=== PATIENT | male | born 1950 | race American Indian/Alaskan Native ===

== ENCOUNTER 2018-12-18 12:00 | Inpatient (IN) | payer BC, MEDICARE ==
--- NOTE | 2018-12-18 12:15 | C.PDOC ---
History Of Present Illness 68 y/o male with a PMHx of peripheral vascular disease, COPD, DVTs, s/p IVC filter, presents to the ED complaining of abdominal pain for 2 days. He also reports his toes are numb and painful. Patient was [place] [facility] [place] ago for a n eye infection, but did not start the medication. He also reports was told he has a broken IVC filter, and that if he ever has abdominal pain to come to the hospital. Time Seen by Provider: 12/18/18 12:12 Chief Complaint (Nursing): Lower Extremity Problem/Injury History Per: Patient History/Exam Limitations: no limitations Onset/Duration Of Symptoms: Hrs Current Symptoms Are (Timing): Still Present Past Medical History Reviewed: Historical Data, Nursing Documentation, Vital Signs - Medical History PMH: Deep Vein Thrombosis, HTN Other Surgeries: Right IVC filter Family History: States: Unknown Family Hx - Social History Hx Tobacco Use: Yes Hx Alcohol Use: No Hx Substance Use: No Review Of Systems Constitutional: Negative for: Fever, Chills Eyes: Positive for: Other (Eye discharge) Cardiovascular: Negative for: Chest Pain Respiratory: Negative for: Shortness of Breath Gastrointestinal: Positive for: Abdominal Pain. Negative for: Nausea, Vomiting Musculoskeletal: Positive for: Other (Dysfunctional IVC filter) Skin: Negative for: Rash, Lesions Neurological: Negative for: Headache, Dizziness Physical Exam - Physical Exam Appears: Non-toxic, No Acute Distress, Other (Thin male) Skin: Warm, No Rash Head: Atraumatic, Normacephalic Eye(s): bilateral: PERRL, EOMI, right: Other (Pus draining from right eye) Oral Mucosa: Moist Neck: Normal ROM, Supple Cardiovascular: Rhythm Regular, No Murmur Respiratory: Decreased Breath Sounds (bilaterally), No Accessory Muscle Use Gastrointestinal/Abdominal: Bowel Sounds (normoactive), Soft, Tenderness (minimal non-focal tenderness), No Guarding Extremity: Normal ROM, No Calf Tenderness, Other (Chronic skin changes and darkened skin bilaterally, with 3 x 1 cm shallow laceration to the left lateral lower leg; Bilateral toes are cool to touch, + palpable left TP pulse and weak right DP pulse) Pulses: Left Dorsalis Pedis: Normal, Right Dorsalis Pedis: Normal Neurological/Psych: Oriented x3, Normal Speech, Normal Cognition ED Course And Treatment - Laboratory Results Result Diagrams: 12/18/18 13:23 12/18/18 13:23 O2 Sat by Pulse Oximetry: 97 (RA) Pulse Ox Interpretation: Normal - CT Scan/US CT Abdomen/Pelvis Other Rad Studies (CT/US): Read By Radiologist, Radiology Report Reviewed CT/US Interpretation: IMPRESSION: 1. No acute abdominal or pelvic abnormality. 2. An infrarenal IVC filter remains in place. The metallic struts are outside the confines of the IVC and 1 left lateral appears to breech the right lateral wall of the aorta. Vascular surgery consultation is recommended. IVC filter should not be removed without a vascular surgery consultation. 3. Fusiform supra and infrarenal abdominal aortic aneurysm measuring 4.4 cm in maximum diameter. 4. 3 mm nonobstructing stone in the upper pole of the right kidney and 5 mm nonobstructing stone in the lower pole of the left kidney. No hydronep hrosis. 5. Mild circumferential mural thickening of the urinary bladder wall which may represent cystitis in the appropriate clinical setting. Clinical follow-up is advised. 6. Moderate enlargement of the prostate gland. Please correlate with PSA levels. Medical Decision Making Medical Decision Making: Plan: Blood work and urine sent to the lab along with wound culture. Ordered vascular study of the bilateral lower extremities. Spoke with radiology, recommends noncontrast CT Abdomen/Pelvis to assess for ? broken IVC 1450 CT scan results reviewed. surgical forceps fabricator notified for consult. [address] Brambila and surgical forceps fabricator; want abdominal ileofemoral run off. ct results pending. pt to be admitted to medicine with surg f/u/ pt agrees to admission. [address] Chadwick (hospitalist service covering Dr Bradford's patient's); will admit to overnight hospitalist. Disposition Doctor Will See Patient In The: Hospital - Disposition Disposition: HOSPITALIZED Disposition Time: 18:51 Condition: FAIR Forms: [employer] (Gibraltarian) - Clinical Impression Clinical Impression: Abdominal pain, Peripheral vascular disease - PA / [employer] / Resident Statement MD/DO has reviewed & agrees with the documentation as recorded. - Scribe Statement The provider has reviewed the documentation as recorded by the Draganibтатьяна Alfonso All medical record entries made by the Scribe were at my direction and personally dictated by me. I have reviewed the chart and agree that the record accurately reflects my personal performance of the history, physical exam, medical decision making, and the department course for this patient. I have also personally directed, reviewed, and agree with the discharge instructions and disposition.
[2018-12-18] MEDS ORDERED: Iohexol 240 (50 ml) PO STA (13:04)
[2018-12-18 13:30] LABS: BASO # 0.1 K/uL (0.0-0.2); EOS # 0.1 K/uL (0.0-0.7); EOS % 0.9 % (0.0-4.0); LYMPH # 1.7 K/uL (1.0-4.3); LYMPH % 23.6 % (20.0-40.0); MEAN CELL VOLUME 87.6 fL (80.0-94.0); MEAN CORPUSCULAR HEMOGLOBIN 27.7 pg (27.0-31.0); MEAN CORPUSCULAR HGB CONC 31.7 g/dL (33.0-37.0); MEAN PLATELET VOLUME 8.4 fL (7.2-11.7); MONO # 0.9 K/uL (0.0-0.8); MONO % 12.3 % (0.0-10.0); NEUT # 4.5 K/uL (1.8-7.0); NEUT % 62.2 % (50.0-75.0); NRBC % 0.2 % (0.0-2.0); RBC 5.77 Mil/uL (4.40-5.90); RED CELL DISTRIBUTION WIDTH 15.3 % (11.5-14.5); WHITE BLOOD COUNT 7.2 K/uL (4.8-10.8)
[2018-12-18 13:41] LABS: INR 1.2; PROTHROMBIN TIME 13.6 SECONDS (9.7-12.2)
[2018-12-18 13:44] LABS: ALB/GLOB RATIO 1.1 (1.0-2.1); ALBUMIN 4.6 g/dL (3.5-5.0); ALT/SGPT 7 U/L (21-72); AST/SGOT 27 U/L (17-59); BLOOD UREA NITROGEN 14 mg/dL (9-20); CALCIUM 9.9 mg/dl (8.6-10.4); GFR NON-AFRICAN AMERICAN > 60; LIPASE 74 U/L (23-300)
[2018-12-18] MEDS ORDERED: Potassium Chloride 20 mEq ER Tab PO STA (13:45)
[2018-12-18] MEDS ORDERED: Potassium Chloride 20 mEq ER Tab PO ONE (14:00)
--- NOTE | 2018-12-18 14:17 | CT ---
Date of service: 12/18/2018 PROCEDURE: CT Abdomen and Pelvis without intravenous contrast HISTORY: Diffuse abdominal pain, hx ?broken ivc filter COMPARISON: None. TECHNIQUE: CT scan of the abdomen and pelvis was performed without administration of intravenous contrast. Oral contrast was not administered. Coronal and sagittal reformatted images were obtained. Radiation dose: Total exam DLP = 343.02 mGy-cm. This CT exam was performed using one or more of the following dose reduction techniques: Automated exposure control, adjustment of the mA and/or kV according to patient size, and/or use of iterative reconstruction technique. FINDINGS: LOWER THORAX: The visualized lungs are clear. LIVER: Normal in size. No gross lesion or ductal dilatation. GALLBLADDER AND BILE DUCTS: Well distended. No calcified gallstones. No common bile duct dilatation. PANCREAS: Normal in size. No gross lesion or ductal dilatation. SPLEEN: Normal in size. ADRENALS: Normal in size. No discrete nodule KIDNEYS AND URETERS: Both kidneys are normal in size. There is a 3 mm nonobstructing stone in the upper pole of the right kidney. There is a 5 mm nonobstructing stone in the lower pole of the left kidney. VASCULATURE: There is a fusiform supra and infrarenal aortic aneurysm measuring is 4.4 cm in transverse diameter. There are aortic atherosclerotic calcifications present. An infrarenal IVC filter remains in place. The metallic struts are outside the confines of the IVC and one left lateral appears to breech the right lateral wall of the aorta. BOWEL: Evaluation of the bowel is limited in the absence of oral contrast. The small bowel loops are normal in caliber. The colon is normal in size. No bowel dilatation or wall thickening. No bowel obstruction. APPENDIX: Normal appendix. PERITONEUM: No free fluid. No free air. LYMPH NODES: No enlarged lymph nodes. BLADDER: There is mild circumferential mural thickening of the urinary bladder wall. The urinary bladder is well distended. REPRODUCTIVE: There is moderate enlargement of the prostate gland. BONES: No acute fracture. Within normal limits for the patient's age. Status post left hip arthroplasty. OTHER FINDINGS: None. IMPRESSION: 1. No acute abdominal or pelvic abnormality. 2. An infrarenal IVC filter remains in place. The metallic struts are outside the confines of the IVC and 1 left lateral appears to breech the right lateral wall of the aorta. Vascular surgery consultation is recommended. IVC filter should not be removed without a vascular surgery consultation. 3. Fusiform supra and infrarenal abdominal aortic aneurysm measuring 4.4 cm in maximum diameter. 4. 3 mm nonobstructing stone in the upper pole of the right kidney and 5 mm nonobstructing stone in the lower pole of the left kidney. No hydronephrosis. 5. Mild circumferential mural thickening of the urinary bladder wall which may represent cystitis in the appropriate clinical setting. Clinical follow-up is advised. 6. Moderate enlargement of the prostate gland. Please correlate with PSA levels.
--- NOTE | 2018-12-18 15:34 | CP.PCM.CON ---
History of Present Illness - History of Present Illness History of Present Illness: Vascular Surgery Dr. Brambila 68 y/o M w/ PMHx HTN, PVD, COPD, DVT s/p IVC filter (2003 @[facility]) presents to the ED c/o abd pain and LE pain L>R. Abd pain started 2days [employer]. Pt was recently seen and discharged form [facility] for right eye infection and was informed at that time of his broken IVC filter. Upon discharge pt was instructed to go to the ED if abd pain developed, thus prompting pt's visit today. Pt also admits to concurrent, chronic B/L LE pain and numbness w/ LLE worse than RLE. Pt denies F/C, CP, SOB, N/V, D/C, dysuria, decreased LE ROM. PMHx: see above Meds: reviewed in chart Allergies: heparin - rash PSHx: L THR, IVC Filter SHx: (+)tobacco, marijuana; denies EtOH use FHx: noncontributory Review of Systems - Review of Systems All systems: reviewed and no additional remarkable complaints except (see HPI) Past Patient History - Past Social History Smoking Status: Light Smoker < 10 Cigarettes Daily - CARDIAC Hx Hypertension: Yes - PSYCHIATRIC Hx Substance Use: No - SURGICAL HISTORY Hx Orthopedic Surgery: Yes (hip) Other/Comment: right IVC filter - ANESTHESIA Hx Anesthesia: Yes Meds Allergies/Adverse Reactions: Allergies Allergy/AdvReac Type Severity Reaction Status Date / Time heparin Allergy Verified 12/18/18 12:18 Physical Exam - Constitutional Appears: Non-toxic, No Acute Distress - Head Exam Head Exam: NORMAL INSPECTION - Eye Exam Eye Exam: Conjunctival injection (R eye; purulent drainage) - ENT Exam ENT Exam: Mucous Membranes Moist - Respiratory Exam Respiratory Exam: NORMAL BREATHING PATTERN. absent: Accessory Muscle Use, Respiratory Distress - Cardiovascular Exam Cardiovascular Exam: REGULAR RHYTHM. absent: Bradycardia, Tachycardia - GI/Abdominal Exam GI & Abdominal Exam: Soft, Tenderness (mild TTP néstor-umbilical). absent: Di stended, Firm, Guarding, Hernia, Rebound, Rigid - Extremities Exam Additional comments: faintly palpable R femoral artery bounding L femoral artery no palpable popliteal, DP/PT B/L. B/L LE w/ venous stasis skin changes. - Neurological Exam Neurological exam: Alert, Oriented x3 - Psychiatric Exam Psychiatric exam: Normal Affect, Normal Mood - Skin Skin Exam: Dry, Intact, Normal Color, Warm Results - Vital Signs Recent Vital Signs: Last Vital Signs Temp 97.6 F 12/18/18 12:09 Pulse 81 12/18/18 12:09 Resp 20 12/18/18 12:09 BP 146/89 12/18/18 12:09 Pulse Ox 97 12/18/18 15:00 - Labs Result Diagrams: 12/18/18 13:23 12/18/18 13:23 Labs: Laboratory Results - last 24 hr 12/18/18 12/18/18 12/18/18 13:23 13:23 13:23 WBC 7.2 RBC 5.77 Hgb 16.0 Hct 50.5 MCV 87.6 MCH 27.7 MCHC 31.7 L RDW 15.3 H Plt Count 245 MPV 8.4 Neut % (Auto) 62.2 Lymph % (Auto) 23.6 Barber % (Auto) 12.3 H Eos % (Auto) 0.9 Baso % (Auto) 1.0 Neut # (Auto) 4.5 Lymph # (Auto) 1.7 Barber # (Auto) 0.9 H Eos # (Auto) 0.1 Baso # (Auto) 0.1 PT 13.6 H INR 1.2 APTT 30 Sodium 132 Potassium 3.2 L Chloride 97 L Carbon Dioxide 23 Anion Gap 16 BUN 14 Creatinine 0.7 L Est GFR ( Amer) > 60 Est GFR (Non-Af Amer) > 60 Random Glucose 90 Calcium 9.9 Total Bilirubin 1.0 AST 27 ALT 7 L Alkaline Phosphatase 138 H Total Protein 8.9 H Albumin 4.6 Globulin 4.3 H Albumin/Globulin Ratio 1.1 Lipase 74 - Imaging and Cardiology CT scan - abdomen Status: Image reviewed by me, Report reviewed by me CTA Abd ileofem Status: Pending LUCIO/PVR Status: Image reviewed by me Assessment & Plan - Assessment and Plan (Free Text) Assessment: 68 y/o M w/ PVD, juxtarenal AAA, and displaced IVC Filter; also noted to have purulent conjunctivitis Plan: - f/u CTA iliofemoral run-off for better look at IVC filter and AAA - pain management - serial abd exams - monitor vitals - eye drops as prescribed by [facility] - possible angio pending CTA results Pt seen and discussed w/ Dr. Kosta Gerard DO PGY3
[2018-12-18 15:53] LABS: SQUAMOUS EPITHIAL < 1 /hpf (0-5); URINE BILIRUBIN NEGATIVE (NEGATIVE); URINE BLOOD NEGATIVE (NEGATIVE); URINE CLARITY Hazy (Clear); URINE COLOR Amber (YELLOW); URINE GLUCOSE (UA) NORMAL (Normal); URINE HYALINE CAST 0-2 /lpf (0-2); URINE LEUKOCYTE ESTERASE NEG Leu/uL (Negative); URINE PROTEIN 2+ mg/dL (NEGATIVE)
[2018-12-18 16:08] LABS: BARBITURATES, UR NEGATIVE (NEGATIVE); BENZODIAZEPINES, UR NEGATIVE (NEGATIVE); OPIATES, UR NEGATIVE (NEGATIVE); PHENCYCLIDINE, UR NEGATIVE (NEGATIVE)
[2018-12-18] MEDS ORDERED: Iodixanol 320 mg/ml 150 ml Bottle IV ONE (16:11)
--- NOTE | 2018-12-18 19:48 | CP.PCM.HP ---
<Dom Covarrubias - Last Filed: 12/19/18 00:03> History of Present Illness - History of Present Illness History of Present Illness: cc: my leg hurts my tummy hurts my ivc filter hurts help me 68M PMHx of COPD, HTN, Hypercoag, presents with a 3 day history of worsening posterior calf numbness and pain localized to the right side. Pt reports the r leg felt paralyzed on weds and the pain is worse when dorsiflexing the foot. Pt also reports throbbing worsening abdominal pain that started at the same time. He also has eye discharge for 3 days, he got cipro drops from [facility] [place] but never laureen led it. Pt complains of chronic SOB for 1 month or so on and off for the past few years, attiributes it to his COPD. Pt denies fevers chills, chest pain PMHx: see above Meds: reviewed in chart Allergies: heparin - rash PSHx: L THR, IVC Filter SHx: (+)tobacco, marijuana; denies EtOH use FHx: Mom and Dad [place], sister [place] Present on Admission - Present on Admission Any Indicators Present on Admission: No Past Patient History - Past Social History Smoking Status: Light Smoker < 10 Cigarettes Daily - CARDIAC Hx Hypertension: Yes - PSYCHIATRIC Hx Substance Use: No - SURGICAL HISTORY Hx Orthopedic Surgery: Yes (hip) Other/Comment: right IVC filter - ANESTHESIA Hx Anesthesia: Yes Meds Allergies/Adverse Reactions: Allergies Allergy/AdvReac Type Severity Reaction Status Date / Time heparin Allergy Verified 12/18/18 12:18 Physical Exam - Additional Findings Additional findings: - Constitutional Appears: Non-toxic, No Acute Distress - Head Exam Head Exam: NORMAL INSPECTION - Eye Exam Eye Exam: Conjunctival injection (R eye; purulent drainage) - ENT Exam ENT Exam: Mucous Membranes Moist - Respiratory Exam Respiratory Exam: NORMAL BREATHING PATTERN. absent: Accessory Muscle Use, Respiratory Distress - Cardiovascular Exam Cardiovascular Exam: REGULAR RHYTHM. absent: Bradycardia, Tachycardia - GI/Abdominal Exam GI & Abdominal Exam: Soft, Tenderness (mild TTP néstor-umbilical). absent: Di stended, Firm, Guarding, Hernia, Rebound, Rigid - Extremities Exam Additional comments: faintly palpable R femoral artery bounding L femoral artery no palpable popliteal, DP/PT B/L. B/L LE w/ venous stasis skin changes. - Neurological Exam Neurological exam: Alert, Oriented x3 - Psychiatric Exam Psychiatric exam: Normal Affect, Normal Mood - Skin Skin Exam: Dry, Intact, Normal Color, Warm Results - Vital Signs Recent Vital Signs: Last Vital Signs Temp 98.1 F 12/18/18 18:47 Pulse 68 12/18/18 18:47 Resp 18 12/18/18 18:47 BP 122/81 12/18/18 18:47 Pulse Ox 97 12/18/18 18:51 - Labs Result Diagrams: 12/18/18 13:23 12/18/18 13:23 Labs: Laboratory Results - last 24 hr 12/18/18 12/18/18 12/18/18 13:23 13:23 13:23 WBC 7.2 RBC 5.77 Hgb 16.0 Hct 50.5 MCV 87.6 MCH 27.7 MCHC 31.7 L RDW 15.3 H Plt Count 245 MPV 8.4 Neut % (Auto) 62.2 Lymph % (Auto) 23.6 Archer % (Auto) 12.3 H Eos % (Auto) 0.9 Baso % (Auto) 1.0 Neut # (Auto) 4.5 Lymph # (Auto) 1.7 Archer # (Auto) 0.9 H Eos # (Auto) 0.1 Baso # (Auto) 0.1 PT 13.6 H INR 1.2 APTT 30 Sodium 132 Potassium 3.2 L Chloride 97 L Carbon Dioxide 23 Anion Gap 16 BUN 14 Creatinine 0.7 L Est GFR ( Amer) > 60 Est GFR (Non-Af Amer) > 60 Random Glucose 90 Calcium 9.9 Total Bilirubin 1.0 AST 27 ALT 7 L Alkaline Phosphatase 138 H Total Protein 8.9 H Albumin 4.6 Globulin 4.3 H Albumin/Globulin Ratio 1.1 Lipase 74 Urine Color Urine Clarity Urine pH Ur Specific [place] Urine Protein Urine Glucose (UA) Urine Ketones Urine Blood Urine Nitrate Urine Bilirubin Urine Urobilinogen Ur Leukocyte Esterase Urine WBC (Auto) Urine RBC (Auto) Ur Squamous Epith Cells Hyaline Casts Urine Opiates Screen Urine Methadone Screen Ur Barbiturates Screen Ur Phencyclidine Scrn Ur Amphetamines Screen U Benzodiazepines Scrn U Oth Cocaine Metabols U Cannabinoids Screen 12/18/18 12/18/18 15:37 15:37 WBC RBC Hgb Hct MCV MCH MCHC RDW Plt Count MPV Neut % (Auto) Lymph % (Auto) Archer % (Auto) Eos % (Auto) Baso % (Auto) Neut # (Auto) Lymph # (Auto) Archer # (Auto) Eos # (Auto) Baso # (Auto) PT INR APTT Sodium Potassium Chloride Carbon Dioxide Anion Gap BUN Creatinine Est GFR ( Amer) Est GFR (Non-Af Amer) Random Glucose Calcium Total Bilirubin AST ALT Alkaline Phosphatase Total Protein Albumin Globulin Albumin/Globulin Ratio Lipase Urine Color Svetlana Urine Clarity Hazy Urine pH 6.0 Ur Specific [place] 1.021 Urine Protein 2+ H Urine Glucose (UA) Normal Urine Ketones Negative Urine Blood Negative Urine Nitrate Negative Urine Bilirubin Negative Urine Urobilinogen 4.0 Ur Leukocyte Esterase Neg Urine WBC (Auto) 1 Urine RBC (Auto) 3 Ur Squamous Epith Cells < 1 Hyaline Casts 0-2 Urine Opiates Screen Negative Urine Methadone Screen Negative Ur Barbiturates Screen Negative Ur Phencyclidine Scrn Negative Ur Amphetamines Screen Negative U Benzodiazepines Scrn Negative U Oth Cocaine Metabols Negative U Cannabinoids Screen Positive H Assessment & Plan - Assessment and Plan (Free Text) Assessment: 68M admitted for possible IVC dislocation Plan: IVC Dysfuction Kosta VascS consulted: f/u recs Eliquis 5mg daily ASA 81 Conjunctivitis Cipro OU drops HTN maintain MAP 65 PPx: HHD ASA 81 Eliquis 5mg qd <Devon Roque - Last Filed: 12/19/18 06:34> Results - Vital Signs Recent Vital Signs: Last Vital Signs Temp 97.1 F L 12/19/18 00:00 Pulse 70 12/19/18 00:00 Resp 20 12/19/18 00:00 BP 138/85 12/19/18 00:00 Pulse Ox 97 12/19/18 00:00 - Labs Result Diagrams: 12/18/18 13:23 12/18/18 13:23 Labs: Laboratory Results - last 24 hr 12/18/18 12/18/18 12/18/18 13:23 13:23 13:23 WBC 7.2 RBC 5.77 Hgb 16.0 Hct 50.5 MCV 87.6 MCH 27.7 MCHC 31.7 L RDW 15.3 H Plt Count 245 MPV 8.4 Neut % (Auto) 62.2 Lymph % (Auto) 23.6 Archer % (Auto) 12.3 H Eos % (Auto) 0.9 Baso % (Auto) 1.0 Neut # (Auto) 4.5 Lymph # (Auto) 1.7 Archer # (Auto) 0.9 H Eos # (Auto) 0.1 Baso # (Auto) 0.1 PT 13.6 H INR 1.2 APTT 30 Sodium 132 Potassium 3.2 L Chloride 97 L Carbon Dioxide 23 Anion Gap 16 BUN 14 Creatinine 0.7 L Est GFR ( Amer) > 60 Est GFR (Non-Af Amer) > 60 Random Glucose 90 Calcium 9.9 Total Bilirubin 1.0 AST 27 ALT 7 L Alkaline Phosphatase 138 H Total Protein 8.9 H Albumin 4.6 Globulin 4.3 H Albumin/Globulin Ratio 1.1 Lipase 74 Urine Color Urine Clarity Urine pH Ur Specific [place] Urine Protein Urine Glucose (UA) Urine Ketones Urine Blood Urine Nitrate Urine Bilirubin Urine Urobilinogen Ur Leukocyte Esterase Urine WBC (Auto) Urine RBC (Auto) Ur Squamous Epith Cells Hyaline Casts Urine Opiates Screen Urine Methadone Screen Ur Barbiturates Screen Ur Phencyclidine Scrn Ur Amphetamines Screen U Benzodiazepines Scrn U Oth Cocaine Metabols U Cannabinoids Screen 12/18/18 12/18/18 15:37 15:37 WBC RBC Hgb Hct MCV MCH MCHC RDW Plt Count MPV Neut % (Auto) Lymph % (Auto) Archer % (Auto) Eos % (Auto) Baso % (Auto) Neut # (Auto) Lymph # (Auto) Archer # (Auto) Eos # (Auto) Baso # (Auto) PT INR APTT Sodium Potassium Chloride Carbon Dioxide Anion Gap BUN Creatinine Est GFR ( Amer) Est GFR (Non-Af Amer) Random Glucose Calcium Total Bilirubin AST ALT Alkaline Phosphatase Total Protein Albumin Globulin Albumin/Globulin Ratio Lipase Urine Color Svetlana Urine Clarity Hazy Urine pH 6.0 Ur Specific [place] 1.021 Urine Protein 2+ H Urine Glucose (UA) Normal Urine Ketones Negative Urine Blood Negative Urine Nitrate Negative Urine Bilirubin Negative Urine Urobilinogen 4.0 Ur Leukocyte Esterase Neg Urine WBC (Auto) 1 Urine RBC (Auto) 3 Ur Squamous Epith Cells < 1 Hyaline Casts 0-2 Urine Opiates Screen Negative Urine Methadone Screen Negative Ur Barbiturates Screen Negative Ur Phencyclidine Scrn Negative Ur Amphetamines Screen Negative U Benzodiazepines Scrn Negative U Oth Cocaine Metabols Negative U Cannabinoids Screen Positive H Assessment & Plan - Date & Time Date: 12/19/18 (I have seen and examined the patient. I agree with the findings and plan of care as documented by Dr. Covarrubias. Patient with History of IVC filter placement. Now with filter dysfunction. Consult to vascular surgery. Continue Elliquis. Also with bilateral conjunctivitis. Cipro eye drops. Monitor for acute changes.) Time: 06:33 Attending/Attestation - Attestation I have personally seen and examined this patient.: Yes I have fully participated in the care of the patient.: Yes I have reviewed all pertinent clinical information: Yes
[2018-12-18] MEDS: Ciprofloxacin 0.3% OPTH SOLN OU SCH (22:05)
[2018-12-18] MEDS: Sodium Chloride 0.9% 1,000 ML IV SCH (22:07)
[2018-12-19 06:31] LABS: BASO # 0.1 K/uL (0.0-0.2); BASO % 1.2 % (0.0-2.0); EOS # 0.2 K/uL (0.0-0.7); EOS % 3.5 % (0.0-4.0); HEMOGLOBIN 15.1 g/dL (12.0-18.0); LYMPH # 1.5 K/uL (1.0-4.3); MEAN CELL VOLUME 87.5 fL (80.0-94.0); MEAN CORPUSCULAR HEMOGLOBIN 28.5 pg (27.0-31.0); MEAN CORPUSCULAR HGB CONC 32.6 g/dL (33.0-37.0); MEAN PLATELET VOLUME 8.3 fL (7.2-11.7); MONO # 0.7 K/uL (0.0-0.8); MONO % 14.5 % (0.0-10.0); NEUT # 2.4 K/uL (1.8-7.0); NEUT % 49.8 % (50.0-75.0); NRBC % 0.1 % (0.0-2.0); RBC 5.29 Mil/uL (4.40-5.90); RED CELL DISTRIBUTION WIDTH 15.3 % (11.5-14.5); WHITE BLOOD COUNT 4.7 K/uL (4.8-10.8)
[2018-12-19 06:46] LABS: ALB/GLOB RATIO 1.1 (1.0-2.1); ALBUMIN 3.9 g/dL (3.5-5.0); ALT/SGPT 15 U/L (21-72); AST/SGOT 21 U/L (17-59); BLOOD UREA NITROGEN 14 mg/dL (9-20); CALCIUM 9.2 mg/dl (8.6-10.4); GFR NON-AFRICAN AMERICAN > 60
[2018-12-19] MEDS: Sodium Chloride 0.9% 1,000 ML IV SCH ×2 (06:48→17:54)
[2018-12-19 07:09] LABS: INR 1.2; PROTHROMBIN TIME 13.6 SECONDS (9.7-12.2)
--- NOTE | 2018-12-19 07:27 | CP.PCM.PN ---
Subjective - Date & Time of Evaluation Date of Evaluation: 12/19/18 Time of Evaluation: 07:25 - Subjective Subjective: Vascular Surgery Dr. Brambila Pt S&E @bedside. no acute events overnight. pt sleeping comfortably on rounds. pt has no complaints this AM. tolerating diet. Objective - Vital Signs/Intake and Output Vital Signs (last 24 hours): Temp Pulse Resp BP Pulse Ox 97.1 F L 70 20 138/85 97 12/19/18 00:00 12/19/18 00:00 12/19/18 00:00 12/19/18 00:00 12/19/18 00:00 - Medications Medications: Current Medications Albuterol/Ipratropium (Duoneb 3 Mg/0.5 Mg (3 Ml) Ud) 3 ml INH RQ6 BRIANNA Apixaban (Eliquis) 5 mg PO DAILY BRIANNA Ciprofloxacin (Ciloxan 0.3% Ophth Soln) 1 drop OU BID [facility] Last Admin: 12/18/18 22:05 Dose: 1 drop Sodium Chloride (Sodium Chloride 0.9%) 1,000 mls @ 100 mls/hr IV .Q10H [facility] Last Admin: 12/19/18 06:48 Dose: 100 mls/hr Pneumococcal Polyvalent Vaccine (Pneumovax 23 Vaccine) 0.5 ml IM .ONCE ONE Stop: 12/21/18 10:01 Tramadol HCl (Ultram) 50 mg PO ONCE PRN PRN Reason: Pain, moderate (4-7) - Labs Labs: 12/19/18 06:20 12/19/18 06:20 PT 13.6 SECONDS (9.7-12.2) H 12/19/18 06:20 INR 1.2 12/19/18 06:20 APTT 29 SECONDS (21-34) 12/19/18 06:20 - Constitutional Appears: Non-toxic, No Acute Distress - Head Exam Head Exam: NORMAL INSPECTION - Eye Exam Eye Exam: Normal appearance - ENT Exam ENT Exam: Mucous Membranes Moist - Respiratory Exam Respiratory Exam: NORMAL BREATHING PATTERN. absent: Accessory Muscle Use, Respiratory Distress - Cardiovascular Exam Cardiovascular Exam: REGULAR RHYTHM. absent: Bradycardia, Tachycardia - GI/Abdominal Exam GI & Abdominal Exam: Soft. absent: Distended - Extremities Exam Additional comments: venous stasis ulcer w/ surrounding skin changes non-palpable DP/PT, Popliteal B/L bounding L femoral pulse weak R femoral pulse - Psychiatric Exam Psychiatric exam: Normal Affect, Normal Mood - Skin Skin Exam: Dry, Intact, Warm Assessment and Plan - Assessment and Plan (Free Text) Assessment: 68 y/o M w/ PVD, juxtarenal AAA, and displaced IVC Filter Plan: - f/u CTA iliofemoral run-off - cont pain management - monitor vitals - pulse checks Qshift - possible angio pending CTA results Will discuss w/ Dr. Kosta Gerard DO PGY3
[2018-12-19] MEDS: Ciprofloxacin 0.3% OPTH SOLN OU SCH ×2 (09:03→17:56)
--- NOTE | 2018-12-19 10:45 | CP.PCM.PN ---
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 all can be treated with aortic stent graft and left to right fem fem bypass would need cardiac evaluation prior to any intervention dw patient Objective - Vital Signs/Intake and Output Vital Signs (last 24 hours): Temp Pulse Resp BP Pulse Ox 97.7 F 61 20 147/85 96 12/19/18 07:37 12/19/18 07:37 12/19/18 07:37 12/19/18 07:37 12/19/18 07:37 - Medications Medications: Current Medications Albuterol/Ipratropium (Duoneb 3 Mg/0.5 Mg (3 Ml) Ud) 3 ml INH RQ6 BRIANNA Apixaban (Eliquis) 5 mg PO DAILY [facility] Ciprofloxacin (Ciloxan 0.3% Oph Soln) 1 drop OU BID [facility] Last Admin: 12/19/18 09:03 Dose: 1 drop Sodium Chloride (Sodium Chloride 0.9%) 1,000 mls @ 100 mls/hr IV .Q10H [facility] Last Admin: 12/19/18 06:48 Dose: 100 mls/hr Pneumococcal Polyvalent Vaccine (Pneumovax 23 Vaccine) 0.5 ml IM .ONCE ONE Stop: 12/21/18 10:01 Tramadol HCl (Ultram) 50 mg PO ONCE PRN PRN Reason: Pain, moderate (4-7) - Labs Labs: 12/19/18 06:20 12/19/18 06:20 PT 13.6 SECONDS (9.7-12.2) H 12/19/18 06:20 INR 1.2 12/19/18 06:20 APTT 29 SECONDS (21-34) 12/19/18 06:20
--- NOTE | 2018-12-19 17:16 | CP.PCM.PN ---
<Bandar Claros - Last Filed: 12/19/18 17:17> Subjective - Date & Time of Evaluation Date of Evaluation: 12/19/18 Time of Evaluation: 17:15 - Subjective Subjective: Progress note. Attending: Dr. Odom Pt seen and examined at bedside. NO acute distress. No fevers, chills, vomiting, diarrhea. No complaints at this time, but does want his eye drops. Objective - Vital Signs/Intake and Output Vital Signs (last 24 hours): Temp Pulse Resp BP Pulse Ox 98.1 F 68 20 155/83 H 100 12/19/18 16:00 12/19/18 16:00 12/19/18 16:00 12/19/18 16:00 12/19/18 16:00 Intake and Output: 12/19/18 12/19/18 06:59 18:59 Intake Total 1100 Balance 1100 - Medications Medications: Current Medications Albuterol/Ipratropium (Duoneb 3 Mg/0.5 Mg (3 Ml) Ud) 3 ml INH RQ6 [facility] Apixaban (Eliquis) 5 mg PO DAILY [facility] Ciprofloxacin (Ciloxan 0.3% Oph Soln) 1 drop OU BID [facility] Last Admin: 12/19/18 09:03 Dose: 1 drop Sodium Chloride (Sodium Chloride 0.9%) 1,000 mls @ 100 mls/hr IV .Q10H [facility] Last Admin: 12/19/18 06:48 Dose: 100 mls/hr Influenza Virus Vaccine (Flucelvax Quad 1647-4755 Syr) 60 mcg IM .ONCE ONE Stop: 12/20/18 10:01 Pneumococcal Polyvalent Vaccine (Pneumovax 23 Vaccine) 0.5 ml IM .ONCE ONE Stop: 12/20/18 10:01 Tramadol HCl (Ultram) 50 mg PO ONCE PRN PRN Reason: Pain, moderate (4-7) - Labs Labs: 12/19/18 06:20 12/19/18 06:20 PT 13.6 SECONDS (9.7-12.2) H 12/19/18 06:20 INR 1.2 12/19/18 06:20 APTT 29 SECONDS (21-34) 12/19/18 06:20 - Constitutional Appears: Non-toxic, No Acute Distress - Head Exam Head Exam: ATRAUMATIC, NORMAL INSPECTION, NORMOCEPHALIC - Eye Exam Eye Exam: Conjunctival injection. absent: Normal appearance - ENT Exam ENT Exam: Mucous Membranes Moist - Neck Exam Neck Exam: Full ROM, Normal Inspection - Respiratory Exam Respiratory Exam: NORMAL BREATHING PATTERN. absent: Respiratory Distress - Cardiovascular Exam Cardiovascular Exam: +S1, +S2 - GI/Abdominal Exam GI & Abdominal Exam: Soft, Normal Bowel Sounds. absent: Tenderness - Extremities Exam Extremities Exam: Full ROM, Normal Inspection - Back Exam Back Exam: NORMAL INSPECTION - Neurological Exam Neurological Exam: Alert, Awake, Oriented x3 - Psychiatric Exam Psychiatric exam: Flat Affect - Skin Skin Exam: Dry, Intact, Normal Color, Warm Assessment and Plan - Assessment and Plan (Free Text) Assessment: This is a 68 yo male with past medical hx of DVT, HTN, PVD, conjunctivitis presenting with 1. IVC Dysfuction -vascular sx consult. Dr. Brambila. recs appreciated. -Eliquis 5mg daily -ASA 81 2. Conjunctivitis -Cipro OU drops BID -continue to monitor 3. HTN -continue to monitor 4. GI/DVT PPx: -HHD -ASA 81 -Eliquis 5 mg daily discussed with Dr. Odom <Rico Odom - Last Filed: 12/20/18 07:13> Objective - Vital Signs/Intake and Output Vital Signs (last 24 hours): Temp Pulse Resp BP Pulse Ox 97.8 F 64 20 151/90 H 100 12/20/18 00:00 12/20/18 00:00 12/20/18 00:00 12/20/18 00:00 12/20/18 00:30 Intake and Output: 12/20/18 12/20/18 06:59 18:59 Intake Total 1100 Output Total 750 Balance 350 - Medications Medications: Current Medications Albuterol/Ipratropium (Duoneb 3 Mg/0.5 Mg (3 Ml) Ud) 3 ml INH RQ6 [facility] Last Admin: 12/19/18 19:39 Dose: 3 ml Apixaban (Eliquis) 5 mg PO DAILY [facility] Last Admin: 12/19/18 21:48 Dose: 5 mg Artificial Tears (Artificial Tears) 0 ml OU Q3 [facility] Ciprofloxacin (Ciloxan 0.3% Ophth Soln) 1 drop OU BID [facility] Last Admin: 12/19/18 17:56 Dose: 1 drop Sodium Chloride (Sodium Chloride 0.9%) 1,000 mls @ 100 mls/hr IV .Q10H [facility] Last Admin: 12/19/18 17:54 Dose: 100 mls/hr Influenza Virus Vaccine (Flucelvax Quad 2506-3485 Syr) 60 mcg IM .ONCE ONE Stop: 12/20/18 10:01 Pneumococcal Polyvalent Vaccine (Pneumovax 23 Vaccine) 0.5 ml IM .ONCE ONE Stop: 12/20/18 10:01 Tramadol HCl (Ultram) 50 mg PO ONCE PRN PRN Reason: Pain, moderate (4-7) Last Admin: 12/20/18 02:17 Dose: 50 mg - Labs Labs: 12/19/18 06:20 12/19/18 06:20 PT 13.6 SECONDS (9.7-12.2) H 12/19/18 06:20 INR 1.2 12/19/18 06:20 APTT 29 SECONDS (21-34) 12/19/18 06:20 Attending/Attestation - Attestation I have personally seen and examined this patient.: Yes I have fully participated in the care of the patient.: Yes I have reviewed all pertinent clinical information, including history, physical exam and plan: Yes Notes (Text): 12/20/18 07:11 Medical attending: Patient was seen and examined by me. Agree with the above note by the resident, we saw the patient together He is currently not having any abdominal pain However he still reports the parathesia in the lower extremities. He has undergone a CTA for more information about the old IVC filter that he has. Continue with the cipro eye drops at this time Rico Odom
[2018-12-19] MEDS: Albuterol-Ipratrop 3 mg / 0.5 (3 ml) UD INH SCH (19:39)
[2018-12-20] MEDS: Sodium Chloride 0.9% 1,000 ML IV SCH ×3 (03:30→23:30)
--- NOTE | 2018-12-20 06:59 | CP.PCM.PN ---
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 w/ persistent discharge. Pt denies cp sob fc nv, understands current status and agrees with plan. Objective - Vital Signs/Intake and Output Vital Signs (last 24 hours): Temp Pulse Resp BP Pulse Ox 97.8 F 64 20 151/90 H 100 12/20/18 00:00 12/20/18 00:00 12/20/18 00:00 12/20/18 00:00 12/20/18 00:30 Intake and Output: 12/19/18 12/20/18 18:59 06:59 Intake Total 1100 1100 Output Total 750 Balance 1100 350 - Medications Medications: Current Medications Albuterol/Ipratropium (Duoneb 3 Mg/0.5 Mg (3 Ml) Ud) 3 ml INH RQ6 [facility] Last Admin: 12/19/18 19:39 Dose: 3 ml Apixaban (Eliquis) 5 mg PO DAILY [facility] Last Admin: 12/19/18 21:48 Dose: 5 mg Artificial Tears (Artificial Tears) 0 ml OU Q3 [facility] Ciprofloxacin (Ciloxan 0.3% [facility]) 1 drop OU BID [facility] Last Admin: 12/19/18 17:56 Dose: 1 drop Sodium Chloride (Sodium Chloride 0.9%) 1,000 mls @ 100 mls/hr IV .Q10H [facility] Last Admin: 12/19/18 17:54 Dose: 100 mls/hr Influenza Virus Vaccine (Flucelvax Quad 8466-5026 Syr) 60 mcg IM .ONCE ONE Stop: 12/20/18 10:01 Pneumococcal Polyvalent Vaccine (Pneumovax 23 Vaccine) 0.5 ml IM .ONCE ONE Stop: 12/20/18 10:01 Tramadol HCl (Ultram) 50 mg PO ONCE PRN PRN Reason: Pain, moderate (4-7) Last Admin: 12/20/18 02:17 Dose: 50 mg - Labs Labs: 12/19/18 06:20 12/19/18 06:20 PT 13.6 SECONDS (9.7-12.2) H 12/19/18 06:20 INR 1.2 12/19/18 06:20 APTT 29 SECONDS (21-34) 12/19/18 06:20 - Additional Findings Additional findings: - Additional Findings Additional findings: - Constitutional Appears: Non-toxic, No Acute Distress - Head Exam Head Exam: NORMAL INSPECTION - Eye Exam Eye Exam: Conjunctival injection (R eye; purulent drainage) - ENT Exam ENT Exam: Mucous Membranes Moist - Respiratory Exam Respiratory Exam: NORMAL BREATHING PATTERN. absent: Accessory Muscle Use, Respiratory Distress - Cardiovascular Exam Cardiovascular Exam: REGULAR RHYTHM. absent: Bradycardia, Tachycardia - GI/Abdominal Exam GI & Abdominal Exam: Soft, Tenderness (mild TTP néstor-umbilical). absent: Distended, Firm, Guarding, Hernia, Rebound, Rigid - Extremities Exam Additional comments: faintly palpable R femoral artery bounding L femoral artery no palpable popliteal, DP/PT B/L. B/L LE w/ venous stasis skin changes. 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 all can be treated with aortic stent graft and left to right fem fem bypass Eliquis 5mg daily ASA 81 consider Cardio consult for clearance Conjunctivitis Cipro OU drops Artificial Tears 6x a day Cold compress HTN monitor PPx: HHD ASA 81 Eliquis 5mg qd <OdomPeter H - Last Filed: 12/20/18 10:39> Objective - Vital Signs/Intake and Output Vital Signs (last 24 hours): Temp Pulse Resp BP Pulse Ox 98.0 F 67 20 180/94 H 96 12/20/18 07:44 12/20/18 07:44 12/20/18 07:44 12/20/18 07:44 12/20/18 07:44 Intake and Output: 12/20/18 12/20/18 06:59 18:59 Intake Total 1100 880 Output Total 750 Balance 350 880 - Medications Medications: Current Medications Albuterol/Ipratropium (Duoneb 3 Mg/0.5 Mg (3 Ml) Ud) 3 ml INH RQ6 [facility] Last Admin: 12/20/18 09:42 Dose: 3 ml Amlodipine Besylate (Norvasc) 5 mg PO DAILY [facility] Last Admin: 12/20/18 10:05 Dose: 5 mg Apixaban (Eliquis) 5 mg PO BID [facility] Last Admin: 12/20/18 09:22 Dose: 5 mg Artificial Tears (Artificial Tears) 0 ml OU Q3 [facility] Last Admin: 12/20/18 09:22 Dose: 1 drop Ciprofloxacin (Ciloxan 0.3% Oph Soln) 1 drop OU BID [facility] Last Admin: 12/20/18 09:22 Dose: 1 drop Sodium Chloride (Sodium Chloride 0.9%) 1,000 mls @ 100 mls/hr IV .Q10H [facility] Last Admin: 12/20/18 03:30 Dose: Not Given Tramadol HCl (Ultram) 50 mg PO ONCE PRN PRN Reason: Pain, moderate (4-7) Last Admin: 12/20/18 02:17 Dose: 50 mg - Labs Labs: 12/20/18 08:05 12/20/18 08:05 PT 13.6 SECONDS (9.7-12.2) H 12/19/18 06:20 INR 1.2 12/19/18 06:20 APTT 29 SECONDS (21-34) 12/19/18 06:20 Attending/Attestation - Attestation I have personally seen and examined this patient.: Yes I have fully participated in the care of the patient.: Yes I have reviewed all pertinent clinical information, including history, physical exam and plan: Yes Notes (Text): 12/20/18 10:34 Medical attending: Patient was seen and examined by me. Agree with the above note by the resident We need to get ophthomology evaluation, per discussion with the patient he thinks he may have had some sort of trauma to the eye secondary to contact lens. On exam he is having difficulty with vision and he has pain opening eyelid. The sclera is red. For the time being he is on cipro eye drops as well as warm compresses Also per vascular surgery will need to have cardiology evaluation. Per review of CT vascular surgery has noted there is a 4.4 anueresym, occulsive disease in the lower extremity, and also the IVC filter could be affecting the aorta as well. Rico Odom
[2018-12-20] MEDS: Aritificial Tears (15ml) OU SCH ×6 (07:59→21:39)
[2018-12-20 08:24] LABS: BASO % 1.1 % (0.0-2.0); EOS # 0.1 K/uL (0.0-0.7); HEMOGLOBIN 14.4 g/dL (12.0-18.0); LYMPH # 1.5 K/uL (1.0-4.3); LYMPH % 34.1 % (20.0-40.0); MEAN CELL VOLUME 88.4 fL (80.0-94.0); MEAN CORPUSCULAR HEMOGLOBIN 28.2 pg (27.0-31.0); MEAN CORPUSCULAR HGB CONC 31.9 g/dL (33.0-37.0); MEAN PLATELET VOLUME 8.4 fL (7.2-11.7); MONO # 0.6 K/uL (0.0-0.8); NEUT # 2.1 K/uL (1.8-7.0); NEUT % 48.8 % (50.0-75.0); NRBC % 0.1 % (0.0-2.0); RBC 5.1 Mil/uL (4.40-5.90); RED CELL DISTRIBUTION WIDTH 15.3 % (11.5-14.5); WHITE BLOOD COUNT 4.3 K/uL (4.8-10.8)
[2018-12-20 08:52] LABS: ALB/GLOB RATIO 1.1 (1.0-2.1); ALBUMIN 3.8 g/dL (3.5-5.0); ALT/SGPT 18 U/L (21-72); AST/SGOT 27 U/L (17-59); BLOOD UREA NITROGEN 10 mg/dL (9-20); CALCIUM 8.9 mg/dl (8.6-10.4); GFR NON-AFRICAN AMERICAN > 60
[2018-12-20] MEDS: Ciprofloxacin 0.3% OPTH SOLN OU SCH ×2 (09:22→17:51)
[2018-12-20] MEDS: Albuterol-Ipratrop 3 mg / 0.5 (3 ml) UD INH SCH ×3 (09:42→21:51)
[2018-12-20] MEDS ORDERED: Influenza Vaccine 60 mcg/0.5 mL SYR (4YR UP) IM ONE (10:00)
[2018-12-20] MEDS ORDERED: Pneumococcal 23-Valent Vaccine IM ONE (10:00)
--- NOTE | 2018-12-20 10:47 | CP.PCM.CON ---
History of Present Illness - History of Present Illness History of Present Illness: Consultation for evaluation of preop cardiac risk stratification prior to AAA stenting HPI: Review of Systems - Review of Systems Systems not reviewed;Unavailable: Acuity of Condition - Constitutional Constitutional: As Per HPI - EENT Eyes: As Per HPI Ears: As Per HPI Nose/Mouth/Throat: As Per HPI - Cardiovascular Cardiovascular: As Per HPI - Respiratory Respiratory: As Per HPI - Gastrointestinal Gastrointestinal: As Per HPI - Genitourinary Genitourinary: As Per HPI - Reproductive: Male Reproductive:Male: As Per HPI - Musculoskeletal Musculoskeletal: As Per HPI - Psychiatric Psychiatric: As Per HPI - Endocrine Endocrine: As Per HPI - Hematologic/Lymphatic Hematologic: As Per HPI Past Patient History - Past Medical History & Family History Past Medical History?: Yes - Past Social History Smoking Status: Light Smoker < 10 Cigarettes Daily - CARDIAC Hx Hypertension: Yes - MUSCULOSKELETAL/RHEUMATOLOGICAL Hx Falls: No - PSYCHIATRIC Hx Substance Use: Yes (marijuana) - SURGICAL HISTORY Hx Orthopedic Surgery: Yes (hip) Other/Comment: right IVC filter - ANESTHESIA Hx Anesthesia: Yes Meds Allergies/Adverse Reactions: Allergies Allergy/AdvReac Type Severity Reaction Status Date / Time heparin Allergy Verified 12/18/18 12:18 - Medications Medications: Current Medications Albuterol/Ipratropium (Duoneb 3 Mg/0.5 Mg (3 Ml) Ud) 3 ml INH RQ6 [facility] Last Admin: 12/20/18 09:42 Dose: 3 ml Amlodipine Besylate (Norvasc) 5 mg PO DAILY [facility] Last Admin: 12/20/18 10:05 Dose: 5 mg Apixaban (Eliquis) 5 mg PO BID [facility] Last Admin: 12/20/18 09:22 Dose: 5 mg Artificial Tears (Artificial Tears) 0 ml OU Q3 [facility] Last Admin: 12/20/18 09:22 Dose: 1 drop Ciprofloxacin (Ciloxan 0.3% Ophth Soln) 1 drop OU BID [facility] Last Admin: 12/20/18 09:22 Dose: 1 drop Sodium Chloride (Sodium Chloride 0.9%) 1,000 mls @ 100 mls/hr IV .Q10H [facility] Last Admin: 12/20/18 03:30 Dose: Not Given Tramadol HCl (Ultram) 50 mg PO ONCE PRN PRN Reason: Pain, moderate (4-7) Last Admin: 12/20/18 02:17 Dose: 50 mg Physical Exam - Constitutional Appears: Well - Head Exam Head Exam: ATRAUMATIC, NORMAL INSPECTION, NORMOCEPHALIC - Eye Exam Eye Exam: EOMI, Normal appearance, PERRL Pupil Exam: NORMAL ACCOMODATION, PERRL - ENT Exam ENT Exam: Mucous Membranes Moist, Normal Exam - Neck Exam Neck exam: Positive for: Normal Inspection - Respiratory Exam Respiratory Exam: Clear to Auscultation Bilateral, NORMAL BREATHING PATTERN - Cardiovascular Exam Cardiovascular Exam: REGULAR RHYTHM - GI/Abdominal Exam GI & Abdominal Exam: Normal Bowel Sounds, Soft. absent: Tenderness - Extremities Exam Extremities exam: Positive for: normal inspection - Back Exam Back exam: NORMAL INSPECTION - Neurological Exam Neurological exam: Alert, CN II-XII Intact, Normal Gait, Oriented x3, Reflexes Normal - Psychiatric Exam Psychiatric exam: Normal Affect, Normal Mood - Skin Skin Exam: Dry, Intact, Normal Color, Warm Results - Vital Signs Recent Vital Signs: Last Vital Signs Temp 98.0 F 12/20/18 07:44 Pulse 67 12/20/18 07:44 Resp 20 12/20/18 07:44 BP 180/94 H 12/20/18 07:44 Pulse Ox 96 12/20/18 07:44 - Labs Result Diagrams: 12/20/18 08:05 12/20/18 08:05 Labs: Laboratory Results - last 24 hr 12/20/18 12/20/18 08:05 08:05 WBC 4.3 L RBC 5.10 Hgb 14.4 Hct 45.0 MCV 88.4 MCH 28.2 MCHC 31.9 L RDW 15.3 H Plt Count 252 MPV 8.4 Neut % (Auto) 48.8 L Lymph % (Auto) 34.1 [place] % (Auto) 13.0 H Eos % (Auto) 3.0 Baso % (Auto) 1.1 Neut # (Auto) 2.1 Lymph # (Auto) 1.5 [place] # (Auto) 0.6 Eos # (Auto) 0.1 Baso # (Auto) 0.0 Sodium 134 Potassium 3.7 Chloride 102 Carbon Dioxide 26 Anion Gap 9 L BUN 10 Creatinine 0.7 L Est GFR ( Amer) > 60 Est GFR (Non-Af Amer) > 60 Random Glucose 92 Calcium 8.9 Phosphorus 3.0 Magnesium 1.7 Total Bilirubin 1.1 AST 27 ALT 18 L Alkaline Phosphatase 103 Total Protein 7.1 Albumin 3.8 Globulin 3.4 Albumin/Globulin Ratio 1.1 Assessment & Plan (1) Preop cardiovascular exam Assessment and Plan: echo stress test on friday npo p mn Status: Acute (2) AAA (abdominal aortic aneurysm) Status: Acute (3) HTN (hypertension) Status: Acute (4) Peripheral vascular disease Status: Acute
[2018-12-21] MEDS: Aritificial Tears (15ml) OU SCH ×8 (01:00→21:41)
[2018-12-21] MEDS: Albuterol-Ipratrop 3 mg / 0.5 (3 ml) UD INH SCH ×3 (01:57→20:46)
[2018-12-21 07:00] LABS: BASO % 1.1 % (0.0-2.0); EOS # 0.1 K/uL (0.0-0.7); EOS % 2.9 % (0.0-4.0); HEMOGLOBIN 15.3 g/dL (12.0-18.0); LYMPH # 1.5 K/uL (1.0-4.3); LYMPH % 34.1 % (20.0-40.0); MEAN CELL VOLUME 87.9 fL (80.0-94.0); MEAN CORPUSCULAR HEMOGLOBIN 28.8 pg (27.0-31.0); MEAN CORPUSCULAR HGB CONC 32.7 g/dL (33.0-37.0); MONO # 0.6 K/uL (0.0-0.8); MONO % 12.7 % (0.0-10.0); NEUT # 2.2 K/uL (1.8-7.0); NEUT % 49.2 % (50.0-75.0); RBC 5.31 Mil/uL (4.40-5.90); RED CELL DISTRIBUTION WIDTH 14.8 % (11.5-14.5); WHITE BLOOD COUNT 4.4 K/uL (4.8-10.8)
[2018-12-21 07:19] LABS: ALB/GLOB RATIO 1.1 (1.0-2.1); ALT/SGPT 16 U/L (21-72); AST/SGOT 35 U/L (17-59); BLOOD UREA NITROGEN 8 mg/dL (9-20); CALCIUM 9.1 mg/dl (8.6-10.4); GFR NON-AFRICAN AMERICAN > 60
[2018-12-21] MEDS ORDERED: Caffeine Citrated **INJ** 20 MG/ML IV ONE (08:09)
--- NOTE | 2018-12-21 08:10 | CP.PCM.PN ---
<Esthela Sigala - Last Filed: 12/21/18 11:32> Subjective - Date & Time of Evaluation Date of Evaluation: 12/21/18 Time of Evaluation: 08:00 - Subjective Subjective: Progress note for Dr. Odom (covering for Dr. Bradford) Patient was seen and examined at bedside. Patient states he continues to have pain to his right eye. He states he previously had a contact lost in his eye for multiple days and the lens came out on its own but he believes he still has another lens in his eye. Patient states he also continues to have pain to his lower extremities. Objective - Vital Signs/Intake and Output Vital Signs (last 24 hours): Temp Pulse Resp BP Pulse Ox 97.8 F 67 20 163/93 H 96 12/21/18 07:37 12/21/18 07:37 12/21/18 07:37 12/21/18 07:37 12/21/18 07:37 Intake and Output: 12/21/18 12/21/18 06:59 18:59 Intake Total 450 Balance 450 - Medications Medications: Current Medications Albuterol/Ipratropium (Duoneb 3 Mg/0.5 Mg (3 Ml) Ud) 3 ml INH RQ6 [facility] Last Admin: 12/21/18 01:57 Dose: Not Given Amlodipine Besylate (Norvasc) 5 mg PO DAILY [facility] Last Admin: 12/20/18 10:05 Dose: 5 mg Apixaban (Eliquis) 5 mg PO BID [facility] Last Admin: 12/20/18 17:51 Dose: 5 mg Artificial Tears (Artificial Tears) 0 ml OU Q3 [facility] Last Admin: 12/21/18 04:00 Dose: Not Given Ciprofloxacin (Ciloxan 0.3% Oph Soln) 1 drop OU BID [facility] Last Admin: 12/20/18 17:51 Dose: 1 drop Sodium Chloride (Sodium Chloride 0.9%) 1,000 mls @ 100 mls/hr IV .Q10H [facility] Last Admin: 12/20/18 23:30 Dose: Not Given Tramadol HCl (Ultram) 50 mg PO ONCE PRN PRN Reason: Pain, moderate (4-7) Last Admin: 12/20/18 02:17 Dose: 50 mg - Labs Labs: 12/21/18 06:56 02/18/19 06:56 PT 13.6 SECONDS (9.7-12.2) H 12/19/18 06:20 INR 1.2 12/19/18 06:20 APTT 29 SECONDS (21-34) 12/19/18 06:20 - Constitutional Appears: In Acute Distress - Head Exam Head Exam: ATRAUMATIC, NORMAL INSPECTION - Eye Exam Additional comments: Pain with right eye movement. Patient is not able to open eye completely. - ENT Exam ENT Exam: Mucous Membranes Moist - Respiratory Exam Respiratory Exam: Clear to Ausculation Bilateral, NORMAL BREATHING PATTERN - Cardiovascular Exam Cardiovascular Exam: REGULAR RHYTHM, +S1, +S2 - GI/Abdominal Exam GI & Abdominal Exam: Soft, Normal Bowel Sounds. absent: Tenderness - Extremities Exam Additional comments: B/L LE w/ venous stasis skin changes. - Neurological Exam Neurological Exam: Alert, Awake, Oriented x3 - Psychiatric Exam Psychiatric exam: Normal Affect - Skin Skin Exam: Normal Color Assessment and Plan - Assessment and Plan (Free Text) Assessment: IVC Dysfuction - Vascular Consult: Kosta Ness--> help appreciated * Plan per surgery --> Aortic stent graft and left to right fem fem bypass * Cardiac Consult: Dr. Castillo --> help appreciated * Pending cardiac optimization * f/u stress test 1. 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 Cummings --> help appreciated - Medications: * Cipro OU drops * Artificial Tears 6x a day * Vanco * Cefepime * Tylenol for pain - Cold compress HTN - Continue Norvasc 5mg po daily PPx: - ASA 81 - Eliquis 5mg qd Case discussed with Dr. Ilene Sigala PGY-2 <Rico Odom - Last Filed: 12/21/18 14:18> Objective - Vital Signs/Intake and Output Vital Signs (last 24 hours): Temp Pulse Resp BP Pulse Ox 97.8 F 60 20 163/93 H 96 12/21/18 07:37 12/21/18 13:15 12/21/18 07:37 12/21/18 07:37 12/21/18 07:37 Intake and Output: 12/21/18 12/21/18 06:59 18:59 Intake Total 450 50 Balance 450 50 - Medications Medications: Current Medications Acetaminophen (Tylenol 325mg Tab) 650 mg PO Q6 PRN PRN Reason: Pain, moderate (4-7) Albuterol/Ipratropium (Duoneb 3 Mg/0.5 Mg (3 Ml) Ud) 3 ml INH RQ6 [facility] Last Admin: 12/21/18 01:57 Dose: Not Given Amlodipine Besylate (Norvasc) 5 mg PO DAILY [facility] Last Admin: 12/21/18 10:55 Dose: 5 mg Apixaban (Eliquis) 5 mg PO BID [facility] Last Admin: 12/21/18 10:55 Dose: 5 mg Artificial Tears (Artificial Tears) 0 ml OU Q3 [facility] Last Admin: 12/21/18 13:11 Dose: 1 drop Ciprofloxacin (Ciloxan 0.3% Ophth Soln) 1 drop OU BID [facility] Last Admin: 12/21/18 10:57 Dose: 1 drop Cefepime HCl (Maxipime Iv 1 Gm Premix) 1 gm in 50 mls @ 100 mls/hr IVPB Q8H [facility]; Protocol Last Admin: 12/21/18 12:55 Dose: 100 mls/hr Vancomycin HCl 1 gm/ Sodium (Chloride) 250 mls @ 166.7 mls/hr IVPB Q24H [facility]; Protocol Last Admin: 12/21/18 14:02 Dose: 166.7 mls/hr Influenza Virus Vaccine (Flucelvax Quad 9511-9563 Syr) 60 mcg IM .ONCE ONE Stop: 12/23/18 10:01 Pneumococcal Polyvalent Vaccine (Pneumovax 23 Vaccine) 0.5 ml IM .ONCE ONE Stop: 12/23/18 10:01 Tramadol HCl (Ultram) 50 mg PO ONCE PRN PRN Reason: Pain, moderate (4-7) Last Admin: 12/20/18 02:17 Dose: 50 mg - Labs Labs: 12/21/18 06:56 12/21/18 06:56 PT 13.6 SECONDS (9.7-12.2) H 12/19/18 06:20 INR 1.2 12/19/18 06:20 APTT 29 SECONDS (21-34) 12/19/18 06:20 Attending/Attestation - Attestation I have personally seen and examined this patient.: Yes I have fully participated in the care of the patient.: Yes I have reviewed all pertinent clinical information, including history, physical exam and plan: Yes Notes (Text): 12/21/18 14:13 Medical attending: Patient was seen and examined by me. Agree with the above note by the resident The pattient just returned from the stress test this morning by cardiology for evaluation for potential clearance for the placement of the stent for the ansuresym as well as as potiental fem-fem lower extrmity bypass. He reports still having some parathesia in the lower extremity With reguards to the R eye, ordering a CT scan of the facial bones. Also he remains on eye drops as well as IV abx The ophthomologist we intially consulted I was told was not able to come in due to illness. We are trying to consult another ophthomologist As mentioned before our concern is some sort of severe trauma to the eye from contact lens debris when the patient tried to remove this Rico Odom
--- NOTE | 2018-12-21 08:10 | CP.PCM.PN ---
Subjective - Date & Time of Evaluation Date of Evaluation: 12/21/18 Time of Evaluation: 06:20 - Subjective Subjective: Pt seen and examined this morning at bedside. Pt denies chest pain. Reports SOB, able to speak in full sentences. Objective - Vital Signs/Intake and Output Vital Signs (last 24 hours): Temp Pulse Resp BP Pulse Ox 97.8 F 67 20 163/93 H 96 12/21/18 07:37 12/21/18 07:37 12/21/18 07:37 12/21/18 07:37 12/21/18 07:37 Intake and Output: 12/21/18 12/21/18 06:59 18:59 Intake Total 450 Balance 450 - Medications Medications: Current Medications Albuterol/Ipratropium (Duoneb 3 Mg/0.5 Mg (3 Ml) Ud) 3 ml INH RQ6 [facility] Last Admin: 12/21/18 01:57 Dose: Not Given Amlodipine Besylate (Norvasc) 5 mg PO DAILY [facility] Last Admin: 12/20/18 10:05 Dose: 5 mg Apixaban (Eliquis) 5 mg PO BID [facility] Last Admin: 12/20/18 17:51 Dose: 5 mg Artificial Tears (Artificial Tears) 0 ml OU Q3 [facility] Last Admin: 12/21/18 04:00 Dose: Not Given Ciprofloxacin (Ciloxan 0.3% Oph Soln) 1 drop OU BID [facility] Last Admin: 12/20/18 17:51 Dose: 1 drop Sodium Chloride (Sodium Chloride 0.9%) 1,000 mls @ 100 mls/hr IV .Q10H [facility] Last Admin: 12/20/18 23:30 Dose: Not Given Tramadol HCl (Ultram) 50 mg PO ONCE PRN PRN Reason: Pain, moderate (4-7) Last Admin: 12/20/18 02:17 Dose: 50 mg - Labs Labs: 12/21/18 06:56 12/21/18 06:56 PT 13.6 SECONDS (9.7-12.2) H 12/19/18 06:20 INR 1.2 12/19/18 06:20 APTT 29 SECONDS (21-34) 12/19/18 06:20 - Constitutional Appears: No Acute Distress - Head Exam Head Exam: ATRAUMATIC, NORMOCEPHALIC - Eye Exam Eye Exam: EOMI - ENT Exam ENT Exam: Mucous Membranes Moist - Neck Exam Neck Exam: Full ROM - Respiratory Exam Respiratory Exam: Clear to Ausculation Bilateral, NORMAL BREATHING PATTERN. absent: Accessory Muscle Use - Cardiovascular Exam Cardiovascular Exam: RRR, +S1, +S2. absent: Diastolic murmur - GI/Abdominal Exam GI & Abdominal Exam: Soft, Normal Bowel Sounds. absent: Tenderness - Extremities Exam Extremities Exam: Full ROM. absent: Calf Tenderness, Pedal Edema - Neurological Exam Neurological Exam: Alert, Awake, Oriented x3 - Psychiatric Exam Psychiatric exam: Normal Affect, Normal Mood Assessment and Plan - Assessment and Plan (Free Text) Assessment: (1) Preop cardiovascular exam Assessment and Plan: Status: Acute (2) AAA (abdominal aortic aneurysm) Status: Acute (3) HTN (hypertension) Status: Acute (4) Peripheral vascular disease Status: Acute Plan: Preop cardiovascular for AAA stent HA1C 5.4 ECHO completed, follow up official read Stress test today Medications amlodipine Eliquis Pt seen, examined, assessment and plan discussed with Dr Jonathan Rodriguez PGY1
[2018-12-21] MEDS ORDERED: Pneumococcal 23-Valent Vaccine IM ONE (10:00)
--- NOTE | 2018-12-21 10:24 | VASCLAB ---
Date of service: 12/18/2018 STUDY DESCRIPTION: Lower Extremity Arterial Exam (PVR). HISTORY: bilateral toe pain. hx pvd, dec pulses PRIORS: None. TECHNIQUE: Pulse volume recording waveforms and segmental pressures of bilateral lower extremities at multiple levels were obtained. Ankle Brachial Indices (ABIs) were calculated. Report prepared by NICO Diallo, RVT RIGHT LOWER EXTREMITY: * Brachial artery: Pressure - 127 mmHg. * High thigh: Pressure - mmHg: Ratio - : PVR waveform - Reduced * Low thigh: Pressure - mmHg: Ratio - PVR waveform: Reduced * Calf: Pressure - 76 mmHg: Ratio - 0.53 PVR waveform: Reduced * Posterior tibial Artery: Pressure - 80 mmHg: Ratio - 0.56 PVR waveform: Reduced * Dorsalis pedis Artery: Pressure - 75 mmHg: Ratio - 0.52 PVR waveform: Reduced * Great toe: Pressure - mmHg: Ratio - PVR waveform: Ankle brachial index (LUCIO): 0.56 LEFT LOWER EXTREMITY: * Brachial artery: Pressure - 143 mmHg. * High thigh: Pressure - mmHg: Ratio - : PVR waveform - Pulsatile * Low thigh: Pressure - mmHg: Ratio - PVR waveform: Pulsatile * Calf: Pressure - 146 mmHg: Ratio - 1.02 PVR waveform: Pulsatile * Posterior tibial Artery: Pressure - 134 mmHg: Ratio - 0.94 PVR waveform: Pulsatile * Dorsalis pedis Artery: Pressure - 123 mmHg: Ratio - 0.86 PVR waveform: Pulsatile * Great toe: Pressure - mmHg: Ratio - PVR waveform: Ankle brachial index (LUCIO): 0.94 OTHER FINDINGS: Right: Left: IMPRESSION: Right: This exam reveals moderately decreased perfusion of the right lower extremity, noted from iliac to distal small artery levels. Left: This exam reveals mildly decreased perfusion of the left lower extremity, noted at the iliac artery level.
[2018-12-21] MEDS: Ciprofloxacin 0.3% OPTH SOLN OU SCH ×2 (10:57→17:30)
--- NOTE | 2018-12-21 12:40 | CT ---
Date of service: 12/18/2018 PROCEDURE: CT Angiography Abdomen, Pelvis and Lower Extremity with Contrast HISTORY: leg pain COMPARISON: None available. TECHNIQUE: Technique: CT angiography of the abdomen, pelvis and bilateral lower extremities performed in the arterial phase of enhancement. Coronal and sagittal reformats, and well as rotating MIP images of the vessels generated at the workstation. Intravenous contrast dose: 150 MILLILITERS VISIPAQUE 320 Radiation dose: Total exam DLP = 1431.81 mGy-cm. This CT exam was performed using one or more of the following dose reduction techniques: Automated exposure control, adjustment of the mA and/or kV according to patient size, and/or use of iterative reconstruction technique. 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 The aneurysm is 66 percent thrombosed. The aneurysm begins approximately 0.5 centimeters below the renal artery and continues to the bifurcation. The aneurysm is bilobed. Thrombosed segment of the abdominal aorta extends into the right common iliac artery which is occluded. MAJOR AORTIC BRANCHES: Celiac Thornton: Unremarkable. Superior mesenteric artery: Unremarkable. Inferior mesenteric artery: Unremarkable. Renal arteries: Unremarkable. PELVIC ARTERIES: Right Common Iliac: Occluded. Right External Iliac: Occluded. Right Internal Iliac: Flow noted via collaterals. Left Common Iliac: Moderate calcific plaque and mild stenosis of the or origin. Left External Iliac: Unremarkable. Left Internal Iliac: Severe calcific plaque and mild stenosis. RIGHT LOWER EXTREMITY ARTERIES: Right Common Femoral: Mild calcific plaque in the significant stenosis. Fills via the right inferior epigastric artery. Right Superficial Femoral: Unremarkable. Right Profunda Femoris: Unremarkable. Right Popliteal:Unremarkable. Right Anterior Tibial: Unremarkable. Right Tibioperoneal Trunk: Unremarkable. Right Posterior Tibial: Unremarkable. Right Peroneal: Unremarkable. Right dorsalis pedis : Unremarkable. LEFT LOWER EXTREMITY ARTERIES: Left Common Femoral: Calcific and mild stenosis. Left Superficial Femoral: Plaque with no significant stenosis. Left Profunda Femoris: Unremarkable. Left Popliteal: Unremarkable. Left Anterior Tibial: Severe calcific plaque which limits evaluation. Moderate to severe short segment stenosis in the proximal anterior tibial artery. Left Tibioperoneal Trunk: Unremarkable. Left Posterior Tibial: Unremarkable. Left Peroneal: Unremarkable. Left Dorsalis pedis: Unremarkable. NON-ANGIOGRAPHIC ASPECT OF THE EXAM: LOWER THORAX: Unremarkable. LIVER: Unremarkable. No gross lesion or ductal dilatation. GALLBLADDER AND BILE DUCTS: Unremarkable. PANCREAS: Unremarkable. No gross lesion or ductal dilatation. SPLEEN: Unremarkable. ADRENALS: Unremarkable. No mass. KIDNEYS AND URETERS: Unremarkable. No hydronephrosis. No solid mass. STOMACH AND BOWEL: Limited evaluation without PO contrast. No obstruction. No gross mural thickening. APPENDIX: PERITONEUM: Unremarkable. No free fluid. No free air. LYMPH NODES: Unremarkable. No enlarged lymph nodes. BLADDER: Unremarkable. REPRODUCTIVE: Unremarkable. BONES: No acute fracture. OTHER FINDINGS: None. IMPRESSION: CT ANGIOGRAM ABDOMEN/PELVIS: 1. There is a infrarenal abdominal aorta beginning 0.5 centimeters from the left renal artery and continue to the aortic bifurcation. The aneurysm is partially thrombosed. Thrombosed segment of the aneurysm extends into the left common iliac artery. 2. The right common iliac artery is occluded. Right external iliac artery is occluded. Right internal iliac artery has some collaterals. 3. Left common iliac artery has moderate calcific plaque at the origin mild stenosis. Left external artery is unremarkable. RIGHT LOWER EXTREMITY CT ANGIOGRAM: 1. The common femoral artery fills via the inferior epigastric artery. There is mild calcific plaque of the common femoral artery. The common femoral artery, profunda femoral artery superficial femoral artery and popliteal artery are unremarkable. 2. Patent 3 vessel runoff. LEFT LOWER EXTREMITY CT ANGIOGRAM: 1. Moderate calcific plaque of the common femoral artery with mild stenosis. 2. The profunda femoral artery is unremarkable. 3. The superficial femoral is unremarkable. The popliteal artery is unremarkable. 4. Runoff shows patent peroneal artery and posterior tibial artery. There is moderate calcific plaque of the anterior tibial artery with the which limits evaluation. Possible short segment moderate to severe stenosis of the proximal anterior tibial artery.
[2018-12-21] MEDS: Cefepime IV 1 gm in Dextrose 1 GM/50 ML BAG IVPB SCH ×2 (12:55→20:17)
[2018-12-21] MEDS ORDERED: Oxycodone/Acetaminophen 5/325 mg Tab PO ONE (14:01)
--- NOTE | 2018-12-21 14:51 | CT ---
Date of service:12/21/2018 CT maxillofacial bones without IV contrast Indication: right facial pain and right eye pain. Comparison: None available Technique: Axial computed tomography images were obtained of the maxillofacial bones without the use of intravenous contrast. Coronal and sagittal reformatted images were generated and reviewed. This CT exam was performed using 1 or more of the following dose reduction techniques: Automated exposure control, adjustment of the MAA and/or kV according to patient size, and/or use of iterative reconstruction technique. Radiation dose: Total exam DLP = 903.1 mGy-cm. Findings: Mild right exophthalmos. Right preseptal swelling. Small hypodensity (series 3, image 104) uncertain etiology possibly bubble of air however displaced lens not excluded. The orbits appear otherwise unremarkable. Remote bilateral nasal bone fracture deformities. The facial bones appear otherwise unremarkable without acute displaced fracture. The temporomandibular joints appear located. The mastoid air cells appear clear. The paranasal sinuses appear clear. The visualized brain appears unremarkable. The soft tissues appear unremarkable. Carotid artery calcifications. Limited visualization of the cervical spine demonstrates multilevel degenerative changes and intervertebral disc space narrowing. Impression: Mild right exophthalmos. Right preseptal swelling. Small hypodensity uncertain etiology possibly bubble of air however displaced lens not excluded. Recommend ophthalmological consultation.
--- NOTE | 2018-12-21 18:29 | CARD ---
APPROVED REPORT Date of service: 12/21/2018 Protocol: LEXISCAN Test Type: LEXISCAN STRESS Test Indications: LEG PAIN ABDOMNAL Medications: LIST Medical History: CP Target HR: 151 bpm Resting ECG: NSR Resting Heart Rate: 61 bpm Resting Blood Pressure: 124/80mmHg submaximum (85%): 128 bpm TEST SUMMARY PREINFSNHYPERV.12:[id number]/80.0. INFUSIONDOSE 100:300.00.01.058/.0. [id number]/80.0. PROCEDURE Pharmacologic stress testing was performed using 0.4mg per 5ml of regadenoson given intravenously over 7-10 seconds. POST EXERCISE Reason for Termination: Protocol Completed Target HR: No Max HR: 58 bpm 49% of Maximum Predicted HR: 151 bpm Exercise duration: 00:30 min:sec, 0 Stage Exercise capacity: 1.0METs Max Blood Pressure: 126/80mmHg Blood Pressure response to exercise: normal resting BP - appropriate response Heart Rate response to exercise: appropriate Chest Pain: No, none Angina index: 0 Arrhythmia: No, none ST Change: No, none Deviation: 0 mm INTERPRETATION Stress EKG Conclusion: NEGATIVE LEXISCAN STRESS TEST NORMAL BP RESPONSE TO LEXISCAN NUCLEAR STUDIES TO BE READ SEPARATELY EXAM: Myocardial Perfusion REST/STRESS Imaging Protocol The imaging protocol used to acquire images was Rest Tc-99m/stress Tc-99m 1 day Rest Spect myocardial perfusion imaging was performed in supine position 45 minutes following the injection of 13.2 mCi of Tc-99 Myoview. Gated Stress Spect was performed 4545 minutes after intravenous 32.5 mCi Tc-99 Myoview injection. The images were gated to evaluate regional wall motion and calculate ventricular ejection fraction.Images were reconstructed using backfilter projection method in short horizontal and verticle long axis. Spect slices were generated. RESTING DATA CKE419.82uxVW6.40L/min ESV54.00mlMyocardial Nltr108.00g Av. Heart Rate72.00bpm EF53.00% STRESS DATA CED970.52daWK5.50L/min ESV51.00mlMyocardial Wyqv088.00g EF52.00% Regional WT score at stress:3.00 Regional WM score at stress:1.00 Summed WT score at stress:29.00 Av. Heart Rate63.00bpmSummed WM score at stress:14.00 LV Perf. Quant 17 Seg. SSS6.00 17 Seg. SRS6.00 17 Seg. SDS1.00 Stress Defect Extent (% LAD)6.30Rest Defect Extent (% LAD)0.00Rev. Defect Extent (% LAD)0.00 Stress Defect Extent (% LCX)15.00Rest Defect Extent (% LCX)7.50Rev. Defect Extent (% LCX)0.00 Stress Defect Extent (% RCA)0.00Rest Defect Extent (% RCA)4.40Rev. Defect Extent (% RCA)0.00 Stress Defect Extent (% ENRIQUE)9.30Rest Defect Extent (% ENRIQUE)2.80Rev. Defect Extent (% ENRIQUE)0.00 IMPRESSION Normal Myocardial Perfusion exercise stress study Left Ventricle LV Function:Left ventricle systolic function is normal. The Ejection Fraction is 50-55%. Metabolism/Perfusion Defects: There is no stress-induced ischemia noted. There are no perfusion/metabolism defects. Conclusion 1. There is no stress-induced ischemia noted. 2. Left ventricle systolic function is normal. 3. The Ejection Fraction is 50-55%.
--- NOTE | 2018-12-21 18:39 | CARD ---
APPROVED REPORT Date of service: 12/21/2018 EXAM: Two-dimensional and M-mode echocardiogram with Doppler and color Doppler. INDICATION Pre-Op RISK FACTORS Hypertension Smoking 2D DIMENSIONS IVSd1.5 (0.7-1.1cm)LVDd4.3 (3.9-5.9cm) PWd1.2 (0.7-1.1cm)LA Xdvyuq61 (18-58mL) LVDs2.5 (2.5-4.0cm)FS (%) 41.5 % LVEF (%)72.7 (>50%)LVEF (Flor's)63 % IVC0.00 cm M-Mode DIMENSIONS RVDd2.39 (2.1-3.2cm)Left Atrium (MM)3.48 (2.5-4.0cm) IVSd1.46 (0.7-1.1cm)Aortic Root2.79 (2.2-3.7cm) LVDd4.69 (4.0-5.6cm)Aortic Cusp Exc.1.89 (1.5-2.0cm) PWd0.90 (0.7-1.1cm)FS (%) 34 % LVDs3.09 (2.0-3.8cm)LVEF (%)63 (>50%) Mitral Valve MV E Ygyfpfae15.6cm/sMV A Twyqqrou72.6cm/sE/A ratio1.0 TDI Lateral E' Peak V9.00cm/sMedial E' Peak V5.77cm/sE/Lateral E'5.3 E/Medial E'8.2 Tricuspid Valve TR Peak Siglkvvd938im/sTR Peak Gr.06fhCrNDUQ54oqGt LEFT VENTRICLE The left ventricle is normal size. There is normal left ventricular wall thickness. Left ventricle systolic function is normal. The Ejection Fraction is 60-65%. There is normal LV segmental wall motion. The left ventricular diastolic function is normal. RIGHT VENTRICLE The right ventricle is normal size. There is normal right ventricular wall thickness. The right ventricular systolic function is normal. ATRIA The left atrium size is normal. The right atrium size is normal. The interatrial septum is intact with no evidence for an atrial septal defect. AORTIC VALVE The aortic valve is normal in structure. There is mild to moderate aortic regurgitation. There is no aortic valvular stenosis. MITRAL VALVE The mitral valve is normal in structure. There is no evidence of mitral valve prolapse. There is no mitral valve stenosis. Mitral regurgitation is mild. TRICUSPID VALVE The tricuspid valve is normal in structure. There is mild tricuspid regurgitation. Right ventricular systolic pressure is estimated at 30-40 mmHg. There is mild pulmonary hypertension. PULMONIC VALVE The pulmonic valve is not well visualized. There is no pulmonic valvular regurgitation. GREAT VESSELS The aortic root is normal in size. PERICARDIAL EFFUSION There is no pericardial effusion. <Conclusion> Left ventricle systolic function is normal. The Ejection Fraction is 60-65%. There is mild to moderate aortic regurgitation. Mitral regurgitation is mild. There is mild tricuspid regurgitation. There is mild pulmonary hypertension. There is no pulmonic valvular regurgitation.
[2018-12-21] MEDS: Ciprofloxacin 0.3% OPTH SOLN OD SCH ×2 (20:15→21:39)
[2018-12-21] MEDS ORDERED: Ciprofloxacin 0.3% OPTH SOLN OD SCH (20:15)
[2018-12-21] MEDS: Oxycodone/Acetaminophen 5/325 mg Tab PO PRN (21:43)
[2018-12-22] MEDS: Ciprofloxacin 0.3% OPTH SOLN OD SCH ×11 (00:01→22:00)
--- NOTE | 2018-12-22 01:36 | CON ---
DATE: 12/21/2018 HISTORY OF PRESENT ILLNESS: The patient is a 68-year-old male with past medical history significant for PVD, COPD, DVT, and hypertension. He was admitted for abdominal pain and peripheral vascular disease. The patient reports a history of being diagnosed with a corneal infection, maybe about a week ago. He reports that he is a contact lens wearer. His past ocular history is as above. ALLERGIES: HE REPORTS ALLERGY TO HEPARIN. PHYSICAL EXAMINATION: EYES: He has light perception vision in the right eye. He has a large full corneal ulcer, measuring the entire cornea on the right eye. There was no real clear view of the anterior chamber over the lens. His conjunctivae is injected in the right eye. His left eye has a contact lens placed on it. His cornea and anterior chambers clear. He appears to have cataract. ASSESSMENT: Severe large corneal ulcer, right eye. RECOMMENDATIONS: Start Suboxone eyedrops every two hours for the right eye. Once the patient is discharged, he needs to make appointment to be seen in the office for further care. If any questions, please call [phone]. Josue Howell MD
[2018-12-22] MEDS: Albuterol-Ipratrop 3 mg / 0.5 (3 ml) UD INH SCH ×4 (02:00→19:31)
[2018-12-22] MEDS: Aritificial Tears (15ml) OU SCH ×7 (04:12→22:00)
[2018-12-22] MEDS: Cefepime IV 1 gm in Dextrose 1 GM/50 ML BAG IVPB SCH ×3 (04:12→21:09)
--- NOTE | 2018-12-22 07:19 | CP.PCM.PN ---
Subjective - Date & Time of Evaluation Date of Evaluation: 12/22/18 Time of Evaluation: 08:00 - Subjective Subjective: Medicine Progress note for Dr. Bradford Patient was seen and examined at bedside. Patient states he continues to have pain to his right eye. Patient states he also continues to have pain to his lower extremities. Patient denies chest pain, shortness of breath, palpitations, nausea, vomiting, diarrhea or constipation. Objective - Vital Signs/Intake and Output Vital Signs (last 24 hours): Temp Pulse Resp BP Pulse Ox 97.9 F 62 20 168/84 H 98 12/22/18 00:00 12/22/18 00:00 12/22/18 00:00 12/22/18 00:00 12/22/18 00:00 Intake and Output: 12/22/18 12/22/18 06:59 18:59 Intake Total 700 Output Total 600 Balance 100 - Medications Medications: Current Medications Acetaminophen (Tylenol 325mg Tab) 650 mg PO Q6 PRN PRN Reason: Pain, moderate (4-7) Albuterol/Ipratropium (Duoneb 3 Mg/0.5 Mg (3 Ml) Ud) 3 ml INH RQ6 [facility] Last Admin: 12/22/18 02:00 Dose: Not Given Amlodipine Besylate (Norvasc) 5 mg PO DAILY [facility] Last Admin: 12/21/18 10:55 Dose: 5 mg Apixaban (Eliquis) 5 mg PO BID [facility] Last Admin: 12/21/18 17:31 Dose: 5 mg Artificial Tears (Artificial Tears) 0 ml OU Q3 [facility] Last Admin: 12/22/18 04:12 Dose: 2 drop Ciprofloxacin (Ciloxan 0.3% [facility]) 1 drop OD Q2 [facility] Last Admin: 12/22/18 06:28 Dose: 1 drop Cefepime HCl (Maxipime Iv 1 Gm Premix) 1 gm in 50 mls @ 100 mls/hr IVPB Q8H [facility]; Protocol Last Admin: 12/22/18 04:12 Dose: 100 mls/hr Vancomycin HCl 1 gm/ Sodium (Chloride) 250 mls @ 166.7 mls/hr IVPB Q24H [facility]; Protocol Last Admin: 12/21/18 14:02 Dose: 166.7 mls/hr Influenza Virus Vaccine (Flucelvax Quad [id number] Syr) 60 mcg IM .ONCE ONE Stop: 12/23/18 10:01 Oxycodone/Acetaminophen (Percocet 5/325 Mg Tab) 1 tab PO Q6H PRN PRN Reason: Pain, severe (8-10) Stop: 12/24/18 15:42 Last Admin: 12/21/18 21:43 Dose: 1 tab Pneumococcal Polyvalent Vaccine (Pneumovax 23 Vaccine) 0.5 ml IM .ONCE ONE Stop: 12/23/18 10:01 Tramadol HCl (Ultram) 50 mg PO ONCE PRN PRN Reason: Pain, moderate (4-7) Last Admin: 12/20/18 02:17 Dose: 50 mg - Labs Labs: 12/21/18 06:56 12/21/18 06:56 PT 13.6 SECONDS (9.7-12.2) H 12/19/18 06:20 INR 1.2 12/19/18 06:20 APTT 29 SECONDS (21-34) 12/19/18 06:20 - Constitutional Appears: In Acute Distress - Head Exam Head Exam: ATRAUMATIC, NORMAL INSPECTION - Eye Exam Additional comments: Pain with right eye movement. Patient is not able to open eye completely. - ENT Exam ENT Exam: Mucous Membranes Moist - Respiratory Exam Respiratory Exam: Clear to Ausculation Bilateral, NORMAL BREATHING PATTERN - Cardiovascular Exam Cardiovascular Exam: REGULAR RHYTHM, +S1, +S2 - GI/Abdominal Exam GI & Abdominal Exam: Soft, Normal Bowel Sounds. absent: Tenderness - Extremities Exam Additional comments: B/L LE w/ venous stasis skin changes. - Neurological Exam Neurological Exam: Alert, Awake, Oriented x3 - Psychiatric Exam Psychiatric exam: Normal Affect - Skin Skin Exam: Normal Color Assessment and Plan - Assessment and Plan (Free Text) Assessment: IVC Dysfuction - Vascular Consult: Kosta Ness--> help appreciated * Plan per surgery --> Aortic stent graft and left to right fem fem bypass * Cardiac Consult: Dr. Castillo --> help appreciated * Pending cardiac optimization * Stress Test: Negative 1. 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 small 4.1 cm AAA 3. 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 Kwok --> help appreciated - Patient states when he was given heparin he broke out in hives on his body. - f/u heparin AB and serotonin release assay - Medications: * Eliquis 5mg daily * ASA 81 Right Corneal Ulcer - Ophthalmology Consult: Dr. Cummings/ Dr. Howell --> help appreciated - Orbit CT: Mild right exophthalmos. Right preseptal swelling. Small hypodensity uncertain etiology possibly bubble of air however displaced lens not excluded. Recommend ophthalmological consultation. - Medications: * Ciprofloxacin 0.3% OU drops * Cefepime * Percocet for pain - Cold compress HTN - Increased Norvasc 10mg po daily PPx: - ASA 81 - Eliquis 5mg qd Disposition: Business Sales Consultant has seen patient and recommended Cipro eye drops and for patient to follow up when discharged. Will follow up with surgery if fem fem bypass and aortic stent will be completed as an outpatient. Case discussed with Dr. Suzette Sigala PGY-2
[2018-12-22 07:20] LABS: BASO % 1.2 % (0.0-2.0); EOS # 0.1 K/uL (0.0-0.7); EOS % 3.5 % (0.0-4.0); HEMOGLOBIN 15.6 g/dL (12.0-18.0); LYMPH % 26.8 % (20.0-40.0); MEAN CELL VOLUME 88.3 fL (80.0-94.0); MEAN CORPUSCULAR HEMOGLOBIN 28.6 pg (27.0-31.0); MEAN CORPUSCULAR HGB CONC 32.4 g/dL (33.0-37.0); MEAN PLATELET VOLUME 8.2 fL (7.2-11.7); MONO # 0.4 K/uL (0.0-0.8); MONO % 10.2 % (0.0-10.0); NEUT # 2.2 K/uL (1.8-7.0); NEUT % 58.3 % (50.0-75.0); NRBC % 0.3 % (0.0-2.0); RBC 5.45 Mil/uL (4.40-5.90); RED CELL DISTRIBUTION WIDTH 15.7 % (11.5-14.5); WHITE BLOOD COUNT 3.8 K/uL (4.8-10.8)
[2018-12-22 07:45] LABS: ALB/GLOB RATIO 1.1 (1.0-2.1); ALBUMIN 3.9 g/dL (3.5-5.0); ALT/SGPT 10 U/L (21-72); AST/SGOT 20 U/L (17-59); BLOOD UREA NITROGEN 10 mg/dL (9-20); CALCIUM 9.4 mg/dl (8.6-10.4); GFR NON-AFRICAN AMERICAN > 60
[2018-12-22] MEDS: Oxycodone/Acetaminophen 5/325 mg Tab PO PRN ×2 (07:51→19:11)
--- NOTE | 2018-12-22 08:38 | CP.PCM.PN ---
Subjective - Date & Time of Evaluation Date of Evaluation: 12/22/18 Time of Evaluation: 08:36 - Subjective Subjective: stress test negative will plan stent of aorta as opd we need to clarify what the Heparin allergy is prior to any intervention Objective - Vital Signs/Intake and Output Vital Signs (last 24 hours): Temp Pulse Resp BP Pulse Ox 97.6 F 60 20 166/93 H 98 12/22/18 08:28 12/22/18 08:28 12/22/18 08:28 12/22/18 08:28 12/22/18 08:28 Intake and Output: 12/22/18 12/22/18 06:59 18:59 Intake Total 700 Output Total 600 Balance 100 - Medications Medications: Current Medications Acetaminophen (Tylenol 325mg Tab) 650 mg PO Q6 PRN PRN Reason: Pain, moderate (4-7) Albuterol/Ipratropium (Duoneb 3 Mg/0.5 Mg (3 Ml) Ud) 3 ml INH RQ6 [facility] Last Admin: 12/22/18 02:00 Dose: Not Given Amlodipine Besylate (Norvasc) 10 mg PO DAILY [facility] Last Admin: 12/22/18 07:59 Dose: 10 mg Apixaban (Eliquis) 5 mg PO BID [facility] Last Admin: 12/21/18 17:31 Dose: 5 mg Artificial Tears (Artificial Tears) 0 ml OU Q3 [facility] Last Admin: 12/22/18 07:54 Dose: 1 drop Ciprofloxacin (Ciloxan 0.3% Ophth Soln) 1 drop OD Q2 [facility] Last Admin: 12/22/18 07:55 Dose: 1 drop Cefepime HCl (Maxipime Iv 1 Gm Premix) 1 gm in 50 mls @ 100 mls/hr IVPB Q8H [facility]; Protocol Last Admin: 12/22/18 04:12 Dose: 100 mls/hr Vancomycin HCl 1 gm/ Sodium (Chloride) 250 mls @ 166.7 mls/hr IVPB Q24H [facility]; Protocol Last Admin: 12/21/18 14:02 Dose: 166.7 mls/hr Influenza Virus Vaccine (Flucelvax Quad [id number] Syr) 60 mcg IM .ONCE ONE Stop: 12/23/18 10:01 Losartan Potassium (Cozaar) 25 mg PO DAILY [facility] Oxycodone/Acetaminophen (Percocet 5/325 Mg Tab) 1 tab PO Q6H PRN PRN Reason: Pain, severe (8-10) Stop: 12/24/18 15:42 Last Admin: 12/22/18 07:51 Dose: 1 tab Pneumococcal Polyvalent Vaccine (Pneumovax 23 Vaccine) 0.5 ml IM .ONCE ONE Stop: 12/23/18 10:01 Tramadol HCl (Ultram) 50 mg PO ONCE PRN PRN Reason: Pain, moderate (4-7) Last Admin: 12/20/18 02:17 Dose: 50 mg - Labs Labs: 12/22/18 07:05 12/22/18 07:05 PT 13.6 SECONDS (9.7-12.2) H 12/19/18 06:20 INR 1.2 12/19/18 06:20 APTT 29 SECONDS (21-34) 12/19/18 06:20
--- NOTE | 2018-12-22 12:05 | CP.PCM.PN ---
Subjective - Date & Time of Evaluation Date of Evaluation: 12/22/18 Time of Evaluation: 08:00 - Subjective Subjective: Pt seen and examined this morning at bedside. No new complaints at this time. Objective - Vital Signs/Intake and Output Vital Signs (last 24 hours): Temp Pulse Resp BP Pulse Ox 97.6 F 60 20 166/93 H 98 12/22/18 08:28 12/22/18 08:28 12/22/18 08:28 12/22/18 08:28 12/22/18 08:28 Intake and Output: 12/22/18 12/22/18 06:59 18:59 Intake Total 700 Output Total 600 Balance 100 - Medications Medications: Current Medications Acetaminophen (Tylenol 325mg Tab) 650 mg PO Q6 PRN PRN Reason: Pain, moderate (4-7) Albuterol/Ipratropium (Duoneb 3 Mg/0.5 Mg (3 Ml) Ud) 3 ml INH RQ6 [facility] Last Admin: 12/22/18 07:45 Dose: Not Given Amlodipine Besylate (Norvasc) 10 mg PO DAILY [facility] Last Admin: 12/22/18 09:52 Dose: Not Given Apixaban (Eliquis) 5 mg PO BID [facility] Last Admin: 12/22/18 09:50 Dose: 5 mg Artificial Tears (Artificial Tears) 0 ml OU Q3 [facility] Last Admin: 12/22/18 07:54 Dose: 1 drop Ciprofloxacin (Ciloxan 0.3% Ophth Soln) 1 drop OD Q2 [facility] Last Admin: 12/22/18 07:55 Dose: 1 drop Cefepime HCl (Maxipime Iv 1 Gm Premix) 1 gm in 50 mls @ 100 mls/hr IVPB Q8H [facility]; Protocol Last Admin: 12/22/18 04:12 Dose: 100 mls/hr Vancomycin HCl 1 gm/ Sodium (Chloride) 250 mls @ 166.7 mls/hr IVPB Q24H [facility]; Protocol Last Admin: 12/21/18 14:02 Dose: 166.7 mls/hr Influenza Virus Vaccine (Flucelvax Quad 6548-3971 Syr) 60 mcg IM .ONCE ONE Stop: 12/23/18 10:01 Losartan Potassium (Cozaar) 25 mg PO DAILY [facility] Last Admin: 12/22/18 09:50 Dose: 25 mg Oxycodone/Acetaminophen (Percocet 5/325 Mg Tab) 1 tab PO Q6H PRN PRN Reason: Pain, severe (8-10) Stop: 12/24/18 15:42 Last Admin: 12/22/18 07:51 Dose: 1 tab Pneumococcal Polyvalent Vaccine (Pneumovax 23 Vaccine) 0.5 ml IM .ONCE ONE Stop: 12/23/18 10:01 Tramadol HCl (Ultram) 50 mg PO ONCE PRN PRN Reason: Pain, moderate (4-7) Last Admin: 12/20/18 02:17 Dose: 50 mg - Labs Labs: 12/22/18 07:05 12/22/18 07:05 PT 13.6 SECONDS (9.7-12.2) H 12/19/18 06:20 INR 1.2 12/19/18 06:20 APTT 29 SECONDS (21-34) 12/19/18 06:20 - Constitutional Appears: No Acute Distress - Head Exam Head Exam: ATRAUMATIC, NORMOCEPHALIC - Eye Exam Eye Exam: EOMI - ENT Exam ENT Exam: Mucous Membranes Moist - Neck Exam Neck Exam: Full ROM - Respiratory Exam Respiratory Exam: Clear to Ausculation Bilateral, NORMAL BREATHING PATTERN. absent: Accessory Muscle Use - Cardiovascular Exam Cardiovascular Exam: RRR, +S1, +S2. absent: Diastolic murmur - GI/Abdominal Exam GI & Abdominal Exam: Soft, Normal Bowel Sounds. absent: Tenderness - Extremities Exam Extremities Exam: Full ROM. absent: Calf Tenderness, Pedal Edema - Neurological Exam Neurological Exam: Alert, Awake, Oriented x3 - Psychiatric Exam Psychiatric exam: Normal Affect, Normal Mood - Skin Skin Exam: Dry, Normal Color, Warm Assessment and Plan - Assessment and Plan (Free Text) Assessment: (1) Preop cardiovascular exam Assessment and Plan: Status: Acute (2) AAA (abdominal aortic aneurysm) Status: Acute (3) HTN (hypertension) Status: Acute (4) Peripheral vascular disease Status: Acute Plan: Preop cardiovascular for AAA stent HA1C 5.4 ECHO 12/19/18 LV normal function, EF 60-65%, mild/mod AR, mild pulm HTN Stress test 12/21/18 shows no abnormalities Pt may proceed with surgery with a low risk from a cardiac standpoint Medications amlodipine Eric raroyo Pt seen, examined, assessment and plan discussed with Dr Jonathan Rodriguez PGY1
--- NOTE | 2018-12-22 21:44 | CP.PCM.CON ---
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 The patient reports to sd ves with prior heparin/enoxaparin. He denies respiratory or anaphylactoid reactions with prior heparin/enoxaparin exposure. He denies clotting or abnormal bleeding with heparin/enoxaparin exposure. Past medical history: PVD, recurrent venous clotting, AAA Past surgical history: IVC filter, hip replacement Family history: Denies hematologic and oncologic problems Social history: 12ppd, denies tobacco and illicit drug use. Allergies: Heparin - hives Review of systems: All remaining review of systems including HEENT, cardiovascular, respiratory, gastrointestinal, genitourinary, musculoskeletal, dermatologic, neurologic, and psychiatric are negative unless mentioned in the HPI. Past Patient History - Past Medical History & Family History Past Medical History?: Yes - Past Social History Smoking Status: Light Smoker < 10 Cigarettes Daily - CARDIAC Hx Hypertension: Yes - MUSCULOSKELETAL/RHEUMATOLOGICAL Hx Falls: No - PSYCHIATRIC Hx Substance Use: Yes (marijuana) - SURGICAL HISTORY Hx Orthopedic Surgery: Yes (hip) Other/Comment: right IVC filter - ANESTHESIA Hx Anesthesia: Yes Meds Allergies/Adverse Reactions: Allergies Allergy/AdvReac Type Severity Reaction Status Date / Time heparin Allergy Verified 12/18/18 12:18 - Medications Medications: Current Medications Albuterol/Ipratropium (Duoneb 3 Mg/0.5 Mg (3 Ml) Ud) 3 ml INH RQ6 [facility] Last Admin: 12/22/18 19:31 Dose: Not Given Amlodipine Besylate (Norvasc) 10 mg PO DAILY [facility] Last Admin: 12/22/18 09:52 Dose: Not Given Apixaban (Eliquis) 5 mg PO BID [facility] Last Admin: 12/22/18 17:58 Dose: 5 mg Artificial Tears (Artificial Tears) 0 ml OU Q3 [facility] Last Admin: 12/22/18 18:50 Dose: 1 drop Ciprofloxacin (Ciloxan 0.3% Ophth Soln) 1 drop OD Q2 [facility] Last Admin: 12/22/18 19:58 Dose: 1 drop Cefepime HCl (Maxipime Iv 1 Gm Premix) 1 gm in 50 mls @ 100 mls/hr IVPB Q8H [facility]; Protocol Last Admin: 12/22/18 21:09 Dose: 100 mls/hr Influenza Virus Vaccine (Flucelvax Quad 1166-8405 Syr) 60 mcg IM .ONCE ONE Stop: 12/23/18 10:01 Losartan Potassium (Cozaar) 25 mg PO DAILY [facility] Last Admin: 12/22/18 09:50 Dose: 25 mg Oxycodone/Acetaminophen (Percocet 5/325 Mg Tab) 1 tab PO Q6H PRN PRN Reason: Pain, severe (8-10) Stop: 12/24/18 15:42 Last Admin: 12/22/18 19:11 Dose: 1 tab Pneumococcal Polyvalent Vaccine (Pneumovax 23 Vaccine) 0.5 ml IM .ONCE ONE Stop: 12/23/18 10:01 Tramadol HCl (Ultram) 50 mg PO ONCE PRN PRN Reason: Pain, moderate (4-7) Last Admin: 12/20/18 02:17 Dose: 50 mg Physical Exam - Head Exam Head Exam: ATRAUMATIC - Eye Exam Eye Exam: Normal appearance - ENT Exam ENT Exam: Mucous Membranes Dry - Respiratory Exam Respiratory Exam: NORMAL BREATHING PATTERN - Cardiovascular Exam Cardiovascular Exam: +S1, +S2 - GI/Abdominal Exam GI & Abdominal Exam: Normal Bowel Sounds - Neurological Exam Neurological exam: Oriented x3 - Psychiatric Exam Psychiatric exam: Normal Affect, Normal Mood - Skin Skin Exam: Warm Results - Vital Signs Recent Vital Signs: Last Vital Signs Temp 98 F 12/22/18 16:00 Pulse 70 12/22/18 16:00 Resp 20 12/22/18 16:00 BP 126/81 12/22/18 16:00 Pulse Ox 98 12/22/18 16:00 - Labs Result Diagrams: 12/22/18 07:05 12/22/18 07:05 Labs: Laboratory Results - last 24 hr 12/22/18 12/22/18 12/22/18 07:05 07:05 17:18 WBC 3.8 L RBC 5.45 Hgb 15.6 Hct 48.1 MCV 88.3 MCH 28.6 MCHC 32.4 L RDW 15.7 H Plt Count 259 MPV 8.2 Neut % (Auto) 58.3 Lymph % (Auto) 26.8 [place] % (Auto) 10.2 H Eos % (Auto) 3.5 Baso % (Auto) 1.2 Neut # (Auto) 2.2 Lymph # (Auto) 1.0 [place] # (Auto) 0.4 Eos # (Auto) 0.1 Baso # (Auto) 0.0 Sodium 131 L Potassium 3.9 Chloride 99 Carbon Dioxide 27 Anion Gap 8 L BUN 10 Creatinine 0.6 L Est GFR ( Amer) > 60 Est GFR (Non-Af Amer) > 60 Random Glucose 119 H D Calcium 9.4 Phosphorus 3.2 Magnesium 1.9 Total Bilirubin 0.7 AST 20 ALT 10 L D Alkaline Phosphatase 104 Total Protein 7.4 Albumin 3.9 Globulin 3.5 Albumin/Globulin Ratio 1.1 Free T4 TSH 3rd Generation 1.84 12/22/18 17:18 WBC RBC Hgb Hct MCV MCH MCHC RDW Plt Count MPV Neut % (Auto) Lymph % (Auto) [place] % (Auto) Eos % (Auto) Baso % (Auto) Neut # (Auto) Lymph # (Auto) [place] # (Auto) Eos # (Auto) Baso # (Auto) Sodium Potassium Chloride Carbon Dioxide Anion Gap BUN Creatinine Est GFR ( Amer) Est GFR (Non-Af Amer) Random Glucose Calcium Phosphorus Magnesium Total Bilirubin AST ALT Alkaline Phosphatase Total Protein Albumin Globulin Albumin/Globulin Ratio Free T4 1.03 TSH 3rd Generation Assessment & Plan (1) Heparin allergy Assessment and Plan: reports to hives will check heparin antibody but denies blood clots/bleeding/thrombocytopenia with prior exposure would recommend pepcid 20mg IV, benadryl 50mg IV, and hydrocortisone 50mg IV prior to heparin exposure to minimize hives Status: Acute (2) Leukopenia Assessment and Plan: likely benign Thank you for this interesting consult. Status: Acute
[2018-12-23] MEDS: Aritificial Tears (15ml) OU SCH ×5 (00:25→13:40)
[2018-12-23] MEDS: Ciprofloxacin 0.3% OPTH SOLN OD SCH ×8 (00:26→13:40)
[2018-12-23] MEDS: Albuterol-Ipratrop 3 mg / 0.5 (3 ml) UD INH SCH ×3 (01:30→13:10)
[2018-12-23] MEDS: Oxycodone/Acetaminophen 5/325 mg Tab PO PRN (02:48)
[2018-12-23] MEDS: Cefepime IV 1 gm in Dextrose 1 GM/50 ML BAG IVPB SCH ×2 (04:23→12:22)
[2018-12-23 07:17] LABS: EOS # 0.1 K/uL (0.0-0.7); HEMOGLOBIN 15.6 g/dL (12.0-18.0); LYMPH # 1.1 K/uL (1.0-4.3); LYMPH % 30.2 % (20.0-40.0); MEAN CELL VOLUME 88.6 fL (80.0-94.0); MEAN CORPUSCULAR HEMOGLOBIN 28.5 pg (27.0-31.0); MEAN CORPUSCULAR HGB CONC 32.2 g/dL (33.0-37.0); MONO # 0.4 K/uL (0.0-0.8); MONO % 11.8 % (0.0-10.0); NRBC % 0.3 % (0.0-2.0); RBC 5.48 Mil/uL (4.40-5.90); RED CELL DISTRIBUTION WIDTH 15.1 % (11.5-14.5); WHITE BLOOD COUNT 3.7 K/uL (4.8-10.8)
--- NOTE | 2018-12-23 07:23 | CP.PCM.PN ---
Subjective - Date & Time of Evaluation Date of Evaluation: 12/23/18 Time of Evaluation: 07:08 - Subjective Subjective: Progress note for Dr. Bradford Patient was seen and examined at bedside in no acute distress. Patient reports still having eye and leg pain, but it has improved since admission. He currently denies chest pain, palpitations, nausea, vomiting, fevers, abdominal pain, dysuria, constipation, diarrhea. Objective - Vital Signs/Intake and Output Vital Signs (last 24 hours): Temp Pulse Resp BP Pulse Ox 96.9 F L 69 18 151/87 H 98 12/23/18 00:00 12/23/18 00:00 12/23/18 00:00 12/23/18 00:00 12/23/18 00:00 Intake and Output: 12/23/18 12/23/18 06:59 18:59 Intake Total 1300 Output Total 500 Balance 800 - Medications Medications: Current Medications Albuterol/Ipratropium (Duoneb 3 Mg/0.5 Mg (3 Ml) Ud) 3 ml INH RQ6 [facility] Last Admin: 12/23/18 01:30 Dose: Not Given Amlodipine Besylate (Norvasc) 10 mg PO DAILY [facility] Last Admin: 12/22/18 09:52 Dose: Not Given Apixaban (Eliquis) 5 mg PO BID [facility] Last Admin: 12/22/18 17:58 Dose: 5 mg Artificial Tears (Artificial Tears) 0 ml OU Q3 [facility] Last Admin: 12/23/18 04:25 Dose: 1 drop Ciprofloxacin (Ciloxan 0.3% Ophth Soln) 1 drop OD Q2 [facility] Last Admin: 12/23/18 05:04 Dose: 1 drop Cefepime HCl (Maxipime Iv 1 Gm Premix) 1 gm in 50 mls @ 100 mls/hr IVPB Q8H [facility]; Protocol Last Admin: 12/23/18 04:23 Dose: 100 mls/hr Influenza Virus Vaccine (Flucelvax Quad [id number] Syr) 60 mcg IM .ONCE ONE Stop: 12/23/18 10:01 Losartan Potassium (Cozaar) 25 mg PO DAILY [facility] Last Admin: 12/22/18 09:50 Dose: 25 mg Oxycodone/Acetaminophen (Percocet 5/325 Mg Tab) 1 tab PO Q6H PRN PRN Reason: Pain, severe (8-10) Stop: 12/24/18 15:42 Last Admin: 12/23/18 02:48 Dose: 1 tab Pneumococcal Polyvalent Vaccine (Pneumovax 23 Vaccine) 0.5 ml IM .ONCE ONE Stop: 12/23/18 10:01 Tramadol HCl (Ultram) 50 mg PO ONCE PRN PRN Reason: Pain, moderate (4-7) Last Admin: 12/20/18 02:17 Dose: 50 mg - Labs Labs: 12/22/18 07:05 12/22/18 07:05 PT 13.6 SECONDS (9.7-12.2) H 12/19/18 06:20 INR 1.2 12/19/18 06:20 APTT 29 SECONDS (21-34) 12/19/18 06:20 - Constitutional Appears: No Acute Distress - Head Exam Head Exam: ATRAUMATIC, NORMOCEPHALIC - Eye Exam Eye Exam: absent: Normal appearance (Patient is not able to open eye completely. ) - ENT Exam ENT Exam: Mucous Membranes Moist - Respiratory Exam Respiratory Exam: Clear to Ausculation Bilateral, NORMAL BREATHING PATTERN. absent: Rhonchi, Wheezes, Respiratory Distress - Cardiovascular Exam Cardiovascular Exam: REGULAR RHYTHM, +S1, +S2 - GI/Abdominal Exam GI & Abdominal Exam: Soft, Normal Bowel Sounds. absent: Distended, Firm, Tenderness - Extremities Exam Extremities Exam: absent: Normal Inspection (B/L LE w/ venous stasis skin changes.), Pedal Edema - Neurological Exam Neurological Exam: Alert, Awake, Oriented x3 - Psychiatric Exam Psychiatric exam: Normal Affect, Normal Mood - Skin Skin Exam: Dry, Warm Assessment and Plan - Assessment and Plan (Free Text) Plan: IVC Dysfuction - Vascular Consult: connie Brambila appreciated * Plan per surgery --> Aortic stent graft and left to right fem-fem bypass * Cardiac Consult for preop: Dr. Castillo,help appreciated * Stress Test: Negative - Hem/Onc Consult: Dr. Kwok --> help appreciated * Patient states when he was given heparin he broke out in hives on his body. * Per Dr. Kwok: would recommend pepcid 20mg IV, benadryl 50mg IV, and hydrocortisone 50mg IV prior to heparin exposure to minimize hives * f/u heparin AB and serotonin release assay - Medications: * Eliquis 5mg daily * ASA 81 Imaging: * Abd/Pelv CT: An infrarenal IVC filter remains in place. The metallic struts are outside the confines of the IVC and 1 left lateral appears to breech the right lateral wall of the aorta. Fusiform supra and infrarenal abdominal aortic aneurysm measuring 4.4 cm in maximum diameter. * LE Doppler: Right- moderately decreased perfusion of RLE, noted from iliac to distal small artery levels; Left- mildly decreased perfusion of LLE, noted at the iliac artery level. Right Corneal Ulcer - Ophthalmology Consult: Dr. Cummings/ Dr. Howell --> help appreciated * Per Dr. Howell, start Cipro OD drops Q2hr and patient must followup after discharge - Orbit CT: Mild right exophthalmos. Right preseptal swelling. Small hypodensity uncertain etiology possibly bubble of air however displaced lens not excluded. - Medications: * Ciprofloxacin 0.3% OD drops * Cefepime * Percocet for pain - Cold compress HTN - Increased Norvasc 10mg po daily - Losartan 25mg PO daily PPx: - ASA 81 - Eliquis 5mg qd Case discussed with Dr. Suzette Pettit PGY-2 Patient is stable for discharge to home per Dr. Bradford, Dr. Brambila. Patient must follow up with [facility] this week. Please call to make an appointment with retail zone specialist, Dr. Josue Howell #[phone]. Patient must follow up with surgeon, Dr. Brambila, within one week of discharge. Patient must also follow up with PMD, Dr. Bradford, within one week of discharge. Please continue the following medications: - Amlodipine 10mg PO daily - take 1 tablet every day - Losartan 25mg PO daily - take 1 tablet every day - Eliquis 5mg PO daily - take 1 tablet every day - Cipro 0.3% ophth solution - per Dr. Howell, apply 1 drop into the right eye every 2 hours. - Percocet 1 tab every 6 hours as needed for pain. IF symptoms worsen or reoccur, patient should return to the nearest ED.
[2018-12-23 07:40] VITALS: BP 157/90; PULSE 71; RESP 20; TEMP 98.2; O2SAT 96
[2018-12-23 07:42] LABS: ALB/GLOB RATIO 1.2 (1.0-2.1); ALBUMIN 4.1 g/dL (3.5-5.0); ALT/SGPT 10 U/L (21-72); AST/SGOT 31 U/L (17-59); BLOOD UREA NITROGEN 13 mg/dL (9-20); CALCIUM 9.6 mg/dl (8.6-10.4); GFR NON-AFRICAN AMERICAN > 60
[2018-12-23] MEDS ORDERED: Pneumococcal 23-Valent Vaccine IM ONE (10:00)
[2018-12-23] MEDS ORDERED: Influenza Vaccine 60 mcg/0.5 mL SYR (4YR UP) IM ONE (10:00)
--- NOTE | 2018-12-23 13:14 | CP.PCM.PN ---
Subjective - Date & Time of Evaluation Date of Evaluation: 12/23/18 Time of Evaluation: 06:25 - Subjective Subjective: Pt seen and examined this morning at bedside. Pt has no new complaints at this time. Objective - Vital Signs/Intake and Output Vital Signs (last 24 hours): Temp Pulse Resp BP Pulse Ox 98.2 F 71 20 157/90 H 96 12/23/18 07:35 12/23/18 07:35 12/23/18 07:35 12/23/18 07:35 12/23/18 07:35 Intake and Output: 12/23/18 12/23/18 06:59 18:59 Intake Total 1300 Output Total 500 Balance 800 - Medications Medications: Current Medications Albuterol/Ipratropium (Duoneb 3 Mg/0.5 Mg (3 Ml) Ud) 3 ml INH RQ6 [facility] Last Admin: 12/23/18 07:40 Dose: Not Given Amlodipine Besylate (Norvasc) 10 mg PO DAILY [facility] Last Admin: 12/23/18 09:58 Dose: 10 mg Apixaban (Eliquis) 5 mg PO BID [facility] Last Admin: 12/23/18 09:58 Dose: 5 mg Artificial Tears (Artificial Tears) 0 ml OU Q3 [facility] Last Admin: 12/23/18 09:58 Dose: 1 drop Aspirin (Aspirin Chewable) 81 mg PO DAILY [facility] Last Admin: 12/23/18 12:41 Dose: 81 mg Ciprofloxacin (Ciloxan 0.3% Ophth Soln) 1 drop OD Q2 [facility] Last Admin: 12/23/18 12:22 Dose: 1 drop Cefepime HCl (Maxipime Iv 1 Gm Premix) 1 gm in 50 mls @ 100 mls/hr IVPB Q8H [facility]; Protocol Last Admin: 12/23/18 12:22 Dose: 100 mls/hr Losartan Potassium (Cozaar) 100 mg PO DAILY [facility] Oxycodone/Acetaminophen (Percocet 5/325 Mg Tab) 1 tab PO Q6H PRN PRN Reason: Pain, severe (8-10) Stop: 12/24/18 15:42 Last Admin: 12/23/18 02:48 Dose: 1 tab Tramadol HCl (Ultram) 50 mg PO ONCE PRN PRN Reason: Pain, moderate (4-7) Last Admin: 12/20/18 02:17 Dose: 50 mg - Labs Labs: 12/23/18 06:58 12/23/18 06:58 PT 13.6 SECONDS (9.7-12.2) H 12/19/18 06:20 INR 1.2 12/19/18 06:20 APTT 29 SECONDS (21-34) 12/19/18 06:20 - Constitutional Appears: No Acute Distress - Head Exam Head Exam: ATRAUMATIC, NORMOCEPHALIC - Eye Exam Eye Exam: EOMI - ENT Exam ENT Exam: Mucous Membranes Moist - Neck Exam Neck Exam: Full ROM - Respiratory Exam Respiratory Exam: Clear to Ausculation Bilateral, NORMAL BREATHING PATTERN. absent: Accessory Muscle Use - Cardiovascular Exam Cardiovascular Exam: RRR, +S1, +S2. absent: Diastolic murmur, Murmur - GI/Abdominal Exam GI & Abdominal Exam: Soft, Normal Bowel Sounds. absent: Tenderness - Extremities Exam Extremities Exam: Full ROM. absent: Tenderness - Neurological Exam Neurological Exam: Alert, Oriented x3 - Psychiatric Exam Psychiatric exam: Normal Affect, Normal Mood - Skin Skin Exam: Dry, Intact, Normal Color Assessment and Plan - Assessment and Plan (Free Text) Assessment: (1) Preop cardiovascular exam Assessment and Plan: Status: Acute (2) AAA (abdominal aortic aneurysm) Status: Acute (3) HTN (hypertension) Status: Acute (4) Peripheral vascular disease Status: Acute Plan: Preop cardiovascular for AAA stent HA1C 5.4 ECHO 12/19/18 LV normal function, EF 60-65%, mild/mod AR, mild pulm HTN Stress test 12/21/18 shows no abnormalities pt is a low risk for surgery from a cardiac standpoint add ASA increase dose of cozaar 100, for better BP control Medications amlodipine ASA Eliquis cozaar Pt seen, examined, assessment and plan discussed with Dr Jonathan Rodriguez PGY1, Internal Medicine Resident
--- NOTE | 2018-12-24 02:03 | CON ---
DATE: 12/23/2018 HISTORY OF PRESENT ILLNESS: The patient is being followed up for severe corneal ulcer, right eye. The patient reports that it feels about the same. He reports that the vision is about the same. PHYSICAL EXAMINATION: On exam, the patient is noted to have a perforated corneal ulcer on the right eye that measures approximately 2 to 3 mm. There is no anterior chamber. The eye is not soft. There is no view at this point of the lens or the back of the eye. The eye is very injected. The left eye was noted to be stable. Cornea was clear. He does have a cataract. Posterior exam was within normal limits. ASSESSMENT: Perforated corneal ulcer, right eye. RECOMMENDATIONS: I spoke with resident at [facility]. The patient will be seen at [facility] today for a possible corneal gluing or possible tap and inject for his infection. Continue antibiotics until the patient is seen at [facility]. Again, if there are any questions, he can always contact me at [phone]. Josue Howell MD
--- NOTE | 2018-12-28 07:43 | DS ---
Mr. Gallardo was admitted to the hospital with chief complaint of leg pain. The patient is treated for cellulitis. The patient is found to have IVC filter, , slight anemia . The patient's blood test was eventually done. The patient was discharged. Follow up with Dr. Brambila as outpatient. . Abrahan Bradford MD
== END 2018-12-23 15:04 | disposition home or self-care (01) | DRG 603 ==
LOC: C.ER 12:00 → C.3T 18:47 → OBSVTOIN 12-20 07:47
PROVIDERS: ADMIT Hospitalist; ATTEND Internal Medicine Pulmonary Disease
DX: L03.115 Cellulitis of right lower limb (principal); T82.515A Breakdown (mechanical) of umbrella device, initial encounter; I74.5 Embolism and thrombosis of iliac artery; I71.4 Abdominal aortic aneurysm, without rupture; I87.8 Other specified disorders of veins; H16.001 Unspecified corneal ulcer, right eye; I10 Essential (primary) hypertension; J44.9 Chronic obstructive pulmonary disease, unspecified; Z86.718 Personal history of other venous thrombosis and embolism; I73.9 Peripheral vascular disease, unspecified; Z96.649 Presence of unspecified artificial hip joint; H10.89 Other conjunctivitis; F17.210 Nicotine dependence, cigarettes, uncomplicated; F12.90 Cannabis use, unspecified, uncomplicated; D72.819 Decreased white blood cell count, unspecified; Z88.8 Allergy status to other drugs, medicaments and biological substances; I27.20 Pulmonary hypertension, unspecified

== ENCOUNTER 2019-02-10 08:43 | Outpatient (CLI) | payer MEDICARE | END 2019-02-10 08:44 | disposition home or self-care (01) | LOC: C.PAT 08:43 | DX: I71.4 Abdominal aortic aneurysm, without rupture (principal) ==

== ENCOUNTER 2019-02-22 06:47 | Inpatient (IN) | payer MEDICARE ==
[2019-02-10 09:04] VITALS: BMI 19.9
[2019-02-22] MEDS ORDERED: ceFAZolin 1 gm in NS 0 GM/0 ML BAG IVPB ONE (07:11)
[2019-02-22] MEDS ORDERED: Iodixanol 320 MG/ML 200 ML BOTTLE IV ONE (07:12)
[2019-02-22] MEDS ORDERED: niCARdipine IV 25 MG in Sodium Chloride 0.9% 240 ML IV SCH (07:45)
[2019-02-22] MEDS ORDERED: ceFAZolin 1 gm in NS 2 GM/200 ML BAG IVPB ONE (08:09)
[2019-02-22] MEDS ORDERED: Midazolam 2 MG/2 ML VIAL ONE (08:10)
[2019-02-22] MEDS ORDERED: Propofol 10 mg/ml Inj (20 ML) ONE ×2 (08:10→09:05)
[2019-02-22] MEDS ORDERED: Rocuronium 10 mg/ml (10 ml) ONE (08:11)
[2019-02-22] MEDS ORDERED: ARGATROBAN IV ONE (09:00)
[2019-02-22] MEDS ORDERED: SODIUM CHLORIDE 0.9% IV PRN (09:00)
[2019-02-22] MEDS ORDERED: SODIUM CHLORIDE 0.9% IV ONE (09:00)
[2019-02-22] MEDS ORDERED: ARGATROBAN IV PRN (09:00)
[2019-02-22] MEDS ORDERED: Dextrose 50% SYRINGE Inj (50 ml) ONE (10:05)
[2019-02-22 10:30] LABS: ABG ALLEN TEST POS; ARTERIAL BLOOD GAS HCO3 20.5 mmol/L (21-28); ARTERIAL BLOOD GAS O2 SAT 100.5 % (95-98); ARTERIAL BLOOD GAS PCO2 40 mm/Hg (35-45); ARTERIAL BLOOD GAS PH 7.31 (7.35-7.45); ARTERIAL BLOOD GAS PO2 508 mm/Hg (80-100); ARTERIAL BLOOD GAS TCO2 21.3 mmol/L (22-28)
[2019-02-22] MEDS ORDERED: SODIUM CHLORIDE 0.9% IV SCH ×2 (10:30→10:45)
[2019-02-22] MEDS ORDERED: ARGATROBAN IV SCH ×2 (10:30→10:45)
[2019-02-22 11:05] LABS: MEAN CELL VOLUME 85.5 fL (80.0-94.0); MEAN CORPUSCULAR HEMOGLOBIN 28.2 pg (27.0-31.0); MEAN CORPUSCULAR HGB CONC 32.9 g/dL (33.0-37.0); RBC 4.11 Mil/uL (4.40-5.90); RED CELL DISTRIBUTION WIDTH 17.7 % (11.5-14.5); WHITE BLOOD COUNT 4.2 K/uL (4.8-10.8)
[2019-02-22 11:08] LABS: HEMOGLOBIN 11.6 g/dL (12.0-18.0)
[2019-02-22 11:23] LABS: ALBUMIN 2.4 g/dL (3.5-5.0); ALT/SGPT 18 U/L (21-72); AST/SGOT 15 U/L (17-59); BLOOD UREA NITROGEN 7 mg/dL (9-20); CALCIUM 7.9 mg/dl (8.6-10.4); GFR NON-AFRICAN AMERICAN > 60
[2019-02-22] MEDS ORDERED: ePHEDrine 50 mg/ml Inj ONE ×2 (12:01→12:06)
[2019-02-22] MEDS ORDERED: Bacitracin Ointment 30 GM TUBE ONE (12:54)
[2019-02-22] MEDS ORDERED: Albuterol 0.083% Inhal Sol (2.5 mg/3 mL) UD IH PRN (13:37)
[2019-02-22] MEDS ORDERED: Labetalol 5mg/ml (4ml) IVP PRN (13:42)
[2019-02-22] MEDS ORDERED: HYDROmorphone 0.5 mg/0.5 ml ISec IVP PRN (13:42)
--- NOTE | 2019-02-22 13:46 | PCM.SURG1 ---
Surgeon's Initial Post Op Note - Surgeon's Notes Surgeon: Dr. Brambila Wall Steamer: Yoselyn PGY2 Type of Anesthesia: General Endo Anesthesia Administered By: Dr. Del Castillo Pre-Operative Diagnosis: AAA, right iliac occlusion Operative Findings: AAA, right iliac occlusion Post-Operative Diagnosis: AAA, right iliac occlusion Operation Performed: EVAR with fem-fem bypass, balloon angioplasty of Left common iliac artery Specimen/Specimens Removed: N/A Estimated Blood Loss: EBL {In ML}: 850 Blood Products Given: N/A Drains Used: No Drains Post-Op Condition: Fair Date of Surgery/Procedure: 02/22/19 Time of Surgery/Procedure: 13:46
[2019-02-22 14:43] LABS: BASO % 0.4 % (0.0-2.0); EOS % 0.3 % (0.0-4.0); HEMOGLOBIN 12.4 g/dL (12.0-18.0); LYMPH # 0.6 K/uL (1.0-4.3); LYMPH % 7.1 % (20.0-40.0); MEAN CELL VOLUME 85.6 fL (80.0-94.0); MEAN CORPUSCULAR HGB CONC 32.7 g/dL (33.0-37.0); MEAN PLATELET VOLUME 7.6 fL (7.2-11.7); MONO # 0.2 K/uL (0.0-0.8); MONO % 2.3 % (0.0-10.0); NEUT # 7.7 K/uL (1.8-7.0); NEUT % 89.9 % (50.0-75.0)
[2019-02-22 14:47] LABS: ALB/GLOB RATIO 1.2 (1.0-2.1); ALT/SGPT 18 U/L (21-72); AST/SGOT 19 U/L (17-59); BLOOD UREA NITROGEN 8 mg/dL (9-20); CALCIUM 7.8 mg/dl (8.6-10.4); GFR NON-AFRICAN AMERICAN > 60
[2019-02-22 14:49] LABS: PLATELET COUNT 122 K/uL (130-400); WHITE BLOOD COUNT 8.6 K/uL (4.8-10.8)
[2019-02-22] MEDS ORDERED: ceFAZolin IV 1 gm in Dextrose 1 GM/50 ML BAG IVPB SCH (15:00)
[2019-02-22 15:02] LABS: BASOPHIL 1 % (0-2); LYMPHOCYTE 9 % (20-40); MONOCYTE 1 % (0-10); NEUTROPHIL 89 % (50-75); TOTAL CELLS COUNTED 100
[2019-02-22 15:03] LABS: PLATELET ESTIMATE SLIGHTLY DECREASED (NORMAL)
--- NOTE | 2019-02-22 15:10 | RAD ---
Date of service: 02/22/2019 PROCEDURE: Intraoperative Fluoroscopy. HISTORY: AAA AND RT. ILIAC OCCLUSION FINDINGS: Fluoroscopic assistance was provided for intraoperative interventional procedure. Please refer to the operative report from [facility]. Total fluoroscopic time (continuous mode) utilized during the procedure 651.8 seconds. Total exam DLP: 93.89 (mGy).
[2019-02-22 15:22] LABS: INR 1.7; PROTHROMBIN TIME 18.5 SECONDS (9.7-12.2)
[2019-02-22] MEDS: Lactated Ringer's 1,000 ML IV SCH ×3 (16:23→23:40)
[2019-02-22] MEDS: ceFAZolin IV 1 gm in Dextrose 1 GM/50 ML BAG IVPB SCH ×2 (16:30→23:30)
--- NOTE | 2019-02-22 17:03 | CP.CCUPN ---
CCU Subjective - Physician Review Subjective (Free Text): 02/22/19 17:32 PGY-1 Critical Care Consult Note for Dr. Mina Patient is a 68 year old male with hx HTN, AAA, possible adverse reaction to heparin, who presents for ICU post-op monitoring. Patient is status-post endovascular AAA repair, fem-fem bypass, L common illiac artery balloon angioplasty with Dr. Brambila this afternoon 02/22. 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 Patient tolerated surgery well with minimal blood loss and stable post-op. Patient endorses abdominal pain at surgical site, denies nausea, vomiting, headache, chest pain, dizziness, shortness of breath. PMHx: HTN, AAA, possible adverse reaction to heparin Meds: reviewed as per MARY Allergies: heparin - rash PSHx: L THR, IVC Filter SHx: (+)tobacco, marijuana; denies EtOH use FHx: Mom and Dad [place], sister PR CCU Objective - Vital Signs / Intake & Output Intake and Output (Last 8hrs): Intake & Output 02/22/19 02/22/19 02/22/19 06:59 14:59 22:59 Intake Total 7025.25 Output Total 850 Balance 6175.25 Intake: IV 7025.25 Output: Urine 850 - Physical Exam Head: Positive for: Atraumatic, Normocephalic Pupils: Positive for: PERRL Extroacular Muscles: Positive for: EOMI Mouth: Positive for: Moist Mucous Membranes Respiratory/Chest: Positive for: Clear to Auscultation, Accessory Muscle Use Cardiovascular: Positive for: Regular Rate and Rhythm Abdomen: Positive for: Other (lower abdominal surgical incisions with dressings c/d/i) Neurological: Positive for: GCS=15, CN II-XII Intact Skin: Positive for: Warm, Dry, Normal Color Psychiatric: Positive for: Alert, Oriented x 3 - Medications Active Medications: Active Medications Generic Name Dose Route Start Last Admin Trade Name Freq PRN Reason Stop Dose Admin Albuterol Sulfate 2.5 mg 02/22/19 13:37 Albuterol 0.083% Inhal [place] (2.5 Mg/3 Ml) Ud IH RQ2 PRN Shortness of Breath Amlodipine Besylate 10 mg 02/23/19 10:00 Norvasc PO DAILY BRIANNA Docusate Sodium 100 mg 02/22/19 13:37 Colace PO BID PRN Constipation Hydromorphone HCl 0.5 mg 02/22/19 13:37 Dilaudid IVP Q3H PRN Pain, severe (8-10) Argatroban 250 mg/ Sodium 252.5 mls @ 8.52 mls/hr 02/22/19 09:00 Chloride IV .Q24H BRIANNA Protocol 2 MCG/KG/MIN Argatroban 20 mg/ Sodium 1,000.2 mls @ 0 mls/hr 02/22/19 09:00 02/22/19 10:00 Chloride IV 0 mls .Q0M PRN Administration IRRIGATION UD Lactated Ringer's 1,000 mls @ 125 mls/hr 02/22/19 13:45 02/22/19 16:23 Lactated Ringer's IV 125 mls/hr .Q8H BRIANNA Administration Acetaminophen 100 mls @ 100 mls/hr 02/22/19 15:30 02/22/19 16:24 Ofirmev IV 02/23/19 15:31 100 mls/hr Q6H BRIANNA Administration Cefazolin Sodium/Dextrose 1 gm in 50 mls @ 100 mls/hr 02/22/19 16:20 02/22/19 16:30 Ancef Iv 1 Gm Duplex IVPB 02/23/19 08:49 100 mls/hr Q8H BRIANNA Administration Protocol Losartan Potassium 25 mg 02/23/19 10:00 Cozaar PO DAILY [facility] Ondansetron HCl 4 mg 02/22/19 13:37 Zofran Inj IVP Q6H PRN Nausea/Vomiting Oxycodone HCl 5 mg 02/22/19 15:18 Oxycodone Immediate Release Tab PO Q6 PRN Pain, moderate (4-7) Pantoprazole Sodium 40 mg 02/23/19 10:00 Protonix Inj IVP DAILY [facility] Sennosides 8.6 mg 02/23/19 10:00 Senokot Tab PO DAILY BRIANNA - Patient Studies Lab Studies: Lab Studies 02/22/19 02/22/19 02/22/19 Range/Units 14:27 14:27 14:27 WBC 8.6 D (4.8-10.8) K/uL RBC 4.40 (4.40-5.90) Mil/uL Hgb 12.4 (12.0-18.0) g/dL Hct 37.7 (35.0-51.0) % MCV 85.6 (80.0-94.0) fL MCH 28.0 (27.0-31.0) pg MCHC 32.7 L (33.0-37.0) g/dL RDW 18.0 H (11.5-14.5) % Plt Count 122 L (130-400) K/uL MPV 7.6 (7.2-11.7) fL Neut % (Auto) 89.9 H (50.0-75.0) % Lymph % (Auto) 7.1 L (20.0-40.0) % [place] % (Auto) 2.3 (0.0-10.0) % Eos % (Auto) 0.3 (0.0-4.0) % Baso % (Auto) 0.4 (0.0-2.0) % Neut # (Auto) 7.7 H (1.8-7.0) K/uL Lymph # (Auto) 0.6 L (1.0-4.3) K/uL [place] # (Auto) 0.2 (0.0-0.8) K/uL Eos # (Auto) 0.0 (0.0-0.7) K/uL Baso # (Auto) 0.0 (0.0-0.2) K/uL Neutrophils % (Manual) 89 H (50-75) % Lymphocytes % (Manual) 9 L (20-40) % Monocytes % (Manual) 1 (0-10) % Basophils % (Manual) 1 (0-2) % Platelet Estimate Slightly decreased L (NORMAL) PT 18.5 H (9.7-12.2) SECONDS INR 1.7 APTT 73.0 H (21-34) SECONDS Puncture Site pCO2 (35-45) mm/Hg pO2 (80-100) mm/Hg HCO3 (21-28) mmol/L ABG pH (7.35-7.45) ABG Total CO2 (22-28) mmol/L ABG O2 Saturation (95-98) % ABG Base Excess (-2.0-3.0) mmol/L Kennedy Test ABG Potassium (3.6-5.2) mmol/L A-a O2 Difference mm/Hg Respiratory Index Sodium 129 L (132-148) mmol/l Chloride 99 (98-107) mmol/L Glucose (75-110) mg/dl Lactate (0.7-2.1) mmol/L FiO2 % Blood Gas Comments Crit Value Called To Crit Value Called By Crit Value Read Back Blood Gas Notified Time Potassium 3.8 (3.6-5.2) mmol/L Carbon Dioxide 26 (22-30) mmol/L Anion Gap 8 L (10-20) BUN 8 L (9-20) mg/dL Creatinine 1.0 (0.8-1.5) mg/dL Est GFR ( Amer) > 60 Est GFR (Non-Af Amer) > 60 POC Glucose (mg/dL) (65-110) mg/dL Random Glucose 190 H D (75-110) mg/dL Calcium 7.8 L (8.6-10.4) mg/dl Phosphorus 3.4 (2.5-4.5) mg/dL Magnesium 1.2 L (1.6-2.3) mg/dL Total Bilirubin 1.5 H (0.2-1.3) mg/dL AST 19 (17-59) U/L ALT 18 L (21-72) U/L Alkaline Phosphatase 98 (38-126) U/L Total Protein 5.5 L (6.3-8.3) g/dL Albumin 3.0 L D (3.5-5.0) g/dL Globulin 2.6 (2.2-3.9) gm/dL Albumin/Globulin Ratio 1.2 (1.0-2.1) Arterial Blood Potassium (3.6-5.2) mmol/L Blood Type Antibody Screen 02/22/19 02/22/19 02/22/19 Range/Units 11:00 11:00 10:24 WBC 4.2 L (4.8-10.8) K/uL RBC 4.11 L (4.40-5.90) Mil/uL Hgb 11.6 L D (12.0-18.0) g/dL Hct 35.1 (35.0-51.0) % MCV 85.5 (80.0-94.0) fL MCH 28.2 (27.0-31.0) pg MCHC 32.9 L (33.0-37.0) g/dL RDW 17.7 H (11.5-14.5) % Plt Count 133 (130-400) K/uL MPV 8.0 (7.2-11.7) fL Neut % (Auto) (50.0-75.0) % Lymph % (Auto) (20.0-40.0) % [place] % (Auto) (0.0-10.0) % Eos % (Auto) (0.0-4.0) % Baso % (Auto) (0.0-2.0) % Neut # (Auto) (1.8-7.0) K/uL Lymph # (Auto) (1.0-4.3) K/uL [place] # (Auto) (0.0-0.8) K/uL Eos # (Auto) (0.0-0.7) K/uL Baso # (Auto) (0.0-0.2) K/uL Neutrophils % (Manual) (50-75) % Lymphocytes % (Manual) (20-40) % Monocytes % (Manual) (0-10) % Basophils % (Manual) (0-2) % Platelet Estimate (NORMAL) PT (9.7-12.2) SECONDS INR APTT (21-34) SECONDS Puncture Site L rad pCO2 40 (35-45) mm/Hg pO2 508 H (80-100) mm/Hg HCO3 20.5 L (21-28) mmol/L ABG pH 7.31 L (7.35-7.45) ABG Total CO2 21.3 L (22-28) mmol/L ABG O2 Saturation 100.5 H (95-98) % ABG Base Excess -5.8 L (-2.0-3.0) mmol/L Kennedy Test Pos ABG Potassium 2.5 L* (3.6-5.2) mmol/L A-a O2 Difference 155.0 mm/Hg Respiratory Index 0.3 Sodium 133 140.0 (132-148) mmol/l Chloride 103 113.0 H (98-107) mmol/L Glucose 89 (75-110) mg/dl Lactate 1.0 (0.7-2.1) mmol/L FiO2 100.0 % Blood Gas Comments Drawn in or by dr Waldron Value Called To Dr mckay Crit Value Called By Larry bhatia heat treat furnace operator Crit Value Read Back Y Blood Gas Notified Time 1030 Potassium 3.4 L (3.6-5.2) mmol/L Carbon Dioxide 25 (22-30) mmol/L Anion Gap 8 L (10-20) BUN 7 L (9-20) mg/dL Creatinine 0.8 (0.8-1.5) mg/dL Est GFR ( Amer) > 60 Est GFR (Non-Af Amer) > 60 POC Glucose (mg/dL) (65-110) mg/dL Random Glucose 158 H D (75-110) mg/dL Calcium 7.9 L (8.6-10.4) mg/dl Phosphorus (2.5-4.5) mg/dL Magnesium (1.6-2.3) mg/dL Total Bilirubin 1.1 (0.2-1.3) mg/dL AST 15 L D (17-59) U/L ALT 18 L D (21-72) U/L Alkaline Phosphatase 76 (38-126) U/L Total Protein 4.7 L (6.3-8.3) g/dL Albumin 2.4 L D (3.5-5.0) g/dL Globulin 2.3 (2.2-3.9) gm/dL Albumin/Globulin Ratio 1.0 (1.0-2.1) Arterial Blood Potassium 2.5 L* (3.6-5.2) mmol/L Blood Type Antibody Screen 02/22/19 02/22/19 Range/Units 09:58 09:00 WBC (4.8-10.8) K/uL RBC (4.40-5.90) Mil/uL Hgb (12.0-18.0) g/dL Hct (35.0-51.0) % MCV (80.0-94.0) fL MCH (27.0-31.0) pg MCHC (33.0-37.0) g/dL RDW (11.5-14.5) % Plt Count (130-400) K/uL MPV (7.2-11.7) fL Neut % (Auto) (50.0-75.0) % Lymph % (Auto) (20.0-40.0) % [place] % (Auto) (0.0-10.0) % Eos % (Auto) (0.0-4.0) % Baso % (Auto) (0.0-2.0) % Neut # (Auto) (1.8-7.0) K/uL Lymph # (Auto) (1.0-4.3) K/uL [place] # (Auto) (0.0-0.8) K/uL Eos # (Auto) (0.0-0.7) K/uL Baso # (Auto) (0.0-0.2) K/uL Neutrophils % (Manual) (50-75) % Lymphocytes % (Manual) (20-40) % Monocytes % (Manual) (0-10) % Basophils % (Manual) (0-2) % Platelet Estimate (NORMAL) PT (9.7-12.2) SECONDS INR APTT (21-34) SECONDS Puncture Site pCO2 (35-45) mm/Hg pO2 (80-100) mm/Hg HCO3 (21-28) mmol/L ABG pH (7.35-7.45) ABG Total CO2 (22-28) mmol/L ABG O2 Saturation (95-98) % ABG Base Excess (-2.0-3.0) mmol/L Kennedy Test ABG Potassium (3.6-5.2) mmol/L A-a O2 Difference mm/Hg Respiratory Index Sodium (132-148) mmol/l Chloride (98-107) mmol/L Glucose (75-110) mg/dl Lactate (0.7-2.1) mmol/L FiO2 % Blood Gas Comments Crit Value Called To Crit Value Called By Crit Value Read Back Blood Gas Notified Time Potassium (3.6-5.2) mmol/L Carbon Dioxide (22-30) mmol/L Anion Gap (10-20) BUN (9-20) mg/dL Creatinine (0.8-1.5) mg/dL Est GFR ( Amer) Est GFR (Non-Af Amer) POC Glucose (mg/dL) 93 (65-110) mg/dL Random Glucose (75-110) mg/dL Calcium (8.6-10.4) mg/dl Phosphorus (2.5-4.5) mg/dL Magnesium (1.6-2.3) mg/dL Total Bilirubin (0.2-1.3) mg/dL AST (17-59) U/L ALT (21-72) U/L Alkaline Phosphatase (38-126) U/L Total Protein (6.3-8.3) g/dL Albumin (3.5-5.0) g/dL Globulin (2.2-3.9) gm/dL Albumin/Globulin Ratio (1.0-2.1) Arterial Blood Potassium (3.6-5.2) mmol/L Blood Type B POSITIVE Antibody Screen Negative Laboratory Results - last 24 hr 02/22/19 02/22/19 02/22/19 09:00 09:58 10:24 WBC RBC Hgb Hct MCV MCH MCHC RDW Plt Count MPV Neut % (Auto) Lymph % (Auto) [place] % (Auto) Eos % (Auto) Baso % (Auto) Neut # (Auto) Lymph # (Auto) [place] # (Auto) Eos # (Auto) Baso # (Auto) Neutrophils % (Manual) Lymphocytes % (Manual) Monocytes % (Manual) Basophils % (Manual) Platelet Estimate PT INR APTT Puncture Site L rad pCO2 40 pO2 508 H HCO3 20.5 L ABG pH 7.31 L ABG Total CO2 21.3 L ABG O2 Saturation 100.5 H ABG Base Excess -5.8 L Kennedy Test Pos ABG Potassium 2.5 L* A-a O2 Difference 155.0 Respiratory Index 0.3 Sodium 140.0 Chloride 113.0 H Glucose 89 Lactate 1.0 FiO2 100.0 Blood Gas Comments Drawn in or by dr Waldron Value Called To Dr mckay Crit Value Called By Larry bhatia heat treat furnace operator Crit Value Read Back Y Blood Gas Notified Time 1030 Potassium Carbon Dioxide Anion Gap BUN Creatinine Est GFR ( Amer) Est GFR (Non-Af Amer) POC Glucose (mg/dL) 93 Random Glucose Calcium Phosphorus Magnesium Total Bilirubin AST ALT Alkaline Phosphatase Total Protein Albumin Globulin Albumin/Globulin Ratio Arterial Blood Potassium 2.5 L* Blood Type B POSITIVE Antibody Screen Negative 02/22/19 02/22/19 02/22/19 11:00 11:00 14:27 WBC 4.2 L 8.6 D RBC 4.11 L 4.40 Hgb 11.6 L D 12.4 Hct 35.1 37.7 MCV 85.5 85.6 MCH 28.2 28.0 MCHC 32.9 L 32.7 L RDW 17.7 H 18.0 H Plt Count 133 122 L MPV 8.0 7.6 Neut % (Auto) 89.9 H Lymph % (Auto) 7.1 L [place] % (Auto) 2.3 Eos % (Auto) 0.3 Baso % (Auto) 0.4 Neut # (Auto) 7.7 H Lymph # (Auto) 0.6 L [place] # (Auto) 0.2 Eos # (Auto) 0.0 Baso # (Auto) 0.0 Neutrophils % (Manual) 89 H Lymphocytes % (Manual) 9 L Monocytes % (Manual) 1 Basophils % (Manual) 1 Platelet Estimate Slightly decreased L PT INR APTT Puncture Site pCO2 pO2 HCO3 ABG pH ABG Total CO2 ABG O2 Saturation ABG Base Excess Kennedy Test ABG Potassium A-a O2 Difference Respiratory Index Sodium 133 Chloride 103 Glucose Lactate FiO2 Blood Gas Comments Crit Value Called To Crit Value Called By Crit Value Read Back Blood Gas Notified Time Potassium 3.4 L Carbon Dioxide 25 Anion Gap 8 L BUN 7 L Creatinine 0.8 Est GFR ( Amer) > 60 Est GFR (Non-Af Amer) > 60 POC Glucose (mg/dL) Random Glucose 158 H D Calcium 7.9 L Phosphorus Magnesium Total Bilirubin 1.1 AST 15 L D ALT 18 L D Alkaline Phosphatase 76 Total Protein 4.7 L Albumin 2.4 L D Globulin 2.3 Albumin/Globulin Ratio 1.0 Arterial Blood Potassium Blood Type Antibody Screen 02/22/19 02/22/19 14:27 14:27 WBC RBC Hgb Hct MCV MCH MCHC RDW Plt Count MPV Neut % (Auto) Lymph % (Auto) [place] % (Auto) Eos % (Auto) Baso % (Auto) Neut # (Auto) Lymph # (Auto) [place] # (Auto) Eos # (Auto) Baso # (Auto) Neutrophils % (Manual) Lymphocytes % (Manual) Monocytes % (Manual) Basophils % (Manual) Platelet Estimate PT 18.5 H INR 1.7 APTT 73.0 H Puncture Site pCO2 pO2 HCO3 ABG pH ABG Total CO2 ABG O2 Saturation ABG Base Excess Kennedy Test ABG Potassium A-a O2 Difference Respiratory Index Sodium 129 L Chloride 99 Glucose Lactate FiO2 Blood Gas Comments Crit Value Called To Crit Value Called By Crit Value Read Back Blood Gas Notified Time Potassium 3.8 Carbon Dioxide 26 Anion Gap 8 L BUN 8 L Creatinine 1.0 Est GFR ( Amer) > 60 Est GFR (Non-Af Amer) > 60 POC Glucose (mg/dL) Random Glucose 190 H D Calcium 7.8 L Phosphorus 3.4 Magnesium 1.2 L Total Bilirubin 1.5 H AST 19 ALT 18 L Alkaline Phosphatase 98 Total Protein 5.5 L Albumin 3.0 L D Globulin 2.6 Albumin/Globulin Ratio 1.2 Arterial Blood Potassium Blood Type Antibody Screen Review of Systems - Constitutional Constitutional: absent: Fever, Chills - EENT Eyes: UNREMARKABLE. absent: Blurred Vision, Photophobia Nose/Mouth/Throat: UNREMARKABLE. absent: Nasal Congestion, Nasal Discharge - Cardiovascular Cardiovascular: absent: Chest Pain, Dyspnea - Respiratory Respiratory: absent: Cough, Dyspnea - Gastrointestinal Gastrointestinal: Abdominal Pain (pain at surgical site). absent: Diarrhea, Nausea - Musculoskeletal Musculoskeletal: absent: Back Pain, Neck Pain - Neurological Neurological: absent: Dizziness, Numbness - Psychiatric Psychiatric: absent: Anxiety, Depression Critical Care Progress Note - Nutrition Nutrition: Nutrition Category Date Time Status Regular Diet [DIET] Diets 02/22/19 Dinner Active Assessment/Plan - Assessment and Plan (Free Text) Assessment: 68 year old male with hx HTN, AAA, possible adverse reaction to heparin, pre sents for ICU post-op monitoring s/p endovascular AAA repair, fem-fem bypass, L common illiac artery balloon angioplasty with Dr. Brambila Pulcaden -Maintain spO2 >92% Cardio -S/p endovascular AAA repair and L common illiac angioplast/fem-fem bypass -Clinically stable following procedure -ICU monitoring Nephro -Na 129, monitor electrolytes -Fluid management per vascular surgery ID/Heme Right Corneal Ulcer Meds -Ciprofloxacin 0.3% OD drops -Cefepime -Percocet for pain Heparin Allergy -Heme/onc on consult, Dr. Kwok -Seratonin Release Assay negative for MANJIT -Avoid use of heparin/lovenox GI -S/p endovascular procedure -Monitor BMs -Pain and bowel regimens per surgical team PPx -ASA 81 -Eliquis 5mg qd Assessment and plan d/w Dr. Keeley Carballo, PGY-1
--- NOTE | 2019-02-22 18:11 | CP.PCM.CON ---
<Maurice Saldana - Last Filed: 02/22/19 21:51> History of Present Illness - History of Present Illness History of Present Illness: Medicine Consult Note 68 year old male with past medical history of AAA, PVD, recurrent venous clotting, hypertension, and COPD. Patient is s/p EVAR with fem- fem bypass, balloon angioplasty of Left common iliac artery with surgery team earlier today. Medicine team was consulted for medical management. Patient currently complains of abdominal pain at the surgical site. Otherwise patient is lethargic from anesthesia. Patient's and daughter at bedside to provide history. Patient has not been compliant with his COPD medications and still smok es a half pack of cigarettes daily. Patient also complaints of worsening eye sight which started about 3 months ago. Patient was initially evaluated by an card boxer during his last hospitalization and was referred to follow up at [facility]. Patient was non-compliant with his appointments and only went there once. Patient was recommended to have an eye surgery. Patient denies fever, chills, headache, shortness of breath, chest pain, nausea, vomiting, or urinary symptoms. Carmen: [phone] Daughter Yvrose: [phone] PMD: Dr. Bradford PMHx: AAA, PVD, recurrent venous clotting, hypertension, and COPD PSHx: left THR, IVC filter Allergy: Heparin (hives) Family Hx: daughter with recent PE, denies history of cancer Social Hx: 1/2 pack cigarettes for 30 years, drinks at least a shot of hard liquor daily, denies other drug use Home meds: Eliquis 5mg po BID, Amlodipine 10mg Review of Systems - Constitutional Constitutional: As Per HPI, Fatigue. absent: Chills, Fever, Headache, Increased Appetite, Night Sweats - EENT Eyes: As Per HPI, Change in Vision (decreased on left eye), Loss of Vision (right eye) Ears: As Per HPI. absent: Ear Discharge, Disequilibrium, Dizziness Nose/Mouth/Throat: As Per HPI. absent: Epistaxis, Nasal Congestion, Nasal Trauma, Dry Mouth - Cardiovascular Cardiovascular: As Per HPI. absent: Chest Pain, Edema, Irregular Heart Rhythm, Leg Edema, Syncope - Respiratory Respiratory: As Per HPI. absent: Cough, Dyspnea on Exertion, Wheezing - Gastrointestinal Gastrointestinal: As Per HPI, Abdominal Pain (surgical site). absent: Bloating, Constipation, Nausea, Vomiting - Genitourinary Genitourinary: As Per HPI. absent: Dysuria, Urinary Incontinence, Urinary Frequency - Musculoskeletal Musculoskeletal: As Per HPI. absent: Abnormal Gait, Arthralgias, Back Pain, Loss of Height, Myalgias - Integumentary Integumentary: As Per HPI. absent: Acne, Bleeding Lesions Additional comments: lipoma in the back - Neurological Neurological: As Per HPI. absent: Headaches, Sensory Deficit, Syncope, Tremor - Psychiatric Psychiatric: As Per HPI. absent: Anxiety, Confusion, Depression - Endocrine Endocrine: As Per HPI. absent: Change in Body Appearance, Deepening of Voice, Excessive Sweating, Palpitations Past Patient History - Past Medical History & Family History Past Medical History?: Yes - Past Social History Smoking Status: Light Smoker < 10 Cigarettes Daily - CARDIAC Hx Cardiac Disorders: Yes Hx Hypertension: Yes Other/Comment: HX DVT 2YEARS AGO RIGHT LEG - PULMONARY Hx Respiratory Disorders: Yes Hx Chronic Obstructive Pulmonary Disease (COPD): Yes (Not on any meds) - NEUROLOGICAL Hx Neurological Disorder: No - HEENT Hx HEENT Problems: Yes (right eye with patch, gave very limited hx.) - RENAL Hx Chronic Kidney Disease: No - ENDOCRINE/METABOLIC Hx Endocrine Disorders: No - HEMATOLOGICAL/ONCOLOGICAL Hx Blood Disorders: No - INTEGUMENTARY Hx Dermatological Problems: No - MUSCULOSKELETAL/RHEUMATOLOGICAL Hx Musculoskeletal Disorders: Yes Hx Falls: No Hx Osteoarthritis: Yes - GASTROINTESTINAL Hx Gastrointestinal Disorders: No - GENITOURINARY/GYNECOLOGICAL Hx Genitourinary Disorders: No - PSYCHIATRIC Hx Psychophysiologic Disorder: No Hx Substance Use: Yes (marijuana) - SURGICAL HISTORY Hx Surgeries: Yes Hx Arthroscopy: Yes (RIGHT KNEE) Hx Joint Replacement: Yes (LEFT HIP) Hx Orthopedic Surgery: Yes (hip) Other/Comment: right IVC filter - ANESTHESIA Hx Anesthesia: Yes Hx Anesthesia Reactions: No Hx Malignant Hyperthermia: No Has any member of the family had a problem w/ anesthesia?: No Meds Allergies/Adverse Reactions: Allergies Allergy/AdvReac Type Severity Reaction Status Date / Time heparin Allergy Intermediate URTICARIA Verified 02/10/19 09:04 - Medications Medications: Current Medications Albuterol Sulfate (Albuterol 0.083% Inhal Tianna (2.5 Mg/3 Ml) Ud) 2.5 mg IH RQ2 PRN PRN Reason: Shortness of Breath Amlodipine Besylate (Norvasc) 10 mg PO DAILY REPLACED BY [facility] Docusate Sodium (Colace) 100 mg PO BID PRN PRN Reason: Constipation Hydromorphone HCl (Dilaudid) 0.5 mg IVP Q3H PRN PRN Reason: Pain, severe (8-10) Argatroban 250 mg/ Sodium (Chloride) 252.5 mls @ 8.52 mls/hr IV .Q24H REPLACED BY [facility]; Protocol Argatroban 20 mg/ Sodium (Chloride) 1,000.2 mls @ 0 mls/hr IV .Q0M PRN PRN Reason: IRRIGATION Last Admin: 02/22/19 10:00 Dose: 0 mls Lactated Ringer's (Lactated Ringer's) 1,000 mls @ 125 mls/hr IV .Q8H REPLACED BY [facility] Last Admin: 02/22/19 16:23 Dose: 125 mls/hr Acetaminophen (Ofirmev) 100 mls @ 100 mls/hr IV Q6H REPLACED BY [facility] Stop: 02/23/19 15:31 Last Admin: 02/22/19 16:24 Dose: 100 mls/hr Cefazolin Sodium/Dextrose (Ancef Iv 1 Gm Duplex) 1 gm in 50 mls @ 100 mls/hr IVPB Q8H REPLACED BY [facility]; Protocol Stop: 02/23/19 08:49 Last Admin: 02/22/19 16:30 Dose: 100 mls/hr Losartan Potassium (Cozaar) 25 mg PO DAILY REPLACED BY [facility] Ondansetron HCl (Zofran Inj) 4 mg IVP Q6H PRN PRN Reason: Nausea/Vomiting Oxycodone HCl (Oxycodone Immediate Release Tab) 5 mg PO Q6 PRN PRN Reason: Pain, moderate (4-7) Pantoprazole Sodium (Protonix Inj) 40 mg IVP DAILY REPLACED BY [facility] Sennosides (Senokot Tab) 8.6 mg PO DAILY REPLACED BY [facility] Physical Exam - Constitutional Appears: Well, No Acute Distress - Head Exam Head Exam: ATRAUMATIC, NORMOCEPHALIC - Eye Exam Eye Exam: absent: Normal appearance (Right eye patch in place due to corneal ulcer, Left eye with cataracts appreciated) Pupil Exam: NORMAL ACCOMODATION, PERRL - ENT Exam ENT Exam: Mucous Membranes Moist, Normal Exam - Neck Exam Neck exam: Positive for: Normal Inspection - Respiratory Exam Respiratory Exam: Clear to Auscultation Bilateral, NORMAL BREATHING PATTERN. absent: Wheezes, Respiratory Distress - Cardiovascular Exam Cardiovascular Exam: REGULAR RHYTHM, RRR, +S1, +S2 - GI/Abdominal Exam GI & Abdominal Exam: Normal Bowel Sounds, Soft. absent: Tenderness Additional comments: lower abdominal surgical dressing dry, clean, and intact - Extremities Exam Extremities exam: Positive for: normal capillary refill, pedal pulses present (palpable popliteal, PT, and DP pulses) - Neurological Exam Neurological exam: Alert, CN II-XII Intact, Oriented x3 - Psychiatric Exam Psychiatric exam: Normal Affect, Normal Mood - Skin Skin Exam: Dry, Warm Additional comments: large lipoma located at right upper back, multiple smaller nevi with irregular borders in the chest region Results - Vital Signs Recent Vital Signs: Last Vital Signs Temp 98 F 02/22/19 14:45 Pulse 60 02/22/19 14:45 Resp 14 02/22/19 14:45 BP 165/82 H 02/22/19 14:45 Pulse Ox 100 02/22/19 14:45 - Labs Result Diagrams: 02/22/19 14:27 02/22/19 14:27 Labs: Laboratory Results - last 24 hr 02/22/19 02/22/19 02/22/19 09:00 09:58 10:24 WBC RBC Hgb Hct MCV MCH MCHC RDW Plt Count MPV Neut % (Auto) Lymph % (Auto) Stoddard % (Auto) Eos % (Auto) Baso % (Auto) Neut # (Auto) Lymph # (Auto) Stoddard # (Auto) Eos # (Auto) Baso # (Auto) Neutrophils % (Manual) Lymphocytes % (Manual) Monocytes % (Manual) Basophils % (Manual) Platelet Estimate PT INR APTT Puncture Site L rad pCO2 40 pO2 508 H HCO3 20.5 L ABG pH 7.31 L ABG Total CO2 21.3 L ABG O2 Saturation 100.5 H ABG Base Excess -5.8 L Kennedy Test Pos ABG Potassium 2.5 L* A-a O2 Difference 155.0 Respiratory Index 0.3 Sodium 140.0 Chloride 113.0 H Glucose 89 Lactate 1.0 FiO2 100.0 Blood Gas Comments Drawn in or by dr Waldron Value Called To Dr mckay Crit Value Called By Larry bhatia plant etiologist Crit Value Read Back Y Blood Gas Notified Time 1030 Potassium Carbon Dioxide Anion Gap BUN Creatinine Est GFR ( Amer) Est GFR (Non-Af Amer) POC Glucose (mg/dL) 93 Random Glucose Calcium Phosphorus Magnesium Total Bilirubin AST ALT Alkaline Phosphatase Total Protein Albumin Globulin Albumin/Globulin Ratio Arterial Blood Potassium 2.5 L* Blood Type B POSITIVE Antibody Screen Negative 02/22/19 02/22/19 02/22/19 11:00 11:00 14:27 WBC 4.2 L 8.6 D RBC 4.11 L 4.40 Hgb 11.6 L D 12.4 Hct 35.1 37.7 MCV 85.5 85.6 MCH 28.2 28.0 MCHC 32.9 L 32.7 L RDW 17.7 H 18.0 H Plt Count 133 122 L MPV 8.0 7.6 Neut % (Auto) 89.9 H Lymph % (Auto) 7.1 L Stoddard % (Auto) 2.3 Eos % (Auto) 0.3 Baso % (Auto) 0.4 Neut # (Auto) 7.7 H Lymph # (Auto) 0.6 L Stoddard # (Auto) 0.2 Eos # (Auto) 0.0 Baso # (Auto) 0.0 Neutrophils % (Manual) 89 H Lymphocytes % (Manual) 9 L Monocytes % (Manual) 1 Basophils % (Manual) 1 Platelet Estimate Slightly decreased L PT INR APTT Puncture Site pCO2 pO2 HCO3 ABG pH ABG Total CO2 ABG O2 Saturation ABG Base Excess Kennedy Test ABG Potassium A-a O2 Difference Respiratory Index Sodium 133 Chloride 103 Glucose Lactate FiO2 Blood Gas Comments Crit Value Called To Crit Value Called By Crit Value Read Back Blood Gas Notified Time Potassium 3.4 L Carbon Dioxide 25 Anion Gap 8 L BUN 7 L Creatinine 0.8 Est GFR ( Amer) > 60 Est GFR (Non-Af Amer) > 60 POC Glucose (mg/dL) Random Glucose 158 H D Calcium 7.9 L Phosphorus Magnesium Total Bilirubin 1.1 AST 15 L D ALT 18 L D Alkaline Phosphatase 76 Total Protein 4.7 L Albumin 2.4 L D Globulin 2.3 Albumin/Globulin Ratio 1.0 Arterial Blood Potassium Blood Type Antibody Screen 02/22/19 02/22/19 14:27 14:27 WBC RBC Hgb Hct MCV MCH MCHC RDW Plt Count MPV Neut % (Auto) Lymph % (Auto) Stoddard % (Auto) Eos % (Auto) Baso % (Auto) Neut # (Auto) Lymph # (Auto) Stoddard # (Auto) Eos # (Auto) Baso # (Auto) Neutrophils % (Manual) Lymphocytes % (Manual) Monocytes % (Manual) Basophils % (Manual) Platelet Estimate PT 18.5 H INR 1.7 APTT 73.0 H Puncture Site pCO2 pO2 HCO3 ABG pH ABG Total CO2 ABG O2 Saturation ABG Base Excess Kennedy Test ABG Potassium A-a O2 Difference Respiratory Index Sodium 129 L Chloride 99 Glucose Lactate FiO2 Blood Gas Comments Crit Value Called To Crit Value Called By Crit Value Read Back Blood Gas Notified Time Potassium 3.8 Carbon Dioxide 26 Anion Gap 8 L BUN 8 L Creatinine 1.0 Est GFR ( Amer) > 60 Est GFR (Non-Af Amer) > 60 POC Glucose (mg/dL) Random Glucose 190 H D Calcium 7.8 L Phosphorus 3.4 Magnesium 1.2 L Total Bilirubin 1.5 H AST 19 ALT 18 L Alkaline Phosphatase 98 Total Protein 5.5 L Albumin 3.0 L D Globulin 2.6 Albumin/Globulin Ratio 1.2 Arterial Blood Potassium Blood Type Antibody Screen Assessment & Plan - Assessment and Plan (Free Text) Assessment: AAA and right iliac occlusion -S/P EVAR with fem-fem bypass, balloon angioplasty of Left common iliac artery POD #0 -Post op management per surgery team HTN -Amlodipine 10mg daily -Losartan 25mg daily COPD -Duoneb 3ml Q6hr -Brovana 12mcg Q12hr Hyponatremia -Euvolemic hyponatremia -Na 129 -Follow up Urine osmo, serum osm, urine Na Alcohol abuse -No signs of tremors appreciated -Multivitamin po -Follow up folate, B12 -Cessation strongly advised Tobacco abuse -Nicotine patch -Cessation strongly advised Corneal ulcer -Follow up with [facility] as outpatient Atypical moles -Given patient's extensive tobacco use history patient has an increased risk of malignancy -Recommended outpatient follow up Prophylactic measures -Argatroben -Protonix <Ami Howard V - Last Filed: 02/23/19 09:48> Meds - Medications Medications: Current Medications Albuterol Sulfate (Albuterol 0.083% Inhal Tianna (2.5 Mg/3 Ml) Ud) 2.5 mg IH RQ2 PRN PRN Reason: Shortness of Breath Albuterol/Ipratropium (Duoneb 3 Mg/0.5 Mg (3 Ml) Ud) 3 ml INH RQ6 REPLACED BY [facility] Last Admin: 02/23/19 02:23 Dose: Not Given Amlodipine Besylate (Norvasc) 10 mg PO DAILY REPLACED BY [facility] Arformoterol Tartrate (Brovana) 15 mcg INH RQ12 REPLACED BY [facility] Last Admin: 02/22/19 21:50 Dose: Not Given Docusate Sodium (Colace) 100 mg PO BID PRN PRN Reason: Constipation Hydromorphone HCl (Dilaudid) 0.5 mg IVP Q3H PRN PRN Reason: Pain, severe (8-10) Argatroban 250 mg/ Sodium (Chloride) 252.5 mls @ 8.52 mls/hr IV .Q24H REPLACED BY [facility]; Protocol Argatroban 20 mg/ Sodium (Chloride) 1,000.2 mls @ 0 mls/hr IV .Q0M PRN PRN Reason: IRRIGATION Last Admin: 02/22/19 10:00 Dose: 0 mls Lactated Ringer's (Lactated Ringer's) 1,000 mls @ 125 mls/hr IV .Q8H REPLACED BY [facility] Last Admin: 02/23/19 06:49 Dose: Not Given Acetaminophen (Ofirmev) 100 mls @ 100 mls/hr IV Q6H REPLACED BY [facility] Stop: 02/23/19 15:31 Last Admin: 02/23/19 03:30 Dose: 100 mls/hr Cefazolin Sodium/Dextrose (Ancef Iv 1 Gm Duplex) 1 gm in 50 mls @ 100 mls/hr IVPB Q8H REPLACED BY [facility]; Protocol Stop: 02/23/19 08:49 Last Admin: 02/22/19 23:30 Dose: 100 mls/hr Losartan Potassium (Cozaar) 25 mg PO DAILY REPLACED BY [facility] Multivitamins/Minerals (Therapeutic-M Tab) 1 tab PO 0800 REPLACED BY [facility] Nicotine (Nicoderm Cq) 1 patch TD DAILY REPLACED BY [facility] Ondansetron HCl (Zofran Inj) 4 mg IVP Q6H PRN PRN Reason: Nausea/Vomiting Last Admin: 02/22/19 19:37 Dose: 4 mg Oxycodone HCl (Oxycodone Immediate Release Tab) 5 mg PO Q6 PRN PRN Reason: Pain, moderate (4-7) Pantoprazole Sodium (Protonix Inj) 40 mg IVP DAILY B[facility]ANNA Sennosides (Senokot Tab) 8.6 mg PO DAILY BRIANNA Results - Vital Signs Recent Vital Signs: Last Vital Signs Temp 97.8 F 02/23/19 04:00 Pulse 64 02/23/19 06:07 Resp 15 02/23/19 06:07 BP 159/79 H 02/23/19 06:07 Pulse Ox 98 02/23/19 06:07 - Labs Result Diagrams: 02/23/19 05:23 02/23/19 05:23 Labs: Laboratory Results - last 24 hr 02/22/19 02/22/19 02/22/19 09:00 09:58 10:24 WBC RBC Hgb Hct MCV MCH MCHC RDW Plt Count MPV Neut % (Auto) Lymph % (Auto) Stoddard % (Auto) Eos % (Auto) Baso % (Auto) Neut # (Auto) Lymph # (Auto) Stoddard # (Auto) Eos # (Auto) Baso # (Auto) Neutrophils % (Manual) Lymphocytes % (Manual) Monocytes % (Manual) Basophils % (Manual) Platelet Estimate PT INR APTT Puncture Site L rad pCO2 40 pO2 508 H HCO3 20.5 L ABG pH 7.31 L ABG Total CO2 21.3 L ABG O2 Saturation 100.5 H ABG Base Excess -5.8 L Kennedy Test Pos ABG Potassium 2.5 L* A-a O2 Difference 155.0 Respiratory Index 0.3 Sodium 140.0 Chloride 113.0 H Glucose 89 Lactate 1.0 FiO2 100.0 Blood Gas Comments Drawn in or by dr Waldron Value Called To Dr mckay Crit Value Called By Larry bhatia plant etiologist Crit Value Read Back Y Blood Gas Notified Time 1030 Potassium Carbon Dioxide Anion Gap BUN Creatinine Est GFR ( Amer) Est GFR (Non-Af Amer) POC Glucose (mg/dL) 93 Random Glucose Calcium Phosphorus Magnesium Total Bilirubin AST ALT Alkaline Phosphatase Total Protein Albumin Globulin Albumin/Globulin Ratio Vitamin B12 Folate Arterial Blood Potassium 2.5 L* Urine Osmolality Ur Random Sodium Blood Type B POSITIVE Antibody Screen Negative 02/22/19 02/22/19 02/22/19 11:00 11:00 14:27 WBC 4.2 L 8.6 D RBC 4.11 L 4.40 Hgb 11.6 L D 12.4 Hct 35.1 37.7 MCV 85.5 85.6 MCH 28.2 28.0 MCHC 32.9 L 32.7 L RDW 17.7 H 18.0 H Plt Count 133 122 L MPV 8.0 7.6 Neut % (Auto) 89.9 H Lymph % (Auto) 7.1 L Stoddard % (Auto) 2.3 Eos % (Auto) 0.3 Baso % (Auto) 0.4 Neut # (Auto) 7.7 H Lymph # (Auto) 0.6 L Stoddard # (Auto) 0.2 Eos # (Auto) 0.0 Baso # (Auto) 0.0 Neutrophils % (Manual) 89 H Lymphocytes % (Manual) 9 L Monocytes % (Manual) 1 Basophils % (Manual) 1 Platelet Estimate Slightly decreased L PT INR APTT Puncture Site pCO2 pO2 HCO3 ABG pH ABG Total CO2 ABG O2 Saturation ABG Base Excess Kennedy Test ABG Potassium A-a O2 Difference Respiratory Index Sodium 133 Chloride 103 Glucose Lactate FiO2 Blood Gas Comments Crit Value Called To Crit Value Called By Crit Value Read Back Blood Gas Notified Time Potassium 3.4 L Carbon Dioxide 25 Anion Gap 8 L BUN 7 L Creatinine 0.8 Est GFR ( Amer) > 60 Est GFR (Non-Af Amer) > 60 POC Glucose (mg/dL) Random Glucose 158 H D Calcium 7.9 L Phosphorus Magnesium Total Bilirubin 1.1 AST 15 L D ALT 18 L D Alkaline Phosphatase 76 Total Protein 4.7 L Albumin 2.4 L D Globulin 2.3 Albumin/Globulin Ratio 1.0 Vitamin B12 Folate Arterial Blood Potassium Urine Osmolality Ur Random Sodium Blood Type Antibody Screen 02/22/19 02/22/19 02/22/19 14:27 14:27 21:28 WBC RBC Hgb Hct MCV MCH MCHC RDW Plt Count MPV Neut % (Auto) Lymph % (Auto) Stoddard % (Auto) Eos % (Auto) Baso % (Auto) Neut # (Auto) Lymph # (Auto) Stoddard # (Auto) Eos # (Auto) Baso # (Auto) Neutrophils % (Manual) Lymphocytes % (Manual) Monocytes % (Manual) Basophils % (Manual) Platelet Estimate PT 18.5 H INR 1.7 APTT 73.0 H Puncture Site pCO2 pO2 HCO3 ABG pH ABG Total CO2 ABG O2 Saturation ABG Base Excess Kennedy Test ABG Potassium A-a O2 Difference Respiratory Index Sodium 129 L Chloride 99 Glucose Lactate FiO2 Blood Gas Comments Crit Value Called To Crit Value Called By Crit Value Read Back Blood Gas Notified Time Potassium 3.8 Carbon Dioxide 26 Anion Gap 8 L BUN 8 L Creatinine 1.0 Est GFR ( Amer) > 60 Est GFR (Non-Af Amer) > 60 POC Glucose (mg/dL) Random Glucose 190 H D Calcium 7.8 L Phosphorus 3.4 Magnesium 1.2 L Total Bilirubin 1.5 H AST 19 ALT 18 L Alkaline Phosphatase 98 Total Protein 5.5 L Albumin 3.0 L D Globulin 2.6 Albumin/Globulin Ratio 1.2 Vitamin B12 Folate Arterial Blood Potassium Urine Osmolality 396 Ur Random Sodium 117 Blood Type Antibody Screen 02/23/19 02/23/19 02/23/19 05:23 05:23 05:23 WBC 7.9 RBC 4.01 L Hgb 11.3 L Hct 34.7 L MCV 86.5 MCH 28.2 MCHC 32.6 L RDW 18.2 H Plt Count 100 L D MPV 7.5 Neut % (Auto) 83.0 H Lymph % (Auto) 10.1 L Stoddard % (Auto) 6.6 Eos % (Auto) 0.2 Baso % (Auto) 0.1 Neut # (Auto) 6.5 Lymph # (Auto) 0.8 L Stoddard # (Auto) 0.5 Eos # (Auto) 0.0 Baso # (Auto) 0.0 Neutrophils % (Manual) Lymphocytes % (Manual) Monocytes % (Manual) Basophils % (Manual) Platelet Estimate PT INR APTT Puncture Site pCO2 pO2 HCO3 ABG pH ABG Total CO2 ABG O2 Saturation ABG Base Excess Kennedy Test ABG Potassium A-a O2 Difference Respiratory Index Sodium 132 Chloride 100 Glucose Lactate FiO2 Blood Gas Comments Crit Value Called To Crit Value Called By Crit Value Read Back Blood Gas Notified Time Potassium 4.1 Carbon Dioxide 27 Anion Gap 10 BUN 11 Creatinine 1.6 H Est GFR ( Amer) 52 Est GFR (Non-Af Amer) 43 POC Glucose (mg/dL) Random Glucose 108 D Calcium 8.2 L Phosphorus 4.0 Magnesium 1.1 L Total Bilirubin 1.3 AST 60 H D ALT 22 Alkaline Phosphatase 85 Total Protein 5.5 L Albumin 3.4 L Globulin 2.1 L Albumin/Globulin Ratio 1.6 Vitamin B12 291 Folate 3.8 Arterial Blood Potassium Urine Osmolality Ur Random Sodium Blood Type Antibody Screen Attending/Attestation - Attestation I have personally seen and examined this patient.: Yes I have fully participated in the care of the patient.: Yes I have reviewed all pertinent clinical information: Yes Notes (Text): This is late computer entry for 02/22/19. Hospitalist Service Covering Dr. Bradford thru 02/27. Patient is postoperative day zero for postoperative repair of AAA with vascular surgery team. patient seen in the ICU postoperative surgery accompanied by both his daughter and at bedside. patient has history of COPD (noncompliant on medications, active smoker of 50 plus years), alcohol use (daily), right corneal ulcer (which was evaluated in recommended to go to [facility], patient went to [facility] however failed to follow up 3 days after because "he did not feel like going") history of recurrent clotting in spite of Xarelto/Coumadin, and IVC filter with clot), and hypertension (takes only norvasc no cozaar). Patient seen at bedside. patient denies acute complaints. Admits he is active smoker and drinker; patient is aware these risks alone will delay wound healing given his current surgery if does not stop these. Patient is on Agrobactran. Noted HIT/KRISTIAN were negative when ordered by heme oncology in [facility]. Per daughter, she also is on blood thinner for PE and unclear if there is genetic predisposition or not in due to clotting. Assessment/Plan 1. AAA and right iliac occlusion Assessment/Plan Vascular surgery on consult preop/intraop/postoperative per vascular surgery pain management per surgery patient observed in ICU post surgery Agrobactran started vascular surgery heme-onc consult obtained as well 2. History of HTN Assessment/Plan start Amlodipine 10mg daily patient was added Cozaar by cardiology team in December 3. History of COPD Assessment/Plan Duoneb 3ml Q6hr PRn shortness of breathe Brovana 12mcg Q12hr Note on hospital formulary we do not carry Breo Patient noted noncompliance with inhalers at home Patient is not on home oxygen Patient is an active smoker advised to stop smoking 4. 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 Alcohol abuse No signs of tremors appreciated Multivitamin 1 tab PO daily Folic acid 1 mg PO daily Thiamine 100mg PO daily Follow up folate, B12 levels Cessation strongly advised 6. Tobacco abuse Nicotine patch daily while remains in hospital Cessation strongly advised patient is smoker about 50 years He is aware of the risk of smoking including poor wound healing, aging, worsening of lung disease, and increase cancer risk 7. Right Corneal ulcer Initially evaluated by opthamology in Dec 2018, [facility] evaluation at [place]. 8. Atypical moles Given patient's extensive tobacco use history patient has an increased risk of malignancy Recommended outpatient follow up 9.Prophylactic measures Argatroben per surgery (clotting history while on Xarelto/Coumadin) Protonix for GI PPX
[2019-02-22] MEDS ORDERED: Arformoterol 15 mcg/2 ml Inh Sol INH SCH ×2 (20:00→20:45)
[2019-02-22] MEDS: Albuterol-Ipratrop 3 mg / 0.5 (3 ml) UD INH SCH (20:35)
[2019-02-22] MEDS: Arformoterol 15 mcg/2 ml Inh Sol INH SCH (21:50)
[2019-02-22 22:28] LABS: OSMOLALITY,URINE 396 mosm/kg (300-1000)
[2019-02-23] MEDS ORDERED: Nitroglycerin 2% Ointment Foilpak UD TOP ONE (00:45)
[2019-02-23] MEDS: Albuterol-Ipratrop 3 mg / 0.5 (3 ml) UD INH SCH ×4 (02:23→19:21)
[2019-02-23 05:33] LABS: BASO % 0.1 % (0.0-2.0); EOS % 0.2 % (0.0-4.0); HEMOGLOBIN 11.3 g/dL (12.0-18.0); LYMPH # 0.8 K/uL (1.0-4.3); LYMPH % 10.1 % (20.0-40.0); MEAN CELL VOLUME 86.5 fL (80.0-94.0); MEAN CORPUSCULAR HEMOGLOBIN 28.2 pg (27.0-31.0); MEAN CORPUSCULAR HGB CONC 32.6 g/dL (33.0-37.0); MEAN PLATELET VOLUME 7.5 fL (7.2-11.7); MONO # 0.5 K/uL (0.0-0.8); MONO % 6.6 % (0.0-10.0); NEUT # 6.5 K/uL (1.8-7.0); RBC 4.01 Mil/uL (4.40-5.90); RED CELL DISTRIBUTION WIDTH 18.2 % (11.5-14.5); WHITE BLOOD COUNT 7.9 K/uL (4.8-10.8)
[2019-02-23] MEDS: Lactated Ringer's 1,000 ML IV SCH ×5 (06:49→22:14)
[2019-02-23 06:56] LABS: FOLATE 3.8 ng/mL
[2019-02-23 07:00] LABS: ALB/GLOB RATIO 1.6 (1.0-2.1); ALBUMIN 3.4 g/dL (3.5-5.0); CALCIUM 8.2 mg/dl (8.6-10.4)
[2019-02-23] MEDS: ceFAZolin IV 1 gm in Dextrose 1 GM/50 ML BAG IVPB SCH (07:27)
[2019-02-23] MEDS: Multivitamin With Minerals Tab PO SCH (07:40)
[2019-02-23] MEDS: Arformoterol 15 mcg/2 ml Inh Sol INH SCH ×2 (07:43→19:21)
[2019-02-23] MEDS ORDERED: Lactated Ringer's 1,000 ML IV ONE (08:02)
--- NOTE | 2019-02-23 08:11 | CP.PCM.PN ---
Subjective - Date & Time of Evaluation Date of Evaluation: 02/23/19 Time of Evaluation: 08:09 - Subjective Subjective: cr 1.6 Hct 34 BP and urine output adequate 75 cc last hour will dc herrera and a line OOB to floor legs with dopplers no complaints pulse in fem fem Objective - Vital Signs/Intake and Output Vital Signs (last 24 hours): Temp Pulse Resp BP Pulse Ox 97.8 F 67 16 185/76 H 98 02/23/19 04:00 02/23/19 07:07 02/23/19 07:07 02/23/19 07:43 02/23/19 07:07 Intake and Output: 02/23/19 02/23/19 06:59 18:59 Intake Total 1550 125 Output Total 690 75 Balance 860 50 - Medications Medications: Current Medications Albuterol Sulfate (Albuterol 0.083% Inhal [place] (2.5 Mg/3 Ml) Ud) 2.5 mg IH RQ2 PRN PRN Reason: Shortness of Breath Albuterol/Ipratropium (Duoneb 3 Mg/0.5 Mg (3 Ml) Ud) 3 ml INH RQ6 [facility] Last Admin: 02/23/19 07:42 Dose: 3 ml Amlodipine Besylate (Norvasc) 10 mg PO DAILY [facility] Arformoterol Tartrate (Brovana) 15 mcg INH RQ12 [facility] Last Admin: 02/23/19 07:43 Dose: 15 mcg Docusate Sodium (Colace) 100 mg PO BID PRN PRN Reason: Constipation Hydromorphone HCl (Dilaudid) 0.5 mg IVP Q3H PRN PRN Reason: Pain, severe (8-10) Argatroban 250 mg/ Sodium (Chloride) 252.5 mls @ 8.52 mls/hr IV .Q24H [facility]; Protocol Argatroban 20 mg/ Sodium (Chloride) 1,000.2 mls @ 0 mls/hr IV .Q0M PRN PRN Reason: IRRIGATION Last Admin: 02/22/19 10:00 Dose: 0 mls Lactated Ringer's (Lactated Ringer's) 1,000 mls @ 125 mls/hr IV .Q8H [facility] Last Admin: 02/23/19 07:28 Dose: 125 mls/hr Acetaminophen (Ofirmev) 100 mls @ 100 mls/hr IV Q6H [facility] Stop: 02/23/19 15:31 Last Admin: 02/23/19 03:30 Dose: 100 mls/hr Cefazolin Sodium/Dextrose (Ancef Iv 1 Gm Duplex) 1 gm in 50 mls @ 100 mls/hr IVPB Q8H [facility]; Protocol Stop: 02/23/19 08:49 Last Admin: 02/23/19 07:27 Dose: 100 mls/hr Lactated Ringer's (Lactated Ringer's) 1,000 mls @ 1,000 mls/hr IV .Q1H [facility] Stop: 02/23/19 09:01 Losartan Potassium (Cozaar) 25 mg PO DAILY [facility] Multivitamins/Minerals (Therapeutic-M Tab) 1 tab PO 0800 [facility] Last Admin: 02/23/19 07:40 Dose: 1 tab Nicotine (Nicoderm Cq) 1 patch TD DAILY [facility] Ondansetron HCl (Zofran Inj) 4 mg IVP Q6H PRN PRN Reason: Nausea/Vomiting Last Admin: 02/22/19 19:37 Dose: 4 mg Oxycodone HCl (Oxycodone Immediate Release Tab) 5 mg PO Q6 PRN PRN Reason: Pain, moderate (4-7) Pantoprazole Sodium (Protonix Inj) 40 mg IVP DAILY [facility] Sennosides (Senokot Tab) 8.6 mg PO DAILY [facility] - Labs Labs: 02/23/19 05:23 02/23/19 05:23 PT 18.5 SECONDS (9.7-12.2) H 02/22/19 14:27 INR 1.7 02/22/19 14:27 APTT 73.0 SECONDS (21-34) H 02/22/19 14:27
--- NOTE | 2019-02-23 09:43 | CP.PCM.PN ---
<LesMaurice - Last Filed: 02/23/19 10:37> Subjective - Date & Time of Evaluation Date of Evaluation: 02/23/19 Time of Evaluation: 09:10 - Subjective Subjective: Medicine Progress Note Patient seen examined at bedside. Patient complains of poor quality of sleep overnight due to noises and staff checking up on him, but overall he feels a little more energetic than yesterday. He still reports to have pain at the surgical site. He has not pass flatus yet. Patient denies fever, chills, headache, shortness of breath, chest pain, nausea, vomiting, or urinary complaints. Objective - Vital Signs/Intake and Output Vital Signs (last 24 hours): Temp Pulse Resp BP Pulse Ox 98.3 F 84 17 184/91 H 100 02/23/19 08:00 02/23/19 09:07 02/23/19 09:07 02/23/19 09:07 02/23/19 09:07 Intake and Output: 02/23/19 02/23/19 06:59 18:59 Intake Total 1550 250 Output Total 690 125 Balance 860 125 - Medications Medications: Current Medications Albuterol Sulfate (Albuterol 0.083% Inhal [place] (2.5 Mg/3 Ml) Ud) 2.5 mg IH RQ2 PRN PRN Reason: Shortness of Breath Albuterol/Ipratropium (Duoneb 3 Mg/0.5 Mg (3 Ml) Ud) 3 ml INH RQ6 [facility] Last Admin: 02/23/19 07:42 Dose: 3 ml Amlodipine Besylate (Norvasc) 10 mg PO DAILY [facility] Last Admin: 02/23/19 09:04 Dose: 10 mg Arformoterol Tartrate (Brovana) 15 mcg INH RQ12 [facility] Last Admin: 02/23/19 07:43 Dose: 15 mcg Docusate Sodium (Colace) 100 mg PO BID PRN PRN Reason: Constipation Hydromorphone HCl (Dilaudid) 0.5 mg IVP Q3H PRN PRN Reason: Pain, severe (8-10) Argatroban 250 mg/ Sodium (Chloride) 252.5 mls @ 8.52 mls/hr IV .Q24H [facility]; Protocol Argatroban 20 mg/ Sodium (Chloride) 1,000.2 mls @ 0 mls/hr IV .Q0M PRN PRN Reason: IRRIGATION Last Admin: 02/22/19 10:00 Dose: 0 mls Lactated Ringer's (Lactated Ringer's) 1,000 mls @ 125 mls/hr IV .Q8H [facility] Last Admin: 02/23/19 07:28 Dose: 125 mls/hr Acetaminophen (Ofirmev) 100 mls @ 100 mls/hr IV Q6H [facility] Stop: 02/23/19 15:31 Last Admin: 02/23/19 09:04 Dose: 100 mls/hr Magnesium Sulfate/Dextrose (Magnesium Sulfate 1 Gm/100 Ml D5w) 1 gm in 100 mls @ 200 mls/hr IVPB ONCE ONE Stop: 02/23/19 10:29 Losartan Potassium (Cozaar) 25 mg PO DAILY [facility] Last Admin: 02/23/19 09:04 Dose: 25 mg Multivitamins/Minerals (Therapeutic-M Tab) 1 tab PO 0800 [facility] Last Admin: 02/23/19 07:40 Dose: 1 tab Nicotine (Nicoderm Cq) 1 patch TD DAILY [facility] Ondansetron HCl (Zofran Inj) 4 mg IVP Q6H PRN PRN Reason: Nausea/Vomiting Last Admin: 02/22/19 19:37 Dose: 4 mg Oxycodone HCl (Oxycodone Immediate Release Tab) 5 mg PO Q6 PRN PRN Reason: Pain, moderate (4-7) Pantoprazole Sodium (Protonix Inj) 40 mg IVP DAILY [facility] Last Admin: 02/23/19 09:05 Dose: 40 mg Sennosides (Senokot Tab) 8.6 mg PO DAILY [facility] - Labs Labs: 02/23/19 05:23 02/23/19 05:23 PT 18.5 SECONDS (9.7-12.2) H 02/22/19 14:27 INR 1.7 02/22/19 14:27 APTT 73.0 SECONDS (21-34) H 02/22/19 14:27 - Additional Findings Additional findings: - Constitutional Appears: Well, No Acute Distress - Head Exam Head Exam: ATRAUMATIC, NORMOCEPHALIC - Eye Exam Eye Exam: absent: Normal appearance (Right eye patch in place due to corneal ulcer, Left eye with cataracts appreciated) Pupil Exam: NORMAL ACCOMODATION, PERRL - ENT Exam ENT Exam: Mucous Membranes Moist, Normal Exam - Neck Exam Neck exam: Positive for: Normal Inspection - Respiratory Exam Respiratory Exam: Clear to Auscultation Bilateral, NORMAL BREATHING PATTERN. absent: Wheezes, Respiratory Distress - Cardiovascular Exam Cardiovascular Exam: REGULAR RHYTHM, RRR, +S1, +S2 - GI/Abdominal Exam GI & Abdominal Exam: Normal Bowel Sounds, Soft. absent: Tenderness Additional comments: lower abdominal surgical dressing dry, clean, and intact - Extremities Exam Extremities exam: Positive for: normal capillary refill, pedal pulses present (palpable popliteal, PT, and DP pulses) - Neurological Exam Neurological exam: Alert, CN II-XII Intact, Oriented x3 - Psychiatric Exam Psychiatric exam: Normal Affect, Normal Mood - Skin Skin Exam: Dry, Warm Additional comments: large lipoma located at right upper back, multiple smaller nevi with irregular borders in the chest region Assessment and Plan - Assessment and Plan (Free Text) Assessment: 1 AAA and right iliac occlusion S/P EVAR with fem-fem bypass, balloon angioplasty of Left common iliac artery POD #1 Post op management per surgery team Vascular surgery on consult, Dr. Brambila patient observed in ICU post surgery Agrobactran started by vascular surgery Heme-onc on consult, Dr. 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 Improving, Na 132 today Urine osmo 396, serum osm 117 5 Alcohol abuse No signs of tremors appreciated Multivitamin, Thiamine, folic acid po Folate, B12 within normal range Cessation strongly advised 6 Tobacco abuse Nicotine patch daily during hospitalization Cessation strongly advised patient is smoker about 50 years He is aware of the risk of smoking including poor wound healing, aging, worsening of lung disease, and increase cancer risk 7 Right corneal ulcer Initially evaluated by opthamology in Dec 2018, patient did not followup with [facility] after his initial evaluation there Recommended outpatient follow up 8 Atypical moles Given patient's extensive tobacco use history patient has an increased risk of malignancy Recommended outpatient follow up 9 Prophylactic measures Argatroben per surgery (clotting history while on Xarelto/Coumadin) Protonix for GI PPX <Ami Howard V - Last Filed: 02/23/19 23:02> Objective - Vital Signs/Intake and Output Vital Signs (last 24 hours): Temp Pulse Resp BP Pulse Ox 98.5 F 113 H 23 171/152 H 97 02/23/19 20:00 02/23/19 22:08 02/23/19 22:08 02/23/19 22:08 02/23/19 22:08 Intake and Output: 02/23/19 02/24/19 18:59 06:59 Intake Total 2700 500 Output Total 1565 0 Balance 1135 500 - Medications Medications: Current Medications Albuterol Sulfate (Albuterol 0.083% Inhal [place]na (2.5 Mg/3 Ml) Ud) 2.5 mg IH RQ2 PRN PRN Reason: Shortness of Breath Albuterol/Ipratropium (Duoneb 3 Mg/0.5 Mg (3 Ml) Ud) 3 ml INH RQ6 [facility] Last Admin: 02/23/19 19:21 Dose: Not Given Amlodipine Besylate (Norvasc) 10 mg PO DAILY [facility] Last Admin: 02/23/19 09:04 Dose: 10 mg Arformoterol Tartrate (Brovana) 15 mcg INH RQ12 [facility] Last Admin: 02/23/19 19:21 Dose: Not Given Docusate Sodium (Colace) 100 mg PO BID PRN PRN Reason: Constipation Folic Acid (Folic Acid) 1 mg PO DAILY [facility] Last Admin: 02/23/19 11:03 Dose: 1 mg Hydralazine HCl (Apresoline) 25 mg PO Q8H [facility] Last Admin: 02/23/19 16:34 Dose: 25 mg Hydromorphone HCl (Dilaudid) 0.5 mg IVP Q3H PRN PRN Reason: Pain, severe (8-10) Last Admin: 02/23/19 20:05 Dose: 0.5 mg Lactated Ringer's (Lactated Ringer's) 1,000 mls @ 125 mls/hr IV .Q8H [facility] Last Admin: 02/23/19 22:14 Dose: Not Given Losartan Potassium (Cozaar) 25 mg PO DAILY [facility] Last Admin: 02/23/19 09:04 Dose: 25 mg Multivitamins/Minerals (Therapeutic-M Tab) 1 tab PO 0800 [facility] Last Admin: 02/23/19 07:40 Dose: 1 tab Nicotine (Nicoderm Cq) 1 patch TD DAILY [facility] Last Admin: 02/23/19 09:51 Dose: 1 patch Ondansetron HCl (Zofran Inj) 4 mg IVP Q6H PRN PRN Reason: Nausea/Vomiting Last Admin: 02/23/19 14:57 Dose: 4 mg Oxycodone HCl (Oxycodone Immediate Release Tab) 5 mg PO Q6 PRN PRN Reason: Pain, moderate (4-7) Pantoprazole Sodium (Protonix Inj) 40 mg IVP DAILY [facility] Last Admin: 02/23/19 09:05 Dose: 40 mg Sennosides (Senokot Tab) 8.6 mg PO DAILY [facility] Last Admin: 02/23/19 11:00 Dose: Not Given Thiamine HCl (Vitamin B1 Tab) 100 mg PO DAILY [facility] Last Admin: 02/23/19 11:03 Dose: 100 mg - Labs Labs: 02/23/19 05:23 02/23/19 05:23 PT 18.5 SECONDS (9.7-12.2) H 02/22/19 14:27 INR 1.7 02/22/19 14:27 APTT 73.0 SECONDS (21-34) H 02/22/19 14:27 Attending/Attestation - Attestation I have personally seen and examined this patient.: Yes I have fully participated in the care of the patient.: Yes I have reviewed all pertinent clinical information, including history, physical exam and plan: Yes Notes (Text): Medicine is on consult Patient seen with resident on morning rounds. Patient reports he did not sleep well because everyone is checking up on him. He is aware he is at the hospital and in light of big surgery he requires in the intensive care unit. Blood pressure uncontrolled also influenced by his postoperative pain in the belly. He reports this morning no flatus no bowel movement we have advised him not to strain. Will continue to monitor patient. ICU has add hydralazine 25mg PO q8H to blood pressure management Heme oncology recommending for eliquis when cleared by surgery Sodium has normalized Electrolytes repleted. Assessment/Plan 1. AAA and right iliac occlusion Assessment/Plan Vascular surgery on consult preop/intraop/postoperative per vascular surgery pain management per surgery patient observed in ICU post surgery Agrobactran started vascular surgery heme-onc consult obtained as well 2. History of HTN Assessment/Plan start Amlodipine 10mg daily patient was added Cozaar by cardiology team in December Cozaar 25mg PO daily Add Hydralazine 25mg POq8H 3. History of COPD Assessment/Plan Duoneb 3ml Q6hr PRn shortness of breathe Brovana 12mcg Q12hr Note on hospital formulary we do not carry Breo Patient noted noncompliance with inhalers at home Patient is not on home oxygen Patient is an active smoker advised to stop smoking 4. 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 Alcohol abuse No signs of tremors appreciated Multivitamin 1 tab PO daily Folic acid 1 mg PO daily Thiamine 100mg PO daily Follow up folate, B12 levels Cessation strongly advised 6. Tobacco abuse Nicotine patch daily while remains in hospital Cessation strongly advised patient is smoker about 50 years He is aware of the risk of smoking including poor wound healing, aging, wors ening of lung disease, and increase cancer risk 7. Right Corneal ulcer Initially evaluated by opthamology in Dec 2018, [facility] his initial evaluation at [place]. 8. Atypical moles Given patient's extensive tobacco use history patient has an increased risk of malignancy Recommended outpatient follow up 9.Prophylactic measures Argatroben per surgery (clotting history while on Xarelto/Coumadin) Protonix for GI PPX
[2019-02-23] MEDS: HYDROmorphone 0.5 mg/0.5 ml ISec IVP PRN ×3 (09:54→20:05)
[2019-02-23] MEDS ORDERED: Magnesium Sulfate 1 gm in D5W 1 GM/100 ML BAG IVPB ONE (10:00)
--- NOTE | 2019-02-23 22:47 | CP.PCM.CON ---
History of Present Illness - History of Present Illness History of Present Illness: 68 year old male with a history of recurrent venous clotting s/p IVC filter (placed in 2003), coumadin and Xarelto failure (clotted through both), currently on Eliquis, s/p s/p EVAR with fem-fem bypass, balloon angioplasty of left common iliac artery. The patient was evaluated by myself for a heparin allergy. HIT work up was negative. The patient reports to hives with prior heparin/enoxaparin. He denies respiratory or anaphylactoid reactions with prior heparin/enoxaparin exposure. He denies clotting or abnormal bleeding with heparin/enoxaparin exposure. Past medical history: PVD, recurrent venous clotting, AAA Past surgical history: IVC filter, hip replacement, s/p EVAR with fem-fem bypass, balloon angioplasty of left common iliac artery Family history: Denies hematologic and oncologic problems Social history: 1/2ppd, denies tobacco and illicit drug use. Allergies: Heparin - hives Review of systems: All remaining review of systems including HEENT, cardiovascular, respiratory, gastrointestinal, genitourinary, musculoskeletal, dermatologic, neurologic, and psychiatric are negative unless mentioned in the HPI. Past Patient History - Past Medical History & Family History Past Medical History?: Yes - Past Social History Smoking Status: Light Smoker < 10 Cigarettes Daily - CARDIAC Hx Cardiac Disorders: Yes Hx Hypertension: Yes Other/Comment: HX DVT 2YEARS AGO RIGHT LEG - PULMONARY Hx Respiratory Disorders: Yes Hx Chronic Obstructive Pulmonary Disease (COPD): Yes (Not on any meds) - NEUROLOGICAL Hx Neurological Disorder: No - HEENT Hx HEENT Problems: Yes (right eye with patch, gave very limited hx.) - RENAL Hx Chronic Kidney Disease: No - ENDOCRINE/METABOLIC Hx Endocrine Disorders: No - HEMATOLOGICAL/ONCOLOGICAL Hx Blood Disorders: No - INTEGUMENTARY Hx Dermatological Problems: No - MUSCULOSKELETAL/RHEUMATOLOGICAL Hx Musculoskeletal Disorders: Yes Hx Falls: No Hx Osteoarthritis: Yes - GASTROINTESTINAL Hx Gastrointestinal Disorders: No - GENITOURINARY/GYNECOLOGICAL Hx Genitourinary Disorders: No - PSYCHIATRIC Hx Psychophysiologic Disorder: No Hx Substance Use: Yes (marijuana) - SURGICAL HISTORY Hx Surgeries: Yes Hx Arthroscopy: Yes (RIGHT KNEE) Hx Joint Replacement: Yes (LEFT HIP) Hx Orthopedic Surgery: Yes (hip) Other/Comment: right IVC filter - ANESTHESIA Hx Anesthesia: Yes Hx Anesthesia Reactions: No Hx Malignant Hyperthermia: No Has any member of the family had a problem w/ anesthesia?: No Meds Allergies/Adverse Reactions: Allergies Allergy/AdvReac Type Severity Reaction Status Date / Time heparin Allergy Intermediate URTICARIA Verified 02/10/19 09:04 - Medications Medications: Current Medications Albuterol Sulfate (Albuterol 0.083% Inhal Tianna (2.5 Mg/3 Ml) Ud) 2.5 mg IH RQ2 PRN PRN Reason: Shortness of Breath Albuterol/Ipratropium (Duoneb 3 Mg/0.5 Mg (3 Ml) Ud) 3 ml INH RQ6 [facility] Last Admin: 02/23/19 19:21 Dose: Not Given Amlodipine Besylate (Norvasc) 10 mg PO DAILY [facility] Last Admin: 02/23/19 09:04 Dose: 10 mg Arformoterol Tartrate (Brovana) 15 mcg INH RQ12 [facility] Last Admin: 02/23/19 19:21 Dose: Not Given Docusate Sodium (Colace) 100 mg PO BID PRN PRN Reason: Constipation Folic Acid (Folic Acid) 1 mg PO DAILY [facility] Last Admin: 02/23/19 11:03 Dose: 1 mg Hydralazine HCl (Apresoline) 25 mg PO Q8H [facility] Last Admin: 02/23/19 16:34 Dose: 25 mg Hydromorphone HCl (Dilaudid) 0.5 mg IVP Q3H PRN PRN Reason: Pain, severe (8-10) Last Admin: 02/23/19 20:05 Dose: 0.5 mg Lactated Ringer's (Lactated Ringer's) 1,000 mls @ 125 mls/hr IV .Q8H [facility] Last Admin: 02/23/19 22:14 Dose: Not Given Losartan Potassium (Cozaar) 25 mg PO DAILY [facility] Last Admin: 02/23/19 09:04 Dose: 25 mg Multivitamins/Minerals (Therapeutic-M Tab) 1 tab PO 0800 [facility] Last Admin: 02/23/19 07:40 Dose: 1 tab Nicotine (Nicoderm Cq) 1 patch TD DAILY [facility] Last Admin: 02/23/19 09:51 Dose: 1 patch Ondansetron HCl (Zofran Inj) 4 mg IVP Q6H PRN PRN Reason: Nausea/Vomiting Last Admin: 02/23/19 14:57 Dose: 4 mg Oxycodone HCl (Oxycodone Immediate Release Tab) 5 mg PO Q6 PRN PRN Reason: Pain, moderate (4-7) Pantoprazole Sodium (Protonix Inj) 40 mg IVP DAILY [facility] Last Admin: 02/23/19 09:05 Dose: 40 mg Sennosides (Senokot Tab) 8.6 mg PO DAILY [facility] Last Admin: 02/23/19 11:00 Dose: Not Given Thiamine HCl (Vitamin B1 Tab) 100 mg PO DAILY [facility] Last Admin: 02/23/19 11:03 Dose: 100 mg Physical Exam - Head Exam Head Exam: ATRAUMATIC - Eye Exam Eye Exam: Normal appearance - ENT Exam ENT Exam: Mucous Membranes Dry - Respiratory Exam Respiratory Exam: NORMAL BREATHING PATTERN - Cardiovascular Exam Cardiovascular Exam: +S1, +S2 - GI/Abdominal Exam GI & Abdominal Exam: Normal Bowel Sounds - Extremities Exam Extremities exam: Positive for: pedal edema - Neurological Exam Neurological exam: Oriented x3 - Psychiatric Exam Psychiatric exam: Normal Affect, Normal Mood - Skin Skin Exam: Warm Results - Vital Signs Recent Vital Signs: Last Vital Signs Temp 98.5 F 02/23/19 20:00 Pulse 113 H 02/23/19 22:08 Resp 23 02/23/19 22:08 BP 171/152 H 02/23/19 22:08 Pulse Ox 97 02/23/19 22:08 - Labs Result Diagrams: 02/23/19 05:23 02/23/19 05:23 Labs: Laboratory Results - last 24 hr 02/23/19 02/23/19 02/23/19 05:23 05:23 05:23 WBC 7.9 RBC 4.01 L Hgb 11.3 L Hct 34.7 L MCV 86.5 MCH 28.2 MCHC 32.6 L RDW 18.2 H Plt Count 100 L D MPV 7.5 Neut % (Auto) 83.0 H Lymph % (Auto) 10.1 L [place] % (Auto) 6.6 Eos % (Auto) 0.2 Baso % (Auto) 0.1 Neut # (Auto) 6.5 Lymph # (Auto) 0.8 L [place] # (Auto) 0.5 Eos # (Auto) 0.0 Baso # (Auto) 0.0 Sodium 132 Potassium 4.1 Chloride 100 Carbon Dioxide 27 Anion Gap 10 BUN 11 Creatinine 1.6 H Est GFR ( Amer) 52 Est GFR (Non-Af Amer) 43 Random Glucose 108 D Serum Osmolality 281 Calcium 8.2 L Phosphorus Magnesium 1.1 L Total Bilirubin 1.3 AST 60 H D ALT 22 Alkaline Phosphatase 85 Total Protein 5.5 L Albumin 3.4 L Globulin 2.1 L Albumin/Globulin Ratio 1.6 Vitamin B12 291 Folate 3.8 02/23/19 05:23 WBC RBC Hgb Hct MCV MCH MCHC RDW Plt Count MPV Neut % (Auto) Lymph % (Auto) [place] % (Auto) Eos % (Auto) Baso % (Auto) Neut # (Auto) Lymph # (Auto) [place] # (Auto) Eos # (Auto) Baso # (Auto) Sodium Potassium Chloride Carbon Dioxide Anion Gap BUN Creatinine Est GFR ( Amer) Est GFR (Non-Af Amer) Random Glucose Serum Osmolality Calcium Phosphorus 4.0 Magnesium Total Bilirubin AST ALT Alkaline Phosphatase Total Protein Albumin Globulin Albumin/Globulin Ratio Vitamin B12 Folate Assessment & Plan (1) Thrombocytopenia Assessment and Plan: may be consumptive from surgery continue to monitor Status: Acute (2) Anemia Assessment and Plan: mild surgical blood loss Status: Acute (3) Coagulopathy Assessment and Plan: secondary to recent argatroban Status: Acute (4) Heparin allergy Assessment and Plan: recurrent venous clotting, requires lifelong anticoagulation HIT w/u negative in the past gets hives with heparin s/p argatroban recommend restarting Eliquis once cleared by surgery Thank you for this interesting consult. Status: Acute
--- NOTE | 2019-02-23 23:55 | OP ---
PROCEDURE DATE: 02/22/2019 PREOPERATIVE DIAGNOSES: 1. Abdominal aortic aneurysm. 2. Right iliac occlusion. 3. 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 PROCEDURE CARRIED OUT: 1. Endovascular repair of abdominal aortic aneurysm using Zenith Cook uni limb device. 2. Left iliac extension and balloon angioplasty of both iliac extension on the left common and external iliac arteries. 3. Left to right femoral-femoral bypass using 8-mm Dacron graft. SURGEON: Haroldo Brambila Jr., MD AERODYNAMICIST: Gabriel Topete DO ANESTHESIOLOGIST: Kevin Del Castillo MD INDICATIONS: The patient is a 68-year-old man with a history of previous deep vein thrombosis along the right leg, placed in a filter. Recent imaging has revealed that the strut of the filter is into the vena cava. Second issue is a small abdominal aortic aneurysm which is approximately 4.5 cm, and third issue is the occlusion of the right iliac artery. OPERATIVE FINDINGS: 1. The Zenith Cook device was deployed successfully at the level of the renal arteries without any evidence of an endoleak. The completion films flow down the left common and external iliac artery to the groin. Below this, we constructed the left to right fem-fem bypass graft using 8-mm Dacron graft. As a completion of the procedure, there was a diminished flow in the left iliac artery anddiminished pulse through the graft even though there is flow. We then took down the previously placed graft on the left limb with the donor limb. We then placed a 7-Lao sheath here and a retrograde angiogram which showed that there was continuous flow channel down here, and then we placed a catheter up at the level of the renal arteries and showed that there was continued flow for the above. Nonetheless, it look like perhaps the connections of the grafts may have been unexpanded, and we then placed a 10-mm balloon to expand the graft completely. This resulted in marked improvement of pulse and marked brisk flow in the right. We completed the anastomosis on the left side and terminated the procedure. The procedure itself began with bilateral femoral cut downs, exposed with common profunda and superficial femoral arteries. We had some troublesome bleeding from a posterior branch on the patient's left side which adequately to the operative time as it took a while to control this. Also with substantial portion of blood loss for the procedure. After this had been done, we then placed a 5-Lao sheath here, placed the catheters up, took an angiogram showing location of renal arteries. Then deployed the Zenith Cook stent at the appropriate location. This deployed very well. We then put it in the extension down to the distal portion of the common iliac with good overlap. Based on discussion with representatives, we did not proceed with coda ballooning at this point and then we constructed the fem-fem graft to the artery dissected at 4-inch. This went uneventfully. At this point, I was not satisfied with the flow into left groin, and dissected out this again and performed angiography with the above mentioned findings and treatment. In addition during the procedure, THE PATIENT HAS HISTORY OF HEPARIN ALLERGY, and we used Argotroban. This was administered by bolus dose by cautious on the field and also by Argotroban drip during the procedure. There was no clot formation or other untold bleeding during this portion of the procedure. After completion of the anastomosis, the wounds were closed in the groin. The procedure was terminated. Blood loss for the entire procedure was approximately 750 to 800 mL, majority of which was with the exploration of left groin and with the bleeding that we had initially behind the left groin. OPERATION: 1. Endovascular repair of abdominal aortic aneurysm. 2. Extension limb to the external and common iliac arteries on the left side. 3. Left to right fem-fem bypass. 4. Balloon angioplasty using 10-mm balloon of both the grafts and then beyond this in the external iliac arteries. Haroldo Brambila Jr., MD cc: Dr. Bradford. MTDD
[2019-02-24] MEDS: HYDROmorphone 0.5 mg/0.5 ml ISec IVP PRN ×3 (02:16→08:14)
[2019-02-24] MEDS: Albuterol-Ipratrop 3 mg / 0.5 (3 ml) UD INH SCH ×4 (02:41→19:15)
[2019-02-24] MEDS: Lactated Ringer's 1,000 ML IV SCH ×5 (03:00→23:44)
[2019-02-24 06:03] LABS: BASO % 0.3 % (0.0-2.0); EOS % 0.1 % (0.0-4.0); HEMOGLOBIN 10.5 g/dL (12.0-18.0); LYMPH # 0.6 K/uL (1.0-4.3); MEAN CELL VOLUME 84.5 fL (80.0-94.0); MEAN CORPUSCULAR HEMOGLOBIN 27.6 pg (27.0-31.0); MEAN CORPUSCULAR HGB CONC 32.7 g/dL (33.0-37.0); MEAN PLATELET VOLUME 8.2 fL (7.2-11.7); MONO # 0.9 K/uL (0.0-0.8); MONO % 5.4 % (0.0-10.0); NEUT # 14.6 K/uL (1.8-7.0); NEUT % 90.2 % (50.0-75.0); PLATELET COUNT 71 K/uL (130-400); RED CELL DISTRIBUTION WIDTH 17.9 % (11.5-14.5); WHITE BLOOD COUNT 16.2 K/uL (4.8-10.8)
[2019-02-24 06:06] LABS: URINE BILIRUBIN NEGATIVE (NEGATIVE); URINE BLOOD 2+ (NEGATIVE); URINE CLARITY Clear (Clear); URINE COLOR Yellow (YELLOW); URINE GLUCOSE (UA) NORMAL (Normal); URINE LEUKOCYTE ESTERASE NEG Leu/uL (Negative); URINE PROTEIN NEGATIVE (NEGATIVE); URINE UROBILINOGEN NORMAL mg/dL (0.2-1.0)
[2019-02-24 06:23] LABS: ALB/GLOB RATIO 1.1 (1.0-2.1); ALBUMIN 3.2 g/dL (3.5-5.0); CALCIUM 8.4 mg/dl (8.6-10.4)
[2019-02-24] MEDS: Arformoterol 15 mcg/2 ml Inh Sol INH SCH ×2 (07:29→19:15)
[2019-02-24] MEDS: Multivitamin With Minerals Tab PO SCH (07:34)
--- NOTE | 2019-02-24 08:22 | CP.PCM.PN ---
Subjective - Date & Time of Evaluation Date of Evaluation: 02/24/19 Time of Evaluation: 08:18 - Subjective Subjective: Medicine consult note: Patient seen and examined this morning. Discussed with RnAlice, patient overnight required Herrera since patient had not urinated, 1 Liter after herrera placement. Patient reports abdominal pain over the belly, 08/12. Patient has not had flatus and nor passed stool. Patient hasnt eaten much yesterday when discussed with the nurse. Patient denies headache, denies chest pain, denies shortness of breathe, reports abdominal pain, denies nausea, has not bad bowel nor flatus. urinary retention after herrera removed. White count jumped to 16, H/H downtrending, Creatinine worsening. platelets downtrending. Ordered for blood cultures, procalcitonin, lactic. Urine culture collected already. Will discuss with ICU regard CT of the belly. Objective - Vital Signs/Intake and Output Vital Signs (last 24 hours): Temp Pulse Resp BP Pulse Ox 98.3 F 90 16 198/102 H 99 02/24/19 08:00 02/24/19 08:01 02/24/19 08:01 02/24/19 08:01 02/24/19 08:01 Intake and Output: 02/24/19 02/24/19 06:59 18:59 Intake Total 1805 125 Output Total 2910 350 Balance -1105 -225 - Medications Medications: Current Medications Albuterol Sulfate (Albuterol 0.083% Inhal Tianna (2.5 Mg/3 Ml) Ud) 2.5 mg IH RQ2 PRN PRN Reason: Shortness of Breath Albuterol/Ipratropium (Duoneb 3 Mg/0.5 Mg (3 Ml) Ud) 3 ml INH RQ6 [facility] Last Admin: 02/24/19 07:28 Dose: 3 ml Amlodipine Besylate (Norvasc) 10 mg PO DAILY [facility] Last Admin: 02/23/19 09:04 Dose: 10 mg Arformoterol Tartrate (Brovana) 15 mcg INH RQ12 [facility] Last Admin: 02/24/19 07:29 Dose: 15 mcg Docusate Sodium (Colace) 100 mg PO BID PRN PRN Reason: Constipation Folic Acid (Folic Acid) 1 mg PO DAILY [facility] Last Admin: 02/23/19 11:03 Dose: 1 mg Hydralazine HCl (Apresoline) 25 mg PO Q8H [facility] Last Admin: 02/24/19 07:34 Dose: 25 mg Hydromorphone HCl (Dilaudid) 0.5 mg IVP Q3H PRN PRN Reason: Pain, severe (8-10) Last Admin: 02/24/19 08:14 Dose: 0.5 mg Lactated Ringer's (Lactated Ringer's) 1,000 mls @ 125 mls/hr IV .Q8H [facility] Last Admin: 02/24/19 03:00 Dose: 125 mls/hr Losartan Potassium (Cozaar) 25 mg PO DAILY [facility] Last Admin: 02/23/19 09:04 Dose: 25 mg Multivitamins/Minerals (Therapeutic-M Tab) 1 tab PO 0800 [facility] Last Admin: 02/24/19 07:34 Dose: 1 tab Nicotine (Nicoderm Cq) 1 patch TD DAILY [facility] Last Admin: 02/23/19 09:51 Dose: 1 patch Ondansetron HCl (Zofran Inj) 4 mg IVP Q6H PRN PRN Reason: Nausea/Vomiting Last Admin: 02/23/19 14:57 Dose: 4 mg Oxycodone HCl (Oxycodone Immediate Release Tab) 5 mg PO Q6 PRN PRN Reason: Pain, moderate (4-7) Pantoprazole Sodium (Protonix Inj) 40 mg IVP DAILY [facility] Last Admin: 02/23/19 09:05 Dose: 40 mg Sennosides (Senokot Tab) 8.6 mg PO DAILY [facility] Last Admin: 02/23/19 11:00 Dose: Not Given Tamsulosin HCl (Flomax) 0.4 mg PO DAILY [facility] Thiamine HCl (Vitamin B1 Tab) 100 mg PO DAILY [facility] Last Admin: 02/23/19 11:03 Dose: 100 mg - Labs Labs: 02/24/19 05:56 02/24/19 05:56 PT 18.5 SECONDS (9.7-12.2) H 02/22/19 14:27 INR 1.7 02/22/19 14:27 APTT 73.0 SECONDS (21-34) H 02/22/19 14:27 - Constitutional Appears: In Acute Distress, Agitated - Head Exam Additional comments: wears right eye patch - Eye Exam Eye Exam: EOMI - ENT Exam ENT Exam: Mucous Membranes Moist - Respiratory Exam Respiratory Exam: NORMAL BREATHING PATTERN. absent: Rales, Rhonchi - Cardiovascular Exam Cardiovascular Exam: REGULAR RHYTHM, +S1, +S2 - GI/Abdominal Exam GI & Abdominal Exam: Guarding, Soft, Tenderness (diffuse over the belly, guarding, two dressing over inguinal area), Normal Bowel Sounds, Rebound. absent: Distended, Rigid - Extremities Exam Extremities Exam: Pedal Edema. absent: Tenderness - Neurological Exam Neurological Exam: Alert, Awake, Oriented x3 - Skin Skin Exam: Dry, Normal Color, Warm Assessment and Plan - Assessment and Plan (Free Text) Assessment: White count uptrend; H/H down trending; creatinine downtrending Abdominal pain worsening; ordered for Dilaudid 1mg IV X1, Blood pressure uncontrolled secondary to abdominal pain Patient require herrera over night due to urinary retention. Will discussed with ICU regarding a CT of the Abdomen. Assessment/Plan 1. AAA and right iliac occlusion Assessment/Plan Vascular surgery on consult preop/intraop/postoperative per vascular surgery pain management per surgery patient observed in ICU post surgery Agrobactran started vascular surgery heme-onc consult obtained as well 2. History of HTN Assessment/Plan start Amlodipine 10mg daily patient was added Cozaar by cardiology team in December Cozaar 25mg PO daily Add Hydralazine 25mg POq8H by ICU 3. History of COPD Assessment/Plan Duoneb 3ml Q6hr PRn shortness of breathe Brovana 12mcg Q12hr Note on hospital formulary we do not carry Breo Patient noted noncompliance with inhalers at home Patient is not on home oxygen Patient is an active smoker advised to stop smoking 4. 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 Alcohol abuse No signs of tremors appreciated Multivitamin 1 tab PO daily Folic acid 1 mg PO daily Thiamine 100mg PO daily Follow up folate, B12 levels Cessation strongly advised 6. Tobacco abuse Nicotine patch daily while remains in hospital Cessation strongly advised patient is smoker about 50 years He is aware of the risk of smoking including poor wound healing, aging, worsening of lung disease, and increase cancer risk 7. Right Corneal ulcer Initially evaluated by opthamology in Dec 2018, Patient [facility] not [facility] with [facility] after his initial evaluation at [place]. 8. Atypical moles Given patient's extensive tobacco use history patient has an increased risk of malignancy Recommended outpatient follow up 9.Prophylactic measures Argatroben per surgery (clotting history while on Xarelto/Coumadin) Protonix for GI PPX
--- NOTE | 2019-02-24 08:59 | RAD ---
Date of service: 02/24/2019 HISTORY: abdominal pain, recent surgery COMPARISON: None available. TECHNIQUE: 1 view obtained. FINDINGS: BOWEL: No definite obstructive bowel gas pattern appreciated. No gross free intra peritoneal gas collection identified. Prior inferior vena cava filter identified in situ at right parasagittal abdomen as well as aortoiliac stent graft. Majority of pelvis not included in this exam. BONES: Normal. OTHER FINDINGS: None. IMPRESSION: Nonobstructive bowel gas pattern appreciated. No gross free intra peritoneal gas collection. Prior IVC filter in situ as well as abdominal aortoiliac stent graft. Majority of pelvis not included in this exam.
[2019-02-24] MEDS: Iohexol 240 (50 ml) PO ONE ×2 (09:03→09:16)
[2019-02-24 09:27] LABS: ANISOCYTOSIS SLIGHT; BANDS 7 % (0-2); HYPOCHROMIC SLIGHT; LYMPHOCYTE 3 % (20-40); MONOCYTE 5 % (0-10); NEUTROPHIL 85 % (50-75); PLATELET ESTIMATE DECREASED (NORMAL); TOTAL CELLS COUNTED 100
--- NOTE | 2019-02-24 09:43 | CP.PCM.PN ---
Subjective - Date & Time of Evaluation Date of Evaluation: 02/24/19 Time of Evaluation: 09:00 - Subjective Subjective: Medicine Service Progress Note for Dr. Anita Urrutia DO, PGY-3 Patient seen and examined at bedside in ICU. Just returned from Abd/Pelvis CT. Overnight, patient had repeated difficulties urinating, and was unable to tolerate multiple straight cath attempts, so a herrera was re-inserted, and immediately put out ~1L (as per nursing); another 900cc output this AM as per nursing. Patient continues to experience significant abdominal pain, but denies chest pain, shortness of breath, emesis. Still has not passes flatus or had a BM. Reports some mild abdominal pain improvement with placement of herrera overnight. Clear yellow urine observed in herrera bag this AM. Objective - Vital Signs/Intake and Output Vital Signs (last 24 hours): Temp Pulse Resp BP Pulse Ox 98.3 F 81 17 184/91 H 96 02/24/19 08:00 02/24/19 09:07 02/24/19 09:07 02/24/19 09:07 02/24/19 09:07 Intake and Output: 02/24/19 02/24/19 06:59 18:59 Intake Total 1805 125 Output Total 2910 350 Balance -1105 -225 - Medications Medications: Current Medications Albuterol Sulfate (Albuterol 0.083% Inhal Tianna (2.5 Mg/3 Ml) Ud) 2.5 mg IH RQ2 PRN PRN Reason: Shortness of Breath Albuterol/Ipratropium (Duoneb 3 Mg/0.5 Mg (3 Ml) Ud) 3 ml INH RQ6 [facility] Last Admin: 02/24/19 07:28 Dose: 3 ml Amlodipine Besylate (Norvasc) 10 mg PO DAILY [facility] Last Admin: 02/24/19 09:07 Dose: 10 mg Arformoterol Tartrate (Brovana) 15 mcg INH RQ12 [facility] Last Admin: 02/24/19 07:29 Dose: 15 mcg Docusate Sodium (Colace) 100 mg PO BID PRN PRN Reason: Constipation Folic Acid (Folic Acid) 1 mg PO DAILY [facility] Last Admin: 02/24/19 09:03 Dose: 1 mg Hydralazine HCl (Apresoline) 50 mg PO Q8H [facility] Hydromorphone HCl (Dilaudid) 1 mg IVP Q3H PRN PRN Reason: Pain, severe (8-10) Lactated Ringer's (Lactated Ringer's) 1,000 mls @ 125 mls/hr IV .Q8H [facility] Last Admin: 02/24/19 03:00 Dose: 125 mls/hr Losartan Potassium (Cozaar) 25 mg PO DAILY [facility] Last Admin: 02/24/19 09:03 Dose: 25 mg Multivitamins/Minerals (Therapeutic-M Tab) 1 tab PO 0800 [facility] Last Admin: 02/24/19 07:34 Dose: 1 tab Nicotine (Nicoderm Cq) 1 patch TD DAILY [facility] Last Admin: 02/24/19 09:04 Dose: 1 patch Ondansetron HCl (Zofran Inj) 4 mg IVP Q6H PRN PRN Reason: Nausea/Vomiting Last Admin: 02/23/19 14:57 Dose: 4 mg Oxycodone HCl (Oxycodone Immediate Release Tab) 5 mg PO Q6 PRN PRN Reason: Pain, moderate (4-7) Pantoprazole Sodium (Protonix Inj) 40 mg IVP DAILY [facility] Last Admin: 02/24/19 09:03 Dose: 40 mg Sennosides (Senokot Tab) 8.6 mg PO DAILY [facility] Last Admin: 02/24/19 09:04 Dose: 8.6 mg Tamsulosin HCl (Flomax) 0.4 mg PO DAILY [facility] Last Admin: 02/24/19 09:04 Dose: 0.4 mg Thiamine HCl (Vitamin B1 Tab) 100 mg PO DAILY [facility] Last Admin: 02/24/19 09:03 Dose: 100 mg - Labs Labs: 02/24/19 05:56 02/24/19 05:56 PT 18.5 SECONDS (9.7-12.2) H 02/22/19 14:27 INR 1.7 02/22/19 14:27 APTT 73.0 SECONDS (21-34) H 02/22/19 14:27 - Constitutional Appears: Non-toxic, No Acute Distress (uncomfortable but not in acute distress), Chronically Ill - Eye Exam Additional comments: Wearing R eye patch Left eye: EOMI, normal appearance, no icterus or conjunctival injection - ENT Exam ENT Exam: Mucous Membranes Moist - Neck Exam Neck Exam: absent: Lymphadenopathy, Thyromegaly - Respiratory Exam Respiratory Exam: Decreased Breath Sounds (mildly decreased breath sounds in all manzo), Prolonged Expiratory Phase (mildly prolonged expiratory phase consistently). absent: Accessory Muscle Use, Chest Wall Tenderness, Rales, Rhonchi, Wheezes, Respiratory Distress, Stridor - Cardiovascular Exam Cardiovascular Exam: REGULAR RHYTHM, RRR, +S1, +S2. absent: Bradycardia, Tachycardia, Irregular Rhythm, JVD - GI/Abdominal Exam GI & Abdominal Exam: Distended, Tenderness (acutely tender throughout abdomen, less tender on bilateral flanks). absent: Rigid Additional comments: minimal bowel sounds appreciated bandages lateral to suprapubic region bilaterally unable to fully palpate abdomen due to pain, but not acutely rigid to palpation - Exam Exam: absent: Scrotal Swelling Additional comments: Herrera in place draining clear-yellow urine, approx 900cc in bag at time of exam - Extremities Exam Extremities Exam: absent: Calf Tenderness, Joint Swelling, Pedal Edema, Tenderness - Back Exam Back Exam: absent: CVA tenderness (L), CVA tenderness (R) - Neurological Exam Additional comments: awake and alert, oriented to self/location/year follows all commands appropriately, demonstrates appropriate insight in questioning minimal movements (spontaneous and on command) due to attempting to limit abdominal pain, but appears grossly neurologically intact - Psychiatric Exam Psychiatric exam: Normal Affect, Normal Mood - Skin Skin Exam: Dry, Intact (except for site of bandaging as documented in abdominal exam), Normal Color, Warm Assessment and Plan - Assessment and Plan (Free Text) Assessment: This is a 68yo AA M with PMH of HTN, AAA, PVD, recurrent venous clotting through anticoagulants (Coumadin & Zarelto), COPD with active tobacco abuse, unclear ad verse reaction to heparin, alcohol use disorder, and chronic medication/medical follow-up non-compliance who recently underwent EVAR of AAA with fem-fem bypass and balloon angioplasty of L common illiac. He is now in the ICU post-procedure for management and close monitoring. Medicine was consulted for medical management. Plan: 1) AAA and right iliac occlusion -s/p AAA EVAR and L common illiac balloon angioplasty, POD #2 Vascular surgery following, appreciate their recs, defer to them for post-op management -Remains in ICU for post-op monitoring/management -Agrobactran started vascular surgery, given hx of clotting through xarelto and coumadin, and hives with heparin -Heme-onc consulted for anticoagulation recs given recurrent venous clotting and recent AAA procedure, recs resuming Eliquis when cleared by surgery -Given continued Abd pain post-op, CT abd/pelvis obtained, concerning for right renal cortical ischemia, possible post-op illeus (no obstruction) Nephro consulted for possible renal cortical ischemia, appreciate all recs No obstruction, but still no flatus, possible post-op illeus, will discuss with Surgery possibility of Reglan or Simethicone to stimulate GI tract 2) History of HTN -Remains uncontrolled, likely element of post-op pain contributing Recommend aggressive BP control in setting of recent AAA repair -Current regimen: norvasc 10mg daily, hydralazine 25mg q8h, Losartan 25mg daily, also on Flomax for BPH but may help with HTN ICU team increasing Hydralazine to 50mg q8h, will also increase Losartan to 50mg daily and ordered additional 25mg dose for today Recommend increased pain control, ICU increased dilaudid to 1mg IV q3 prn -If SBP remains > 180 consistently, may need cardine drip, defer this decision to ICU team 3) History of COPD -Currently seems well controlled, oxygenating well on room air -Currrent regimen: Duonebs q6 nini, Albuterol q2 PRN, Brovana 15mcg q12h Home regimen includes Breo, which is not on formulary here -Hx of non-compliance in general, but also with home inhaler use and smoking cessation -Not home O2 dependant, not requiring supplemental O2 at this time -Continue to recommend and stress importance of smoking cessation 4) Hyponatremia -Na decreased to 129 again (was 132 yesterday) -ddx: SIADH given recent surgery vs 2/2 renal obstruction (required herrera replacement due to failed voiding trials) vs 2/2 fluid resuscitation with LR -continue to monitor, consider switching from LR to NS when cleared by surgery 5) Alcohol abuse -No signs or symptoms consistent with withdrawal appreciated at this time -Continue: Multivitamin 1 tab PO daily, Folic acid 1 mg PO daily, Thiamine 100mg PO daily -Folate and B12 are low normal but wnl (3.8 and 291, respectively) -Again advised complete cessation 6) Tobacco abuse (25+ pack yr hx) -Continue daily nicotine patch while inpatient -Cessation strongly advised 7) Right Corneal ulcer -Initially evaluated by opthamology in Dec 2018, Patient did not followup with [facility] after his initial evaluation at [place] -Wearing eye patch currently -Encouraged following up with Ophtho after discharge 8) Urinary retention -failed voiding trials after removal of herrera, retaining approx 1L on bladder scan overnight -unable to tolerate repeated straight cath attempts overnight, herrera replaced, 1L put out immediately and another 900cc this AM -on Flomax, if fails another voiding trial, could consider adding finasteride -Continue 9) New leukocytosis -etiology unclear, may be 2/2 pain vs repeated instrumentation overnight (multiple attempted straight caths, herrera replacement) -afebrile -Procal ordered by ICU, f/u Not currently on abx, will start if procal positive or if becomes symptomatic for infection
[2019-02-24] MEDS ORDERED: HYDROmorphone 0.5 mg/0.5 ml ISec IVP ONE (10:00)
[2019-02-24] MEDS ORDERED: Aritificial Tears (15ml) OU PRN (11:50)
--- NOTE | 2019-02-24 13:02 | CP.CCUPN ---
<Jaja Duenas - Last Filed: 02/24/19 13:00> CCU Subjective - Physician Review Subjective (Free Text): Overnight, pt's BP noted to be elevated 200's systolic. Was given IV Hydralazine. Also retaining urine, s/p Cath x1 and Urine Brooks insertion with 2+ L output BP still elevated this am and pt was complaining of sever epigastric abdominal pain, diffusely tender. Pt also denies BM and Flatulence. CTAP ordered STAT Pt otherwise has no other complaints. Critical Care Time Spent (in minutes): 35 CCU Objective - Vital Signs / Intake & Output Vital Signs (Last 4 hours): Vital Signs Temp Pulse Resp BP Pulse Ox 02/24/19 10:44 82 19 169/82 H 96 02/24/19 10:43 82 18 171/79 H 96 02/24/19 10:42 82 19 174/85 H 97 02/24/19 10:41 81 17 165/84 H 97 02/24/19 10:39 92 H 18 173/92 H 98 02/24/19 10:38 80 19 208/88 H 96 02/24/19 10:08 81 17 190/89 H 98 02/24/19 10:06 85 15 97 02/24/19 10:03 91 H 15 02/24/19 09:33 83 17 187/88 H 96 02/24/19 09:07 81 17 184/91 H 96 02/24/19 09:00 90 13 97 02/24/19 08:27 86 20 201/93 H 97 02/24/19 08:10 93 H 20 207/100 H 98 02/24/19 08:07 86 17 200/99 H 99 02/24/19 08:01 90 16 198/102 H 99 02/24/19 08:00 98.3 F 91 H 17 99 02/24/19 07:53 89 16 203/99 H 100 02/24/19 07:07 78 18 182/84 H 96 Intake and Output (Last 8hrs): Intake & Output 02/23/19 02/24/19 02/24/19 22:59 06:59 14:59 Intake Total 1125 1305 450 Output Total 1999 2009 950 Balance -729 -706 -849 Weight 176 lb 179 lb 0.01 oz Intake: Intake, IV Amount 1100 1125 375 Left Antecubital 1000 1125 375 Right Forearm 100 Oral 25 180 75 Output: Urine 1800 2009 950 Straight 700 Urethral (Brooks) 2010 950 Urine, Voided 200 Emesis 200 0 0 Other: # Bowel Movements 0 0 0 - Physical Exam Head: Positive for: Atraumatic, Normocephalic Pupils: Positive for: PERRL Extroacular Muscles: Positive for: EOMI Mouth: Positive for: Moist Mucous Membranes Respiratory/Chest: Positive for: Clear to Auscultation, Accessory Muscle Use Cardiovascular: Positive for: Regular Rate and Rhythm Abdomen: Positive for: Tenderness (Diffuse, marked in epigastric), Normal Bowel Sounds, Guarding (voluntary), Other (lower abdominal surgical incisions with dressings c/d/i). Negative for: Distention, Peritoneal Signs Lower Extremity: Positive for: Capillary Refill < 2 s, Other (LE digits, pink/warm with good capillary refill. BL groin dressing dry and clean. Motor and sensory in tact. Right PT and DP pulse palpable. Left PT and DP pulse unable to palpate (ocassionally very weak pulse felt)) Neurological: Positive for: GCS=15, CN II-XII Intact Skin: Positive for: Warm, Dry, Normal Color Psychiatric: Positive for: Alert, Oriented x 3 - Medications Active Medications: Active Medications Generic Name Dose Route Start Last Admin Trade Name Freq PRN Reason Stop Dose Admin Albuterol Sulfate 2.5 mg 02/22/19 13:37 Albuterol 0.083% Inhal Tianna (2.5 Mg/3 Ml) Ud IH RQ2 PRN Shortness of Breath Albuterol/Ipratropium 3 ml 02/22/19 20:00 02/24/19 07:28 Duoneb 3 Mg/0.5 Mg (3 Ml) Ud INH 3 ml RQ6 BRIANNA Administration Amlodipine Besylate 10 mg 02/23/19 10:00 02/24/19 09:07 Norvasc PO 10 mg DAILY BRIANNA Administration Arformoterol Tartrate 15 mcg 02/22/19 20:45 02/24/19 07:29 Brovana INH 15 mcg RQ12 BRIANNA Administration Docusate Sodium 100 mg 02/22/19 13:37 Colace PO BID PRN Constipation Folic Acid 1 mg 02/23/19 10:45 02/24/19 09:03 Folic Acid PO 1 mg DAILY BRIANNA Administration Hydralazine HCl 50 mg 02/24/19 16:00 Apresoline PO Q8H BRIANNA Hydromorphone HCl 1 mg 02/24/19 09:39 Dilaudid IVP Q3H PRN Pain, severe (8-10) Lactated Ringer's 1,000 mls @ 125 mls/hr 02/22/19 13:45 02/24/19 03:00 Lactated Ringer's IV 125 mls/hr .Q8H BRIANNA Administration Losartan Potassium 25 mg 02/23/19 10:00 02/24/19 09:03 Cozaar PO 25 mg DAILY BRIANNA Administration Multivitamins/Minerals 1 tab 02/23/19 08:00 02/24/19 07:34 Therapeutic-M Tab PO 1 tab 0800 BRIANNA Administration Nicotine 1 patch 02/23/19 10:00 02/24/19 09:04 Nicoderm Cq TD 1 patch DAILY BRIANNA Administration Ondansetron HCl 4 mg 02/22/19 13:37 02/23/19 14:57 Zofran Inj IVP 4 mg Q6H PRN Administration Nausea/Vomiting Oxycodone HCl 5 mg 02/22/19 15:18 Oxycodone Immediate Release Tab PO Q6 PRN Pain, moderate (4-7) Pantoprazole Sodium 40 mg 02/23/19 10:00 02/24/19 09:03 Protonix Inj IVP 40 mg DAILY BRIANNA Administration Sennosides 8.6 mg 02/23/19 10:00 02/24/19 09:04 Senokot Tab PO 8.6 mg DAILY BRIANNA Administration Tamsulosin HCl 0.4 mg 02/24/19 10:00 02/24/19 09:04 Flomax PO 0.4 mg DAILY BRIANNA Administration Thiamine HCl 100 mg 02/23/19 10:45 02/24/19 09:03 Vitamin B1 Tab PO 100 mg DAILY BRIANNA Administration - Patient Studies Lab Studies: Microbiology Studies 02/22/19 15:33 MRSA Culture (Admit) - Final Naris MRSA NOT DETECTED Lab Studies 02/24/19 02/24/19 02/24/19 Range/Units 08:55 08:55 05:56 WBC (4.8-10.8) K/uL RBC (4.40-5.90) Mil/uL Hgb (12.0-18.0) g/dL Hct (35.0-51.0) % MCV (80.0-94.0) fL MCH (27.0-31.0) pg MCHC (33.0-37.0) g/dL RDW (11.5-14.5) % Plt Count (130-400) K/uL MPV (7.2-11.7) fL Neut % (Auto) (50.0-75.0) % Lymph % (Auto) (20.0-40.0) % Ida % (Auto) (0.0-10.0) % Eos % (Auto) (0.0-4.0) % Baso % (Auto) (0.0-2.0) % Neut # (Auto) (1.8-7.0) K/uL Lymph # (Auto) (1.0-4.3) K/uL Ida # (Auto) (0.0-0.8) K/uL Eos # (Auto) (0.0-0.7) K/uL Baso # (Auto) (0.0-0.2) K/uL Neutrophils % (Manual) (50-75) % Band Neutrophils % (0-2) % Lymphocytes % (Manual) (20-40) % Monocytes % (Manual) (0-10) % Platelet Estimate (NORMAL) Hypochromasia (manual) Anisocytosis (manual) Sodium (132-148) mmol/L Potassium (3.6-5.2) mmol/L Chloride (98-107) mmol/L Carbon Dioxide (22-30) mmol/L Anion Gap (10-20) BUN (9-20) mg/dL Creatinine (0.8-1.5) mg/dL Est GFR ( Amer) Est GFR (Non-Af Amer) Random Glucose (75-110) mg/dL Lactic Acid 1.1 (0.7-2.1) mmol/L Calcium (8.6-10.4) mg/dl Phosphorus (2.5-4.5) mg/dL Magnesium (1.6-2.3) mg/dL Total Bilirubin (0.2-1.3) mg/dL AST (17-59) U/L ALT (21-72) U/L Alkaline Phosphatase (38-126) U/L Total Protein (6.3-8.3) g/dL Albumin (3.5-5.0) g/dL Globulin (2.2-3.9) gm/dL Albumin/Globulin Ratio (1.0-2.1) Procalcitonin 0.98 H (0.19-0.49) NG/ML Urine Color Yellow (YELLOW) Urine Clarity Clear (Clear) Urine pH 8.0 (5.0-8.0) Ur Specific [place] 1.011 (1.003-1.030) Urine Protein Negative (NEGATIVE) mg/dL Urine Glucose (UA) Normal (Normal) mg/dL Urine Ketones Negative (NEGATIVE) mg/dL Urine Blood 2+ H (NEGATIVE) Urine Nitrate Negative (NEGATIVE) Urine Bilirubin Negative (NEGATIVE) Urine Urobilinogen Normal (0.2-1.0) mg/dL Ur Leukocyte Esterase Neg (Negative) Rodolfo/uL Urine WBC (Auto) 3 (0-5) /hpf Urine RBC (Auto) 35 H (0-3) /hpf 02/24/19 02/24/19 Range/Units 05:56 05:56 WBC 16.2 H D (4.8-10.8) K/uL RBC 3.80 L (4.40-5.90) Mil/uL Hgb 10.5 L (12.0-18.0) g/dL Hct 32.1 L (35.0-51.0) % MCV 84.5 D (80.0-94.0) fL MCH 27.6 (27.0-31.0) pg MCHC 32.7 L (33.0-37.0) g/dL RDW 17.9 H (11.5-14.5) % Plt Count 71 L D (130-400) K/uL MPV 8.2 (7.2-11.7) fL Neut % (Auto) 90.2 H (50.0-75.0) % Lymph % (Auto) 4.0 L (20.0-40.0) % Ida % (Auto) 5.4 (0.0-10.0) % Eos % (Auto) 0.1 (0.0-4.0) % Baso % (Auto) 0.3 (0.0-2.0) % Neut # (Auto) 14.6 H (1.8-7.0) K/uL Lymph # (Auto) 0.6 L (1.0-4.3) K/uL Ida # (Auto) 0.9 H (0.0-0.8) K/uL Eos # (Auto) 0.0 (0.0-0.7) K/uL Baso # (Auto) 0.0 (0.0-0.2) K/uL Neutrophils % (Manual) 85 H (50-75) % Band Neutrophils % 7 H (0-2) % Lymphocytes % (Manual) 3 L (20-40) % Monocytes % (Manual) 5 (0-10) % Platelet Estimate Decreased L (NORMAL) Hypochromasia (manual) Slight Anisocytosis (manual) Slight Sodium 129 L (132-148) mmol/L Potassium 3.8 (3.6-5.2) mmol/L Chloride 98 (98-107) mmol/L Carbon Dioxide 27 (22-30) mmol/L Anion Gap 9 L (10-20) BUN 12 (9-20) mg/dL Creatinine 1.5 (0.8-1.5) mg/dL Est GFR ( Amer) 56 Est GFR (Non-Af Amer) 46 Random Glucose 103 (75-110) mg/dL Lactic Acid (0.7-2.1) mmol/L Calcium 8.4 L (8.6-10.4) mg/dl Phosphorus 2.6 (2.5-4.5) mg/dL Magnesium 1.6 (1.6-2.3) mg/dL Total Bilirubin 1.7 H (0.2-1.3) mg/dL AST 170 H D (17-59) U/L ALT 82 H D (21-72) U/L Alkaline Phosphatase 95 (38-126) U/L Total Protein 6.0 L (6.3-8.3) g/dL Albumin 3.2 L (3.5-5.0) g/dL Globulin 2.8 (2.2-3.9) gm/dL Albumin/Globulin Ratio 1.1 (1.0-2.1) Procalcitonin (0.19-0.49) NG/ML Urine Color (YELLOW) Urine Clarity (Clear) Urine pH (5.0-8.0) Ur Specific [place] (1.003-1.030) Urine Protein (NEGATIVE) mg/dL Urine Glucose (UA) (Normal) mg/dL Urine Ketones (NEGATIVE) mg/dL Urine Blood (NEGATIVE) Urine Nitrate (NEGATIVE) Urine Bilirubin (NEGATIVE) Urine Urobilinogen (0.2-1.0) mg/dL Ur Leukocyte Esterase (Negative) Rodolfo/uL Urine WBC (Auto) (0-5) /hpf Urine RBC (Auto) (0-3) /hpf Laboratory Results - last 24 hr 02/24/19 02/24/19 02/24/19 05:56 05:56 05:56 WBC 16.2 H D RBC 3.80 L Hgb 10.5 L Hct 32.1 L MCV 84.5 D MCH 27.6 MCHC 32.7 L RDW 17.9 H Plt Count 71 L D MPV 8.2 Neut % (Auto) 90.2 H Lymph % (Auto) 4.0 L Ida % (Auto) 5.4 Eos % (Auto) 0.1 Baso % (Auto) 0.3 Neut # (Auto) 14.6 H Lymph # (Auto) 0.6 L Ida # (Auto) 0.9 H Eos # (Auto) 0.0 Baso # (Auto) 0.0 Neutrophils % (Manual) 85 H Band Neutrophils % 7 H Lymphocytes % (Manual) 3 L Monocytes % (Manual) 5 Platelet Estimate Decreased L Hypochromasia (manual) Slight Anisocytosis (manual) Slight Sodium 129 L Potassium 3.8 Chloride 98 Carbon Dioxide 27 Anion Gap 9 L BUN 12 Creatinine 1.5 Est GFR ( Amer) 56 Est GFR (Non-Af Amer) 46 Random Glucose 103 Lactic Acid Calcium 8.4 L Phosphorus 2.6 Magnesium 1.6 Total Bilirubin 1.7 H AST 170 H D ALT 82 H D Alkaline Phosphatase 95 Total Protein 6.0 L Albumin 3.2 L Globulin 2.8 Albumin/Globulin Ratio 1.1 Procalcitonin Urine Color Yellow Urine Clarity Clear Urine pH 8.0 Ur Specific [place] 1.011 Urine Protein Negative Urine Glucose (UA) Normal Urine Ketones Negative Urine Blood 2+ H Urine Nitrate Negative Urine Bilirubin Negative Urine Urobilinogen Normal Ur Leukocyte Esterase Neg Urine WBC (Auto) 3 Urine RBC (Auto) 35 H 02/24/19 02/24/19 08:55 08:55 WBC RBC Hgb Hct MCV MCH MCHC RDW Plt Count MPV Neut % (Auto) Lymph % (Auto) Ida % (Auto) Eos % (Auto) Baso % (Auto) Neut # (Auto) Lymph # (Auto) Ida # (Auto) Eos # (Auto) Baso # (Auto) Neutrophils % (Manual) Band Neutrophils % Lymphocytes % (Manual) Monocytes % (Manual) Platelet Estimate Hypochromasia (manual) Anisocytosis (manual) Sodium Potassium Chloride Carbon Dioxide Anion Gap BUN Creatinine Est GFR ( Amer) Est GFR (Non-Af Amer) Random Glucose Lactic Acid 1.1 Calcium Phosphorus Magnesium Total Bilirubin AST ALT Alkaline Phosphatase Total Protein Albumin Globulin Albumin/Globulin Ratio Procalcitonin 0.98 H Urine Color Urine Clarity Urine pH Ur Specific [place] Urine Protein Urine Glucose (UA) Urine Ketones Urine Blood Urine Nitrate Urine Bilirubin Urine Urobilinogen Ur Leukocyte Esterase Urine WBC (Auto) Urine RBC (Auto) Radiology Impressions: Radiology Impressions Abdomen X-Ray 02/24/19 08:26 IMPRESSION: Nonobstructive bowel gas pattern appreciated. No gross free intra peritoneal gas collection. Prior IVC filter in situ as well as abdominal aortoiliac stent graft. Majority of pelvis not included in this exam. 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 Brambila on 02/22. Neuro - AAOx3 - Dilaudid prn for pain Cardio - S/p endovascular AAA repair and L common illiac angioplast/fem-fem bypass - Hypertensive Urgency, possibly worsened in setting of acute abdominal pain - PO Hydralazine, Norvasc, and Losartan for BP management - Monitor BP closely - Vascular on board Pulm -Maintain spO2 >92% Nephro - ROBERTA, prerenal vs post renal (urinary retention) - BUN/Crea 12/1.5 - Na 129 - Nephrology on board - LR at 125cc/hr - Fluid management per vascular surgery GI - Severe abdominal pain, unclear etiology. - Has not had BM or passed flatus. Abdominal Xray r/u free air - CT A/P completed, report pending. Significant Colonic dilatation, post op Ileus? on my read - Pain and bowel regimens per surgical team - NPO - Serial abdominal exams ID/Heme -New Leukocytosis, Bands 7, procalcitonin sent, Afebrile - F/u Bcx and Ucx - Platelets 71 - Heparin allergy (hives?) HIT workup in past negative - Heme/Onc: Dr. Kwok, reccs appreciated - Anticoagulation per vascular PPx - GI: Protonix IV - DVT ppx, as per vascular. May restart home Eliquis as per Dr. Kwok if okay with vascular Discussed with Dr. Ric Duenas PGY2 <Johnny Larios S - Last Filed: 02/24/19 13:23> CCU Objective - Vital Signs / Intake & Output Vital Signs (Last 4 hours): Vital Signs Temp Pulse Resp BP Pulse Ox 02/24/19 13:00 94 H 18 96 02/24/19 12:55 101 H 16 159/86 H 96 02/24/19 12:04 98 02/24/19 12:00 98.1 F 87 15 98 02/24/19 11:56 94 H 14 177/89 H 98 02/24/19 11:49 89 14 194/92 H 98 02/24/19 11:00 81 19 96 02/24/19 10:54 85 18 181/85 H 95 02/24/19 10:53 84 18 180/82 H 95 02/24/19 10:52 82 19 174/82 H 94 L 02/24/19 10:50 86 18 173/83 H 95 02/24/19 10:49 83 19 173/83 H 95 02/24/19 10:48 83 17 173/83 H 95 02/24/19 10:47 82 19 176/84 H 95 02/24/19 10:46 83 18 180/85 H 96 02/24/19 10:45 81 18 169/84 H 96 02/24/19 10:44 82 19 169/82 H 96 02/24/19 10:43 82 18 171/79 H 96 02/24/19 10:42 82 19 174/85 H 97 02/24/19 10:41 81 17 165/84 H 97 02/24/19 10:39 92 H 18 173/92 H 98 02/24/19 10:38 80 19 208/88 H 96 02/24/19 10:08 81 17 190/89 H 98 02/24/19 10:06 85 15 97 02/24/19 10:03 91 H 15 02/24/19 09:33 83 17 187/88 H 96 Intake and Output (Last 8hrs): Intake & Output 02/23/19 02/24/19 02/24/19 22:59 06:59 14:59 Intake Total 1125 1305 1125 Output Total 1999 2009 1574 Balance -875 -705 -450 Weight 176 lb 179 lb 0.01 oz Intake: Intake, IV Amount 1100 1125 750 Left Antecubital 1000 1125 750 Right Forearm 100 Oral 25 180 375 Output: Urine 1800 2009 1575 Straight 700 Urethral (Brooks) 2009 1575 Urine, Voided 200 Emesis 200 0 0 Other: # Bowel Movements 0 0 0 - Medications Active Medications: Active Medications Generic Name Dose Route Start Last Admin Trade Name Freq PRN Reason Stop Dose Admin Albuterol Sulfate 2.5 mg 02/22/19 13:37 Albuterol 0.083% Inhal Tianna (2.5 Mg/3 Ml) Ud IH RQ2 PRN Shortness of Breath Albuterol/Ipratropium 3 ml 02/22/19 20:00 02/24/19 13:21 Duoneb 3 Mg/0.5 Mg (3 Ml) Ud INH Not Given RQ6 BRIANNA Amlodipine Besylate 10 mg 02/23/19 10:00 02/24/19 09:07 Norvasc PO 10 mg DAILY BRIANNA Administration Arformoterol Tartrate 15 mcg 02/22/19 20:45 02/24/19 07:29 Brovana INH 15 mcg RQ12 BRIANNA Administration Artificial Tears 0 ml 02/24/19 11:50 Artificial Tears OU TID PRN Dry eyes Docusate Sodium 100 mg 02/22/19 13:37 Colace PO BID PRN Constipation Folic Acid 1 mg 02/23/19 10:45 02/24/19 09:03 Folic Acid PO 1 mg DAILY BRIANNA Administration Hydralazine HCl 50 mg 02/24/19 16:00 Apresoline PO Q8H BRIANNA Hydromorphone HCl 1 mg 02/24/19 09:39 Dilaudid IVP Q3H PRN Pain, severe (8-10) Lactated Ringer's 1,000 mls @ 125 mls/hr 02/22/19 13:45 02/24/19 11:44 Lactated Ringer's IV 125 mls/hr .Q8H BRIANNA Administration Losartan Potassium 50 mg 02/25/19 10:00 Cozaar PO DAILY BRIANNA Multivitamins/Minerals 1 tab 02/23/19 08:00 02/24/19 07:34 Therapeutic-M Tab PO 1 tab 0800 BRIANNA Administration Nicotine 1 patch 02/23/19 10:00 02/24/19 09:04 Nicoderm Cq TD 1 patch DAILY BRIANNA Administration Ondansetron HCl 4 mg 02/22/19 13:37 02/23/19 14:57 Zofran Inj IVP 4 mg Q6H PRN Administration Nausea/Vomiting Oxycodone HCl 5 mg 02/22/19 15:18 Oxycodone Immediate Release Tab PO Q6 PRN Pain, moderate (4-7) Pantoprazole Sodium 40 mg 02/23/19 10:00 02/24/19 09:03 Protonix Inj IVP 40 mg DAILY BRIANNA Administration Sennosides 8.6 mg 02/23/19 10:00 02/24/19 09:04 Senokot Tab PO 8.6 mg DAILY BRIANNA Administration Tamsulosin HCl 0.4 mg 02/24/19 10:00 02/24/19 09:04 Flomax PO 0.4 mg DAILY BRIANNA Administration Thiamine HCl 100 mg 02/23/19 10:45 02/24/19 09:03 Vitamin B1 Tab PO 100 mg DAILY BRIANNA Administration - Patient Studies Lab Studies: Microbiology Studies 02/22/19 15:33 MRSA Culture (Admit) - Final Naris MRSA NOT DETECTED Lab Studies 02/24/19 02/24/19 02/24/19 Range/Units 11:12 08:55 08:55 WBC (4.8-10.8) K/uL RBC (4.40-5.90) Mil/uL Hgb (12.0-18.0) g/dL Hct (35.0-51.0) % MCV (80.0-94.0) fL MCH (27.0-31.0) pg MCHC (33.0-37.0) g/dL RDW (11.5-14.5) % Plt Count (130-400) K/uL MPV (7.2-11.7) fL Neut % (Auto) (50.0-75.0) % Lymph % (Auto) (20.0-40.0) % Ida % (Auto) (0.0-10.0) % Eos % (Auto) (0.0-4.0) % Baso % (Auto) (0.0-2.0) % Neut # (Auto) (1.8-7.0) K/uL Lymph # (Auto) (1.0-4.3) K/uL Ida # (Auto) (0.0-0.8) K/uL Eos # (Auto) (0.0-0.7) K/uL Baso # (Auto) (0.0-0.2) K/uL Neutrophils % (Manual) (50-75) % Band Neutrophils % (0-2) % Lymphocytes % (Manual) (20-40) % Monocytes % (Manual) (0-10) % Platelet Estimate (NORMAL) Hypochromasia (manual) Anisocytosis (manual) Sodium (132-148) mmol/L Potassium (3.6-5.2) mmol/L Chloride (98-107) mmol/L Carbon Dioxide (22-30) mmol/L Anion Gap (10-20) BUN (9-20) mg/dL Creatinine (0.8-1.5) mg/dL Est GFR ( Amer) Est GFR (Non-Af Amer) POC Glucose (mg/dL) 98 (65-110) mg/dL Random Glucose (75-110) mg/dL Lactic Acid 1.1 (0.7-2.1) mmol/L Calcium (8.6-10.4) mg/dl Phosphorus (2.5-4.5) mg/dL Magnesium (1.6-2.3) mg/dL Total Bilirubin (0.2-1.3) mg/dL AST (17-59) U/L ALT (21-72) U/L Alkaline Phosphatase (38-126) U/L Total Protein (6.3-8.3) g/dL Albumin (3.5-5.0) g/dL Globulin (2.2-3.9) gm/dL Albumin/Globulin Ratio (1.0-2.1) Lipase (23-300) U/L Procalcitonin 0.98 H (0.19-0.49) NG/ML Urine Color (YELLOW) Urine Clarity (Clear) Urine pH (5.0-8.0) Ur Specific [place] (1.003-1.030) Urine Protein (NEGATIVE) mg/dL Urine Glucose (UA) (Normal) mg/dL Urine Ketones (NEGATIVE) mg/dL Urine Blood (NEGATIVE) Urine Nitrate (NEGATIVE) Urine Bilirubin (NEGATIVE) Urine Urobilinogen (0.2-1.0) mg/dL Ur Leukocyte Esterase (Negative) Rodolfo/uL Urine WBC (Auto) (0-5) /hpf Urine RBC (Auto) (0-3) /hpf 02/24/19 02/24/19 02/24/19 Range/Units 07:22 05:56 05:56 WBC (4.8-10.8) K/uL RBC (4.40-5.90) Mil/uL Hgb (12.0-18.0) g/dL Hct (35.0-51.0) % MCV (80.0-94.0) fL MCH (27.0-31.0) pg MCHC (33.0-37.0) g/dL RDW (11.5-14.5) % Plt Count (130-400) K/uL MPV (7.2-11.7) fL Neut % (Auto) (50.0-75.0) % Lymph % (Auto) (20.0-40.0) % Ida % (Auto) (0.0-10.0) % Eos % (Auto) (0.0-4.0) % Baso % (Auto) (0.0-2.0) % Neut # (Auto) (1.8-7.0) K/uL Lymph # (Auto) (1.0-4.3) K/uL Ida # (Auto) (0.0-0.8) K/uL Eos # (Auto) (0.0-0.7) K/uL Baso # (Auto) (0.0-0.2) K/uL Neutrophils % (Manual) (50-75) % Band Neutrophils % (0-2) % Lymphocytes % (Manual) (20-40) % Monocytes % (Manual) (0-10) % Platelet Estimate (NORMAL) Hypochromasia (manual) Anisocytosis (manual) Sodium 129 L (132-148) mmol/L Potassium 3.8 (3.6-5.2) mmol/L Chloride 98 (98-107) mmol/L Carbon Dioxide 27 (22-30) mmol/L Anion Gap 9 L (10-20) BUN 12 (9-20) mg/dL Creatinine 1.5 (0.8-1.5) mg/dL Est GFR ( Amer) 56 Est GFR (Non-Af Amer) 46 POC Glucose (mg/dL) 110 (65-110) mg/dL Random Glucose 103 (75-110) mg/dL Lactic Acid (0.7-2.1) mmol/L Calcium 8.4 L (8.6-10.4) mg/dl Phosphorus 2.6 (2.5-4.5) mg/dL Magnesium 1.6 (1.6-2.3) mg/dL Total Bilirubin 1.7 H (0.2-1.3) mg/dL AST 170 H D (17-59) U/L ALT 82 H D (21-72) U/L Alkaline Phosphatase 95 (38-126) U/L Total Protein 6.0 L (6.3-8.3) g/dL Albumin 3.2 L (3.5-5.0) g/dL Globulin 2.8 (2.2-3.9) gm/dL Albumin/Globulin Ratio 1.1 (1.0-2.1) Lipase 114 (23-300) U/L Procalcitonin (0.19-0.49) NG/ML Urine Color Yellow (YELLOW) Urine Clarity Clear (Clear) Urine pH 8.0 (5.0-8.0) Ur Specific [place] 1.011 (1.003-1.030) Urine Protein Negative (NEGATIVE) mg/dL Urine Glucose (UA) Normal (Normal) mg/dL Urine Ketones Negative (NEGATIVE) mg/dL Urine Blood 2+ H (NEGATIVE) Urine Nitrate Negative (NEGATIVE) Urine Bilirubin Negative (NEGATIVE) Urine Urobilinogen Normal (0.2-1.0) mg/dL Ur Leukocyte Esterase Neg (Negative) Rodolfo/uL Urine WBC (Auto) 3 (0-5) /hpf Urine RBC (Auto) 35 H (0-3) /hpf 02/24/19 02/23/19 02/23/19 Range/Units 05:56 21:30 16:33 WBC 16.2 H D (4.8-10.8) K/uL RBC 3.80 L (4.40-5.90) Mil/uL Hgb 10.5 L (12.0-18.0) g/dL Hct 32.1 L (35.0-51.0) % MCV 84.5 D (80.0-94.0) fL MCH 27.6 (27.0-31.0) pg MCHC 32.7 L (33.0-37.0) g/dL RDW 17.9 H (11.5-14.5) % Plt Count 71 L D (130-400) K/uL MPV 8.2 (7.2-11.7) fL Neut % (Auto) 90.2 H (50.0-75.0) % Lymph % (Auto) 4.0 L (20.0-40.0) % Ida % (Auto) 5.4 (0.0-10.0) % Eos % (Auto) 0.1 (0.0-4.0) % Baso % (Auto) 0.3 (0.0-2.0) % Neut # (Auto) 14.6 H (1.8-7.0) K/uL Lymph # (Auto) 0.6 L (1.0-4.3) K/uL Ida # (Auto) 0.9 H (0.0-0.8) K/uL Eos # (Auto) 0.0 (0.0-0.7) K/uL Baso # (Auto) 0.0 (0.0-0.2) K/uL Neutrophils % (Manual) 85 H (50-75) % Band Neutrophils % 7 H (0-2) % Lymphocytes % (Manual) 3 L (20-40) % Monocytes % (Manual) 5 (0-10) % Platelet Estimate Decreased L (NORMAL) Hypochromasia (manual) Slight Anisocytosis (manual) Slight Sodium (132-148) mmol/L Potassium (3.6-5.2) mmol/L Chloride (98-107) mmol/L Carbon Dioxide (22-30) mmol/L Anion Gap (10-20) BUN (9-20) mg/dL Creatinine (0.8-1.5) mg/dL Est GFR ( Amer) Est GFR (Non-Af Amer) POC Glucose (mg/dL) 107 128 H (65-110) mg/dL Random Glucose (75-110) mg/dL Lactic Acid (0.7-2.1) mmol/L Calcium (8.6-10.4) mg/dl Phosphorus (2.5-4.5) mg/dL Magnesium (1.6-2.3) mg/dL Total Bilirubin (0.2-1.3) mg/dL AST (17-59) U/L ALT (21-72) U/L Alkaline Phosphatase (38-126) U/L Total Protein (6.3-8.3) g/dL Albumin (3.5-5.0) g/dL Globulin (2.2-3.9) gm/dL Albumin/Globulin Ratio (1.0-2.1) Lipase (23-300) U/L Procalcitonin (0.19-0.49) NG/ML Urine Color (YELLOW) Urine Clarity (Clear) Urine pH (5.0-8.0) Ur Specific [place] (1.003-1.030) Urine Protein (NEGATIVE) mg/dL Urine Glucose (UA) (Normal) mg/dL Urine Ketones (NEGATIVE) mg/dL Urine Blood (NEGATIVE) Urine Nitrate (NEGATIVE) Urine Bilirubin (NEGATIVE) Urine Urobilinogen (0.2-1.0) mg/dL Ur Leukocyte Esterase (Negative) Rodolfo/uL Urine WBC (Auto) (0-5) /hpf Urine RBC (Auto) (0-3) /hpf 02/23/19 02/23/19 02/22/19 Range/Units 11:16 07:22 21:09 WBC (4.8-10.8) K/uL RBC (4.40-5.90) Mil/uL Hgb (12.0-18.0) g/dL Hct (35.0-51.0) % MCV (80.0-94.0) fL MCH (27.0-31.0) pg MCHC (33.0-37.0) g/dL RDW (11.5-14.5) % Plt Count (130-400) K/uL MPV (7.2-11.7) fL Neut % (Auto) (50.0-75.0) % Lymph % (Auto) (20.0-40.0) % Ida % (Auto) (0.0-10.0) % Eos % (Auto) (0.0-4.0) % Baso % (Auto) (0.0-2.0) % Neut # (Auto) (1.8-7.0) K/uL Lymph # (Auto) (1.0-4.3) K/uL Ida # (Auto) (0.0-0.8) K/uL Eos # (Auto) (0.0-0.7) K/uL Baso # (Auto) (0.0-0.2) K/uL Neutrophils % (Manual) (50-75) % Band Neutrophils % (0-2) % Lymphocytes % (Manual) (20-40) % Monocytes % (Manual) (0-10) % Platelet Estimate (NORMAL) Hypochromasia (manual) Anisocytosis (manual) Sodium (132-148) mmol/L Potassium (3.6-5.2) mmol/L Chloride (98-107) mmol/L Carbon Dioxide (22-30) mmol/L Anion Gap (10-20) BUN (9-20) mg/dL Creatinine (0.8-1.5) mg/dL Est GFR ( Amer) Est GFR (Non-Af Amer) POC Glucose (mg/dL) 141 H 113 H 149 H (65-110) mg/dL Random Glucose (75-110) mg/dL Lactic Acid (0.7-2.1) mmol/L Calcium (8.6-10.4) mg/dl Phosphorus (2.5-4.5) mg/dL Magnesium (1.6-2.3) mg/dL Total Bilirubin (0.2-1.3) mg/dL AST (17-59) U/L ALT (21-72) U/L Alkaline Phosphatase (38-126) U/L Total Protein (6.3-8.3) g/dL Albumin (3.5-5.0) g/dL Globulin (2.2-3.9) gm/dL Albumin/Globulin Ratio (1.0-2.1) Lipase (23-300) U/L Procalcitonin (0.19-0.49) NG/ML Urine Color (YELLOW) Urine Clarity (Clear) Urine pH (5.0-8.0) Ur Specific [place] (1.003-1.030) Urine Protein (NEGATIVE) mg/dL Urine Glucose (UA) (Normal) mg/dL Urine Ketones (NEGATIVE) mg/dL Urine Blood (NEGATIVE) Urine Nitrate (NEGATIVE) Urine Bilirubin (NEGATIVE) Urine Urobilinogen (0.2-1.0) mg/dL Ur Leukocyte Esterase (Negative) Rodolfo/uL Urine WBC (Auto) (0-5) /hpf Urine RBC (Auto) (0-3) /hpf 02/22/19 Range/Units 16:26 WBC (4.8-10.8) K/uL RBC (4.40-5.90) Mil/uL Hgb (12.0-18.0) g/dL Hct (35.0-51.0) % MCV (80.0-94.0) fL MCH (27.0-31.0) pg MCHC (33.0-37.0) g/dL RDW (11.5-14.5) % Plt Count (130-400) K/uL MPV (7.2-11.7) fL Neut % (Auto) (50.0-75.0) % Lymph % (Auto) (20.0-40.0) % Ida % (Auto) (0.0-10.0) % Eos % (Auto) (0.0-4.0) % Baso % (Auto) (0.0-2.0) % Neut # (Auto) (1.8-7.0) K/uL Lymph # (Auto) (1.0-4.3) K/uL Ida # (Auto) (0.0-0.8) K/uL Eos # (Auto) (0.0-0.7) K/uL Baso # (Auto) (0.0-0.2) K/uL Neutrophils % (Manual) (50-75) % Band Neutrophils % (0-2) % Lymphocytes % (Manual) (20-40) % Monocytes % (Manual) (0-10) % Platelet Estimate (NORMAL) Hypochromasia (manual) Anisocytosis (manual) Sodium (132-148) mmol/L Potassium (3.6-5.2) mmol/L Chloride (98-107) mmol/L Carbon Dioxide (22-30) mmol/L Anion Gap (10-20) BUN (9-20) mg/dL Creatinine (0.8-1.5) mg/dL Est GFR ( Amer) Est GFR (Non-Af Amer) POC Glucose (mg/dL) 203 H (65-110) mg/dL Random Glucose (75-110) mg/dL Lactic Acid (0.7-2.1) mmol/L Calcium (8.6-10.4) mg/dl Phosphorus (2.5-4.5) mg/dL Magnesium (1.6-2.3) mg/dL Total Bilirubin (0.2-1.3) mg/dL AST (17-59) U/L ALT (21-72) U/L Alkaline Phosphatase (38-126) U/L Total Protein (6.3-8.3) g/dL Albumin (3.5-5.0) g/dL Globulin (2.2-3.9) gm/dL Albumin/Globulin Ratio (1.0-2.1) Lipase (23-300) U/L Procalcitonin (0.19-0.49) NG/ML Urine Color (YELLOW) Urine Clarity (Clear) Urine pH (5.0-8.0) Ur Specific [place] (1.003-1.030) Urine Protein (NEGATIVE) mg/dL Urine Glucose (UA) (Normal) mg/dL Urine Ketones (NEGATIVE) mg/dL Urine Blood (NEGATIVE) Urine Nitrate (NEGATIVE) Urine Bilirubin (NEGATIVE) Urine Urobilinogen (0.2-1.0) mg/dL Ur Leukocyte Esterase (Negative) Rodolfo/uL Urine WBC (Auto) (0-5) /hpf Urine RBC (Auto) (0-3) /hpf Laboratory Results - last 24 hr 02/22/19 02/22/19 02/23/19 16:26 21:09 07:22 WBC RBC Hgb Hct MCV MCH MCHC RDW Plt Count MPV Neut % (Auto) Lymph % (Auto) Ida % (Auto) Eos % (Auto) Baso % (Auto) Neut # (Auto) Lymph # (Auto) [place]da # (Auto) Eos # (Auto) Baso # (Auto) Neutrophils % (Manual) Band Neutrophils % Lymphocytes % (Manual) Monocytes % (Manual) Platelet Estimate Hypochromasia (manual) Anisocytosis (manual) Sodium Potassium Chloride Carbon Dioxide Anion Gap BUN Creatinine Est GFR ( Amer) Est GFR (Non-Af Amer) POC Glucose (mg/dL) 203 H 149 H 113 H Random Glucose Lactic Acid Calcium Phosphorus Magnesium Total Bilirubin AST ALT Alkaline Phosphatase Total Protein Albumin Globulin Albumin/Globulin Ratio Lipase Procalcitonin Urine Color Urine Clarity Urine pH Ur Specific [place] Urine Protein Urine Glucose (UA) Urine Ketones Urine Blood Urine Nitrate Urine Bilirubin Urine Urobilinogen Ur Leukocyte Esterase Urine WBC (Auto) Urine RBC (Auto) 02/23/19 02/23/19 02/23/19 11:16 16:33 21:30 WBC RBC Hgb Hct MCV MCH MCHC RDW Plt Count MPV Neut % (Auto) Lymph % (Auto) Ida % (Auto) Eos % (Auto) Baso % (Auto) Neut # (Auto) Lymph # (Auto) Ida # (Auto) Eos # (Auto) Baso # (Auto) Neutrophils % (Manual) Band Neutrophils % Lymphocytes % (Manual) Monocytes % (Manual) Platelet Estimate Hypochromasia (manual) Anisocytosis (manual) Sodium Potassium Chloride Carbon Dioxide Anion Gap BUN Creatinine Est GFR ( Amer) Est GFR (Non-Af Amer) POC Glucose (mg/dL) 141 H 128 H 107 Random Glucose Lactic Acid Calcium Phosphorus Magnesium Total Bilirubin AST ALT Alkaline Phosphatase Total Protein Albumin Globulin Albumin/Globulin Ratio Lipase Procalcitonin Urine Color Urine Clarity Urine pH Ur Specific [place] Urine Protein Urine Glucose (UA) Urine Ketones Urine Blood Urine Nitrate Urine Bilirubin Urine Urobilinogen Ur Leukocyte Esterase Urine WBC (Auto) Urine RBC (Auto) 02/24/19 02/24/19 02/24/19 05:56 05:56 05:56 WBC 16.2 H D RBC 3.80 L Hgb 10.5 L Hct 32.1 L MCV 84.5 D MCH 27.6 MCHC 32.7 L RDW 17.9 H Plt Count 71 L D MPV 8.2 Neut % (Auto) 90.2 H Lymph % (Auto) 4.0 L Ida % (Auto) 5.4 Eos % (Auto) 0.1 Baso % (Auto) 0.3 Neut # (Auto) 14.6 H Lymph # (Auto) 0.6 L Ida # (Auto) 0.9 H Eos # (Auto) 0.0 Baso # (Auto) 0.0 Neutrophils % (Manual) 85 H Band Neutrophils % 7 H Lymphocytes % (Manual) 3 L Monocytes % (Manual) 5 Platelet Estimate Decreased L Hypochromasia (manual) Slight Anisocytosis (manual) Slight Sodium 129 L Potassium 3.8 Chloride 98 Carbon Dioxide 27 Anion Gap 9 L BUN 12 Creatinine 1.5 Est GFR ( Amer) 56 Est GFR (Non-Af Amer) 46 POC Glucose (mg/dL) Random Glucose 103 Lactic Acid Calcium 8.4 L Phosphorus 2.6 Magnesium 1.6 Total Bilirubin 1.7 H AST 170 H D ALT 82 H D Alkaline Phosphatase 95 Total Protein 6.0 L Albumin 3.2 L Globulin 2.8 Albumin/Globulin Ratio 1.1 Lipase 114 Procalcitonin Urine Color Yellow Urine Clarity Clear Urine pH 8.0 Ur Specific [place] 1.011 Urine Protein Negative Urine Glucose (UA) Normal Urine Ketones Negative Urine Blood 2+ H Urine Nitrate Negative Urine Bilirubin Negative Urine Urobilinogen Normal Ur Leukocyte Esterase Neg Urine WBC (Auto) 3 Urine RBC (Auto) 35 H 02/24/19 02/24/19 02/24/19 07:22 08:55 08:55 WBC RBC Hgb Hct MCV MCH MCHC RDW Plt Count MPV Neut % (Auto) Lymph % (Auto) Ida % (Auto) Eos % (Auto) Baso % (Auto) Neut # (Auto) Lymph # (Auto) Ida # (Auto) Eos # (Auto) Baso # (Auto) Neutrophils % (Manual) Band Neutrophils % Lymphocytes % (Manual) Monocytes % (Manual) Platelet Estimate Hypochromasia (manual) Anisocytosis (manual) Sodium Potassium Chloride Carbon Dioxide Anion Gap BUN Creatinine Est GFR ( Amer) Est GFR (Non-Af Amer) POC Glucose (mg/dL) 110 Random Glucose Lactic Acid 1.1 Calcium Phosphorus Magnesium Total Bilirubin AST ALT Alkaline Phosphatase Total Protein Albumin Globulin Albumin/Globulin Ratio Lipase Procalcitonin 0.98 H Urine Color Urine Clarity Urine pH Ur Specific [place] Urine Protein Urine Glucose (UA) Urine Ketones Urine Blood Urine Nitrate Urine Bilirubin Urine Urobilinogen Ur Leukocyte Esterase Urine WBC (Auto) Urine RBC (Auto) 02/24/19 11:12 WBC RBC Hgb Hct MCV MCH MCHC RDW Plt Count MPV Neut % (Auto) Lymph % (Auto) Ida % (Auto) Eos % (Auto) Baso % (Auto) Neut # (Auto) Lymph # (Auto) Ida # (Auto) Eos # (Auto) Baso # (Auto) Neutrophils % (Manual) Band Neutrophils % Lymphocytes % (Manual) Monocytes % (Manual) Platelet Estimate Hypochromasia (manual) Anisocytosis (manual) Sodium Potassium Chloride Carbon Dioxide Anion Gap BUN Creatinine Est GFR ( Amer) Est GFR (Non-Af Amer) POC Glucose (mg/dL) 98 Random Glucose Lactic Acid Calcium Phosphorus Magnesium Total Bilirubin AST ALT Alkaline Phosphatase Total Protein Albumin Globulin Albumin/Globulin Ratio Lipase Procalcitonin Urine Color Urine Clarity Urine pH Ur Specific [place] Urine Protein Urine Glucose (UA) Urine Ketones Urine Blood Urine Nitrate Urine Bilirubin Urine Urobilinogen Ur Leukocyte Esterase Urine WBC (Auto) Urine RBC (Auto) Radiology Impressions: Radiology Impressions Abdomen X-Ray 02/24/19 08:26 IMPRESSION: Nonobstructive bowel gas pattern appreciated. No gross free intra peritoneal gas collection. Prior IVC filter in situ as well as abdominal aortoiliac stent graft. Majority of pelvis not included in this exam. Critical Care Progress Note - Nutrition Nutrition: Nutrition Category Date Time Status Heart Healthy Diet [DIET] Diets 02/24/19 Breakfast Active Attending/Attestation - Attestation I have personally seen and examined this patient.: Yes I have fully participated in the care of the patient.: Yes I have reviewed all pertinent clinical information: Yes Notes (Text): 02/24/19 13:22 Patient seen and examined in the intensive care unit. Case discussed with housestaff in the morning rounds. S/p endovascular AAA repair and L common illiac angioplast/fem-fem bypass - Hypertensive Urgency, possibly worsened in setting of acute abdominal pain - PO Hydralazine, Norvasc, and Losartan for BP management - increase Dilaudid to 1 mg every 3 as needed -CAT scan of the abdomen
--- NOTE | 2019-02-24 13:32 | CT ---
Date of service: 02/24/2019 PROCEDURE: CT Abdomen and Pelvis without intravenous contrast HISTORY: abdominal pain, s/p surgergy, r/o bleed COMPARISON: 12/18/2018 TECHNIQUE: Without contrast.. Contrast dose: 0 Radiation dose: Total exam DLP = 384.81 mGy-cm. This CT exam was performed using one or more of the following dose reduction techniques: Automated exposure control, adjustment of the mA and/or kV according to patient size, and/or use of iterative reconstruction technique. FINDINGS: LOWER THORAX: TRACE RIGHT PLEURAL EFFUSION. RIGHT LOWER LOBE LINEAR SCAR/ATELECTASIS. LIVER: Mild hepatomegaly. SMOOTH CONTOUR. NORMAL ATTENUATION. No biliary dilatation. There is a somewhat irregular area of diminished attenuation in the medial segment of the left hepatic lobe adjacent to the fissure for the ligamentum but no some. This is unchanged compared to the earlier examination of 12/18/2018 and is of uncertain significance.. GALLBLADDER AND BILE DUCTS: No mural thickening. No calcified gallstones. There is vicarious excretion of previously administered intravenous contrast material. PANCREAS: Unremarkable. No gross lesion or ductal dilatation. SPLEEN: Unremarkable. ADRENALS: Unremarkable. No mass. KIDNEYS AND URETERS: Punctate nonobstructing right upper pole renal calculus, approximately 2 mm. 6 mm nonobstructing left lower pole renal calculus. No hydronephrosis. There is some retained cortical contrast material in the right kidney with areas of nonenhancement. This is likely the result of recent contrast administration for arteriography. The asymmetric retention of right renal cortical contrast may reflect right renal vascular compromise, possibly related to recent aortic aneurysm repair. The somewhat patchy distribution of cortical retained contrast may indicate areas of focal cortical ischemia. VASCULATURE: Status post abdominal aortic stent graft repair. [place] infrarenal abdominal aorta is aneurysmal up to a diameter approximately 3.7 cm. There is aneurysmal dilatation also of the most distal abdominal aorta just proximal to the iliac bifurcation, up to a diameter of 3.0 cm. There is a femoral-femoral bypass graft. There is atherosclerotic calcification of the abdominal aorta. BOWEL: Unremarkable. No obstruction. No gross mural thickening. APPENDIX: Not identified. PERITONEUM: Trace fluid in the dependent pelvis. No generalized ascites. LYMPH NODES: Unremarkable. No enlarged lymph nodes. BLADDER: Decompressed around Brooks catheter balloon. REPRODUCTIVE: Unremarkable prostate BONES: No acute fracture. Left hip arthroplasty. OTHER FINDINGS: Right inguinal hematoma, approximately 2.8 x 4.1 cm. There is subcutaneous emphysema over the right inguinal region and along the course of the femoral-femoral bypass graft. Consistent with very recent postoperative status. Surgical meghana are seen over the lower anterior abdominal wall. IMPRESSION: Retained cortical contrast in the right kidney status abdominal aortic aneurysm repair. Possible right renal vascular compromise. This may have been transient or may be persistent. Areas of ischemia are evident manifested as areas of cortical nonenhancement in the setting of generalized right renal cortical enhancement. Status post abdominal aortic stent graft repair. Status post femoral-femoral bypass graft. Small right inguinal hematoma. Additional nonacute findings as above. The major findings in this examination were discussed by telephone with Dr. Brambila at 1:22 p.m. on 02/24/2019. This Is confusion of 2 reports all is 6
[2019-02-24] MEDS: HYDROmorphone 1 mg/ml ISec IVP PRN ×2 (15:32→21:41)
--- NOTE | 2019-02-24 16:01 | CP.PCM.PN ---
Subjective - Date & Time of Evaluation Date of Evaluation: 02/24/19 Time of Evaluation: 15:58 - Subjective Subjective: ct findings of residual dye in right kidney( dw Dr Sanchez) and possible obstruction off renal artery based on findings completion angio showed flow into right kidney nonetheless will monitor condition for now cr was 1.6 now down to 1.5 Bun 9 No immediate plans for any intervention abdomen soft with BS Objective - Vital Signs/Intake and Output Vital Signs (last 24 hours): Temp Pulse Resp BP Pulse Ox 98.1 F 97 H 17 170/79 H 98 02/24/19 12:00 02/24/19 15:00 02/24/19 15:00 02/24/19 14:55 02/24/19 15:00 Intake and Output: 02/24/19 02/24/19 06:59 18:59 Intake Total 1805 1375 Output Total 2910 1865 Balance -1105 -879 - Medications Medications: Current Medications Albuterol Sulfate (Albuterol 0.083% Inhal [place] (2.5 Mg/3 Ml) Ud) 2.5 mg IH RQ2 PRN PRN Reason: Shortness of Breath Albuterol/Ipratropium (Duoneb 3 Mg/0.5 Mg (3 Ml) Ud) 3 ml INH RQ6 BRIANNA Last Admin: 02/24/19 13:21 Dose: Not Given Amlodipine Besylate (Norvasc) 10 mg PO DAILY [facility] Last Admin: 02/24/19 09:07 Dose: 10 mg Arformoterol Tartrate (Brovana) 15 mcg INH RQ12 BRIANNA Last Admin: 02/24/19 07:29 Dose: 15 mcg Artificial Tears (Artificial Tears) 0 ml OU TID PRN PRN Reason: Dry eyes Last Admin: 02/24/19 15:12 Dose: 1 drop Docusate Sodium (Colace) 100 mg PO BID PRN PRN Reason: Constipation Folic Acid (Folic Acid) 1 mg PO DAILY [facility] Last Admin: 02/24/19 09:03 Dose: 1 mg Hydralazine HCl (Apresoline) 50 mg PO Q8H [facility] Last Admin: 02/24/19 15:11 Dose: 50 mg Hydromorphone HCl (Dilaudid) 1 mg IVP Q3H PRN PRN Reason: Pain, severe (8-10) Last Admin: 02/24/19 15:32 Dose: 1 mg Lactated Ringer's (Lactated Ringer's) 1,000 mls @ 125 mls/hr IV .Q8H [facility] Last Admin: 02/24/19 14:11 Dose: Not Given Losartan Potassium (Cozaar) 50 mg PO DAILY [facility] Multivitamins/Minerals (Therapeutic-M Tab) 1 tab PO 0800 [facility] Last Admin: 02/24/19 07:34 Dose: 1 tab Nicotine (Nicoderm Cq) 1 patch TD DAILY [facility] Last Admin: 02/24/19 09:04 Dose: 1 patch Ondansetron HCl (Zofran Inj) 4 mg IVP Q6H PRN PRN Reason: Nausea/Vomiting Last Admin: 02/23/19 14:57 Dose: 4 mg Oxycodone HCl (Oxycodone Immediate Release Tab) 5 mg PO Q6 PRN PRN Reason: Pain, moderate (4-7) Pantoprazole Sodium (Protonix Inj) 40 mg IVP DAILY [facility] Last Admin: 02/24/19 09:03 Dose: 40 mg Sennosides (Senokot Tab) 8.6 mg PO DAILY [facility] Last Admin: 02/24/19 09:04 Dose: 8.6 mg Tamsulosin HCl (Flomax) 0.4 mg PO DAILY [facility] Last Admin: 02/24/19 09:04 Dose: 0.4 mg Thiamine HCl (Vitamin B1 Tab) 100 mg PO DAILY [facility] Last Admin: 02/24/19 09:03 Dose: 100 mg - Labs Labs: 02/24/19 05:56 02/24/19 05:56 PT 18.5 SECONDS (9.7-12.2) H 02/22/19 14:27 INR 1.7 02/22/19 14:27 APTT 73.0 SECONDS (21-34) H 02/22/19 14:27
[2019-02-24] MEDS ORDERED: Magnesium Citrate Oral SOL (300 ml) PO ONE (18:05)
[2019-02-24] MEDS: niCARdipine IV 25 MG in Sodium Chloride 0.9% 240 ML IV SCH ×2 (18:31→23:36)
--- NOTE | 2019-02-24 19:43 | CP.PCM.CON ---
<Barney Urrutia - Last Filed: 02/24/19 19:05> History of Present Illness - History of Present Illness History of Present Illness: Nephro Service Consult Note for Dr. Nic Urrutia DO, PGY-3 Consulted for: Possible Renal Cortical Ischemia on CT This is a 68 yo AA M with PMH of HTN, AAA, PVD, recurrent venous clotting through anticoagulants (Coumadin & Zarelto), COPD with active tobacco abuse, unclear adverse reaction to heparin, alcohol use disorder, R corneal ulcer, and chronic medication/medical follow-up non-compliance who recently underwent EVAR of AAA with fem-fem bypass and balloon angioplasty of L common illiac. He is now in the ICU post-procedure for management and close monitoring. Due to abdominal pain, a CT abd/pelvis was obtained, which was concerning for possible right renal cortical ischemia, which is why Nephro was consulted. Patient seen and examined at bedside in the ICU. Currently reporting improved but still persistent pain, although as per ICU nursing his pain rapidly escalates. He was also found to have continuing elevated BPs, ranging from 16 0's-190's systolic. Additionally, overnight, he failed voiding trials after his herrera had been removed, and he was unable to tolerate multiple attempted straight caths, so herrera was reinserted, and he immediately put out ~1L urine (put out another 900cc by time of exam this AM). Admits to continued abd pain, no flatus/BM since procedure, but denies chest pain, shortness of breath, cough, emesis, fevers, chills, vision changes, bleeding from surgical site, rectal bleeding, or focal/generalized paresthesias. 12 system ROS reviewed and negative, except as above. PMH: as above PSH: AAA s/p EVAR with Fem-fem bypass and L common illiac balloon angioplast (POD #2), IVC filter placement, Left hip total replacement Soc Hx: active tobacco user (1/2 + ppd x 50 yrs), active alcohol use (1+ shot pe r day of hard liquor), denies illicits Fam Hx: Daughter with PE, no known family hx of cancer PMD: Dr. Bradford Review of Systems - Review of Systems All systems: reviewed and no additional remarkable complaints except (as per HPI) Past Patient History - Past Medical History & Family History Past Medical History?: Yes - Past Social History Smoking Status: Light Smoker < 10 Cigarettes Daily - CARDIAC Hx Hypertension: Yes - PULMONARY Hx Respiratory Disorders: Yes Hx Chronic Obstructive Pulmonary Disease (COPD): Yes (Not on any meds) - NEUROLOGICAL Hx Neurological Disorder: No - HEENT Hx HEENT Problems: Yes (right eye with patch, gave very limited hx.) - RENAL Hx Chronic Kidney Disease: No - ENDOCRINE/METABOLIC Hx Endocrine Disorders: No - HEMATOLOGICAL/ONCOLOGICAL Hx Blood Disorders: No - INTEGUMENTARY Hx Dermatological Problems: No - MUSCULOSKELETAL/RHEUMATOLOGICAL Hx Musculoskeletal Disorders: Yes Hx Falls: No Hx Osteoarthritis: Yes - GASTROINTESTINAL Hx Gastrointestinal Disorders: No - GENITOURINARY/GYNECOLOGICAL Hx Genitourinary Disorders: No - PSYCHIATRIC Hx Psychophysiologic Disorder: No Hx Substance Use: Yes (marijuana) - SURGICAL HISTORY Hx Surgeries: Yes Hx Arthroscopy: Yes (RIGHT KNEE) Hx Joint Replacement: Yes (LEFT HIP) Hx Orthopedic Surgery: Yes (hip) Other/Comment: right IVC filter - ANESTHESIA Hx Anesthesia: Yes Hx Anesthesia Reactions: No Hx Malignant Hyperthermia: No Has any member of the family had a problem w/ anesthesia?: No Meds Allergies/Adverse Reactions: Allergies Allergy/AdvReac Type Severity Reaction Status Date / Time heparin Allergy Intermediate URTICARIA Verified 02/10/19 09:04 - Medications Medications: Current Medications Albuterol Sulfate (Albuterol 0.083% Inhal [place] (2.5 Mg/3 Ml) Ud) 2.5 mg IH RQ2 PRN PRN Reason: Shortness of Breath Albuterol/Ipratropium (Duoneb 3 Mg/0.5 Mg (3 Ml) Ud) 3 ml INH RQ6 [facility] Last Admin: 02/24/19 13:21 Dose: Not Given Amlodipine Besylate (Norvasc) 10 mg PO DAILY [facility] Last Admin: 02/24/19 09:07 Dose: 10 mg Apixaban (Eliquis) 5 mg PO BID [facility] Last Admin: 02/24/19 18:21 Dose: 5 mg Arformoterol Tartrate (Brovana) 15 mcg INH RQ12 [facility] Last Admin: 02/24/19 07:29 Dose: 15 mcg Artificial Tears (Artificial Tears) 0 ml OU TID PRN PRN Reason: Dry eyes Last Admin: 02/24/19 15:12 Dose: 1 drop Docusate Sodium (Colace) 100 mg PO BID PRN PRN Reason: Constipation Folic Acid (Folic Acid) 1 mg PO DAILY [facility] Last Admin: 02/24/19 09:03 Dose: 1 mg Hydralazine HCl (Apresoline) 50 mg PO Q8H [facility] Last Admin: 02/24/19 15:11 Dose: 50 mg Hydromorphone HCl (Dilaudid) 1 mg IVP Q3H PRN PRN Reason: Pain, severe (8-10) Last Admin: 02/24/19 15:32 Dose: 1 mg Lactated Ringer's (Lactated Ringer's) 1,000 mls @ 125 mls/hr IV .Q8H [facility] Last Admin: 02/24/19 14:11 Dose: Not Given Nicardipine HCl 25 mg/ Sodium (Chloride) 250 mls @ 50 mls/hr IV .Q5H [facility]; Protocol Last Admin: 02/24/19 18:31 Dose: 5 mg/hr, 50 mls/hr Losartan Potassium (Cozaar) 50 mg PO DAILY [facility] Multivitamins/Minerals (Therapeutic-M Tab) 1 tab PO 0800 [facility] Last Admin: 02/24/19 07:34 Dose: 1 tab Nicotine (Nicoderm Cq) 1 patch TD DAILY [facility] Last Admin: 02/24/19 09:04 Dose: 1 patch Ondansetron HCl (Zofran Inj) 4 mg IVP Q6H PRN PRN Reason: Nausea/Vomiting Last Admin: 02/23/19 14:57 Dose: 4 mg Oxycodone HCl (Oxycodone Immediate Release Tab) 5 mg PO Q6 PRN PRN Reason: Pain, moderate (4-7) Pantoprazole Sodium (Protonix Inj) 40 mg IVP DAILY [facility] Last Admin: 02/24/19 09:03 Dose: 40 mg Sennosides (Senokot Tab) 8.6 mg PO DAILY [facility] Last Admin: 02/24/19 09:04 Dose: 8.6 mg Tamsulosin HCl (Flomax) 0.4 mg PO DAILY [facility] Last Admin: 02/24/19 09:04 Dose: 0.4 mg Thiamine HCl (Vitamin B1 Tab) 100 mg PO DAILY [facility] Last Admin: 02/24/19 09:03 Dose: 100 mg Physical Exam - Additional Findings Additional findings: - Constitutional Appears: Non-toxic, No Acute Distress (uncomfortable but not in acute distress), Chronically Ill - Eye Exam Wearing R eye patch Left eye: EOMI, normal appearance, no icterus or conjunctival injection - ENT Exam ENT Exam: Mucous Membranes Moist - Neck Exam Neck Exam: absent: Lymphadenopathy, Thyromegaly - Respiratory Exam Respiratory Exam: Decreased Breath Sounds (mildly decreased breath sounds in all manzo), Prolonged Expiratory Phase (mildly prolonged expiratory phase consistently). absent: Accessory Muscle Use, Chest Wall Tenderness, Rales, Rhonchi, Wheezes, Respiratory Distress, Stridor - Cardiovascular Exam Cardiovascular Exam: REGULAR RHYTHM, RRR, +S1, +S2. absent: Bradycardia, Tachycardia, Irregular Rhythm, JVD - GI/Abdominal Exam GI & Abdominal Exam: Distended, Tenderness (acutely tender throughout abdomen, less tender on bilateral flanks). absent: Rigid Additional comments: minimal bowel sounds appreciated bandages lateral to suprapubic region bilaterally unable to fully palpate abdomen due to pain, but not acutely rigid to palpation - Exam Exam: Herrera in place draining clear-yellow urine, approx 900cc in bag at time of exam - Extremities Exam Extremities Exam: absent: Calf Tenderness, Joint Swelling, Pedal Edema, Tenderness - Back Exam Back Exam: absent: CVA tenderness (L), CVA tenderness (R) - Neurological Exam awake and alert, oriented to self/location/year follows all commands appropriately, demonstrates appropriate insight in questioning minimal movements (spontaneous and on command) due to attempting to limit abdominal pain, but appears grossly neurologically intact - Psychiatric Exam Psychiatric exam: Normal Affect, Normal Mood - Skin Skin Exam: Dry, Intact (except for site of bandaging as documented in abdominal exam), Normal Color, Warm Results - Vital Signs Recent Vital Signs: Last Vital Signs Temp 98.8 F 02/24/19 16:00 Pulse 87 02/24/19 18:55 Resp 19 02/24/19 18:55 BP 152/69 H 02/24/19 18:55 Pulse Ox 95 02/24/19 18:55 - Labs Result Diagrams: 02/24/19 05:56 02/24/19 05:56 Labs: Laboratory Results - last 24 hr 02/22/19 02/22/19 02/23/19 16:26 21:09 07:22 WBC RBC Hgb Hct MCV MCH MCHC RDW Plt Count MPV Neut % (Auto) Lymph % (Auto) [place] % (Auto) Eos % (Auto) Baso % (Auto) Neut # (Auto) Lymph # (Auto) [place] # (Auto) Eos # (Auto) Baso # (Auto) Neutrophils % (Manual) Band Neutrophils % Lymphocytes % (Manual) Monocytes % (Manual) Platelet Estimate Hypochromasia (manual) Anisocytosis (manual) Sodium Potassium Chloride Carbon Dioxide Anion Gap BUN Creatinine Est GFR ( Amer) Est GFR (Non-Af Amer) POC Glucose (mg/dL) 203 H 149 H 113 H Random Glucose Lactic Acid Calcium Phosphorus Magnesium Total Bilirubin AST ALT Alkaline Phosphatase Total Protein Albumin Globulin Albumin/Globulin Ratio Lipase Procalcitonin Urine Color Urine Clarity Urine pH Ur Specific [place] Urine Protein Urine Glucose (UA) Urine Ketones Urine Blood Urine Nitrate Urine Bilirubin Urine Urobilinogen Ur Leukocyte Esterase Urine WBC (Auto) Urine RBC (Auto) 02/23/19 02/23/19 02/23/19 11:16 16:33 21:30 WBC RBC Hgb Hct MCV MCH MCHC RDW Plt Count MPV Neut % (Auto) Lymph % (Auto) [place] % (Auto) Eos % (Auto) Baso % (Auto) Neut # (Auto) Lymph # (Auto) [place] # (Auto) Eos # (Auto) Baso # (Auto) Neutrophils % (Manual) Band Neutrophils % Lymphocytes % (Manual) Monocytes % (Manual) Platelet Estimate Hypochromasia (manual) Anisocytosis (manual) Sodium Potassium Chloride Carbon Dioxide Anion Gap BUN Creatinine Est GFR ( Amer) Est GFR (Non-Af Amer) POC Glucose (mg/dL) 141 H 128 H 107 Random Glucose Lactic Acid Calcium Phosphorus Magnesium Total Bilirubin AST ALT Alkaline Phosphatase Total Protein Albumin Globulin Albumin/Globulin Ratio Lipase Procalcitonin Urine Color Urine Clarity Urine pH Ur Specific [place] Urine Protein Urine Glucose (UA) Urine Ketones Urine Blood Urine Nitrate Urine Bilirubin Urine Urobilinogen Ur Leukocyte Esterase Urine WBC (Auto) Urine RBC (Auto) 02/24/19 02/24/19 02/24/19 05:56 05:56 05:56 WBC 16.2 H D RBC 3.80 L Hgb 10.5 L Hct 32.1 L MCV 84.5 D MCH 27.6 MCHC 32.7 L RDW 17.9 H Plt Count 71 L D MPV 8.2 Neut % (Auto) 90.2 H Lymph % (Auto) 4.0 L [place] % (Auto) 5.4 Eos % (Auto) 0.1 Baso % (Auto) 0.3 Neut # (Auto) 14.6 H Lymph # (Auto) 0.6 L [place] # (Auto) 0.9 H Eos # (Auto) 0.0 Baso # (Auto) 0.0 Neutrophils % (Manual) 85 H Band Neutrophils % 7 H Lymphocytes % (Manual) 3 L Monocytes % (Manual) 5 Platelet Estimate Decreased L Hypochromasia (manual) Slight Anisocytosis (manual) Slight Sodium 129 L Potassium 3.8 Chloride 98 Carbon Dioxide 27 Anion Gap 9 L BUN 12 Creatinine 1.5 Est GFR ( Amer) 56 Est GFR (Non-Af Amer) 46 POC Glucose (mg/dL) Random Glucose 103 Lactic Acid Calcium 8.4 L Phosphorus 2.6 Magnesium 1.6 Total Bilirubin 1.7 H AST 170 H D ALT 82 H D Alkaline Phosphatase 95 Total Protein 6.0 L Albumin 3.2 L Globulin 2.8 Albumin/Globulin Ratio 1.1 Lipase 114 Procalcitonin Urine Color Yellow Urine Clarity Clear Urine pH 8.0 Ur Specific [place] 1.011 Urine Protein Negative Urine Glucose (UA) Normal Urine Ketones Negative Urine Blood 2+ H Urine Nitrate Negative Urine Bilirubin Negative Urine Urobilinogen Normal Ur Leukocyte Esterase Neg Urine WBC (Auto) 3 Urine RBC (Auto) 35 H 02/24/19 02/24/19 02/24/19 07:22 08:55 08:55 WBC RBC Hgb Hct MCV MCH MCHC RDW Plt Count MPV Neut % (Auto) Lymph % (Auto) [place] % (Auto) Eos % (Auto) Baso % (Auto) Neut # (Auto) Lymph # (Auto) [place] # (Auto) Eos # (Auto) Baso # (Auto) Neutrophils % (Manual) Band Neutrophils % Lymphocytes % (Manual) Monocytes % (Manual) Platelet Estimate Hypochromasia (manual) Anisocytosis (manual) Sodium Potassium Chloride Carbon Dioxide Anion Gap BUN Creatinine Est GFR ( Amer) Est GFR (Non-Af Amer) POC Glucose (mg/dL) 110 Random Glucose Lactic Acid 1.1 Calcium Phosphorus Magnesium Total Bilirubin AST ALT Alkaline Phosphatase Total Protein Albumin Globulin Albumin/Globulin Ratio Lipase Procalcitonin 0.98 H Urine Color Urine Clarity Urine pH Ur Specific [place] Urine Protein Urine Glucose (UA) Urine Ketones Urine Blood Urine Nitrate Urine Bilirubin Urine Urobilinogen Ur Leukocyte Esterase Urine WBC (Auto) Urine RBC (Auto) 02/24/19 11:12 WBC RBC Hgb Hct MCV MCH MCHC RDW Plt Count MPV Neut % (Auto) Lymph % (Auto) [place] % (Auto) Eos % (Auto) Baso % (Auto) Neut # (Auto) Lymph # (Auto) [place] # (Auto) Eos # (Auto) Baso # (Auto) Neutrophils % (Manual) Band Neutrophils % Lymphocytes % (Manual) Monocytes % (Manual) Platelet Estimate Hypochromasia (manual) Anisocytosis (manual) Sodium Potassium Chloride Carbon Dioxide Anion Gap BUN Creatinine Est GFR ( Amer) Est GFR (Non-Af Amer) POC Glucose (mg/dL) 98 Random Glucose Lactic Acid Calcium Phosphorus Magnesium Total Bilirubin AST ALT Alkaline Phosphatase Total Protein Albumin Globulin Albumin/Globulin Ratio Lipase Procalcitonin Urine Color Urine Clarity Urine pH Ur Specific [place] Urine Protein Urine Glucose (UA) Urine Ketones Urine Blood Urine Nitrate Urine Bilirubin Urine Urobilinogen Ur Leukocyte Esterase Urine WBC (Auto) Urine RBC (Auto) Assessment & Plan - Assessment and Plan (Free Text) Assessment: This is a 68yo AA M with PMH of HTN, AAA, PVD, recurrent venous clotting through anticoagulants (Coumadin & Zarelto), COPD with active tobacco abuse, unclear adverse reaction to heparin, alcohol use disorder, and chronic medication/medical follow-up non-compliance who recently underwent EVAR of AAA with fem-fem bypass and balloon angioplasty of L common illiac. He is now in the ICU post-procedure for management and close monitoring. Nephro was consulted for possible Right renal cortical ischemia. Plan: 1) AAA and right iliac occlusion 2) History of HTN 3) History of COPD 4) Hyponatremia 5) Alcohol abuse 6) Tobacco abuse (25+ pack yr hx) 7) Right Corneal ulcer 8) Urinary retention 9) New leukocytosis -s/p AAA EVAR and L common illiac balloon angioplasty, POD #2 Possibility of small atherosclerotic emboli during or post-op causing renal CT findings with no prior comparative scan, unclear if acute or chronic finding Continue agatroban as per Surgery, switch to Eliquis on d/c as per Eliquis -Given continued Abd pain post-op, CT abd/pelvis obtained, concerning for right renal cortical ischemia, possible post-op illeus (no obstruction) Continues to make urine so long as herrera in place, leave in place, continue flomax Likely some element of BPH Urine studies ordered, continue to monitor -BP remains uncontrolled, likely element of post-op pain contributing Recommend aggressive BP control in setting of recent AAA repair, Cardine drip or labetalol Target SBP is consistently <= 150 Current regimen: norvasc 10mg daily, hydralazine 50mg q8h, Losartan 50mg daily, also on Flomax which may help with HTN Recommend increased pain control, ICU increased dilaudid to 1mg IV q3 prn -Na decreased to 129 again (was 132 yesterday) ddx: SIADH given recent surgery vs 2/2 renal obstruction (required herrera replacement due to failed voiding trials) vs 2/2 fluid resuscitation with LR continue to monitor, consider switching from LR to NS when cleared by surgery -New leukocytosis, procal positive at 0.9 Primary team starting on Zosyn q6 for empiric coverage Case reviewed and discussed with attending, Dr. Lucero. <Zaire Lucero - Last Filed: 02/25/19 07:04> Meds - Medications Medications: Current Medications Albuterol Sulfate (Albuterol 0.083% Inhal Tianna (2.5 Mg/3 Ml) Ud) 2.5 mg IH RQ2 PRN PRN Reason: Shortness of Breath Albuterol/Ipratropium (Duoneb 3 Mg/0.5 Mg (3 Ml) Ud) 3 ml INH RQ6 [facility] Last Admin: 02/25/19 03:07 Dose: Not Given Amlodipine Besylate (Norvasc) 10 mg PO DAILY [facility] Last Admin: 02/24/19 09:07 Dose: 10 mg Apixaban (Eliquis) 5 mg PO BID [facility] Last Admin: 02/24/19 18:21 Dose: 5 mg Arformoterol Tartrate (Brovana) 15 mcg INH RQ12 [facility] Last Admin: 02/24/19 19:15 Dose: Not Given Artificial Tears (Artificial Tears) 0 ml OU TID PRN PRN Reason: Dry eyes Last Admin: 02/24/19 15:12 Dose: 1 drop Docusate Sodium (Colace) 100 mg PO BID PRN PRN Reason: Constipation Folic Acid (Folic Acid) 1 mg PO DAILY [facility] Last Admin: 02/24/19 09:03 Dose: 1 mg Hydralazine HCl (Apresoline) 50 mg PO Q8H [facility] Last Admin: 02/24/19 23:44 Dose: 50 mg Hydromorphone HCl (Dilaudid) 1 mg IVP Q3H PRN PRN Reason: Pain, severe (8-10) Last Admin: 02/25/19 05:07 Dose: 1 mg Nicardipine HCl 25 mg/ Sodium (Chloride) 250 mls @ 50 mls/hr IV .Q5H [facility]; Protocol Last Admin: 02/25/19 05:21 Dose: Not Given Lactated Ringer's (Lactated Ringer's) 1,000 mls @ 75 mls/hr IV .[id number] [facility] Last Admin: 02/24/19 23:44 Dose: 75 mls/hr Piperacillin Sod/Tazobactam Sod (Zosyn 2.25 Gm Iv Premix) 2.25 gm in 50 mls @ 100 mls/hr IVPB Q8H [facility]; Protocol Last Admin: 02/25/19 05:07 Dose: 100 mls/hr Losartan Potassium (Cozaar) 50 mg PO DAILY [facility] Multivitamins/Minerals (Therapeutic-M Tab) 1 tab PO 0800 [facility] Last Admin: 02/24/19 07:34 Dose: 1 tab Nicotine (Nicoderm Cq) 1 patch TD DAILY [facility] Last Admin: 02/24/19 09:04 Dose: 1 patch Ondansetron HCl (Zofran Inj) 4 mg IVP Q6H PRN PRN Reason: Nausea/Vomiting Last Admin: 02/24/19 21:41 Dose: 4 mg Oxycodone HCl (Oxycodone Immediate Release Tab) 5 mg PO Q6 PRN PRN Reason: Pain, moderate (4-7) Pantoprazole Sodium (Protonix Inj) 40 mg IVP DAILY [facility] Last Admin: 02/24/19 09:03 Dose: 40 mg Sennosides (Senokot Tab) 8.6 mg PO DAILY [facility] Last Admin: 02/24/19 09:04 Dose: 8.6 mg Tamsulosin HCl (Flomax) 0.4 mg PO DAILY [facility] Last Admin: 02/24/19 09:04 Dose: 0.4 mg Thiamine HCl (Vitamin B1 Tab) 100 mg PO DAILY [facility] Last Admin: 02/24/19 09:03 Dose: 100 mg Results - Vital Signs Recent Vital Signs: Last Vital Signs Temp 99.2 F 02/25/19 04:00 Pulse 82 02/25/19 06:00 Resp 12 02/25/19 06:00 BP 138/69 02/25/19 06:00 Pulse Ox 97 02/25/19 06:00 - Labs Result Diagrams: 02/25/19 05:13 02/25/19 05:13 Labs: Laboratory Results - last 24 hr 02/22/19 02/22/19 02/23/19 16:26 21:09 07:22 WBC RBC Hgb Hct MCV MCH MCHC RDW Plt Count MPV Neut % (Auto) Lymph % (Auto) [place] % (Auto) Eos % (Auto) Baso % (Auto) Neut # (Auto) Lymph # (Auto) [place] # (Auto) Eos # (Auto) Baso # (Auto) Neutrophils % (Manual) Band Neutrophils % Lymphocytes % (Manual) Monocytes % (Manual) Platelet Estimate Hypochromasia (manual) Anisocytosis (manual) Sodium Potassium Chloride Carbon Dioxide Anion Gap BUN Creatinine Est GFR ( Amer) Est GFR (Non-Af Amer) POC Glucose (mg/dL) 203 H 149 H 113 H Random Glucose Lactic Acid Calcium Phosphorus Magnesium Total Bilirubin AST ALT Alkaline Phosphatase Total Protein Albumin Globulin Albumin/Globulin Ratio Lipase Procalcitonin 02/23/19 02/23/19 02/23/19 11:16 16:33 21:30 WBC RBC Hgb Hct MCV MCH MCHC RDW Plt Count MPV Neut % (Auto) Lymph % (Auto) [place] % (Auto) Eos % (Auto) Baso % (Auto) Neut # (Auto) Lymph # (Auto) [place] # (Auto) Eos # (Auto) Baso # (Auto) Neutrophils % (Manual) Band Neutrophils % Lymphocytes % (Manual) Monocytes % (Manual) Platelet Estimate Hypochromasia (manual) Anisocytosis (manual) Sodium Potassium Chloride Carbon Dioxide Anion Gap BUN Creatinine Est GFR ( Amer) Est GFR (Non-Af Amer) POC Glucose (mg/dL) 141 H 128 H 107 Random Glucose Lactic Acid Calcium Phosphorus Magnesium Total Bilirubin AST ALT Alkaline Phosphatase Total Protein Albumin Globulin Albumin/Globulin Ratio Lipase Procalcitonin 02/24/19 02/24/19 02/24/19 05:56 05:56 07:22 WBC RBC Hgb Hct MCV MCH MCHC RDW Plt Count MPV Neut % (Auto) Lymph % (Auto) [place] % (Auto) Eos % (Auto) Baso % (Auto) Neut # (Auto) Lymph # (Auto) [place] # (Auto) Eos # (Auto) Baso # (Auto) Neutrophils % (Manual) 85 H Band Neutrophils % 7 H Lymphocytes % (Manual) 3 L Monocytes % (Manual) 5 Platelet Estimate Decreased L Hypochromasia (manual) Slight Anisocytosis (manual) Slight Sodium 129 L Potassium 3.8 Chloride 98 Carbon Dioxide 27 Anion Gap 9 L BUN 12 Creatinine 1.5 Est GFR ( Amer) 56 Est GFR (Non-Af Amer) 46 POC Glucose (mg/dL) 110 Random Glucose 103 Lactic Acid Calcium 8.4 L Phosphorus 2.6 Magnesium 1.6 Total Bilirubin 1.7 H AST 170 H D ALT 82 H D Alkaline Phosphatase 95 Total Protein 6.0 L Albumin 3.2 L Globulin 2.8 Albumin/Globulin Ratio 1.1 Lipase 114 Procalcitonin 02/24/19 02/24/19 02/24/19 08:55 08:55 11:12 WBC RBC Hgb Hct MCV MCH MCHC RDW Plt Count MPV Neut % (Auto) Lymph % (Auto) [place] % (Auto) Eos % (Auto) Baso % (Auto) Neut # (Auto) Lymph # (Auto) [place] # (Auto) Eos # (Auto) Baso # (Auto) Neutrophils % (Manual) Band Neutrophils % Lymphocytes % (Manual) Monocytes % (Manual) Platelet Estimate Hypochromasia (manual) Anisocytosis (manual) Sodium Potassium Chloride Carbon Dioxide Anion Gap BUN Creatinine Est GFR ( Amer) Est GFR (Non-Af Amer) POC Glucose (mg/dL) 98 Random Glucose Lactic Acid 1.1 Calcium Phosphorus Magnesium Total Bilirubin AST ALT Alkaline Phosphatase Total Protein Albumin Globulin Albumin/Globulin Ratio Lipase Procalcitonin 0.98 H 02/25/19 02/25/19 05:13 05:13 WBC 18.2 H RBC 3.42 L Hgb 9.3 L Hct 28.7 L MCV 84.1 MCH 27.3 MCHC 32.4 L RDW 18.4 H Plt Count 60 L MPV 8.4 Neut % (Auto) 87.8 H Lymph % (Auto) 5.2 L [place] % (Auto) 6.2 Eos % (Auto) 0.4 Baso % (Auto) 0.4 Neut # (Auto) 15.9 H Lymph # (Auto) 0.9 L [place] # (Auto) 1.1 H Eos # (Auto) 0.1 Baso # (Auto) 0.1 Neutrophils % (Manual) Band Neutrophils % Lymphocytes % (Manual) Monocytes % (Manual) Platelet Estimate Hypochromasia (manual) Anisocytosis (manual) Sodium 129 L Potassium 3.8 Chloride 99 Carbon Dioxide 25 Anion Gap 9 L BUN 14 Creatinine 1.5 Est GFR ( Amer) 56 Est GFR (Non-Af Amer) 46 POC Glucose (mg/dL) Random Glucose 94 Lactic Acid Calcium 8.5 L Phosphorus 2.9 Magnesium 2.2 Total Bilirubin 1.4 H AST 84 H D ALT 59 Alkaline Phosphatase 90 Total Protein 5.7 L Albumin 2.9 L Globulin 2.8 Albumin/Globulin Ratio 1.0 Lipase Procalcitonin Attending/Attestation - Attestation I have personally seen and examined this patient.: Yes I have fully participated in the care of the patient.: Yes I have reviewed all pertinent clinical information: Yes Notes (Text): Patient seen and examined; I agree with the resident's note as above with the following additions/edits: 68 yo M w/ PMH of HTN, AAA, PVD, recurrent venous clotting through anticoagulants (Coumadin & Zarelto), COPD, now POD#2 s/p EVAR of AAA with fem- fem bypass and balloon angioplasty of L common illiac, nephrology being consulted for ROBERTA and finding of possible L renal ischemia; Relatively mild ROBERTA likely due to ATN from contrast nephropathy; non-oliguric with renal function now showing improvement; stable electrolyte and volume status; Question of ischemic areas of R kidney with non-contrast CT showing patchy areas of retained IV contrast; significance is unclear given that contrast was administered 2 days ago; abdominal angiography done 2 months ago didn't show any patchy areas of enhancement; atheroemboli in the setting of endovascular procedure is always a possibility but generally manifests itself 1-2 weeks after the inciting event and we would typically see it manifest in other areas as well; other embolic disease is more likely cause of ischemia (if it truly exists); For now we will just continue to monitor renal function; no need for aggressive IVF from renal perspective; once renal function reaches baseline, we can perform renal nuclear scan to assess for differential function (as outpatient); should avoid nephrotoxic agents; HTN needs to be better controlled, ICU team advised to start a drip for now (labetalol or cardene); continue current PO meds; Agree with flomax for urinary retention; will give voiding trial tomorrow with bladder US. Thank you for this referral, we will be following closely.
[2019-02-24] MEDS ORDERED: Piperacill/Tazo 2.25gm in Dex 2.25 GM/50 ML BAG IVPB SCH ×2 (22:00→23:30)
--- NOTE | 2019-02-24 22:01 | CP.PCM.PN ---
Subjective - Date & Time of Evaluation Date of Evaluation: 02/24/19 Time of Evaluation: 19:00 - Subjective Subjective: Feeling better. Objective - Vital Signs/Intake and Output Vital Signs (last 24 hours): Temp Pulse Resp BP Pulse Ox 99.8 F H 93 H 19 134/69 95 02/24/19 20:00 02/24/19 21:30 02/24/19 21:30 02/24/19 21:30 02/24/19 21:30 Intake and Output: 02/24/19 02/25/19 18:59 06:59 Intake Total 1900 945 Output Total 2485 500 Balance -585 445 - Medications Medications: Current Medications Albuterol Sulfate (Albuterol 0.083% Inhal Tianna (2.5 Mg/3 Ml) Ud) 2.5 mg IH RQ2 PRN PRN Reason: Shortness of Breath Albuterol/Ipratropium (Duoneb 3 Mg/0.5 Mg (3 Ml) Ud) 3 ml INH RQ6 [facility] Last Admin: 02/24/19 19:15 Dose: Not Given Amlodipine Besylate (Norvasc) 10 mg PO DAILY [facility] Last Admin: 02/24/19 09:07 Dose: 10 mg Apixaban (Eliquis) 5 mg PO BID [facility] Last Admin: 02/24/19 18:21 Dose: 5 mg Arformoterol Tartrate (Brovana) 15 mcg INH RQ12 [facility] Last Admin: 02/24/19 19:15 Dose: Not Given Artificial Tears (Artificial Tears) 0 ml OU TID PRN PRN Reason: Dry eyes Last Admin: 02/24/19 15:12 Dose: 1 drop Docusate Sodium (Colace) 100 mg PO BID PRN PRN Reason: Constipation Folic Acid (Folic Acid) 1 mg PO DAILY [facility] Last Admin: 02/24/19 09:03 Dose: 1 mg Hydralazine HCl (Apresoline) 50 mg PO Q8H [facility] Last Admin: 02/24/19 15:11 Dose: 50 mg Hydromorphone HCl (Dilaudid) 1 mg IVP Q3H PRN PRN Reason: Pain, severe (8-10) Last Admin: 02/24/19 21:41 Dose: 1 mg Lactated Ringer's (Lactated Ringer's) 1,000 mls @ 125 mls/hr IV .Q8H [facility] Last Admin: 02/24/19 20:30 Dose: 125 mls/hr Nicardipine HCl 25 mg/ Sodium (Chloride) 250 mls @ 50 mls/hr IV .Q5H [facility]; Protocol Last Titration: 02/24/19 20:16 Dose: 10 mg/hr, 100 mls/hr Piperacillin Sod/Tazobactam Sod (Zosyn 2.25 Gm Iv Premix) 2.25 gm in 50 mls @ 100 mls/hr IVPB Q6H [facility]; Protocol Last Admin: 02/24/19 21:41 Dose: 100 mls/hr Losartan Potassium (Cozaar) 50 mg PO DAILY [facility] Multivitamins/Minerals (Therapeutic-M Tab) 1 tab PO 0800 [facility] Last Admin: 02/24/19 07:34 Dose: 1 tab Nicotine (Nicoderm Cq) 1 patch TD DAILY [facility] Last Admin: 02/24/19 09:04 Dose: 1 patch Ondansetron HCl (Zofran Inj) 4 mg IVP Q6H PRN PRN Reason: Nausea/Vomiting Last Admin: 02/24/19 21:41 Dose: 4 mg Oxycodone HCl (Oxycodone Immediate Release Tab) 5 mg PO Q6 PRN PRN Reason: Pain, moderate (4-7) Pantoprazole Sodium (Protonix Inj) 40 mg IVP DAILY [facility] Last Admin: 02/24/19 09:03 Dose: 40 mg Sennosides (Senokot Tab) 8.6 mg PO DAILY [facility] Last Admin: 02/24/19 09:04 Dose: 8.6 mg Tamsulosin HCl (Flomax) 0.4 mg PO DAILY [facility] Last Admin: 02/24/19 09:04 Dose: 0.4 mg Thiamine HCl (Vitamin B1 Tab) 100 mg PO DAILY [facility] Last Admin: 02/24/19 09:03 Dose: 100 mg - Labs Labs: 02/24/19 05:56 02/24/19 05:56 PT 18.5 SECONDS (9.7-12.2) H 02/22/19 14:27 INR 1.7 02/22/19 14:27 APTT 73.0 SECONDS (21-34) H 02/22/19 14:27 - Head Exam Head Exam: ATRAUMATIC - Eye Exam Eye Exam: Normal appearance - ENT Exam ENT Exam: Mucous Membranes Dry - Respiratory Exam Respiratory Exam: NORMAL BREATHING PATTERN - Cardiovascular Exam Cardiovascular Exam: +S1, +S2 - GI/Abdominal Exam GI & Abdominal Exam: Hypoactive Bowel Sounds Assessment and Plan (1) Thrombocytopenia Assessment & Plan: may be consumptive from surgery continue to monitor Status: Acute (2) Anemia Assessment & Plan: mild surgical blood loss Status: Acute (3) Coagulopathy Assessment & Plan: secondary to recent argatroban Status: Acute (4) Heparin allergy Assessment & Plan: recurrent venous clotting, requires 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
[2019-02-25] MEDS: Albuterol-Ipratrop 3 mg / 0.5 (3 ml) UD INH SCH ×4 (03:07→19:37)
--- NOTE | 2019-02-25 04:34 | CP.PCM.PN ---
Subjective - Date & Time of Evaluation Date of Evaluation: 02/25/19 Time of Evaluation: 05:26 - Subjective Subjective: Vascular Surgery Note for Dr. Brambila Patient seen and examined at bedside. No acute event overnight. Patient states pain has improved. He reports having BM and flatus. He has dopplerable signals bilaterally with palpable pulses in groin. Cr is slowly decreasing. Hgb is downtrending. Patient was started on flomax for retention after herrera was reinserted. Patient is now on cardene drip for resistant htn. Denies fever/chills, cp, SOB, abd pain, n/v/d, hematochezia, melena. Objective - Vital Signs/Intake and Output Vital Signs (last 24 hours): Temp Pulse Resp BP Pulse Ox 99.2 F 93 H 15 148/78 96 02/25/19 04:00 02/25/19 04:01 02/25/19 04:01 02/25/19 04:01 02/25/19 04:01 Intake and Output: 02/24/19 02/25/19 18:59 06:59 Intake Total 1900 1825 Output Total 2485 900 Balance -585 925 - Medications Medications: Current Medications Albuterol Sulfate (Albuterol 0.083% Inhal Tianna (2.5 Mg/3 Ml) Ud) 2.5 mg IH RQ2 PRN PRN Reason: Shortness of Breath Albuterol/Ipratropium (Duoneb 3 Mg/0.5 Mg (3 Ml) Ud) 3 ml INH RQ6 [facility] Last Admin: 02/25/19 03:07 Dose: Not Given Amlodipine Besylate (Norvasc) 10 mg PO DAILY [facility] Last Admin: 02/24/19 09:07 Dose: 10 mg Apixaban (Eliquis) 5 mg PO BID [facility] Last Admin: 02/24/19 18:21 Dose: 5 mg Arformoterol Tartrate (Brovana) 15 mcg INH RQ12 [facility] Last Admin: 02/24/19 19:15 Dose: Not Given Artificial Tears (Artificial Tears) 0 ml OU TID PRN PRN Reason: Dry eyes Last Admin: 02/24/19 15:12 Dose: 1 drop Docusate Sodium (Colace) 100 mg PO BID PRN PRN Reason: Constipation Folic Acid (Folic Acid) 1 mg PO DAILY [facility] Last Admin: 02/24/19 09:03 Dose: 1 mg Hydralazine HCl (Apresoline) 50 mg PO Q8H [facility] Last Admin: 02/24/19 23:44 Dose: 50 mg Hydromorphone HCl (Dilaudid) 1 mg IVP Q3H PRN PRN Reason: Pain, severe (8-10) Last Admin: 02/24/19 21:41 Dose: 1 mg Nicardipine HCl 25 mg/ Sodium (Chloride) 250 mls @ 50 mls/hr IV .Q5H [facility]; Protocol Last Admin: 02/24/19 23:36 Dose: Not Given Lactated Ringer's (Lactated Ringer's) 1,000 mls @ 75 mls/hr IV .[id number] [facility] Last Admin: 02/24/19 23:44 Dose: 75 mls/hr Piperacillin Sod/Tazobactam Sod (Zosyn 2.25 Gm Iv Premix) 2.25 gm in 50 mls @ 100 mls/hr IVPB Q8H [facility]; Protocol Losartan Potassium (Cozaar) 50 mg PO DAILY [facility] Multivitamins/Minerals (Therapeutic-M Tab) 1 tab PO 0800 [facility] Last Admin: 02/24/19 07:34 Dose: 1 tab Nicotine (Nicoderm Cq) 1 patch TD DAILY [facility] Last Admin: 02/24/19 09:04 Dose: 1 patch Ondansetron HCl (Zofran Inj) 4 mg IVP Q6H PRN PRN Reason: Nausea/Vomiting Last Admin: 02/24/19 21:41 Dose: 4 mg Oxycodone HCl (Oxycodone Immediate Release Tab) 5 mg PO Q6 PRN PRN Reason: Pain, moderate (4-7) Pantoprazole Sodium (Protonix Inj) 40 mg IVP DAILY [facility] Last Admin: 02/24/19 09:03 Dose: 40 mg Sennosides (Senokot Tab) 8.6 mg PO DAILY [facility] Last Admin: 02/24/19 09:04 Dose: 8.6 mg Tamsulosin HCl (Flomax) 0.4 mg PO DAILY [facility] Last Admin: 02/24/19 09:04 Dose: 0.4 mg Thiamine HCl (Vitamin B1 Tab) 100 mg PO DAILY [facility] Last Admin: 02/24/19 09:03 Dose: 100 mg - Labs Labs: 02/24/19 05:56 02/24/19 05:56 PT 18.5 SECONDS (9.7-12.2) H 02/22/19 14:27 INR 1.7 02/22/19 14:27 APTT 73.0 SECONDS (21-34) H 02/22/19 14:27 - Constitutional Appears: No Acute Distress - Head Exam Head Exam: ATRAUMATIC, NORMOCEPHALIC - Eye Exam Eye Exam: EOMI, Normal appearance Pupil Exam: PERRL - ENT Exam ENT Exam: Mucous Membranes Moist - Respiratory Exam Respiratory Exam: NORMAL BREATHING PATTERN - Cardiovascular Exam Cardiovascular Exam: REGULAR RHYTHM - GI/Abdominal Exam GI & Abdominal Exam: Soft, Normal Bowel Sounds. absent: Distended, Firm, Guarding, Rigid, Tenderness - Extremities Exam Additional comments: bilateral groin with incisions, clean/dry/intact dopplerable PT/DP bilaterally Papable femoral pulses bilaterally palpable graft pulse - Neurological Exam Neurological Exam: Alert, Awake, Oriented x3 - Psychiatric Exam Psychiatric exam: Normal Affect, Normal Mood - Skin Skin Exam: Dry, Intact, Warm Assessment and Plan - Assessment and Plan (Free Text) Assessment: 68 M s/p EVAR and fem-fem bypass POD#3 who also presents with resistant HTN, ROBERTA, and urinary retention Plan: -Diet as tolerated -Monitor Cr -Continue cardene gtt and antihypertensives -Neurovasc checks -I's & O's -Pain control -Void trial today -Trend H/H, Transfuse PRN -f/u nephrology recommendations -Bowel regimen -Medical management as per ICU -Further recommendations as per Dr. Kosta Topete PGY2
[2019-02-25] MEDS: HYDROmorphone 1 mg/ml ISec IVP PRN (05:07)
[2019-02-25] MEDS: Piperacill/Tazo 2.25gm in Dex 2.25 GM/50 ML BAG IVPB SCH ×3 (05:07→23:00)
[2019-02-25 05:16] LABS: BASO # 0.1 K/uL (0.0-0.2); BASO % 0.4 % (0.0-2.0); EOS # 0.1 K/uL (0.0-0.7); EOS % 0.4 % (0.0-4.0); HEMOGLOBIN 9.3 g/dL (12.0-18.0); LYMPH # 0.9 K/uL (1.0-4.3); LYMPH % 5.2 % (20.0-40.0); MEAN CELL VOLUME 84.1 fL (80.0-94.0); MEAN CORPUSCULAR HEMOGLOBIN 27.3 pg (27.0-31.0); MEAN CORPUSCULAR HGB CONC 32.4 g/dL (33.0-37.0); MEAN PLATELET VOLUME 8.4 fL (7.2-11.7); MONO # 1.1 K/uL (0.0-0.8); MONO % 6.2 % (0.0-10.0); NEUT # 15.9 K/uL (1.8-7.0); NEUT % 87.8 % (50.0-75.0); PLATELET COUNT 60 K/uL (130-400); RBC 3.42 Mil/uL (4.40-5.90); RED CELL DISTRIBUTION WIDTH 18.4 % (11.5-14.5); WHITE BLOOD COUNT 18.2 K/uL (4.8-10.8)
[2019-02-25] MEDS: niCARdipine IV 25 MG in Sodium Chloride 0.9% 240 ML IV SCH ×2 (05:21→10:49)
[2019-02-25 05:37] LABS: ALBUMIN 2.9 g/dL (3.5-5.0); CALCIUM 8.5 mg/dl (8.6-10.4)
--- NOTE | 2019-02-25 07:22 | RAD ---
Date of service: 02/25/2019 HISTORY: post op leukocytosis, cough COMPARISON: 02/10/2019 TECHNIQUE: 1 view obtained. FINDINGS: LUNGS: No active pulmonary disease. Minimal left apical pleural thickening similar. Probable tiny left upper lobe granulomatous changes-similar. PLEURA: No significant pleural effusion identified, no pneumothorax apparent. CARDIOVASCULAR: No aortic atherosclerotic calcification present.Prominent-ending aorta probably due to projection Normal cardiac size. No pulmonary vascular congestion. OSSEOUS STRUCTURES: No significant abnormalities. VISUALIZED UPPER ABDOMEN: Normal. OTHER FINDINGS: Partially visualized epigastric vascular stent IMPRESSION: No active disease. No interval pathology noted.
[2019-02-25] MEDS: Arformoterol 15 mcg/2 ml Inh Sol INH SCH (07:33)
[2019-02-25] MEDS: oxyCODONE 5 mg Immediate Release Tab PO PRN ×3 (08:16→21:02)
[2019-02-25 08:42] LABS: BANDS 3 % (0-2); LYMPHOCYTE 5 % (20-40); MONOCYTE 7 % (0-10); NEUTROPHIL 85 % (50-75); PLATELET ESTIMATE DECREASED (NORMAL); TOTAL CELLS COUNTED 100
[2019-02-25 08:43] LABS: ANISOCYTOSIS SLIGHT; HYPOCHROMIC SLIGHT
--- NOTE | 2019-02-25 09:37 | CP.PCM.PN ---
<Barney Urrutia - Last Filed: 02/25/19 09:31> Subjective - Date & Time of Evaluation Date of Evaluation: 02/25/19 Time of Evaluation: 07:00 - Subjective Subjective: Nephro Service Progress Note for Dr. Nic Urrutia DO, IM PGY-3 Patient seen and examined at bedside in the ICU. No acute distress at time of exam. No acute events reported overnight. BP well controlled on Cardene drip, continue to maintain SBP < 150. Patient reports BM overnight, as well as improved but still present abdominal pain. Continues to have clear urine output into Herrera (recorded as ~4L output in last 24 hrs). Denies chest pain, shortness of breath, nausea, emesis, fevers, chills. Increasing leukocytosis on AM labs, on empiric Zosyn as per primary team, pending culture results. Objective - Vital Signs/Intake and Output Vital Signs (last 24 hours): Temp Pulse Resp BP Pulse Ox 98.6 F 86 14 156/81 H 100 02/25/19 08:00 02/25/19 08:00 02/25/19 08:00 02/25/19 08:00 02/25/19 08:00 Intake and Output: 02/25/19 02/25/19 06:59 18:59 Intake Total 1975 150 Output Total 1400 200 Balance 575 -50 - Medications Medications: Current Medications Albuterol Sulfate (Albuterol 0.083% Inhal Tianna (2.5 Mg/3 Ml) Ud) 2.5 mg IH RQ2 PRN PRN Reason: Shortness of Breath Albuterol/Ipratropium (Duoneb 3 Mg/0.5 Mg (3 Ml) Ud) 3 ml INH RQ6 [facility] Last Admin: 02/25/19 07:33 Dose: 3 ml Amlodipine Besylate (Norvasc) 10 mg PO DAILY [facility] Last Admin: 02/24/19 09:07 Dose: 10 mg Apixaban (Eliquis) 5 mg PO BID [facility] Last Admin: 02/24/19 18:21 Dose: 5 mg Arformoterol Tartrate (Brovana) 15 mcg INH RQ12 [facility] Last Admin: 02/25/19 07:33 Dose: 15 mcg Artificial Tears (Artificial Tears) 0 ml OU TID PRN PRN Reason: Dry eyes Last Admin: 02/24/19 15:12 Dose: 1 drop Docusate Sodium (Colace) 100 mg PO BID PRN PRN Reason: Constipation Folic Acid (Folic Acid) 1 mg PO DAILY [facility] Last Admin: 02/24/19 09:03 Dose: 1 mg Hydralazine HCl (Apresoline) 50 mg PO Q8H [facility] Last Admin: 02/25/19 08:16 Dose: 50 mg Hydromorphone HCl (Dilaudid) 1 mg IVP Q3H PRN PRN Reason: Pain, severe (8-10) Last Admin: 02/25/19 05:07 Dose: 1 mg Nicardipine HCl 25 mg/ Sodium (Chloride) 250 mls @ 50 mls/hr IV .Q5H [facility]; Protocol Last Admin: 02/25/19 05:21 Dose: Not Given Lactated Ringer's (Lactated Ringer's) 1,000 mls @ 75 mls/hr IV .[id number] [facility] Last Admin: 02/24/19 23:44 Dose: 75 mls/hr Piperacillin Sod/Tazobactam Sod (Zosyn 2.25 Gm Iv Premix) 2.25 gm in 50 mls @ 100 mls/hr IVPB Q8H [facility]; Protocol Last Admin: 02/25/19 05:07 Dose: 100 mls/hr Losartan Potassium (Cozaar) 50 mg PO DAILY [facility] Multivitamins/Minerals (Therapeutic-M Tab) 1 tab PO 0800 [facility] Last Admin: 02/24/19 07:34 Dose: 1 tab Nicotine (Nicoderm Cq) 1 patch TD DAILY [facility] Last Admin: 02/24/19 09:04 Dose: 1 patch Ondansetron HCl (Zofran Inj) 4 mg IVP Q6H PRN PRN Reason: Nausea/Vomiting Last Admin: 02/24/19 21:41 Dose: 4 mg Oxycodone HCl (Oxycodone Immediate Release Tab) 5 mg PO Q6 PRN PRN Reason: Pain, moderate (4-7) Last Admin: 02/25/19 08:16 Dose: 5 mg Pantoprazole Sodium (Protonix Inj) 40 mg IVP DAILY [facility] Last Admin: 02/24/19 09:03 Dose: 40 mg Sennosides (Senokot Tab) 8.6 mg PO DAILY [facility] Last Admin: 02/24/19 09:04 Dose: 8.6 mg Tamsulosin HCl (Flomax) 0.4 mg PO DAILY [facility] Last Admin: 02/24/19 09:04 Dose: 0.4 mg Thiamine HCl (Vitamin B1 Tab) 100 mg PO DAILY [facility] Last Admin: 02/24/19 09:03 Dose: 100 mg - Labs Labs: 02/25/19 05:13 02/25/19 05:13 PT 18.5 SECONDS (9.7-12.2) H 02/22/19 14:27 INR 1.7 02/22/19 14:27 APTT 73.0 SECONDS (21-34) H 02/22/19 14:27 - Additional Findings Additional findings: - Constitutional Appears: Non-toxic, No Acute Distress (uncomfortable but not in acute distress), Chronically Ill - Eye Exam Wearing R eye patch Left eye: EOMI, normal appearance, no icterus or conjunctival injection - ENT Exam ENT Exam: Mucous Membranes Moist - Neck Exam Neck Exam: absent: Lymphadenopathy, Thyromegaly - Respiratory Exam Respiratory Exam: Decreased Breath Sounds (mildly decreased breath sounds in all manzo), Prolonged Expiratory Phase (mildly prolonged expiratory phase consistently). absent: Accessory Muscle Use, Chest Wall Tenderness, Rales, Rhonchi, Wheezes, Respiratory Distress, Stridor - Cardiovascular Exam Cardiovascular Exam: REGULAR RHYTHM, RRR, +S1, +S2. absent: Bradycardia, Tachycardia, Irregular Rhythm, JVD - GI/Abdominal Exam GI & Abdominal Exam: Distended, Tenderness (acutely tender throughout abdomen, less tender on bilateral flanks). absent: Rigid Additional comments: increased but still sparse bowel sounds appreciated bandages lateral to suprapubic region bilaterally unable to fully palpate abdomen due to pain, but not rigid to palpation - Exam Exam: Herrera in place draining clear-yellow urine - Extremities Exam Extremities Exam: absent: Calf Tenderness, Joint Swelling, Pedal Edema, Te nderness - Neurological Exam awake and alert, follows all commands appropriately minimal movements (spontaneous and on command) due to attempting to limit abdominal pain, but appears grossly neurologically intact - Psychiatric Exam Psychiatric exam: Normal Affect, Normal Mood - Skin Skin Exam: Dry, Intact (except for site of bandaging as documented in abdominal exam), Normal Color, Warm Assessment and Plan - Assessment and Plan (Free Text) Assessment: This is a 68yo AA M with PMH of HTN, AAA, PVD, recurrent venous clotting through anticoagulants (Coumadin & Zarelto), COPD with active tobacco abuse, unclear adverse reaction to heparin, alcohol use disorder, and chronic medication/medical follow-up non-compliance who recently underwent EVAR of AAA with fem-fem bypass and balloon angioplasty of L common illiac. He is now in the ICU post-procedure for management and close monitoring. Nephro was consulted for possible Right renal cortical ischemia. Plan: 1) AAA and right iliac occlusion 2) History of HTN 3) History of COPD 4) Hyponatremia 5) Alcohol abuse 6) Tobacco abuse (25+ pack yr hx) 7) Right Corneal ulcer 8) Urinary retention 9) New leukocytosis 10) ROBERTA - likely TJ -s/p AAA EVAR and L common illiac balloon angioplasty, POD #3 Continue agatroban as per Surgery, switch to Eliquis on d/c as per Eliquis -Cr 1.6 post-op, was 0.8-1.0 at baseline, now 1.5 ROBERTA 2/2 TJ vs vs obstructive uropathy vs questionable right renal cortical ischema on CT imaging vs HTN insult Continues to put out significant urine (~4L in last 24 hours), obstructed 2 nights ago and put out 1L within 2 hours of herrera placement Continue Flomax Unclear if actual renal ischemia or contrast artifacting, as per Vasc surg good renal flow on arteriogram Continue aggressive BP control, agree with Cardene drip, recommend maintaining SBP <= 150 Pain control improved, appears adequate at this time -Na remains 129 again today (was 129, 132 prior) ddx: SIADH given recent surgery vs 2/2 renal obstruction (required herrera replacement due to failed voiding trials) vs 2/2 fluid resuscitation with LR asymptomatic at this time, no acute intervention indicated continue to monitor, consider switching from LR to NS when cleared by surgery -Worsening leukocytosis, procal positive at 0.98 Blood/Urine cultures negative at 24 hrs Empirically on Zosyn q6 as per primary team Case reviewed and discussed with attending, Dr. Lucero. <Zaire Lucero - Last Filed: 02/26/19 06:52> Objective - Vital Signs/Intake and Output Vital Signs (last 24 hours): Temp Pulse Resp BP Pulse Ox 98.2 F 81 20 163/75 H 98 02/26/19 06:20 02/26/19 06:20 02/26/19 06:20 02/26/19 06:20 02/26/19 06:20 Intake and Output: 02/25/19 02/26/19 18:59 06:59 Intake Total 850 150 Output Total 950 Balance -100 150 - Medications Medications: Current Medications Albuterol Sulfate (Albuterol 0.083% Inhal Tianna (2.5 Mg/3 Ml) Ud) 2.5 mg IH RQ2 PRN PRN Reason: Shortness of Breath Albuterol/Ipratropium (Duoneb 3 Mg/0.5 Mg (3 Ml) Ud) 3 ml INH RQ6 [facility] Last Admin: 02/26/19 01:20 Dose: Not Given Amlodipine Besylate (Norvasc) 10 mg PO DAILY [facility] Last Admin: 02/25/19 10:47 Dose: 10 mg Apixaban (Eliquis) 5 mg PO BID [facility] Last Admin: 02/25/19 18:53 Dose: 5 mg Arformoterol Tartrate (Brovana) 15 mcg INH RQ12@1000,2200 [facility] Artificial Tears (Artificial Tears) 0 ml OU TID PRN PRN Reason: Dry eyes Last Admin: 02/24/19 15:12 Dose: 1 drop Docusate Sodium (Colace) 100 mg PO BID PRN PRN Reason: Constipation Last Admin: 02/25/19 10:47 Dose: 100 mg Folic Acid (Folic Acid) 1 mg PO DAILY [facility] Last Admin: 02/25/19 10:47 Dose: 1 mg Hydralazine HCl (Apresoline) 50 mg PO Q8H [facility] Last Admin: 02/25/19 23:16 Dose: 50 mg Hydromorphone HCl (Dilaudid) 1 mg IVP Q3H PRN PRN Reason: Pain, severe (8-10) Last Admin: 02/25/19 05:07 Dose: 1 mg Piperacillin Sod/Tazobactam Sod (Zosyn 2.25 Gm Iv Premix) 2.25 gm in 50 mls @ 100 mls/hr IVPB Q8H [facility]; Protocol Last Admin: 02/26/19 05:06 Dose: 100 mls/hr Losartan Potassium (Cozaar) 50 mg PO DAILY [facility] Last Admin: 02/25/19 10:47 Dose: 50 mg Multivitamins/Minerals (Therapeutic-M Tab) 1 tab PO 0800 [facility] Last Admin: 02/25/19 10:47 Dose: 1 tab Nicotine (Nicoderm Cq) 1 patch TD DAILY [facility] Last Admin: 02/25/19 10:48 Dose: 1 patch Ondansetron HCl (Zofran Inj) 4 mg IVP Q6H PRN PRN Reason: Nausea/Vomiting Last Admin: 02/24/19 21:41 Dose: 4 mg Oxycodone HCl (Oxycodone Immediate Release Tab) 5 mg PO Q6 PRN PRN Reason: Pain, moderate (4-7) Last Admin: 02/25/19 21:02 Dose: 5 mg Pantoprazole Sodium (Protonix Inj) 40 mg IVP DAILY [facility] Last Admin: 02/25/19 10:50 Dose: 40 mg Sennosides (Senokot Tab) 8.6 mg PO DAILY [facility] Last Admin: 02/25/19 10:47 Dose: 8.6 mg Tamsulosin HCl (Flomax) 0.4 mg PO DAILY [facility] Last Admin: 02/25/19 10:47 Dose: 0.4 mg Thiamine HCl (Vitamin B1 Tab) 100 mg PO DAILY [facility] Last Admin: 02/25/19 10:47 Dose: 100 mg - Labs Labs: 02/26/19 05:47 02/26/19 05:47 PT 18.5 SECONDS (9.7-12.2) H 02/22/19 14:27 INR 1.7 02/22/19 14:27 APTT 73.0 SECONDS (21-34) H 02/22/19 14:27 Attending/Attestation - Attestation I have personally seen and examined this patient.: Yes I have fully participated in the care of the patient.: Yes I have reviewed all pertinent clinical information, including history, physical exam and plan: Yes Notes (Text): Patient seen and examined; I agree with the resident's note as above with the following additions/edits: Patient with mild ATN s/p EVAR procedure, non-oliguric renal failure with relatively stable renal function; stable lytes and volume status; agree with stopping IVF altogether; BP much better controlled, patient now off cardene drip, continue current PO meds; Urinary retention post-op; can give voiding trial; will obtain bladder US to check post-void residual volume; continue flomax for now; Mild but persistent hyponatremia; likely some degree of SIADH but cause is unclear; needs to be on 1.5L PO fluid restriction.
--- NOTE | 2019-02-25 09:54 | CP.PCM.PN ---
Subjective - Date & Time of Evaluation Date of Evaluation: 02/25/19 Time of Evaluation: 09:51 - Subjective Subjective: Medical Attending Note (Medicine consult: hospitalist covering for Dr. Bradford through 02/27) Patient seen and examined. No family seen at bedside. Please note Patient's is admitted to the hospital. Patient reports he had a bowel movement overnight. He reports abdominal pain is improved. Patient denies headache, denies chest pain, denies palpitations, denies nausea, denies vomitting, has herrera present. Objective - Vital Signs/Intake and Output Vital Signs (last 24 hours): Temp Pulse Resp BP Pulse Ox 98.6 F 86 14 156/81 H 100 02/25/19 08:00 02/25/19 08:00 02/25/19 08:00 02/25/19 08:00 02/25/19 08:00 Intake and Output: 02/25/19 02/25/19 06:59 18:59 Intake Total 1975 150 Output Total 1400 200 Balance 575 -50 - Medications Medications: Current Medications Albuterol Sulfate (Albuterol 0.083% Inhal Tianna (2.5 Mg/3 Ml) Ud) 2.5 mg IH RQ2 PRN PRN Reason: Shortness of Breath Albuterol/Ipratropium (Duoneb 3 Mg/0.5 Mg (3 Ml) Ud) 3 ml INH RQ6 [facility] Last Admin: 02/25/19 07:33 Dose: 3 ml Amlodipine Besylate (Norvasc) 10 mg PO DAILY [facility] Last Admin: 02/24/19 09:07 Dose: 10 mg Apixaban (Eliquis) 5 mg PO BID [facility] Last Admin: 02/24/19 18:21 Dose: 5 mg Arformoterol Tartrate (Brovana) 15 mcg INH RQ12 [facility] Last Admin: 02/25/19 07:33 Dose: 15 mcg Artificial Tears (Artificial Tears) 0 ml OU TID PRN PRN Reason: Dry eyes Last Admin: 02/24/19 15:12 Dose: 1 drop Docusate Sodium (Colace) 100 mg PO BID PRN PRN Reason: Constipation Folic Acid (Folic Acid) 1 mg PO DAILY [facility] Last Admin: 02/24/19 09:03 Dose: 1 mg Hydralazine HCl (Apresoline) 50 mg PO Q8H [facility] Last Admin: 02/25/19 08:16 Dose: 50 mg Hydromorphone HCl (Dilaudid) 1 mg IVP Q3H PRN PRN Reason: Pain, severe (8-10) Last Admin: 02/25/19 05:07 Dose: 1 mg Nicardipine HCl 25 mg/ Sodium (Chloride) 250 mls @ 50 mls/hr IV .Q5H [facility]; Protocol Last Admin: 02/25/19 05:21 Dose: Not Given Lactated Ringer's (Lactated Ringer's) 1,000 mls @ 75 mls/hr IV .[id number] [facility] Last Admin: 02/24/19 23:44 Dose: 75 mls/hr Piperacillin Sod/Tazobactam Sod (Zosyn 2.25 Gm Iv Premix) 2.25 gm in 50 mls @ 100 mls/hr IVPB Q8H [facility]; Protocol Last Admin: 02/25/19 05:07 Dose: 100 mls/hr Losartan Potassium (Cozaar) 50 mg PO DAILY [facility] Multivitamins/Minerals (Therapeutic-M Tab) 1 tab PO 0800 [facility] Last Admin: 02/24/19 07:34 Dose: 1 tab Nicotine (Nicoderm Cq) 1 patch TD DAILY [facility] Last Admin: 02/24/19 09:04 Dose: 1 patch Ondansetron HCl (Zofran Inj) 4 mg IVP Q6H PRN PRN Reason: Nausea/Vomiting Last Admin: 02/24/19 21:41 Dose: 4 mg Oxycodone HCl (Oxycodone Immediate Release Tab) 5 mg PO Q6 PRN PRN Reason: Pain, moderate (4-7) Last Admin: 02/25/19 08:16 Dose: 5 mg Pantoprazole Sodium (Protonix Inj) 40 mg IVP DAILY [facility] Last Admin: 02/24/19 09:03 Dose: 40 mg Sennosides (Senokot Tab) 8.6 mg PO DAILY [facility] Last Admin: 02/24/19 09:04 Dose: 8.6 mg Tamsulosin HCl (Flomax) 0.4 mg PO DAILY [facility] Last Admin: 02/24/19 09:04 Dose: 0.4 mg Thiamine HCl (Vitamin B1 Tab) 100 mg PO DAILY [facility] Last Admin: 02/24/19 09:03 Dose: 100 mg - Labs Labs: 02/25/19 05:13 02/25/19 05:13 PT 18.5 SECONDS (9.7-12.2) H 02/22/19 14:27 INR 1.7 02/22/19 14:27 APTT 73.0 SECONDS (21-34) H 02/22/19 14:27 - Constitutional Appears: Non-toxic, No Acute Distress - Head Exam Head Exam: NORMAL INSPECTION - Eye Exam Eye Exam: EOMI - ENT Exam ENT Exam: Mucous Membranes Moist - Respiratory Exam Respiratory Exam: Clear to Ausculation Bilateral, NORMAL BREATHING PATTERN. absent: Rales, Rhonchi - Cardiovascular Exam Cardiovascular Exam: REGULAR RHYTHM, +S1, +S2 - GI/Abdominal Exam GI & Abdominal Exam: Soft, Normal Bowel Sounds. absent: Distended, Firm, Guarding, Rigid, Tenderness, Rebound Additional comments: surgery dressing either side - Exam Additional comments: +herrera - Extremities Exam Extremities Exam: Pedal Edema (trace). absent: Tenderness - Neurological Exam Neurological Exam: Alert, Awake, Oriented x3 - Skin Skin Exam: Dry, Intact, Normal Color, Warm Assessment and Plan - Assessment and Plan (Free Text) Assessment: White count uptrend; H/H about the same creatinine stable. Blood pressure controlled. Patient is off Cardene drip since last night and patient's herrera is clamped for bladder retraining. Note: patient's procalcitonin is mildy elevated; 0.98. Patient started on renal dose Zosyn overnight. Abdominal pain has improved. Has had had bowel movement. Nephrology on board, Discussed with Kosta, patient doing well postoperative, renal arteries patent when he reviewed CT scan w radiologist. F/u cultures 02/24/19-->urine culture no growth; blood culture: no growth for 24 hours X2 Assessment/Plan 1. AAA and right iliac occlusion Assessment/Plan Vascular surgery on consult preop/intraop/postoperative per vascular surgery pain management per surgery patient observed in ICU post surgery Agrobactran started vascular surgery heme-onc consult Patient is postoperative day 3. Herrera clamped for bladder retraining 2. History of HTN Assessment/Plan Amlodipine 10mg daily Cozaar 50mg Po daily Hydralazine 50mg PO q8H Off cardene drip since last night 3. History of COPD Assessment/Plan Duoneb 3ml Q6hr PRn shortness of breathe Brovana 12mcg Q12hr Note on hospital formulary we do not carry Breo Patient noted noncompliance with inhalers at home Patient is not on home oxygen Patient is an active smoker advised to stop smoking 4. Hyponatremia Assessment/Plan Na 129 Nephrology on board 5. Alcohol abuse No signs of tremors appreciated Multivitamin 1 tab PO daily Folic acid 1 mg PO daily Thiamine 100mg PO daily Follow up folate, B12 levels Cessation strongly advised 6. Tobacco abuse Nicotine patch daily while remains in hospital Cessation strongly advised patient is smoker about 50 years He is aware of the risk of smoking including poor wound healing, aging, worsening of lung disease, and increase cancer risk 7. Right Corneal ulcer Initially evaluated by opthamology in Dec 2018, Patient [facility] not [facility] with [facility] after his initial evaluation at [facility]. Wears right eye patch 8. Atypical moles Given patient's extensive tobacco use history patient has an increased risk of malignancy Recommended outpatient follow up 9.Prophylactic measures Argatroben per surgery (clotting history while on Xarelto/Coumadin) Heme oncology recommends for eliquis when permitted by surgery Protonix for GI PPX 10. Leukocytosis increasing patient is on renal dose of Zosyn (02/24/19) procalcitonin: 0.98 Blood culture (02/24/19): no growth for 24 hours X2 Urine culture: no growth lactic acid 1.1 (02/24/19)
[2019-02-25] MEDS: Multivitamin With Minerals Tab PO SCH (10:47)
[2019-02-25] MEDS: Lactated Ringer's 1,000 ML IV SCH (13:52)
[2019-02-25] MEDS ORDERED: Arformoterol 15 mcg/2 ml Inh Sol INH SCH (22:00)
[2019-02-26] MEDS: Albuterol-Ipratrop 3 mg / 0.5 (3 ml) UD INH SCH ×2 (01:20→19:50)
[2019-02-26 04:47] VITALS: RESP 20
[2019-02-26] MEDS: Piperacill/Tazo 2.25gm in Dex 2.25 GM/50 ML BAG IVPB SCH ×3 (05:06→21:02)
[2019-02-26 05:53] LABS: BASO % 0.3 % (0.0-2.0); EOS # 0.2 K/uL (0.0-0.7); EOS % 1.4 % (0.0-4.0); HEMOGLOBIN 9.3 g/dL (12.0-18.0); LYMPH # 0.9 K/uL (1.0-4.3); LYMPH % 7.3 % (20.0-40.0); MEAN CELL VOLUME 85.6 fL (80.0-94.0); MEAN CORPUSCULAR HEMOGLOBIN 27.6 pg (27.0-31.0); MEAN CORPUSCULAR HGB CONC 32.3 g/dL (33.0-37.0); MEAN PLATELET VOLUME 8.8 fL (7.2-11.7); MONO # 1.1 K/uL (0.0-0.8); MONO % 9.2 % (0.0-10.0); NEUT # 9.7 K/uL (1.8-7.0); NEUT % 81.8 % (50.0-75.0); PLATELET COUNT 97 K/uL (130-400); RBC 3.38 Mil/uL (4.40-5.90); RED CELL DISTRIBUTION WIDTH 18.3 % (11.5-14.5); WHITE BLOOD COUNT 11.9 K/uL (4.8-10.8)
[2019-02-26 06:11] LABS: ALB/GLOB RATIO 1.2 (1.0-2.1); ALBUMIN 3.3 g/dL (3.5-5.0); CALCIUM 8.5 mg/dl (8.6-10.4)
--- NOTE | 2019-02-26 08:14 | CP.PCM.PN ---
Subjective - Date & Time of Evaluation Date of Evaluation: 02/26/19 Time of Evaluation: 08:13 - Subjective Subjective: Surgery: Dr. Brambila Patient s/p transfer from ICU. Doing well. NO pain in the lower extremities or groins. Denies f/c/n/v. tolerating diet. Objective - Vital Signs/Intake and Output Vital Signs (last 24 hours): Temp Pulse Resp BP Pulse Ox 98.5 F 83 20 150/70 97 02/26/19 07:00 02/26/19 07:00 02/26/19 07:00 02/26/19 07:00 02/26/19 07:00 Intake and Output: 02/26/19 02/26/19 06:59 18:59 Intake Total 200 Output Total 700 Balance -500 - Medications Medications: Current Medications Albuterol Sulfate (Albuterol 0.083% Inhal Tianna (2.5 Mg/3 Ml) Ud) 2.5 mg IH RQ2 PRN PRN Reason: Shortness of Breath Albuterol/Ipratropium (Duoneb 3 Mg/0.5 Mg (3 Ml) Ud) 3 ml INH RQ6 [facility] Last Admin: 02/26/19 01:20 Dose: Not Given Amlodipine Besylate (Norvasc) 10 mg PO DAILY [facility] Last Admin: 02/25/19 10:47 Dose: 10 mg Apixaban (Eliquis) 5 mg PO BID [facility] Last Admin: 02/25/19 18:53 Dose: 5 mg Arformoterol Tartrate (Brovana) 15 mcg INH RQ12@1000,2200 [facility] Artificial Tears (Artificial Tears) 0 ml OU TID PRN PRN Reason: Dry eyes Last Admin: 02/24/19 15:12 Dose: 1 drop Docusate Sodium (Colace) 100 mg PO BID PRN PRN Reason: Constipation Last Admin: 02/25/19 10:47 Dose: 100 mg Folic Acid (Folic Acid) 1 mg PO DAILY [facility] Last Admin: 02/25/19 10:47 Dose: 1 mg Hydralazine HCl (Apresoline) 50 mg PO Q8H [facility] Last Admin: 02/25/19 23:16 Dose: 50 mg Hydromorphone HCl (Dilaudid) 1 mg IVP Q3H PRN PRN Reason: Pain, severe (8-10) Last Admin: 02/25/19 05:07 Dose: 1 mg Piperacillin Sod/Tazobactam Sod (Zosyn 2.25 Gm Iv Premix) 2.25 gm in 50 mls @ 100 mls/hr IVPB Q8H [facility]; Protocol Last Admin: 02/26/19 05:06 Dose: 100 mls/hr Losartan Potassium (Cozaar) 50 mg PO DAILY [facility] Last Admin: 02/25/19 10:47 Dose: 50 mg Multivitamins/Minerals (Therapeutic-M Tab) 1 tab PO 0800 [facility] Last Admin: 02/25/19 10:47 Dose: 1 tab Nicotine (Nicoderm Cq) 1 patch TD DAILY [facility] Last Admin: 02/25/19 10:48 Dose: 1 patch Ondansetron HCl (Zofran Inj) 4 mg IVP Q6H PRN PRN Reason: Nausea/Vomiting Last Admin: 02/24/19 21:41 Dose: 4 mg Oxycodone HCl (Oxycodone Immediate Release Tab) 5 mg PO Q6 PRN PRN Reason: Pain, moderate (4-7) Last Admin: 02/25/19 21:02 Dose: 5 mg Pantoprazole Sodium (Protonix Inj) 40 mg IVP DAILY [facility] Last Admin: 02/25/19 10:50 Dose: 40 mg Sennosides (Senokot Tab) 8.6 mg PO DAILY [facility] Last Admin: 02/25/19 10:47 Dose: 8.6 mg Tamsulosin HCl (Flomax) 0.4 mg PO DAILY [facility] Last Admin: 02/25/19 10:47 Dose: 0.4 mg Thiamine HCl (Vitamin B1 Tab) 100 mg PO DAILY [facility] Last Admin: 02/25/19 10:47 Dose: 100 mg - Labs Labs: 02/26/19 05:47 02/26/19 05:47 PT 18.5 SECONDS (9.7-12.2) H 02/22/19 14:27 INR 1.7 02/22/19 14:27 APTT 73.0 SECONDS (21-34) H 02/22/19 14:27 - Constitutional Appears: Non-toxic, No Acute Distress - Head Exam Head Exam: ATRAUMATIC, NORMOCEPHALIC - Eye Exam Eye Exam: EOMI, Normal appearance - ENT Exam ENT Exam: Mucous Membranes Moist - Respiratory Exam Respiratory Exam: NORMAL BREATHING PATTERN. absent: Respiratory Distress - Cardiovascular Exam Cardiovascular Exam: REGULAR RHYTHM. absent: Tachycardia - GI/Abdominal Exam GI & Abdominal Exam: Soft. absent: Distended, Guarding, Tenderness Additional comments: bilateral groin dressing CDI with palpable pules in the suprapubic region at area of fem-fembypass Assessment and Plan - Assessment and Plan (Free Text) Assessment: 68 y/o male s/p 68 M s/p EVAR and fem-fem bypass POD4 w/ ROBERTA and POUR Plan: -Continue antihypertensives -Neurovasc checks -I's & O's -Pain control -Trend H/H, Transfuse PRN -f/u nephrology and urology recs -Bowel regimen -Medical management per primary -may need acute rehab post op -f/u PT recs -Further recommendations as per Dr. Kosta Thibodeaux PGY4
[2019-02-26] MEDS: Multivitamin With Minerals Tab PO SCH (09:30)
--- NOTE | 2019-02-26 09:39 | CP.PCM.PN ---
Subjective - Date & Time of Evaluation Date of Evaluation: 02/26/19 Time of Evaluation: 09:26 - Subjective Subjective: PGY3 progress note for hospitalists (covering for Dr. Bradford) Pt seen and examined at bedside. No acute events overnight. Brooks still in place. Pt c/o 7/10 abd pain. NO N/V/D/C, F/C, LE pain. tolerating diet. Objective - Vital Signs/Intake and Output Vital Signs (last 24 hours): Temp Pulse Resp BP Pulse Ox 98.5 F 83 20 150/70 97 02/26/19 07:00 02/26/19 07:00 02/26/19 07:00 02/26/19 07:00 02/26/19 07:00 Intake and Output: 02/26/19 02/26/19 06:59 18:59 Intake Total 200 Output Total 700 Balance -500 - Medications Medications: Current Medications Albuterol Sulfate (Albuterol 0.083% Inhal Tianna (2.5 Mg/3 Ml) Ud) 2.5 mg IH RQ2 PRN PRN Reason: Shortness of Breath Albuterol/Ipratropium (Duoneb 3 Mg/0.5 Mg (3 Ml) Ud) 3 ml INH RQ6 [facility] Last Admin: 02/26/19 01:20 Dose: Not Given Amlodipine Besylate (Norvasc) 10 mg PO DAILY [facility] Last Admin: 02/25/19 10:47 Dose: 10 mg Apixaban (Eliquis) 5 mg PO BID [facility] Last Admin: 02/25/19 18:53 Dose: 5 mg Arformoterol Tartrate (Brovana) 15 mcg INH RQ12@1000,2200 [facility] Artificial Tears (Artificial Tears) 0 ml OU TID PRN PRN Reason: Dry eyes Last Admin: 02/24/19 15:12 Dose: 1 drop Docusate Sodium (Colace) 100 mg PO BID PRN PRN Reason: Constipation Last Admin: 02/25/19 10:47 Dose: 100 mg Folic Acid (Folic Acid) 1 mg PO DAILY [facility] Last Admin: 02/25/19 10:47 Dose: 1 mg Hydralazine HCl (Apresoline) 50 mg PO Q8H [facility] Last Admin: 02/25/19 23:16 Dose: 50 mg Hydromorphone HCl (Dilaudid) 1 mg IVP Q3H PRN PRN Reason: Pain, severe (8-10) Last Admin: 02/25/19 05:07 Dose: 1 mg Piperacillin Sod/Tazobactam Sod (Zosyn 2.25 Gm Iv Premix) 2.25 gm in 50 mls @ 100 mls/hr IVPB Q8H [facility]; Protocol Last Admin: 02/26/19 05:06 Dose: 100 mls/hr Losartan Potassium (Cozaar) 50 mg PO DAILY [facility] Last Admin: 02/25/19 10:47 Dose: 50 mg Multivitamins/Minerals (Therapeutic-M Tab) 1 tab PO 0800 [facility] Last Admin: 02/25/19 10:47 Dose: 1 tab Nicotine (Nicoderm Cq) 1 patch TD DAILY [facility] Last Admin: 02/25/19 10:48 Dose: 1 patch Ondansetron HCl (Zofran Inj) 4 mg IVP Q6H PRN PRN Reason: Nausea/Vomiting Last Admin: 02/24/19 21:41 Dose: 4 mg Oxycodone HCl (Oxycodone Immediate Release Tab) 5 mg PO Q6 PRN PRN Reason: Pain, moderate (4-7) Last Admin: 02/25/19 21:02 Dose: 5 mg Pantoprazole Sodium (Protonix Inj) 40 mg IVP DAILY [facility] Last Admin: 02/25/19 10:50 Dose: 40 mg Sennosides (Senokot Tab) 8.6 mg PO DAILY [facility] Last Admin: 02/25/19 10:47 Dose: 8.6 mg Tamsulosin HCl (Flomax) 0.4 mg PO DAILY [facility] Last Admin: 02/25/19 10:47 Dose: 0.4 mg Thiamine HCl (Vitamin B1 Tab) 100 mg PO DAILY [facility] Last Admin: 02/25/19 10:47 Dose: 100 mg - Labs Labs: 02/26/19 05:47 02/26/19 05:47 PT 18.5 SECONDS (9.7-12.2) H 02/22/19 14:27 INR 1.7 02/22/19 14:27 APTT 73.0 SECONDS (21-34) H 02/22/19 14:27 - Constitutional Appears: Non-toxic, No Acute Distress - Head Exam Head Exam: ATRAUMATIC, NORMOCEPHALIC - ENT Exam ENT Exam: Mucous Membranes Moist - Respiratory Exam Respiratory Exam: Clear to Ausculation Bilateral. absent: Accessory Muscle Use, Rales, Rhonchi, Wheezes, Respiratory Distress - Cardiovascular Exam Cardiovascular Exam: REGULAR RHYTHM, +S1, +S2. absent: Gallop, Rubs, Murmur - GI/Abdominal Exam GI & Abdominal Exam: Soft, Normal Bowel Sounds. absent: Distended, Firm, Guarding, Rigid, Tenderness Additional comments: femoral dressing intact, dry - Extremities Exam Extremities Exam: absent: Pedal Edema, Tenderness - Neurological Exam Neurological Exam: Alert, Awake - Psychiatric Exam Psychiatric exam: Normal Affect, Normal Mood - Skin Skin Exam: Dry, Intact, Normal Color, Warm Assessment and Plan - Assessment and Plan (Free Text) Assessment: AAA and right iliac occlusion s/p EVAR with fem-fem bypass, balloon angioplasty of Left common iliac artery POD #4 Admitted under vascular surgery, Dr. Brambila preop/intraop/postoperative per vascular surgery pain management per surgery Agrobactran started vascular surgery heme-onc consult Brooks clamped for bladder retraining History of HTN Amlodipine 10mg daily Cozaar 50mg Po daily Hydralazine 50mg PO q8H IV fluids D/Mann History of COPD Duoneb 3ml Q6hr PRn shortness of breathe Brovana 12mcg Q12hr Note on hospital formulary we do not carry Breo Patient noted noncompliance with inhalers at home Patient is not on home oxygen Patient is an active smoker advised to stop smoking Hyponatremia Na 128 Nephrology on board. Recommend fluid restriction to 1.5 L PO Leukocytosis patient is on renal dose of Zosyn (02/24/19) procalcitonin: 0.98. repeat procal ordered Blood culture (02/24/19): no growth for 24 hours X2 Urine culture: no growth lactic acid 1.1 (02/24/19) ROBERTA may be 2/2 ATN vs. obstruction vs. artheroembolic event Cr at baseline around 1.0 1650 cc urine output Nephrology, Dr. Lucero consulted Urology consulted for possible urinary retention. 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 Pt switched from Argotroban to Eliquis Thrombocytopenia Improving this am Heme/onc consulted. Likely 2/2 surgery Right Corneal ulcer Initially evaluated by opthamology in Dec 2018, [facility] after his initial evaluation at [facility]. Wears right eye patch Atypical moles Given patient's extensive tobacco use history patient has an increased risk of malignancy Recommended outpatient follow up Alcohol abuse No signs of tremors appreciated Multivitamin 1 tab PO daily Folic acid 1 mg PO daily Thiamine 100mg PO daily Cessation strongly advised Folate 3.8 Vit B12 291 Tobacco abuse Nicotine patch daily while remains in hospital Cessation strongly advised patient is smoker about 50 years He is aware of the risk of smoking including poor wound healing, aging, worsening of lung disease, and increase cancer risk Prophylactic measures Eliquis Protonix for GI PPX PT/OT reconsulted Dispo: patient wants to be discharged home, does not want rehab Case will be discussed with attending, Dr. Howard
[2019-02-26] MEDS: HYDROmorphone 1 mg/ml ISec IVP PRN ×3 (09:44→18:10)
[2019-02-26 09:52] LABS: BANDS 1 % (0-2); BASOPHIL 1 % (0-2); EOSINOPHIL 1 % (0-4); LYMPHOCYTE 5 % (20-40); MONOCYTE 10 % (0-10); NEUTROPHIL 82 % (50-75); PLATELET ESTIMATE DECREASED (NORMAL); TOTAL CELLS COUNTED 100
[2019-02-26 09:53] LABS: ANISOCYTOSIS SLIGHT; HYPOCHROMIC SLIGHT; POIKILOCYTOSIS SLIGHT
--- NOTE | 2019-02-26 10:21 | CP.PCM.PN ---
Subjective - Date & Time of Evaluation Date of Evaluation: 02/26/19 Time of Evaluation: 10:19 - Subjective Subjective: Pt examined chart reviewed. A Post op urinary retention. Suggest Leave herrera.continue flomax. Give voiding triual in 1 to two weeks. Julia Objective - Vital Signs/Intake and Output Vital Signs (last 24 hours): Temp Pulse Resp BP Pulse Ox 98.5 F 83 20 150/70 97 02/26/19 07:00 02/26/19 07:00 02/26/19 07:00 02/26/19 07:00 02/26/19 07:00 Intake and Output: 02/26/19 02/26/19 06:59 18:59 Intake Total 200 Output Total 700 Balance -500 - Medications Medications: Current Medications Albuterol Sulfate (Albuterol 0.083% Inhal Tianna (2.5 Mg/3 Ml) Ud) 2.5 mg IH RQ2 PRN PRN Reason: Shortness of Breath Albuterol/Ipratropium (Duoneb 3 Mg/0.5 Mg (3 Ml) Ud) 3 ml INH RQ6 [facility] Last Admin: 02/26/19 01:20 Dose: Not Given Amlodipine Besylate (Norvasc) 10 mg PO DAILY [facility] Last Admin: 02/25/19 10:47 Dose: 10 mg Apixaban (Eliquis) 5 mg PO BID [facility] Last Admin: 02/25/19 18:53 Dose: 5 mg Arformoterol Tartrate (Brovana) 15 mcg INH RQ12@1000,2200 [facility] Artificial Tears (Artificial Tears) 0 ml OU TID PRN PRN Reason: Dry eyes Last Admin: 02/24/19 15:12 Dose: 1 drop Docusate Sodium (Colace) 100 mg PO BID PRN PRN Reason: Constipation Last Admin: 02/25/19 10:47 Dose: 100 mg Folic Acid (Folic Acid) 1 mg PO DAILY [facility] Last Admin: 02/25/19 10:47 Dose: 1 mg Hydralazine HCl (Apresoline) 50 mg PO Q8H [facility] Last Admin: 02/25/19 23:16 Dose: 50 mg Hydromorphone HCl (Dilaudid) 1 mg IVP Q3H PRN PRN Reason: Pain, severe (8-10) Last Admin: 02/26/19 09:44 Dose: 1 mg Piperacillin Sod/Tazobactam Sod (Zosyn 2.25 Gm Iv Premix) 2.25 gm in 50 mls @ 100 mls/hr IVPB Q8H [facility]; Protocol Last Admin: 02/26/19 05:06 Dose: 100 mls/hr Losartan Potassium (Cozaar) 50 mg PO DAILY [facility] Last Admin: 02/25/19 10:47 Dose: 50 mg Multivitamins/Minerals (Therapeutic-M Tab) 1 tab PO 0800 [facility] Last Admin: 02/25/19 10:47 Dose: 1 tab Nicotine (Nicoderm Cq) 1 patch TD DAILY [facility] Last Admin: 02/25/19 10:48 Dose: 1 patch Ondansetron HCl (Zofran Inj) 4 mg IVP Q6H PRN PRN Reason: Nausea/Vomiting Last Admin: 02/24/19 21:41 Dose: 4 mg Oxycodone HCl (Oxycodone Immediate Release Tab) 5 mg PO Q6 PRN PRN Reason: Pain, moderate (4-7) Last Admin: 02/25/19 21:02 Dose: 5 mg Pantoprazole Sodium (Protonix Inj) 40 mg IVP DAILY [facility] Last Admin: 02/25/19 10:50 Dose: 40 mg Sennosides (Senokot Tab) 8.6 mg PO DAILY [facility] Last Admin: 02/25/19 10:47 Dose: 8.6 mg Tamsulosin HCl (Flomax) 0.4 mg PO DAILY [facility] Last Admin: 02/25/19 10:47 Dose: 0.4 mg Thiamine HCl (Vitamin B1 Tab) 100 mg PO DAILY [facility] Last Admin: 02/25/19 10:47 Dose: 100 mg - Labs Labs: 02/26/19 05:47 02/26/19 05:47 PT 18.5 SECONDS (9.7-12.2) H 02/22/19 14:27 INR 1.7 02/22/19 14:27 APTT 73.0 SECONDS (21-34) H 02/22/19 14:27
--- NOTE | 2019-02-26 11:39 | CP.PCM.PN ---
<Barney Urrutia - Last Filed: 02/26/19 13:58> Subjective - Date & Time of Evaluation Date of Evaluation: 02/26/19 Time of Evaluation: 07:55 - Subjective Subjective: Nephro Service Progress Note for Dr. Nic Urrutia DO, IM PGY-3 Patient seen and examined at bedside on the floors. BP better controlled, now off Cardene drip and out of the ICU. Put out approx 2L via herrera in last 24 hrs. Reports improved abdominal pain, having regular BMs (last was early this AM). Leukocytosis improved from 18.2 to 11.9 today, and recent cultures remain negative. Patient denies chest pain, nausea, emesis, diarrhea, focal or global weakness, abdominal swelling, or palpitations. Objective - Vital Signs/Intake and Output Vital Signs (last 24 hours): Temp Pulse Resp BP Pulse Ox 98.5 F 83 20 150/70 97 02/26/19 07:00 02/26/19 07:00 02/26/19 07:00 02/26/19 07:00 02/26/19 07:00 Intake and Output: 02/26/19 02/26/19 06:59 18:59 Intake Total 200 Output Total 700 Balance -500 - Medications Medications: Current Medications Albuterol Sulfate (Albuterol 0.083% Inhal Tianna (2.5 Mg/3 Ml) Ud) 2.5 mg IH RQ2 PRN PRN Reason: Shortness of Breath Albuterol/Ipratropium (Duoneb 3 Mg/0.5 Mg (3 Ml) Ud) 3 ml INH RQ6 [facility] Last Admin: 02/26/19 01:20 Dose: Not Given Amlodipine Besylate (Norvasc) 10 mg PO DAILY [facility] Last Admin: 02/26/19 10:26 Dose: 10 mg Apixaban (Eliquis) 5 mg PO BID [facility] Last Admin: 02/26/19 10:26 Dose: 5 mg Arformoterol Tartrate (Brovana) 15 mcg INH RQ12@1000,2200 [facility] Artificial Tears (Artificial Tears) 0 ml OU TID PRN PRN Reason: Dry eyes Last Admin: 02/24/19 15:12 Dose: 1 drop Docusate Sodium (Colace) 100 mg PO BID PRN PRN Reason: Constipation Last Admin: 02/26/19 10:26 Dose: 100 mg Folic Acid (Folic Acid) 1 mg PO DAILY [facility] Last Admin: 02/26/19 10:26 Dose: 1 mg Hydralazine HCl (Apresoline) 50 mg PO Q8H [facility] Last Admin: 02/26/19 09:00 Dose: 50 mg Hydromorphone HCl (Dilaudid) 1 mg IVP Q3H PRN PRN Reason: Pain, severe (8-10) Last Admin: 02/26/19 09:44 Dose: 1 mg Piperacillin Sod/Tazobactam Sod (Zosyn 2.25 Gm Iv Premix) 2.25 gm in 50 mls @ 100 mls/hr IVPB Q8H [facility]; Protocol Last Admin: 02/26/19 05:06 Dose: 100 mls/hr Losartan Potassium (Cozaar) 50 mg PO DAILY [facility] Last Admin: 02/26/19 10:26 Dose: 50 mg Multivitamins/Minerals (Therapeutic-M Tab) 1 tab PO 0800 [facility] Last Admin: 02/25/19 10:47 Dose: 1 tab Nicotine (Nicoderm Cq) 1 patch TD DAILY [facility] Last Admin: 02/26/19 10:26 Dose: 1 patch Ondansetron HCl (Zofran Inj) 4 mg IVP Q6H PRN PRN Reason: Nausea/Vomiting Last Admin: 02/24/19 21:41 Dose: 4 mg Oxycodone HCl (Oxycodone Immediate Release Tab) 5 mg PO Q6 PRN PRN Reason: Pain, moderate (4-7) Last Admin: 02/25/19 21:02 Dose: 5 mg Pantoprazole Sodium (Protonix Inj) 40 mg IVP DAILY [facility] Last Admin: 02/26/19 10:27 Dose: 40 mg Sennosides (Senokot Tab) 8.6 mg PO DAILY [facility] Last Admin: 02/26/19 10:26 Dose: 8.6 mg Tamsulosin HCl (Flomax) 0.4 mg PO DAILY [facility] Last Admin: 02/26/19 10:26 Dose: 0.4 mg Thiamine HCl (Vitamin B1 Tab) 100 mg PO DAILY [facility] Last Admin: 02/26/19 10:26 Dose: 100 mg - Labs Labs: 02/26/19 05:47 02/26/19 05:47 PT 18.5 SECONDS (9.7-12.2) H 04/22/19 14:27 INR 1.7 02/22/19 14:27 APTT 73.0 SECONDS (21-34) H 02/22/19 14:27 - Additional Findings Additional findings: - Constitutional Appears: Non-toxic, No Acute Distress (uncomfortable but not in acute distress), Chronically Ill - Eye Exam Wearing R eye patch Left eye: EOMI, normal appearance, no icterus or conjunctival injection - ENT Exam ENT Exam: Mucous Membranes Moist - Neck Exam Neck Exam: absent: Lymphadenopathy, Thyromegaly - Respiratory Exam Respiratory Exam: Decreased Breath Sounds (mildly decreased breath sounds in all manzo), Prolonged Expiratory Phase (mildly prolonged expiratory phase consistently). absent: Accessory Muscle Use, Chest Wall Tenderness, Rales, Rhonchi, Wheezes, Respiratory Distress, Stridor - Cardiovascular Exam Cardiovascular Exam: REGULAR RHYTHM, RRR, +S1, +S2. absent: Bradycardia, Tachycardia, Irregular Rhythm, JVD - GI/Abdominal Exam GI & Abdominal Exam: Distended (improved compared to initial presentation), Tenderness (mild tenderness still present with deep palpation, otherwise imrpov). absent: Rigid Additional comments: increased but still sparse bowel sounds appreciated bandages lateral to suprapubic region bilaterally unable to fully palpate abdomen due to pain, but not rigid to palpation - Exam Exam: Herrera in place draining clear-yellow urine - Extremities Exam Extremities Exam: absent: Calf Tenderness, Joint Swelling, Pedal Edema, Tenderness - Neurological Exam awake and alert, follows all commands appropriately minimal movements (spontaneous and on command) due to attempting to limit abdominal pain, but appears grossly neurologically intact - Psychiatric Exam Psychiatric exam: Normal Affect, Normal Mood - Skin Skin Exam: Dry, Intact (except for site of bandaging as documented in abdominal exam), Normal Color, Warm Assessment and Plan - Assessment and Plan (Free Text) Assessment: This is a 68yo AA M with PMH of HTN, AAA, PVD, recurrent venous clotting through anticoagulants (Coumadin & Zarelto), COPD with active tobacco abuse, unclear adverse reaction to heparin, alcohol use disorder, and chronic medication /medical follow-up non-compliance who recently underwent EVAR of AAA with fem- fem bypass and balloon angioplasty of L common illiac. He is now in the ICU post-procedure for management and close monitoring. Nephro was consulted for possible Right renal cortical ischemia. Plan: 1) AAA and right iliac occlusion 2) History of HTN 3) History of COPD 4) Hyponatremia 5) Alcohol abuse 6) Tobacco abuse (25+ pack yr hx) 7) Right Corneal ulcer 8) Urinary retention 9) New leukocytosis 10) ROBERTA - likely TJ -s/p AAA EVAR and L common illiac balloon angioplasty, POD #3 Continue agatroban as per Surgery, switch to Eliquis on d/c as per Eliquis -Cr 1.6 post-op, was 0.8-1.0 at baseline, now 1.6 ROBERTA 2/2 TJ vs vs obstructive uropathy vs questionable right renal cortical ischema on CT imaging vs HTN insult Continues to put out significant urine (~2L in last 24 hours), so non- oliguric, continue flomax Unclear if actual renal ischemia or contrast artifacting, as per Vasc surg good renal flow on arteriogram BP improved, now off Cardene drip, of IVF, continue current regimen -Na 128 today (was 129 for last 2 days) ddx: SIADH given recent surgery vs 2/2 renal obstruction (required herrera replacement due to failed voiding trials) vs 2/2 fluid resuscitation with LR asymptomatic at this time, no acute intervention indicated currently off IVF, recommend oral fluid restriction 1.5L daily continue to monitor -Improving leukocytosis, procal positive at 0.98 Blood/Urine cultures negative at 48 hrs Empirically on Zosyn q6 as per primary team -Urinary obstruction Herrera in place, still actively draining, put out ~2L in 24hrs Recommend repeat voiding trial today (failed initial trial in the ICU), patient amenable Case reviewed and discussed with attending, Dr. Lucero. <Zaire Lucero - Last Filed: 02/27/19 07:27> Objective - Vital Signs/Intake and Output Vital Signs (last 24 hours): Temp Pulse Resp BP Pulse Ox 98.5 F 80 20 141/78 95 02/26/19 23:11 02/26/19 23:11 02/26/19 23:11 02/26/19 23:11 02/26/19 23:11 Intake and Output: 02/27/19 02/27/19 06:59 18:59 Output Total 550 Balance -550 - Medications Medications: Current Medications Albuterol Sulfate (Albuterol 0.083% Inhal Tianna (2.5 Mg/3 Ml) Ud) 2.5 mg IH RQ2 PRN PRN Reason: Shortness of Breath Albuterol/Ipratropium (Duoneb 3 Mg/0.5 Mg (3 Ml) Ud) 3 ml INH RQ6 [facility] Last Admin: 02/27/19 01:13 Dose: Not Given Amlodipine Besylate (Norvasc) 10 mg PO DAILY [facility] Last Admin: 02/26/19 10:26 Dose: 10 mg Apixaban (Eliquis) 5 mg PO BID [facility] Last Admin: 02/26/19 18:10 Dose: 5 mg Arformoterol Tartrate (Brovana) 15 mcg INH RQ12@1000,2200 [facility] Last Admin: 02/26/19 21:57 Dose: Not Given Artificial Tears (Artificial Tears) 0 ml OU TID PRN PRN Reason: Dry eyes Last Admin: 02/24/19 15:12 Dose: 1 drop Docusate Sodium (Colace) 100 mg PO BID PRN PRN Reason: Constipation Last Admin: 02/26/19 10:26 Dose: 100 mg Folic Acid (Folic Acid) 1 mg PO DAILY [facility] Last Admin: 02/26/19 10:26 Dose: 1 mg Hydralazine HCl (Apresoline) 50 mg PO Q8H [facility] Last Admin: 02/27/19 00:12 Dose: 50 mg Hydromorphone HCl (Dilaudid) 1 mg IVP Q3H PRN PRN Reason: Pain, severe (8-10) Last Admin: 02/26/19 18:10 Dose: 1 mg Hydromorphone HCl (Dilaudid) 0.5 mg IVP Q3H PRN PRN Reason: Pain, moderate (4-7) Piperacillin Sod/Tazobactam Sod (Zosyn 2.25 Gm Iv Premix) 2.25 gm in 50 mls @ 100 mls/hr IVPB Q8H [facility]; Protocol Last Admin: 02/27/19 06:15 Dose: 100 mls/hr Losartan Potassium (Cozaar) 50 mg PO DAILY [facility] Last Admin: 02/26/19 10:26 Dose: 50 mg Multivitamins/Minerals (Therapeutic-M Tab) 1 tab PO 0800 [facility] Last Admin: 02/26/19 09:30 Dose: 1 tab Nicotine (Nicoderm Cq) 1 patch TD DAILY [facility] Last Admin: 02/26/19 10:26 Dose: 1 patch Ondansetron HCl (Zofran Inj) 4 mg IVP Q6H PRN PRN Reason: Nausea/Vomiting Last Admin: 02/24/19 21:41 Dose: 4 mg Oxycodone HCl (Oxycodone Immediate Release Tab) 5 mg PO Q6 PRN PRN Reason: Pain, moderate (4-7) Last Admin: 02/26/19 21:11 Dose: 5 mg Pantoprazole Sodium (Protonix Inj) 40 mg IVP DAILY [facility] Last Admin: 02/26/19 10:27 Dose: 40 mg Sennosides (Senokot Tab) 8.6 mg PO DAILY [facility] Last Admin: 02/26/19 10:26 Dose: 8.6 mg Tamsulosin HCl (Flomax) 0.4 mg PO DAILY [facility] Last Admin: 02/26/19 10:26 Dose: 0.4 mg Thiamine HCl (Vitamin B1 Tab) 100 mg PO DAILY [facility] Last Admin: 02/26/19 10:26 Dose: 100 mg - Labs Labs: 02/26/19 05:47 02/26/19 05:47 PT 18.5 SECONDS (9.7-12.2) H 02/22/19 14:27 INR 1.7 02/22/19 14:27 APTT 73.0 SECONDS (21-34) H 02/22/19 14:27 Attending/Attestation - Attestation I have personally seen and examined this patient.: Yes I have fully participated in the care of the patient.: Yes I have reviewed all pertinent clinical information, including history, physical exam and plan: Yes Notes (Text): Patient seen and examined; I agree with the resident's note as above with the following additions/edits: Patient with mild increase in serum creatinine s/p EVAR procedure, non-oliguric renal failure consistent with mild ATN; relatively stable renal function though still not yet at baseline; stable lytes and volume status; will continue to monitor; BP much better controlled, continue current PO meds; Urinary retention; will recommend giving voiding trial as prostate doesn't seem overly enlarged and retention may simply have been related to anesthesia; can obtain bladder US to check post-void residual volume after herrera discontinued, if elevated, can re-insert herrera; continue flomax for now; Mild but persistent hyponatremia; consistent with SIADH as urine osm is elevated and there is no evidence of volume depletion; needs to be on 1.5L PO fluid restriction daily.
[2019-02-26 12:42] LABS: OSMOLALITY,URINE 447 mosm/kg (300-1000)
[2019-02-26] MEDS ORDERED: HYDROmorphone 0.5 mg/0.5 ml ISec IVP PRN (13:10)
[2019-02-26] MEDS: oxyCODONE 5 mg Immediate Release Tab PO PRN (21:11)
[2019-02-26] MEDS: Arformoterol 15 mcg/2 ml Inh Sol INH SCH (21:57)
[2019-02-27] MEDS: Albuterol-Ipratrop 3 mg / 0.5 (3 ml) UD INH SCH ×3 (01:13→13:02)
[2019-02-27] MEDS: Piperacill/Tazo 2.25gm in Dex 2.25 GM/50 ML BAG IVPB SCH (06:15)
[2019-02-27 07:50] LABS: BASO % 0.3 % (0.0-2.0); EOS # 0.2 K/uL (0.0-0.7); EOS % 2.6 % (0.0-4.0); HEMOGLOBIN 9.3 g/dL (12.0-18.0); LYMPH # 0.8 K/uL (1.0-4.3); MEAN CELL VOLUME 84.5 fL (80.0-94.0); MEAN CORPUSCULAR HEMOGLOBIN 28.4 pg (27.0-31.0); MEAN CORPUSCULAR HGB CONC 33.6 g/dL (33.0-37.0); MONO # 1.4 K/uL (0.0-0.8); MONO % 14.5 % (0.0-10.0); NEUT # 6.9 K/uL (1.8-7.0); NEUT % 73.6 % (50.0-75.0); PLATELET COUNT 151 K/uL (130-400); RBC 3.27 Mil/uL (4.40-5.90); RED CELL DISTRIBUTION WIDTH 17.9 % (11.5-14.5); WHITE BLOOD COUNT 9.4 K/uL (4.8-10.8)
[2019-02-27 08:25] LABS: ALBUMIN 3.3 g/dL (3.5-5.0); CALCIUM 8.8 mg/dl (8.6-10.4)
[2019-02-27] MEDS: oxyCODONE 5 mg Immediate Release Tab PO PRN (08:25)
[2019-02-27 08:36] VITALS: BP 148/77; PULSE 88; TEMP 98.8; O2SAT 97
--- NOTE | 2019-02-27 09:43 | CP.PCM.PN ---
<Remedios Velazquez - Last Filed: 02/27/19 13:38> Subjective - Date & Time of Evaluation Date of Evaluation: 02/27/19 Time of Evaluation: 09:41 - Subjective Subjective: Progress note for hospitalists (covering for Dr. Bradford) Pt seen and examined at bedside. No acute events overnight. pt is resting comfortably. Herrera in place draining yellow urine. Denies having any Sp, SOB, abd pain, N/V/D/C, F/C. Objective - Vital Signs/Intake and Output Vital Signs (last 24 hours): Temp Pulse Resp BP Pulse Ox 98.8 F 88 20 148/77 97 02/27/19 07:00 02/27/19 07:00 02/27/19 07:00 02/27/19 07:00 02/27/19 07:00 Intake and Output: 02/27/19 02/27/19 06:59 18:59 Output Total 550 Balance -550 - Medications Medications: Current Medications Albuterol Sulfate (Albuterol 0.083% Inhal Tianna (2.5 Mg/3 Ml) Ud) 2.5 mg IH RQ2 PRN PRN Reason: Shortness of Breath Albuterol/Ipratropium (Duoneb 3 Mg/0.5 Mg (3 Ml) Ud) 3 ml INH RQ6 [facility] Last Admin: 02/27/19 08:06 Dose: Not Given Amlodipine Besylate (Norvasc) 10 mg PO DAILY [facility] Last Admin: 02/26/19 10:26 Dose: 10 mg Apixaban (Eliquis) 5 mg PO BID [facility] Last Admin: 02/26/19 18:10 Dose: 5 mg Arformoterol Tartrate (Brovana) 15 mcg INH RQ12@1000,2200 [facility] Last Admin: 02/26/19 21:57 Dose: Not Given Artificial Tears (Artificial Tears) 0 ml OU TID PRN PRN Reason: Dry eyes Last Admin: 02/24/19 15:12 Dose: 1 drop Docusate Sodium (Colace) 100 mg PO BID PRN PRN Reason: Constipation Last Admin: 02/26/19 10:26 Dose: 100 mg Folic Acid (Folic Acid) 1 mg PO DAILY [facility] Last Admin: 02/26/19 10:26 Dose: 1 mg Hydralazine HCl (Apresoline) 50 mg PO Q8H [facility] Last Admin: 02/27/19 00:12 Dose: 50 mg Hydromorphone HCl (Dilaudid) 1 mg IVP Q3H PRN PRN Reason: Pain, severe (8-10) Last Admin: 02/26/19 18:10 Dose: 1 mg Hydromorphone HCl (Dilaudid) 0.5 mg IVP Q3H PRN PRN Reason: Pain, moderate (4-7) Piperacillin Sod/Tazobactam Sod (Zosyn 2.25 Gm Iv Premix) 2.25 gm in 50 mls @ 100 mls/hr IVPB Q8H [facility]; Protocol Last Admin: 02/27/19 06:15 Dose: 100 mls/hr Losartan Potassium (Cozaar) 50 mg PO DAILY [facility] Last Admin: 02/26/19 10:26 Dose: 50 mg Multivitamins/Minerals (Therapeutic-M Tab) 1 tab PO 0800 [facility] Last Admin: 02/26/19 09:30 Dose: 1 tab Nicotine (Nicoderm Cq) 1 patch TD DAILY [facility] Last Admin: 02/26/19 10:26 Dose: 1 patch Ondansetron HCl (Zofran Inj) 4 mg IVP Q6H PRN PRN Reason: Nausea/Vomiting Last Admin: 02/24/19 21:41 Dose: 4 mg Oxycodone HCl (Oxycodone Immediate Release Tab) 5 mg PO Q6 PRN PRN Reason: Pain, moderate (4-7) Last Admin: 02/27/19 08:25 Dose: 5 mg Pantoprazole Sodium (Protonix Inj) 40 mg IVP DAILY [facility] Last Admin: 02/26/19 10:27 Dose: 40 mg Sennosides (Senokot Tab) 8.6 mg PO DAILY [facility] Last Admin: 02/26/19 10:26 Dose: 8.6 mg Tamsulosin HCl (Flomax) 0.4 mg PO DAILY [facility] Last Admin: 02/26/19 10:26 Dose: 0.4 mg Thiamine HCl (Vitamin B1 Tab) 100 mg PO DAILY [facility] Last Admin: 02/26/19 10:26 Dose: 100 mg - Labs Labs: 02/27/19 07:16 02/27/19 07:16 PT 18.5 SECONDS (9.7-12.2) H 02/22/19 14:27 INR 1.7 02/22/19 14:27 APTT 73.0 SECONDS (21-34) H 02/22/19 14:27 - Constitutional Appears: Non-toxic, No Acute Distress - Head Exam Head Exam: ATRAUMATIC, NORMOCEPHALIC - ENT Exam ENT Exam: Mucous Membranes Moist - Respiratory Exam Respiratory Exam: Clear to Ausculation Bilateral. absent: Rales, Rhonchi, Wheezes - Cardiovascular Exam Cardiovascular Exam: REGULAR RHYTHM, +S1, +S2. absent: Gallop, Rubs, Murmur - GI/Abdominal Exam GI & Abdominal Exam: Soft, Normal Bowel Sounds. absent: Distended, Firm, Guarding, Rigid, Tenderness, Organomegaly - Extremities Exam Extremities Exam: absent: Pedal Edema, Tenderness - Neurological Exam Neurological Exam: Alert, Awake, Oriented x3 - Psychiatric Exam Psychiatric exam: Normal Affect, Normal Mood - Skin Skin Exam: Dry, Intact, Normal Color, Warm Assessment and Plan - Assessment and Plan (Free Text) Assessment: AAA and right iliac occlusion s/p EVAR with fem-fem bypass, balloon angioplasty of Left common iliac artery POD #4 Admitted under vascular surgery, Dr. Brambila preop/intraop/postoperative per vascular surgery pain management per surgery heme-onc consult Herrera still in place History of HTN Amlodipine 10mg daily Cozaar 50mg Po daily Hydralazine 50mg PO q8H IV fluids D/Mann History of COPD Duoneb 3ml Q6hr PRn shortness of breathe Brovana 12mcg Q12hr Note on hospital formulary we do not carry Breo Patient noted noncompliance with inhalers at home Patient is not on home oxygen Patient is an active smoker advised to stop smoking Hyponatremia Na 128 Nephrology on board. Recommend fluid restriction to 1.5 L PO Leukocytosis patient is on renal dose of Zosyn (02/24/19) Blood culture (02/24/19): no growth for 24 hours X2 Urine culture: no growth lactic acid 1.1 (02/24/19) elevated Procal this am may be 2/2 ROBERTA Will discharge pt on Bactrim 1 gm PO BID x 5 days ROBERTA may be 2/2 ATN vs. obstruction vs. artheroembolic event Cr at baseline around 1.0 1650 cc urine output Nephrology, Dr. Lucero consulted Urology consulted for possible urinary retention. recommend keeping herrera in place for 1-2 weeks and then trying voiding trial Recurrent venous clotting IVC filter in place (2003) Heme/onc consulted. Pt switched from Argotroban to Eliquis Thrombocytopenia Resolved Heme/onc consulted. Likely 2/2 surgery Right Corneal ulcer Initially evaluated by ophthomology in Dec 2018, Patient did not followup with [facility] after his initial evaluation at [place]. Wears right eye patch Atypical moles Given patient's extensive tobacco use history patient has an increased risk of malignancy Recommended outpatient follow up Alcohol abuse No signs of tremors appreciated Multivitamin 1 tab PO daily Folic acid 1 mg PO daily Thiamine 100mg PO daily Cessation strongly advised Folate 3.8 Vit B12 291 Tobacco abuse Nicotine patch daily while remains in hospital Cessation strongly advised patient is smoker about 50 years He is aware of the risk of smoking including poor wound healing, aging, worsening of lung disease, and increase cancer risk Prophylactic measures Eliquis Protonix for GI PPX PT/OT reconsulted Case will be discussed with attending, Dr. oHward Upon discharge, pt is to follow up with urologist, Dr. Dumont in 1 week. Patient is to follow up with insole and outsole splitter, Dr. Lucero in 1 week. Patient is to follow up with surgeon, Dr. Brambila in 1 week. Patient is to follow up with PMD upon discharge. Patient is being discharged with Bactrim 1 gm po BID x 5 days, Eliquis 5 mg po BID, Hydralazine 50 mg po Q8, Cozaar 25 mg po QD, Flomax 0.4 mg po QD and Norvasc 10 mg po qd. <Ami Howard V - Last Filed: 02/27/19 17:59> Objective - Vital Signs/Intake and Output Vital Signs (last 24 hours): Temp Pulse Resp BP Pulse Ox 98.8 F 88 20 148/77 97 02/27/19 07:00 02/27/19 07:00 02/27/19 07:00 02/27/19 07:00 02/27/19 07:00 Intake and Output: 02/27/19 02/27/19 06:59 18:59 Output Total 550 Balance -550 - Labs Labs: 02/27/19 07:16 02/27/19 07:16 PT 18.5 SECONDS (9.7-12.2) H 02/22/19 14:27 INR 1.7 02/22/19 14:27 APTT 73.0 SECONDS (21-34) H 02/22/19 14:27 Attending/Attestation - Attestation I have personally seen and examined this patient.: Yes I have fully participated in the care of the patient.: Yes I have reviewed all pertinent clinical information, including history, physical exam and plan: Yes
[2019-02-27] MEDS: Arformoterol 15 mcg/2 ml Inh Sol INH SCH (10:02)
[2019-02-27] MEDS: Multivitamin With Minerals Tab PO SCH (10:02)
--- NOTE | 2019-02-27 10:51 | CP.PCM.PN ---
Subjective - Date & Time of Evaluation Date of Evaluation: 02/27/19 Time of Evaluation: 10:46 - Subjective Subjective: dc home flomax fu office discussed with Objective - Vital Signs/Intake and Output Vital Signs (last 24 hours): Temp Pulse Resp BP Pulse Ox 98.8 F 88 20 148/77 97 02/27/19 07:00 02/27/19 07:00 02/27/19 07:00 02/27/19 07:00 02/27/19 07:00 Intake and Output: 02/27/19 02/27/19 06:59 18:59 Output Total 550 Balance -550 - Medications Medications: Current Medications Albuterol Sulfate (Albuterol 0.083% Inhal Tianna (2.5 Mg/3 Ml) Ud) 2.5 mg IH RQ2 PRN PRN Reason: Shortness of Breath Albuterol/Ipratropium (Duoneb 3 Mg/0.5 Mg (3 Ml) Ud) 3 ml INH RQ6 [facility] Last Admin: 02/27/19 08:06 Dose: Not Given Amlodipine Besylate (Norvasc) 10 mg PO DAILY [facility] Last Admin: 02/27/19 10:03 Dose: 10 mg Apixaban (Eliquis) 5 mg PO BID [facility] Last Admin: 02/27/19 10:03 Dose: 5 mg Arformoterol Tartrate (Brovana) 15 mcg INH RQ12@1000,2200 [facility] Last Admin: 02/26/19 21:57 Dose: Not Given Artificial Tears (Artificial Tears) 0 ml OU TID PRN PRN Reason: Dry eyes Last Admin: 02/24/19 15:12 Dose: 1 drop Docusate Sodium (Colace) 100 mg PO BID PRN PRN Reason: Constipation Last Admin: 02/26/19 10:26 Dose: 100 mg Folic Acid (Folic Acid) 1 mg PO DAILY [facility] Last Admin: 02/27/19 10:03 Dose: 1 mg Hydralazine HCl (Apresoline) 50 mg PO Q8H [facility] Last Admin: 02/27/19 10:02 Dose: 50 mg Hydromorphone HCl (Dilaudid) 1 mg IVP Q3H PRN PRN Reason: Pain, severe (8-10) Last Admin: 02/26/19 18:10 Dose: 1 mg Hydromorphone HCl (Dilaudid) 0.5 mg IVP Q3H PRN PRN Reason: Pain, moderate (4-7) Piperacillin Sod/Tazobactam Sod (Zosyn 2.25 Gm Iv Premix) 2.25 gm in 50 mls @ 100 mls/hr IVPB Q8H [facility]; Protocol Last Admin: 02/27/19 06:15 Dose: 100 mls/hr Vancomycin/Sodium Chloride (Vancomycin 1 Gm/Ns 200 Ml) 1 gm in 200 mls @ 166.7 mls/hr IVPB Q24H [facility]; Protocol Stop: 03/04/19 11:01 Losartan Potassium (Cozaar) 50 mg PO DAILY [facility] Last Admin: 02/27/19 10:03 Dose: 50 mg Multivitamins/Minerals (Therapeutic-M Tab) 1 tab PO 0800 [facility] Last Admin: 02/27/19 10:02 Dose: 1 tab Nicotine (Nicoderm Cq) 1 patch TD DAILY [facility] Last Admin: 02/27/19 10:37 Dose: Not Given Ondansetron HCl (Zofran Inj) 4 mg IVP Q6H PRN PRN Reason: Nausea/Vomiting Last Admin: 02/24/19 21:41 Dose: 4 mg Oxycodone HCl (Oxycodone Immediate Release Tab) 5 mg PO Q6 PRN PRN Reason: Pain, moderate (4-7) Last Admin: 02/27/19 08:25 Dose: 5 mg Pantoprazole Sodium (Protonix Inj) 40 mg IVP DAILY [facility] Last Admin: 02/27/19 10:03 Dose: 40 mg Sennosides (Senokot Tab) 8.6 mg PO DAILY [facility] Last Admin: 02/27/19 10:03 Dose: 8.6 mg Tamsulosin HCl (Flomax) 0.4 mg PO DAILY [facility] Last Admin: 02/27/19 10:02 Dose: 0.4 mg Thiamine HCl (Vitamin B1 Tab) 100 mg PO DAILY [facility] Last Admin: 02/27/19 10:03 Dose: 100 mg - Labs Labs: 02/27/19 07:16 02/27/19 07:16 PT 18.5 SECONDS (9.7-12.2) H 02/22/19 14:27 INR 1.7 02/22/19 14:27 APTT 73.0 SECONDS (21-34) H 02/22/19 14:27
[2019-02-27] MEDS ORDERED: Vancomycin 1 gm/NS 200 ml 1 GM/200 ML BAG IVPB SCH (11:00)
[2019-02-27 11:10] LABS: EOSINOPHIL 2 % (0-4); LYMPHOCYTE 6 % (20-40); MONOCYTE 6 % (0-10); NEUTROPHIL 86 % (50-75); PLATELET ESTIMATE NORMAL (NORMAL); TOTAL CELLS COUNTED 100
[2019-02-27 11:15] LABS: HYPOCHROMIC SLIGHT
[2019-02-27 11:16] LABS: LARGE PLATELETS PRESENT; POLYCHROMIC SLIGHT; TARGET CELLS SLIGHT
[2019-02-27 11:18] LABS: POIKILOCYTOSIS SLIGHT; SCHISTOCYTES SLIGHT; SPHEROCYTES SLIGHT
[2019-02-27 11:19] LABS: ANISOCYTOSIS MODERATE; TOXIC GRANULATION PRESENT
[2019-02-27] MEDS ORDERED: Heparin 0 ML IV ONE (11:29)
--- NOTE | 2019-02-27 22:46 | CP.PCM.PN ---
Subjective - Date & Time of Evaluation Date of Evaluation: 02/25/19 Time of Evaluation: 12:00 - Subjective Subjective: Feeling better Objective - Vital Signs/Intake and Output Vital Signs (last 24 hours): Temp Pulse Resp BP Pulse Ox 98.8 F 88 20 148/77 97 02/27/19 07:00 02/27/19 07:00 02/27/19 07:00 02/27/19 07:00 02/27/19 07:00 - Labs Labs: 02/27/19 07:16 02/27/19 07:16 PT 18.5 SECONDS (9.7-12.2) H 02/22/19 14:27 INR 1.7 02/22/19 14:27 APTT 73.0 SECONDS (21-34) H 02/22/19 14:27 - Head Exam Head Exam: ATRAUMATIC - Eye Exam Eye Exam: Normal appearance - ENT Exam ENT Exam: Mucous Membranes Dry - Respiratory Exam Respiratory Exam: NORMAL BREATHING PATTERN - Cardiovascular Exam Cardiovascular Exam: +S1, +S2 - GI/Abdominal Exam GI & Abdominal Exam: Normal Bowel Sounds Assessment and Plan (1) Thrombocytopenia Assessment & Plan: improving Status: Acute (2) Anemia Assessment & Plan: mild surgical blood loss Status: Acute (3) Coagulopathy Assessment & Plan: anticoagulation Status: Acute (4) Heparin allergy Assessment & Plan: recurrent venous clotting, requires 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
--- NOTE | 2019-02-27 22:47 | CP.PCM.PN ---
Subjective - Date & Time of Evaluation Date of Evaluation: 02/26/19 Time of Evaluation: 12:00 - Subjective Subjective: Feeling better Objective - Vital Signs/Intake and Output Vital Signs (last 24 hours): Temp Pulse Resp BP Pulse Ox 98.8 F 88 20 148/77 97 02/27/19 07:00 02/27/19 07:00 02/27/19 07:00 02/27/19 07:00 02/27/19 07:00 - Labs Labs: 02/27/19 07:16 02/27/19 07:16 PT 18.5 SECONDS (9.7-12.2) H 02/22/19 14:27 INR 1.7 02/22/19 14:27 APTT 73.0 SECONDS (21-34) H 02/22/19 14:27 - Head Exam Head Exam: ATRAUMATIC - Eye Exam Eye Exam: Normal appearance - ENT Exam ENT Exam: Mucous Membranes Dry - Respiratory Exam Respiratory Exam: NORMAL BREATHING PATTERN - Cardiovascular Exam Cardiovascular Exam: +S1, +S2 - GI/Abdominal Exam GI & Abdominal Exam: Normal Bowel Sounds Assessment and Plan (1) Thrombocytopenia Assessment & Plan: improving Status: Acute (2) Anemia Assessment & Plan: surgical blood loss stable Status: Acute (3) Coagulopathy Assessment & Plan: anticoagulation Status: Acute (4) Heparin allergy Assessment & Plan: recurrent venous clotting, requires lifelong anticoagulation 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
--- NOTE | 2019-02-27 22:48 | CP.PCM.PN ---
Subjective - Date & Time of Evaluation Date of Evaluation: 02/27/19 Time of Evaluation: 10:00 - Subjective Subjective: No complaints. Objective - Vital Signs/Intake and Output Vital Signs (last 24 hours): Temp Pulse Resp BP Pulse Ox 98.8 F 88 20 148/77 97 02/27/19 07:00 02/27/19 07:00 02/27/19 07:00 02/27/19 07:00 02/27/19 07:00 - Labs Labs: 02/27/19 07:16 02/27/19 07:16 PT 18.5 SECONDS (9.7-12.2) H 02/22/19 14:27 INR 1.7 02/22/19 14:27 APTT 73.0 SECONDS (21-34) H 02/22/19 14:27 - Head Exam Head Exam: ATRAUMATIC - Eye Exam Eye Exam: Normal appearance - ENT Exam ENT Exam: Mucous Membranes Dry - Respiratory Exam Respiratory Exam: NORMAL BREATHING PATTERN - Cardiovascular Exam Cardiovascular Exam: +S1, +S2 - GI/Abdominal Exam GI & Abdominal Exam: Normal Bowel Sounds Assessment and Plan (1) Anemia Assessment & Plan: stable Status: Acute (2) Coagulopathy Assessment & Plan: anticoagulation Status: Acute (3) Heparin allergy Assessment & Plan: recurrent venous clotting, 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
== END 2019-02-27 14:41 | disposition home or self-care (01) | DRG 268 ==
LOC: C.9S 06:47 → C.9I 14:05 → C.6T 02-26 06:14
PROVIDERS: ADMIT Surgery Vascular Surgery; ATTEND Surgery Vascular Surgery
PROC: 041L0JH Bypass Left Femoral Artery to Right Femoral Artery with Synthetic Substitute, Open Approach (ICD-10-PCS; 2019-02-22)
PROC: 047J3DZ Dilation of Left External Iliac Artery with Intraluminal Device, Percutaneous Approach (ICD-10-PCS; 2019-02-22)
PROC: 047F3DZ Dilation of Left Internal Iliac Artery with Intraluminal Device, Percutaneous Approach (ICD-10-PCS; 2019-02-22)
PROC: 04V03DZ Restriction of Abdominal Aorta with Intraluminal Device, Percutaneous Approach (ICD-10-PCS; principal; 2019-02-22 07:45)
DX: I71.4 Abdominal aortic aneurysm, without rupture (principal); I74.5 Embolism and thrombosis of iliac artery; N17.0 Acute kidney failure with tubular necrosis; E22.2 Syndrome of inappropriate secretion of antidiuretic hormone; D68.9 Coagulation defect, unspecified; D62 Acute posthemorrhagic anemia; I73.9 Peripheral vascular disease, unspecified; I16.0 Hypertensive urgency; J44.9 Chronic obstructive pulmonary disease, unspecified; D69.6 Thrombocytopenia, unspecified; D72.829 Elevated white blood cell count, unspecified; N14.1 Nephropathy induced by other drugs, medicaments and biological substances; G89.18 Other acute postprocedural pain; T50.8X5A Adverse effect of diagnostic agents, initial encounter; I10 Essential (primary) hypertension; M19.90 Unspecified osteoarthritis, unspecified site; Z96.642 Presence of left artificial hip joint; F17.210 Nicotine dependence, cigarettes, uncomplicated; F10.10 Alcohol abuse, uncomplicated; H16.001 Unspecified corneal ulcer, right eye; Z86.718 Personal history of other venous thrombosis and embolism; Z95.828 Presence of other vascular implants and grafts; Z79.01 Long term (current) use of anticoagulants; Z91.14 Patient's other noncompliance with medication regimen; Z91.19 Patient's noncompliance with other medical treatment and regimen; Z79.899 Other long term (current) drug therapy; Z88.8 Allergy status to other drugs, medicaments and biological substances

== ENCOUNTER 2019-03-19 09:30 | Inpatient (IN) | payer MEDICARE ==
[2019-03-19 09:30] VITALS: BMI 19.9
--- NOTE | 2019-03-19 11:18 | C.PDOC ---
History Of Present Illness Patient is a 68 year old male, with a PMHx of abdominal aortic aneurysm with surgery at [facility], HTN, PVD, DVT, rolling veins, and a stent in his leg, who presents to the ED with his for evaluation of weakness, lower abdominal pa in around surgical scar, and inability to keep down PO intake since his abdominal surgery. Patient has a catheter in place and is peeing around it with initial urine purulent in the ED. Patient states that when he eats he gets very nauseous and has lost 20 pounds over the last month. He also admits to chills and states that he has been unable to leave his home due to weakness and has been unable to follow up with his surgeon . His meghana were due to come out prior. He denies any fever, constipation, or headache. Patient is on Eliquis. PMD Time Seen by Provider: 03/19/19 10:10 Chief Complaint (Nursing): Abdominal Pain History Per: Patient, Family History/Exam Limitations: no limitations Quality Of Discomfort: "Pain" Associated Symptoms: Chills, Nausea, Vomiting. denies: Fever, Diarrhea, Constipation Recent travel outside of the [place]: No Additional History Per: Patient, Family Past Medical History Reviewed: Historical Data, Nursing Documentation, Vital Signs Vital Signs: Last Vital Signs Temp 97.8 F 03/19/19 09:37 Pulse 79 03/19/19 09:37 Resp 18 03/19/19 09:37 BP 179/105 H 03/19/19 09:37 Pulse Ox 100 03/19/19 09:37 Primary Care Provider: Abrahan Bradford - Medical History PMH: Arthritis, COPD (Not on any meds), Deep Vein Thrombosis, HTN, Pulmonary Embolism Denies: Alzheimer's Disease, Anemia, Anxiety, Asthma, Atrial Fibrillation, Bipolar Disorder, Bronchitis, Cardia Arrhythmia, CHF, Crohn's Disease, Dementia, Depression, Diverticulitis, Emphysema, Fractures, Gastritis, Gall Bladder Disease, HIV, Hypercholesterolemia, Hyperthyroidism, Hypothyroidism, Kidney St ones, Migraine, Mitral Valve Prolapse, Multiple Sclerosis, Osteoporosis, Pancreatitis, Paranoia, Parkinson's Disease, Peripheral Edema, Pneumonia, Post Traumatic Stress Disorder, Chronic Kidney Disease, Rheumatoid Arthritis, Schizophrenia, Seizures, Sickle Cell Disease, Sexually Transmitted Disease, Sleep Apnea, TIA Surgical History: Endoscopy Denies: Appendectomy, CABG, Carotid Endarterectomy, Cholecystectomy, Coronary Stent, Pacemaker, Tonsillectomy - [facility] Procedures BYPASS L FEM ART TO R FEMOR A WITH SYNTH SUB, OPEN APPROACH (02/22/19) DILATION OF L EXT ILIAC ART WITH INTRALUM DEV, PERC APPROACH (02/22/19) DILATION OF L INT ILIAC ART WITH INTRALUM DEV, PERC APPROACH (02/22/19) RESTRICTION OF ABD AORTA WITH INTRALUM DEV, PERC APPROACH (02/22/19) Family History: States: Unknown Family Hx - Social History Hx Tobacco Use: Yes Hx Alcohol Use: Yes Hx Substance Use: Yes (marijuana) - Immunization History Hx Tetanus Toxoid Vaccination: No Hx Influenza Vaccination: Yes Hx Pneumococcal Vaccination: Yes Review Of Systems Constitutional: Positive for: Chills, Weakness. Negative for: Fever Gastrointestinal: Positive for: Nausea, Vomiting, Abdominal Pain (lower abdominal pain around surgical scars) Neurological: Negative for: Headache Physical Exam - Physical Exam Appears: No Acute Distress, Other (cachetic, dehydrated, muscle wasting to temporal region, sunken eyes) Skin: Warm, Dry Head: Atraumatic, Normacephalic Neck: Normal ROM, Supple Chest: Symmetrical, No Deformity Cardiovascular: Rhythm Regular Respiratory: Normal Breath Sounds, No Rales, No Rhonchi, No Wheezing Gastrointestinal/Abdominal: Soft, Tenderness (diffuse discomfort), Other (meghana to bilateral groins, scaphoid abdomen ) Neurological/Psych: Oriented x3, Other (awake and alert) ED Course And Treatment - Laboratory Results Result Diagrams: 03/19/19 11:57 O2 Sat by Pulse Oximetry: 100 (on RA ) Pulse Ox Interpretation: Normal Medical Decision Making Medical Decision Making: Plan: UA EKG Labs Urine Culture Obstructive Series IV Fluids Toradol 30mg IVP at bedside removed meghana. Will admit to Dr. Bradford. Disposition Discussed With : Abrahan Bradford - Disposition Disposition: HOSPITALIZED Disposition Time: 12:51 Condition: GUARDED Instructions: Weakness (ED) Forms: [facility] (Korean) - POA Present On Arrival: None - Clinical Impression Clinical Impression: Weight loss, Weakness - Scribe Statement The provider has reviewed the documentation as recorded by the Aldo Beyer All medical record entries made by the Scribтатьяна were at my direction and personally dictated by me. I have reviewed the chart and agree that the record accurately reflects my personal performance of the history, physical exam, medical decision making, and the department course for this patient. I have also personally directed, reviewed, and agree with the discharge instructions and disposition. Decision To Admit - Pt Status Changed To: Hospital Disposition Of: Observation - . Bed Request Type: Regular Admitting Physician: Abrahan Bradford Patient Diagnosis: Weight loss, Weakness
[2019-03-19] MEDS ORDERED: Sodium Chloride 0.9% 1,000 ML IV ONE (11:40)
[2019-03-19 12:01] LABS: BASO # 0.1 K/uL (0.0-0.2); BASO % 1.2 % (0.0-2.0); EOS # 0.1 K/uL (0.0-0.7); EOS % 1.4 % (0.0-4.0); LYMPH % 12.3 % (20.0-40.0); MEAN CORPUSCULAR HEMOGLOBIN 27.1 pg (27.0-31.0); MEAN CORPUSCULAR HGB CONC 32.9 g/dL (33.0-37.0); MONO # 0.9 K/uL (0.0-0.8); MONO % 10.9 % (0.0-10.0); NEUT # 6.2 K/uL (1.8-7.0); NEUT % 74.2 % (50.0-75.0); NRBC % 0.1 % (0.0-2.0); RBC 5.37 Mil/uL (4.40-5.90); RED CELL DISTRIBUTION WIDTH 18.5 % (11.5-14.5); WHITE BLOOD COUNT 8.3 K/uL (4.8-10.8)
[2019-03-19 12:02] LABS: HEMOGLOBIN 14.5 g/dL (12.0-18.0); MEAN CELL VOLUME 82.4 fL (80.0-94.0)
[2019-03-19] MEDS ORDERED: Sodium Chloride 0.9% 1,000 ML ONE (12:04)
[2019-03-19 12:10] LABS: URINE BACTERIA MANY (<OCC); URINE BILIRUBIN NEGATIVE (NEGATIVE); URINE BLOOD 3+ (NEGATIVE); URINE CLARITY Hazy (Clear); URINE COLOR Amber (YELLOW); URINE GLUCOSE (UA) NORMAL (Normal); URINE LEUKOCYTE ESTERASE 3+ Leu/uL (Negative); URINE PROTEIN 3+ mg/dL (NEGATIVE); WBC CLUMPS OCC /hpf
[2019-03-19 12:28] LABS: BARBITURATES, UR NEGATIVE (NEGATIVE); BENZODIAZEPINES, UR NEGATIVE (NEGATIVE); OPIATES, UR NEGATIVE (NEGATIVE); PHENCYCLIDINE, UR NEGATIVE (NEGATIVE)
--- NOTE | 2019-03-19 13:02 | RAD ---
Date of service: 03/19/2019 PROCEDURE: Radiographs of the chest and abdomen (obstructive series) HISTORY: abd pain COMPARISON: No prior. TECHNIQUE: AP radiograph of the chest, with upright and supine radiographs of the abdomen. 3 views obtained. FINDINGS: CHEST: Lungs: Clear. Cardiovascular: Normal size heart. No pulmonary vascular congestion. No aortic atherosclerotic calcification present Pleura: No pleural fluid. No pneumothorax. Other findings: None. ABDOMEN AND PELVIS: Bowel: Unremarkable bowel gas pattern. No evidence of mechanical obstruction. Free air: None. Bones: Left total hip replacement. Other findings: Aortic stent noted. Inferior vena caval filter noted. IMPRESSION: No evidence of bowel obstruction. Nonacute findings as above.
[2019-03-19 13:34] LABS: ALB/GLOB RATIO 0.9 (1.0-2.1); ALBUMIN 4.1 g/dL (3.5-5.0); ALT/SGPT 8 U/L (21-72); AST/SGOT 28 U/L (17-59); BLOOD UREA NITROGEN 19 mg/dL (9-20); CALCIUM 9.7 mg/dl (8.6-10.4); GFR NON-AFRICAN AMERICAN 55; LIPASE 162 U/L (23-300)
--- NOTE | 2019-03-19 16:07 | CP.PCM.PN ---
Subjective - Date & Time of Evaluation Date of Evaluation: 03/19/19 Time of Evaluation: 16:07 - Subjective Subjective: 68 year old male with a past medical history of aaa (s/p repair 2019), COPD, and hypertension presents to the emergency department with for groin pain for the past couple of days. Of note, patient recently had his AAA repair surgery with Dr. Brambila. Patient had an appointment to have meghana removed today, however the pain was too severe and decided to come to the emergency room instead. Patient was unable to void after surgery and a herrera was placed as a result. Patient also reports fecal incontinence since the surgery. Patient states he feels the urge to urinate and then defecates without noticing it. He denies any perineum anesthesia. Patient denies any pain at this time. Remainder of ROS limited due to patient unwillingness to respond. PMD: [place] PMHx: see above Meds: reviewed in chart Allergies: heparin - rash PSHx: L THR, IVC Filter, AAA repair SHx: (+)tobacco, marijuana; drinks 1 Pint of vodka daily FHx: Mom and Dad Ca, sister CT Objective - Vital Signs/Intake and Output Vital Signs (last 24 hours): Temp Pulse Resp BP Pulse Ox 98.9 F 87 19 189/99 H 96 03/19/19 15:23 03/19/19 15:23 03/19/19 15:23 03/19/19 15:23 03/19/19 15:23 - Medications Medications: Current Medications Amlodipine Besylate (Norvasc) 10 mg PO DAILY BRIANNA Apixaban (Eliquis) 5 mg PO BID BRIANNA Hydralazine HCl (Apresoline) 50 mg PO Q8H BRIANNA Losartan Potassium (Cozaar) 50 mg PO DAILY BRIANNA Megestrol Acetate (Megace) 400 mg PO DAILY BRIANNA Tamsulosin HCl (Flomax) 0.4 mg PO DAILY BRIANNA - Labs Labs: 03/19/19 11:57 03/19/19 13:09 - Head Exam Head Exam: ATRAUMATIC, NORMAL INSPECTION - Eye Exam Eye Exam: EOMI, Normal appearance, PERRL. absent: Periorbital tenderness Pupil Exam: NORMAL ACCOMODATION, PERRL. absent: Irregular, Unequal - ENT Exam ENT Exam: Mucous Membranes Moist, Normal Oropharynx - Respiratory Exam Respiratory Exam: Clear to Ausculation Bilateral, NORMAL BREATHING PATTERN. absent: Prolonged Expiratory Phase, Respiratory Distress - Cardiovascular Exam Cardiovascular Exam: REGULAR RHYTHM, +S1, +S2 - GI/Abdominal Exam GI & Abdominal Exam: Soft, Normal Bowel Sounds. absent: Hyperactive Bowel Sounds - Rectal Exam Additional comments: Deferred rectal exam. - Extremities Exam Extremities Exam: Full ROM, Normal Inspection. absent: Pedal Edema - Back Exam Back Exam: NORMAL INSPECTION. absent: CVA tenderness (R), paraspinal tenderness - Neurological Exam Neurological Exam: Alert, Awake, CN II-XII Intact, Oriented x3 - Psychiatric Exam Psychiatric exam: Normal Affect, Normal Mood. absent: Depressed - Skin Skin Exam: Dry, Intact, Normal Color. absent: Diaphoretic, Pallor Assessment and Plan - Assessment and Plan (Free Text) Plan: HTN Urgency BP: 196/110 in E.d. Given Norvasc 10mg PO and Amlodipine 50mg PO in the E.D. No neurological deficits on exam. AAA and right iliac occlusion s/p EVAR with fem-fem bypass, balloon angioplasty of Left common iliac artery Completed by Dr. Brambila preop/intraop/postoperative per vascular surgery heme-onc consult Herrera removed in Emergency department History of HTN Continue home medications: Amlodipine 10mg daily Cozaar 50mg Po daily Hydralazine 50mg PO q8H History of COPD Duoneb 3ml Q6hr PRn shortness of breathe Patient is an active smoker advised to stop smoking Recurrent venous clotting IVC filter in place (2003) Right Corneal ulcer Initially evaluated by ophthomology in Dec 2018, Patient did not followup with [facility] after his initial evaluation at [place]. Has yet to follow up due to other pressing medical conditions. Alcohol abuse No signs of tremors appreciated Multivitamin 1 tab PO daily Folic acid 1 mg PO daily Thiamine 100mg PO daily Cessation strongly advised Tobacco abuse Nicotine patch daily while remains in hospital Cessation strongly advised patient is smoker about 50 years He is aware of the risk of smoking including poor wound healing, aging, worsening of lung disease, and increase cancer risk Loss of appeptite Start Megace UTI Start Rocephin 1gm IVP DAILY Prophylactic measures Eliquis Protonix for GI PPX PT/OT reconsulted
[2019-03-19] MEDS ORDERED: Albuterol-Ipratrop 3 mg / 0.5 (3 ml) UD INH PRN (16:12)
[2019-03-19] MEDS ORDERED: Sodium Chloride 0.9% 1,000 ML IV SCH (16:15)
[2019-03-20 07:36] LABS: BASO % 0.5 % (0.0-2.0); EOS # 0.1 K/uL (0.0-0.7); EOS % 1.8 % (0.0-4.0); LYMPH % 14.4 % (20.0-40.0); MEAN CELL VOLUME 82.8 fL (80.0-94.0); MEAN CORPUSCULAR HGB CONC 32.6 g/dL (33.0-37.0); MEAN PLATELET VOLUME 8.2 fL (7.2-11.7); MONO # 0.8 K/uL (0.0-0.8); MONO % 11.6 % (0.0-10.0); NEUT % 71.7 % (50.0-75.0); RBC 4.61 Mil/uL (4.40-5.90); RED CELL DISTRIBUTION WIDTH 18.6 % (11.5-14.5); WHITE BLOOD COUNT 6.9 K/uL (4.8-10.8)
[2019-03-20 07:42] LABS: HEMOGLOBIN 12.4 g/dL (12.0-18.0)
[2019-03-20 07:55] LABS: ALB/GLOB RATIO 0.9 (1.0-2.1); ALBUMIN 3.9 g/dL (3.5-5.0); ALT/SGPT 16 U/L (21-72); AST/SGOT 36 U/L (17-59); BLOOD UREA NITROGEN 16 mg/dL (9-20); CALCIUM 9.4 mg/dl (8.6-10.4); GFR NON-AFRICAN AMERICAN > 60
[2019-03-20] MEDS: Pantoprazole 40 mg EC Tab PO SCH (09:29)
[2019-03-20] MEDS: Megestrol Acetate 40 mg/ml Cup PO SCH (09:29)
[2019-03-20] MEDS: Multiple Vitamins Tab PO SCH (09:30)
[2019-03-20] MEDS: cefTRIAXone IV 1 gm in Dextros 50 ML IVPB SCH (09:35)
[2019-03-20] MEDS ORDERED: Potassium Chloride 20 mEq ER Tab PO ONE ×2 (10:15→13:30)
--- NOTE | 2019-03-20 14:56 | CP.PCM.CON ---
History of Present Illness - History of Present Illness History of Present Illness: Vascular Surgery Consult Note for Dr. Brambila Consult: s/p Fem-Fem bypass 68 year old male with a past medical history significant for HTN, PVD, COPD, [place] [place] s/p Fem-Fem bypass and EVAR in December who was l ost to follow up in the outpatient setting after his surgery. Patient came to [facility] 03/19 and admitted for UTI and weakness. His surgical sites had meghana and stitches that were to be removed at follow up. Meghana removed, few stitches left in place to be removed soon. He currently denies abdominal pain and states he is very hungry. Denies f/c, n/v/d, SOB, CP, headaches, dizziness, weakness. PMH: see above PSH: L THR, IVC Filter, Fem-Fem bypass, EVAR FH: noncontributory SH: (+)tobacco, marijuana; denies EtOH use ALL: heparin - rash Meds: See MAR Review of Systems - Constitutional Constitutional: Weight Loss. absent: Chills, Fever, Weakness - EENT Eyes: absent: Blurred Vision, Change in Vision Nose/Mouth/Throat: absent: Nasal Congestion, Nasal Discharge - Cardiovascular Cardiovascular: absent: Chest Pain, Dyspnea - Respiratory Respiratory: absent: Cough, Dyspnea, Hemoptysis - Gastrointestinal Gastrointestinal: absent: Abdominal Pain, Nausea, Vomiting - Genitourinary Genitourinary: Pyuria. absent: Difficulty Urinating, Dysuria - Musculoskeletal Musculoskeletal: absent: Back Pain, Neck Pain - Integumentary Integumentary: absent: Bleeding Lesions, Changing Lesions - Neurological Neurological: absent: Confusion, Numbness - Psychiatric Psychiatric: absent: Anxiety, Depression Past Patient History - Past Medical History & Family History Past Medical History?: Yes - Past Social History [facility] - CARDIAC Hx Cardiac Disorders: Yes Hx Atrial Fibrillation: No Hx Cardia Arrhythmia: No Hx Congestive Heart Failure: No Hx Hypercholesterolemia: No Hx Hypertension: Yes Hx Mitral Valve Prolapse: No Hx Pacemaker: No Hx Peripheral Edema: No - PULMONARY Hx Respiratory Disorders: Yes Hx Asthma: No Hx Bronchitis: No Hx Chronic Obstructive Pulmonary Disease (COPD): Yes (Not on any meds) Hx Emphysema: No Hx Pneumonia: No Hx Pulmonary Embolism: Yes Hx Sleep Apnea: No - NEUROLOGICAL Hx Neurological Disorder: No Hx Alzheimer's Disease: No Hx Dementia: No Hx Migraine: No Hx Multiple Sclerosis: No Hx Parkinson's Disease: No Hx Seizures: No Hx Transient Ischemic Attacks (TIA): No - HEENT Hx HEENT Problems: Yes (right eye with patch, gave very limited hx.) Other/Comment: cornea transplant - RENAL Hx Chronic Kidney Disease: No Hx Kidney Stones: No - ENDOCRINE/METABOLIC Hx Endocrine Disorders: No Hx Hyperthyroidism: No Hx Hypothyroidism: No - HEMATOLOGICAL/ONCOLOGICAL Hx Blood Disorders: No Hx Anemia: No Hx Human Immunodeficiency Virus (HIV): No Hx Sickle Cell Disease: No - INTEGUMENTARY Hx Dermatological Problems: No - MUSCULOSKELETAL/RHEUMATOLOGICAL Hx Musculoskeletal Disorders: No Hx Falls: No - GASTROINTESTINAL Hx Gastrointestinal Disorders: No Hx Crohn's Disease: No Hx Diverticulitis: No Hx Gall Bladder Disease: No Hx Gastritis: No Hx Pancreatitis: No - GENITOURINARY/GYNECOLOGICAL Hx Genitourinary Disorders: No Hx Sexually Transmitted Disorders: No - PSYCHIATRIC Hx Psychophysiologic Disorder: Yes Hx Substance Use: Yes (canabus) - SURGICAL HISTORY Hx Surgeries: No Hx Appendectomy: No Hx Carotid Endarterectomy: No Hx Cholecystectomy: No Hx Coronary Artery Bypass Graft: No Hx Coronary Stent: No Hx Tonsillectomy: No - ANESTHESIA Hx Anesthesia: Yes Hx Anesthesia Reactions: No Hx Malignant Hyperthermia: No Meds Allergies/Adverse Reactions: Allergies Allergy/AdvReac Type Severity Reaction Status Date / Time heparin Allergy Intermediate URTICARIA Verified 02/10/19 09:04 - Medications Medications: Current Medications Albuterol/Ipratropium (Duoneb 3 Mg/0.5 Mg (3 Ml) Ud) 3 ml INH RQ6 PRN PRN Reason: Shortness of Breath Amlodipine Besylate (Norvasc) 10 mg PO DAILY [facility] Last Admin: 03/20/19 09:30 Dose: 10 mg Apixaban (Eliquis) 5 mg PO BID [facility] Last Admin: 03/20/19 09:28 Dose: 5 mg Folic Acid (Folic Acid) 1 mg PO DAILY [facility] Last Admin: 03/20/19 09:30 Dose: 1 mg Hydralazine HCl (Apresoline) 50 mg PO Q8H [facility] Last Admin: 03/20/19 08:35 Dose: 50 mg Ceftriaxone Sodium (Rocephin Iv 1 Gm Duplex) 50 mls @ 100 mls/hr IVPB DAILY [facility]; Protocol Last Admin: 03/20/19 09:35 Dose: 100 mls/hr Losartan Potassium (Cozaar) 50 mg PO DAILY [facility] Last Admin: 03/20/19 09:29 Dose: 50 mg Megestrol Acetate (Megace) 400 mg PO DAILY [facility] Last Admin: 03/20/19 09:29 Dose: 400 mg Multivitamins (Hexavitamin) 1 tab PO DAILY [facility] Last Admin: 03/20/19 09:30 Dose: 1 tab Nicotine (Nicoderm Cq) 1 patch TD DAILY [facility] Last Admin: 03/20/19 09:30 Dose: 1 patch Pantoprazole Sodium (Protonix Ec Tab) 40 mg PO DAILY [facility] Last Admin: 03/20/19 09:29 Dose: 40 mg Tamsulosin HCl (Flomax) 0.4 mg PO DAILY [facility] Last Admin: 03/20/19 09:30 Dose: 0.4 mg Thiamine HCl (Vitamin B1 Tab) 100 mg PO DAILY [facility] Last Admin: 03/20/19 09:30 Dose: 100 mg Physical Exam - Constitutional Appears: Non-toxic, No Acute Distress, Cachectic - Head Exam Head Exam: ATRAUMATIC, NORMAL INSPECTION, NORMOCEPHALIC - Eye Exam Eye Exam: EOMI Pupil Exam: PERRL - ENT Exam ENT Exam: Mucous Membranes Moist - Respiratory Exam Respiratory Exam: NORMAL BREATHING PATTERN. absent: Wheezes, Respiratory Distress - Cardiovascular Exam Cardiovascular Exam: REGULAR RHYTHM - GI/Abdominal Exam GI & Abdominal Exam: Normal Bowel Sounds, Soft. absent: Tenderness - Rectal Exam Rectal Exam: Deferred - Extremities Exam Extremities exam: Positive for: normal inspection, pedal pulses present. Negative for: pedal edema Additional comments: Fem-fem bypass pulse is palpable, distal extremities warm, no ulcerations noted - Neurological Exam Neurological exam: Alert, Oriented x3 - Psychiatric Exam Psychiatric exam: Normal Affect, Normal Mood - Skin Skin Exam: Dry, Intact, Normal Color, Warm Results - Vital Signs Recent Vital Signs: Last Vital Signs Temp 98.0 F 03/20/19 07:00 Pulse 88 03/20/19 07:00 Resp 20 03/20/19 07:00 BP 175/94 H 03/20/19 07:00 Pulse Ox 97 03/20/19 07:00 - Labs Result Diagrams: 03/20/19 06:36 03/20/19 06:36 Labs: Laboratory Results - last 24 hr 03/20/19 03/20/19 06:36 06:36 WBC 6.9 RBC 4.61 Hgb 12.4 D Hct 38.1 MCV 82.8 MCH 27.0 MCHC 32.6 L RDW 18.6 H Plt Count 268 MPV 8.2 Neut % (Auto) 71.7 Lymph % (Auto) 14.4 L [place] % (Auto) 11.6 H Eos % (Auto) 1.8 Baso % (Auto) 0.5 Neut # (Auto) 5.0 Lymph # (Auto) 1.0 [place] # (Auto) 0.8 Eos # (Auto) 0.1 Baso # (Auto) 0.0 Sodium 131 L Potassium 3.5 L Chloride 96 L Carbon Dioxide 25 Anion Gap 14 BUN 16 Creatinine 1.1 Est GFR ( Amer) > 60 Est GFR (Non-Af Amer) > 60 Random Glucose 110 Calcium 9.4 Total Bilirubin 1.3 AST 36 ALT 16 L D Alkaline Phosphatase 147 H Total Protein 8.3 Albumin 3.9 Globulin 4.3 H Albumin/Globulin Ratio 0.9 L Assessment & Plan - Assessment and Plan (Free Text) Assessment: 68M s/p Fem-Fem bypass and EVAR (12/2018) Plan: Patient lost to follow up - never returned for follow up visit, contacted mult iple times but unable to be reached Patient refused physical therapy after surgery Meghana were removed from surgical site, Nylon sutures in place will also be removed Monitor distal extremities Regular diet D/w Dr. Kosta Cancino PGY1
[2019-03-21 01:06] VITALS: RESP 20
[2019-03-21 06:48] LABS: BROAD CAST 5 /lpf (0-1); SQUAMOUS EPITHIAL 1 /hpf (0-5); URINE BACTERIA RARE (<OCC); URINE BILIRUBIN NEGATIVE (NEGATIVE); URINE BLOOD 3+ (NEGATIVE); URINE CLARITY Hazy (Clear); URINE COLOR Amber (YELLOW); URINE GLUCOSE (UA) NORMAL (Normal); URINE LEUKOCYTE ESTERASE 2+ Leu/uL (Negative); URINE PROTEIN 2+ mg/dL (NEGATIVE)
--- NOTE | 2019-03-21 09:04 | HP ---
HISTORY OF PRESENT ILLNESS: A 68-year-old male was admitted to hospital with chief complaint of weakness, fatigue, tiredness, failure to thrive, poor appetite, weight loss. The patient came to the ER, advised admission. The patient has a history of DVT in the past, history of peripheral vascular disease, history of recent leg surgery. PHYSICAL EXAMINATION: GENERAL: The patient is awake, alert, oriented and under built. VITAL SIGNS: Temperature 98, pulse 90. HEENT: Within normal limits. NECK: Supple. CHEST: Symmetrical. HEART: Regular. ABDOMEN: Soft. EXTREMITIES: Skin changes from previous surgery in the leg. Chronic skin ulcer changes. IMPRESSION AND PLAN: History of failure to thrive. The patient is to get bed rest, supportive care and IV fluids. Abrahan Bradford MD
[2019-03-21] MEDS: Pantoprazole 40 mg EC Tab PO SCH (10:36)
[2019-03-21] MEDS: Megestrol Acetate 40 mg/ml Cup PO SCH (10:36)
[2019-03-21] MEDS: Multiple Vitamins Tab PO SCH (10:36)
[2019-03-21] MEDS: cefTRIAXone IV 1 gm in Dextros 50 ML IVPB SCH (10:37)
[2019-03-21] MEDS ORDERED: Potassium Chloride 20 mEq ER Tab PO ONE (12:48)
[2019-03-22 07:50] VITALS: BP 143/80; PULSE 76; TEMP 98.4; O2SAT 99
--- NOTE | 2019-03-22 07:52 | CP.PCM.PN ---
Subjective - Date & Time of Evaluation Date of Evaluation: 03/22/19 Time of Evaluation: 08:00 - Subjective Subjective: Medicine Progress Note for Dr. Bradford Patient was seen and examined at bedside in the AM. Patient denies chest pain, shortness of breath, nausea, vomiting, diarrhea, constipation, fever or chills. Objective - Vital Signs/Intake and Output Vital Signs (last 24 hours): Temp Pulse Resp BP Pulse Ox 98.4 F 76 20 143/80 99 03/22/19 07:00 03/22/19 07:00 03/22/19 07:00 03/22/19 07:00 03/22/19 07:00 - Medications Medications: Current Medications Albuterol/Ipratropium (Duoneb 3 Mg/0.5 Mg (3 Ml) Ud) 3 ml INH RQ6 PRN PRN Reason: Shortness of Breath Amlodipine Besylate (Norvasc) 10 mg PO DAILY [facility] Last Admin: 03/21/19 10:36 Dose: 10 mg Apixaban (Eliquis) 5 mg PO BID [facility] Last Admin: 03/21/19 17:47 Dose: 5 mg Folic Acid (Folic Acid) 1 mg PO DAILY [facility] Last Admin: 03/21/19 10:36 Dose: 1 mg Hydralazine HCl (Apresoline) 50 mg PO Q8H [facility] Last Admin: 03/22/19 00:32 Dose: 50 mg Ceftriaxone Sodium (Rocephin Iv 1 Gm Duplex) 50 mls @ 100 mls/hr IVPB DAILY [facility]; Protocol Last Admin: 03/21/19 10:37 Dose: 100 mls/hr Losartan Potassium (Cozaar) 50 mg PO DAILY [facility] Last Admin: 03/21/19 10:36 Dose: 50 mg Megestrol Acetate (Megace) 400 mg PO DAILY [facility] Last Admin: 03/21/19 10:36 Dose: 400 mg Multivitamins (Hexavitamin) 1 tab PO DAILY [facility] Last Admin: 03/21/19 10:36 Dose: 1 tab Nicotine (Nicoderm Cq) 1 patch TD DAILY [facility] Last Admin: 03/21/19 10:36 Dose: 1 patch Pantoprazole Sodium (Protonix Ec Tab) 40 mg PO DAILY [facility] Last Admin: 03/21/19 10:36 Dose: 40 mg Tamsulosin HCl (Flomax) 0.4 mg PO DAILY [facility] Last Admin: 03/21/19 10:36 Dose: 0.4 mg Thiamine HCl (Vitamin B1 Tab) 100 mg PO DAILY [facility] Last Admin: 03/21/19 10:36 Dose: 100 mg - Labs Labs: 03/20/19 06:36 03/20/19 06:36 - Constitutional Appears: No Acute Distress - Head Exam Head Exam: ATRAUMATIC, NORMAL INSPECTION - Eye Exam Eye Exam: EOMI, Normal appearance - ENT Exam ENT Exam: Mucous Membranes Moist - Respiratory Exam Respiratory Exam: Clear to Ausculation Bilateral, NORMAL BREATHING PATTERN - Cardiovascular Exam Cardiovascular Exam: REGULAR RHYTHM, +S1, +S2 - GI/Abdominal Exam GI & Abdominal Exam: Soft, Normal Bowel Sounds. absent: Tenderness - Extremities Exam Extremities Exam: Normal Inspection - Neurological Exam Neurological Exam: Alert, Awake, Oriented x3 - Psychiatric Exam Psychiatric exam: Normal Affect Assessment and Plan - Assessment and Plan (Free Text) Assessment: HTN Urgency- resolved BP: 196/110 in E.d. Given Norvasc 10mg PO and Amlodipine 50mg PO in the E.D. No neurological deficits on exam. AAA and right iliac occlusion s/p EVAR with fem-fem bypass, balloon angioplasty of Left common iliac artery Completed by Dr. Brambila preop/intraop/postoperative per vascular surgery heme-onc consult Brooks removed in Emergency department History of HTN Continue home medications: * Amlodipine 10mg daily * Cozaar 50mg Po daily * Hydralazine 50mg PO q8H History of COPD Duoneb 3ml Q6hr PRn shortness of breathe Patient is an active smoker advised to stop smoking History of Hyponatremia Na 130 Patient to follow up with nephrology, Dr. Lucero as outpatient Recurrent venous clotting IVC filter in place (2003) Right Corneal ulcer Initially evaluated by ophthomology in Dec 2018, Patient did not followup with [place] after his initial evaluation at [place]. Has yet to follow up due to other pressing medical conditions. Alcohol abuse No signs of tremors appreciated Multivitamin 1 tab PO daily Folic acid 1 mg PO daily Thiamine 100mg PO daily Cessation strongly advised Tobacco abuse Nicotine patch daily while remains in hospital Cessation strongly advised patient is smoker about 50 years He is aware of the risk of smoking including poor wound healing, aging, worsening of lung disease, and increase cancer risk Marijuana use -UDS positive for cannaboids -Encouraged cessation. Loss of appeptite Start Megace UTI Start Rocephin 1gm IVP DAILY Prophylactic measures Eliquis Protonix for GI PPX PT/OT reconsulted Patient is to follow up with lactation consultant, Dr. Lucero in 1 week. Patient is to follow up with PMD upon discharge. Case discussed with attending. All medical management as per Dr. Bradford.
[2019-03-22] MEDS: Megestrol Acetate 40 mg/ml Cup PO SCH (09:46)
[2019-03-22] MEDS: Multiple Vitamins Tab PO SCH (09:47)
[2019-03-22] MEDS: Pantoprazole 40 mg EC Tab PO SCH (09:47)
[2019-03-22] MEDS: cefTRIAXone IV 1 gm in Dextros 50 ML IVPB SCH (10:09)
[2019-03-22 11:56] LABS: BASO % 0.7 % (0.0-2.0); EOS # 0.2 K/uL (0.0-0.7); EOS % 2.9 % (0.0-4.0); HEMOGLOBIN 11.5 g/dL (12.0-18.0); LYMPH # 1.6 K/uL (1.0-4.3); LYMPH % 27.7 % (20.0-40.0); MEAN CELL VOLUME 80.9 fL (80.0-94.0); MEAN CORPUSCULAR HGB CONC 33.3 g/dL (33.0-37.0); MONO # 0.6 K/uL (0.0-0.8); MONO % 10.5 % (0.0-10.0); NEUT # 3.3 K/uL (1.8-7.0); NEUT % 58.2 % (50.0-75.0); RBC 4.28 Mil/uL (4.40-5.90); RED CELL DISTRIBUTION WIDTH 18.5 % (11.5-14.5); WHITE BLOOD COUNT 5.6 K/uL (4.8-10.8)
[2019-03-22 12:26] LABS: ALBUMIN 3.5 g/dL (3.5-5.0); ALT/SGPT 11 U/L (21-72); AST/SGOT 19 U/L (17-59); BLOOD UREA NITROGEN 23 mg/dL (9-20); CALCIUM 8.9 mg/dl (8.6-10.4); GFR NON-AFRICAN AMERICAN 55
[2019-03-22] MEDS ORDERED: Potassium Chloride 20 mEq ER Tab PO ONE (12:37)
--- NOTE | 2019-03-23 21:20 | CARD ---
APPROVED REPORT Date of service: 03/19/2019 EKG Measurement Heart [id number] <Conclusion> Normal sinus rhythm Biatrial enlargement Left ventricular hypertrophy Abnormal ECG
--- NOTE | 2019-03-25 05:57 | DS ---
HOSPITAL COURSE: The patient was admitted to hospital with chief complaint of failure to thrive, weakness, dehydration. The patient was started on IV fluids, supportive care. Seen by Surgery to remove meghana from previous surgery. The patient improved, received physical therapy, deemed fit for discharge. DIAGNOSES: Dehydration, failure to thrive, status post aortic aneurysm surgery in the past. Abrahan Bradford MD
== END 2019-03-22 13:21 | disposition home or self-care (01) | DRG 690 ==
LOC: C.ER 09:30 → C.9E 12:53 → C.3T 15:00 → OBSVTOIN 16:06 → C.9E 17:46 → C.6T 18:09
PROVIDERS: ADMIT Internal Medicine Pulmonary Disease; ATTEND Internal Medicine Pulmonary Disease
DX: N39.0 Urinary tract infection, site not specified (principal); Z68.1 Body mass index [BMI] 19.9 or less, adult; R62.7 Adult failure to thrive; E86.0 Dehydration; J44.9 Chronic obstructive pulmonary disease, unspecified; I73.9 Peripheral vascular disease, unspecified; I16.0 Hypertensive urgency; F17.200 Nicotine dependence, unspecified, uncomplicated; F12.90 Cannabis use, unspecified, uncomplicated; I10 Essential (primary) hypertension; Z79.01 Long term (current) use of anticoagulants; Z86.711 Personal history of pulmonary embolism; Z95.828 Presence of other vascular implants and grafts